=== PATIENT | female | born 1955 | race Caucasian/White ===

== ENCOUNTER 2020-10-23 09:28 | Emergency (ER) | payer MEDICARE, SELFPAY ==
[2020-10-23 09:40] VITALS: BP 130/58; PULSE 73; RESP 14; TEMP 37.1; O2SAT 93; BMI 46.3
--- NOTE | 2020-10-23 09:45 | ED_ITS ---
HPI - SOB/Dyspnea General Chief Complaint: Dyspnea Stated Complaint: FEVER,VOMITING 'S 2 DAYS, ? COVID Time Seen by Provider: 10/23/20 09:35 Source: patient Limitations: no limitations History of Present Illness HPI Narrative: 3 days of fever, cough, SOB, and chest pain going to left arm. Patient denies exposure to COVID MD elicited complaint: shortness of breath, pain with inspiration and chest pain Pertinent past history: COPD and asthma Onset (ago): day(s) Context: recent illness Timing: intermittent Severity: moderate Exacerbating factors: movement Known history of: COPD and asthma Associated symptoms: fever and cough Related Data Allergies Allergy/AdvReac Type Severity Reaction Status Date / Time No Known Allergies Allergy Unknown UNKNOWN Verified 10/23/20 09:45 [NO KNOWN ALLERGIES] Review of Systems Constitutional: Constitutional: Reports no additional constitutional complaints Eyes: Eyes: Reports no additional eye complaints ENT: Denies dizziness Cardiovascular: Cardiovascular: Reports no additional cardiovascular complaints Respiratory: Respiratory: Reports as per HPI Gastrointestinal: Gastrointestinal: Reports no additional gastrointestinal complaints Genitourinary: Genitourinary: Reports no additional female genitourinary complaints Musculoskeletal: Musculoskeletal: Reports no additional musculoskeletal complaints Integumentary/Breasts: Skin/Breast: Denies rash Neurologic: Reports system reviewed and no additional complaints, except as documented, Denies dizziness and Denies Sensory deficit (Neuro) Psychiatric: Psychiatric: Denies anxiety [facility] Past Medical History Medical History (Updated 10/23/20 @ 12:22 by Nilton Lui MD) Asthma Diabetes type 2, controlled Hypertension Sleep apnea Social History Social History Advance Directives: No Advance Directives Information Provided: No Physical Exam Vital Signs: Vital Signs: Last Vital Signs Temp 98.8 F 10/23/20 09:40 Pulse 73 10/23/20 09:40 Resp 14 10/23/20 09:40 BP 130/58 L 10/23/20 09:40 Pulse Ox 93 10/23/20 09:40 Body Mass Index 46.3 Const: Other: female looking older than stated age slightly short of breath Nutritional Appearance: obese Orientation/consciousness: oriented to person and patient oriented x3 Limitations: no limitations HENMT: Head: Yes normal to inspection Ears: external ears normal General nose exam: Normal external nose present Mouth: Normal oral and palatal mucosa present and oropharynx normal Throat: Yes posterior oropharynx normal Eyes: General: appearance normal, both eyes and all related structures Neck: Other: supple Neck: Yes normal visual inspection Chest: Chest palpation & inspection: normal inspection of the chest Resp: Auscultation: clear to auscultation bilaterally Cardio: Jugular venous distension: no JVD Rate: regular rate Rhythm: regular rhythm Heart sounds: S1 normal heart sound present and S2 normal heart sound present GI: Inspection: Yes normal to inspection Palpation (GI): Soft to palpation, nontender and No hepatosplenomegaly present Auscultation: normal bowel sounds : General: Yes no CVA tenderness Back/Spine/Pelvis: Back: no CVA tenderness Skin: General skin exam: no rashes or lesions noted Neuro: General: oriented to person and patient oriented x3 Cranial nerves: Yes CN's II-XII intact bilaterally Motor exam (neuro): 5/5 motor strength present throughout Sensory Exam: No Sensory deficit (Neuro) Extrem: General: Yes normal to inspection Psych: Appearance: grossly normal Course Course Course Narrative: patient resting comfortably, room air O2 has been hovering around 92-93% MDM - SOB/Dyspnea MDM Narrative Medical decision making narrative: Patient with viral/COVID type symptoms. Initial xray negative and negative for flu, SARS etc. Will dc home but patient will remain on quarantine Differential Diagnosis Differential diagnosis: Likely acute exacerbation of chronic obstructive airways disease Lab Data Result diagrams: 10/23/20 10:45 10/23/20 10:45 Labs: Lab Results 10/23/20 10/23/20 10/23/20 Range/Units 10:45 10:45 10:45 WBC 6.7 (4.8-10.8) X10*3/uL RBC 4.76 (4.20-5.50) X10*6/uL Hgb 12.2 (12.0-16.0) g/dl Hct 39.3 (37-47) % MCV 82.6 (80-98) fL MCH 25.6 L (27.0-33.0) pg MCHC 31.0 (31.0-35.0) g/dl RDW 15.8 (11.0-16.0) % Plt Count 277 (160-400) X10*3/uL MPV 10.3 (9.4-12.3) fL Immature Gran % (Auto) 0.3 (0.0-0.4) % Neut % (Auto) 53.9 (45-73) % Lymph % (Auto) 37.0 (20-40) % Garfield % (Auto) 6.0 (2-11) % Eos % (Auto) 2.2 (0-4) % Baso % (Auto) 0.6 (0-2) % Lymph # (Auto) 2.5 (1.2-4.9) X10*3/uL Garfield # (Auto) 0.4 (0.1-1.2) X10*3/uL Eos # (Auto) 0.2 (0.0-0.4) X10*3/uL Baso # (Auto) 0.0 (0.0-0.2) X10*3/uL Abs Immat Gran (auto) 0.02 (0.00-0.03) X10*3/uL Absolute Neuts (auto) 3.6 (2.0-8.3) X10*3/uL Absolute Nucleated RBC 0.000 (0.0-0.012) X10*3/uL Nucleated RBC % (auto) 0.0 (0.0-0.2) /100WBC Sodium 140 (135-145) mmol/L Potassium 4.9 (3.3-5.1) mmol/l Chloride 105 (96-108) mmol/L Carbon Dioxide 28 (22-29) mmol/L Anion Gap 12 (12-20) BUN 11 (9-16) mg/dL Creatinine 0.73 (0.5-1.4) mg/dL Estim Creat Clear Calc 97.8 Estimated GFR > 60 Random Glucose 134 H (60-115) mg/dL Calcium 9.0 (8.4-10.2) mg/dL Troponin I High Sens (<3.5-17.0) ng/L Coronavirus (PCR) NEGATIVE (Negative) Influenza Type A (PCR) NEGATIVE (Negative) Influenza Type B (PCR) NEGATIVE (Negative) RSV RNA Qual (PCR) NEGATIVE (Negative) 10/23/20 Range/Units 10:45 WBC (4.8-10.8) X10*3/uL RBC (4.20-5.50) X10*6/uL Hgb (12.0-16.0) g/dl Hct (37-47) % MCV (80-98) fL MCH (27.0-33.0) pg MCHC (31.0-35.0) g/dl RDW (11.0-16.0) % Plt Count (160-400) X10*3/uL MPV (9.4-12.3) fL Immature Gran % (Auto) (0.0-0.4) % Neut % (Auto) (45-73) % Lymph % (Auto) (20-40) % Garfield % (Auto) (2-11) % Eos % (Auto) (0-4) % Baso % (Auto) (0-2) % Lymph # (Auto) (1.2-4.9) X10*3/uL Garfield # (Auto) (0.1-1.2) X10*3/uL Eos # (Auto) (0.0-0.4) X10*3/uL Baso # (Auto) (0.0-0.2) X10*3/uL Abs Immat Gran (auto) (0.00-0.03) X10*3/uL Absolute Neuts (auto) (2.0-8.3) X10*3/uL Absolute Nucleated RBC (0.0-0.012) X10*3/uL Nucleated RBC % (auto) (0.0-0.2) /100WBC Sodium (135-145) mmol/L Potassium (3.3-5.1) mmol/l Chloride (96-108) mmol/L Carbon Dioxide (22-29) mmol/L Anion Gap (12-20) BUN (9-16) mg/dL Creatinine (0.5-1.4) mg/dL Estim Creat Clear Calc Estimated GFR Random Glucose (60-115) mg/dL Calcium (8.4-10.2) mg/dL Troponin I High Sens 6.5 (<3.5-17.0) ng/L Coronavirus (PCR) (Negative) Influenza Type A (PCR) (Negative) Influenza Type B (PCR) (Negative) RSV RNA Qual (PCR) (Negative) ECG Data Attestation: I personally reviewed and interpreted this ECG as follows: Interpretation: sinus rate of 60, no st or twave changes Discharge Plan Discharge Clinical Impression: Acute exacerbation of chronic obstructive airways disease, Upper respiratory infection, viral, COVID-19 Patient Disposition: Home, Self-Care Instructions: COVID-19 (Coronavirus Disease 2019) (ED), Upper Respiratory Infection (ED), Viral Syndrome (ED) Additional Instructions: Please stay in quarantine for the next 10 days Referrals: Physician,Unknown [Primary Care Provider] - 2 days
--- NOTE | 2020-10-23 09:48 | ECG_ITS ---
Test Reason : CHEST TIGHT Blood Pressure : / mmHG Vent. Rate : 061 BPM Atrial Rate : 061 BPM P-R Int : 140 ms QRS Dur : 086 ms QT Int : 396 ms P-R-T Axes : 048 -25 030 degrees QTc Int : 398 ms Normal sinus rhythm Moderate voltage criteria for LVH, may be normal variant Borderline ECG When compared with ECG of 22-AUG-2020 16:02, No significant change was found Referred By: Nilton Lui Electronically Signed By:MAYDA GIFFORD MD
--- NOTE | 2020-10-23 09:49 | XR_ITS ---
EXAMINATION: XR CHEST CLINICAL INFORMATION: Shortness of breath. COMPARISON: Chest 08/22/2020 TECHNIQUE: Frontal view of the chest was obtained. FINDINGS: The lungs are well-expanded and clear acute process. The heart size and pulmonary vascularity is normal. There is mild dextroscoliosis with spondylosis dorsal spine. No lytic process seen. XR/XR chest 1V IMPRESSION: Unremarkable chest exam. Mild dextroscoliosis and mild spondylosis dorsal spine.
--- NOTE | 2020-10-23 10:51 | PC.NURSE ---
ARRIVES FROM HOME, C/O SOB AND CHEST TIGHTNESS, INTERMITTENT L ARM PAIN. HX ASTHMA, SLEEP APNEA. NO KNOWN COVID EXPOSURE. NSR ON MONITOR, 89-93% ON RA. PLACED ON 1L O2.. LS CLEAR THROUGHOUT, RESP EVEN, SLIGHTLY LABOURED. NO LE SWELLING. LABS DRAWN, 20G IN L FOREARM.
[2020-10-23 10:54] LABS: MANUAL DIFF FLAG NO
[2020-10-23 11:01] LABS: Basophils Percent Auto 0.6 % (0-2); Eosinophils Absolute Auto 0.2 X10*3/uL (0.0-0.4); Eosinophils Percent Auto 2.2 % (0-4); Hematocrit 39.3 % (37-47); Hemoglobin 12.2 g/dl (12.0-16.0); Imm Gran Abs Auto 0.02 X10*3/uL (0.00-0.03); Imm Gran Pct Auto 0.3 % (0.0-0.4); Lymphocytes Absolute Auto 2.5 X10*3/uL (1.2-4.9); Mean Corpuscular Hemoglobin 25.6 pg (27.0-33.0); Mean Corpuscular Volume 82.6 fL (80-98); Mean Platelet Volume 10.3 fL (9.4-12.3); Monocytes Absolute Auto 0.4 X10*3/uL (0.1-1.2); Neutrophils Absolute Auto 3.6 X10*3/uL (2.0-8.3); Neutrophils Percent Auto 53.9 % (45-73); Platelet Count 277 X10*3/uL (160-400); Red Blood Count 4.76 X10*6/uL (4.20-5.50); Red Cell Distribution Width 15.8 % (11.0-16.0); White Blood Count 6.7 X10*3/uL (4.8-10.8)
[2020-10-23 11:22] LABS: Anion Gap 12 (12-20); Blood Urea Nitrogen 11 mg/dL (9-16); Carbon Dioxide 28 mmol/L (22-29); Chloride 105 mmol/L (96-108); Creatinine Clr Calc Pharmacy 97.8; Estimated Glomerular Filt Rate > 60; Glucose Random 134 mg/dL (60-115); Potassium 4.9 mmol/l (3.3-5.1); Sodium 140 mmol/L (135-145)
[2020-10-23 11:26] LABS: Troponin-I High Sensitivity 6.5 ng/L (<3.5-17.0)
[2020-10-23 11:48] LABS: Influenza A PCR NEGATIVE (Negative); Influenza B PCR NEGATIVE (Negative); Resp Syncy Virus RNA Qual PCR NEGATIVE (Negative); SARS COV2 PCR INHOUSE NEGATIVE (Negative)
--- NOTE | 2020-10-23 12:30 | PC.NURSE ---
trialed spo2 while ambulating with pt, spo2 on RA reached up to 95%. Pt reported feeling better, pains resolved. Reassured of her bloodwork and tests.
== END 2020-10-23 13:00 | disposition home or self-care (01) ==
PROVIDERS: Emergency Provider Emergency Medicine
DX: J44.1 Chronic obstructive pulmonary disease with (acute) exacerbation (principal); J06.9 Acute upper respiratory infection, unspecified; R50.9 Fever, unspecified; R07.9 Chest pain, unspecified; M79.602 Pain in left arm; I10 Essential (primary) hypertension; E11.9 Type 2 diabetes mellitus without complications; Z20.828 Contact with and (suspected) exposure to other viral communicable diseases; Z79.899 Other long term (current) drug therapy
CPT/HCPCS: 0241U; 36415; 71045; 80048; 84484; 85025; 93005; 99283

== ENCOUNTER 2021-03-22 11:25 | Emergency (ER) | payer MEDICARE, SELFPAY ==
--- NOTE | ~2021-03-22 | XR_ITS ---
EXAMINATION: XR CHEST CLINICAL INFORMATION: Cough COMPARISON: Chest radiographs 10/23/2020, 08/22/2020; CT abdomen and pelvis 08/22/2020 TECHNIQUE: Portable upright AP view of the chest was obtained. FINDINGS: There is subtle opacity at left medial base likely related to the hiatal hernia noted on CT. Some horizontal density left infrahilar region corresponds to calcified costal cartilage on CT. The lungs are otherwise grossly clear and there is no lobar or segmental airspace consolidation or definite groundglass opacity. No air bronchograms. The costophrenic sulci are well-defined. The cardiac and hilar and mediastinal contours and bony structures are unremarkable. XR/XR chest 1V IMPRESSION: 1. Lungs grossly clear. 2. Density overlying heart related to costal cartilage calcification and hiatal hernia.
--- NOTE | 2021-03-22 11:40 | ED.URI ---
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 Mode of arrival: EMS Limitations: no limitations History of Present Illness HPI Narrative: 65 yo female with DM, asthma has inhaler at home last night noted increased wheezing, chills, cough with sputum production had her 2 COVID vaccines reports this feels like her prior bronchitis MD elicited complaint: cough Pertinent past history: asthma Onset (ago): day(s) (last night) Consistency: constant Severity: mild Able to tolerate fluids by mouth: Yes Exacerbating factors: other (coughing) Context: other(s) with similar symptoms Associated symptoms: chills, myalgias, cough and chest pain (only when she coughs) Treatments prior to arrival: other (used her inhaler with good relief) Related Data Previous Rx's Medication Instructions Recorded benzonatate [Tessalon Perles] 100 mg PO TID PRN #20 cap 03/22/21 doxycycline hyclate 100 mg PO BID 7 Days #14 cap 03/22/21 prednisone 40 mg PO DAILY 5 Days #10 tab 03/22/21 Allergies Allergy/AdvReac Type Severity Reaction Status Date / Time No Known Allergies Allergy Unknown UNKNOWN Verified 10/23/20 09:45 [NO KNOWN ALLERGIES] Review of Systems Review of Systems: Constitutional : No Fever, pos Chills ENT/Mouth : No Hoarseness, No sore throat, No Rhinorrhea Eyes: No Redness, No Discharge, No Vision Changes Cardiovascular : pos Chest Pain, positive SOB, positive Dyspnea on Exertion, No Edema Respiratory : positive Cough, pos Sputum, positive Wheezing, Gastrointestinal : No Nausea, No Vomiting, No Diarrhea, No abdominal Pain Genitourinary : No Dysuria, No Hematuria Musculoskeletal : No joint pain, No Myalgias Skin : No rash Neuro : No Weakness, No Numbness, No Headache Psych : No anxiety, depression Heme/Lymph: No Bruising, No Bleeding Endocrine : No Polyuria, No Polydipsia All other systems reviewed and are negative [facility] Past Medical History Attestation statement: The following information was validated with the patient. Medical History Asthma Diabetes type 2, controlled Hypertension Sleep apnea Social History Social History (Updated 03/22/21 @ 12:15 by Jada Palumbo DO) Smoking Status: Never smoker Use of substances other than those prescribed or required for medical reasons: No Advance Directives: Yes Advance Directives Information Provided: Yes Advance Directives on File: No Physical Exam Vital Signs: Vital Signs: Last Vital Signs Temp 96.8 F 03/22/21 12:37 Pulse 66 03/22/21 12:37 Resp 18 03/22/21 12:37 BP 127/51 L 03/22/21 12:37 Pulse Ox 94 03/22/21 12:37 Body Mass Index 34.3 Appearance: Alert. Oriented X3. No acute distress. Eyes: Pupils equal, round and reactive to light. ENT: Pharynx normal. Neck: Normal inspection. Neck supple. CVS: Normal heart rate and rhythm. Pulses normal. Respiratory: No respiratory distress. Breath sounds normal. Abdomen: Soft and nontender. Skin: Skin warm and dry. Normal skin color. Normal skin turgor. Extremities: No lower extremity edema. No calf ttp Neuro: Oriented X 3. No motor deficit. No sensory deficit. Course Course Course Narrative: no acute findings on CXR and negative COVID MDM - URI/Sore Throat MDM Narrative Medical decision making narrative: 65 yo female with hx of asthma and DM here with productive cough, body aches, chills feels like when she has bronchitis - at this time faint rhonchi no wheezing, no resp distress, chest pain is only present with cough doubt PE or ACS, start on anti tussive and prednisone - CXR and COVID swab ordered Lab Data Labs: Lab Results 03/22/21 Range/Units 12:03 Coronavirus (PCR) NEGATIVE (Negative) Influenza Type A (PCR) NEGATIVE (Negative) Influenza Type B (PCR) NEGATIVE (Negative) RSV RNA Qual (PCR) NEGATIVE (Negative) Discharge Plan Discharge Clinical Impression: Bronchitis Patient Disposition: Home, Self-Care Instructions: Acute Bronchitis (ED) Additional Instructions: REPEAT CHEST XRAY IN ONE WEEK Prescriptions: New doxycycline hyclate 100 mg capsule 100 mg PO BID 7 Days Qty: 14 RF: 0 prednisone 20 mg tablet 40 mg PO DAILY 5 Days Qty: 10 RF: 0 benzonatate [Tessalon Perles] 100 mg capsule 100 mg PO TID PRN (Reason: cough) Qty: 20 RF: 0 Print Language: Turkish
[2021-03-22 11:44] VITALS: BP 122/59; BP 135/60; PULSE 67; PULSE 71; RESP 17; TEMP 36.2; O2SAT 96; O2SAT 97; BMI 34.3
[2021-03-22 11:59] VITALS: O2SAT 96
[2021-03-22] MEDS: predniSONE 20 MG TABLET 40 MG PO (12:00)
[2021-03-22] MEDS: HYDROcodone/Homat 5/1.5/5 ML 5 ML SYRUP PO (12:01)
[2021-03-22 12:37] VITALS: BP 127/51; PULSE 66; RESP 18; TEMP 36; O2SAT 94
[2021-03-22 12:50] LABS: Influenza A PCR NEGATIVE (Negative); Influenza B PCR NEGATIVE (Negative); Resp Syncy Virus RNA Qual PCR NEGATIVE (Negative); SARS COV2 PCR INHOUSE NEGATIVE (Negative)
[2021-03-22 13:48] VITALS: BP 101/45; PULSE 61; RESP 18; TEMP 34.6; O2SAT 93
== END 2021-03-22 14:01 | disposition home or self-care (01) ==
PROVIDERS: Emergency Provider Emergency Medicine; PCP Internal Medicine
DX: J20.8 Acute bronchitis due to other specified organisms (principal); M79.10 Myalgia, unspecified site; R05 Cough; Z20.822 Contact with and (suspected) exposure to COVID-19; Z79.899 Other long term (current) drug therapy
CPT/HCPCS: 0241U; 36415; 71045; 99284

== ENCOUNTER → 2021-04-23 11:18 | Outpatient (BNVA) | payer OTHER, SELFPAY | PROVIDERS: PCP Internal Medicine; Visit Provider Internal Medicine Pulmonary Disease | DX: R06.00 Dyspnea, unspecified (principal); G47.30 Sleep apnea, unspecified | CPT/HCPCS: 99202 ==

== ENCOUNTER 2021-05-18 10:41 | Outpatient (REF) | payer OTHER, MEDICAID, SELFPAY ==
--- NOTE | 2021-05-18 16:37 | PFT_ITS ---
INDICATION: Dyspnea. COMMENTS: The patient was unable to perform multiple parts of the study despite multiple attempts and redirection. The patient did feel some chest discomfort during the maneuvers and did not want to continue the test. SPIROMETRY: No data collected. LUNG VOLUMES: FVC of 2.28 L, which is 78% predicted, an ERV of 14% predicted likely from an elevated BMI. Diffusion capacity could not be achieved. COMPARISONS: None. INTERPRETATION: Unable to interpret data due to the limited data available, although the patient appears to have a significantly decreased expiratory reserve volume secondary to an elevated BMI. Clinical correlation warranted. Angel Montague MD MR/MODL / [id number]
== END 2021-05-18 10:42 | disposition home or self-care (01) ==
LOC: HO.RESP 10:41
PROVIDERS: PCP Internal Medicine; Visit Provider Internal Medicine Pulmonary Disease
DX: Z13.89 Encounter for screening for other disorder (principal)

== ENCOUNTER → 2021-05-28 09:48 | Outpatient (REF) | payer OTHER, MEDICAID, SELFPAY | LOC: HO.SL 09:48 | PROVIDERS: PCP Internal Medicine; Visit Provider Internal Medicine Pulmonary Disease | DX: G47.30 Sleep apnea, unspecified (principal) | CPT/HCPCS: 95806 ==

== ENCOUNTER → 2021-06-18 13:11 | Outpatient (REF) | payer OTHER, MEDICAID, SELFPAY ==
--- NOTE | 2021-06-18 13:15 | CA_ITS ---
Transthoracic Echocardiogram Patient (Last, First, Middle): Treva Abbott M Gender: Female Date of : 1955 Age: 65 Procedure Date: 06/18/2021 Procedure Type: Transthoracic Echocardiogram Location: OP Height: 167.64 cm Weight: 99.79 kg BSA: 2.08 m2 Heart Rate: bpm BP: 160 / 56 mmHg Database Coordinator: [facility] MD: Nathanael Shields MD [employer] Portal Developer: Wilber Ladd MD Symptoms: R06.00 - Dyspnea, unspecified Study Quality: Fair ECG Rhythm: Sinus Conclusions: - 1. Hyperdynamic LV systolic function with impaired relaxation filling pattern 2. Normal cardiac valvular Doppler with mild mitral and calcification 3. Normal RV systolic pressure 4. No pericardial effusion Findings Left Ventricle Normal left ventricular cavity size. There is normal left ventricular wall thickness. The left ventricular systolic function is hyperdynamic. The visually estimated ejection fraction is >70%. Spectral Doppler is indicative of an impaired relaxation filling pattern. E/E prime ratio is between 8 and 15 consistent with indeterminate filling pressures. Right Ventricle Normal right ventricular cavity size and systolic function. Atria The left atrium is likely dilated. There is no evidence of interatrial shunt. The right atrium is normal in size. Aortic Valve The aortic valve structure and function is likely normal. There is no aortic valve stenosis. There is no aortic valve regurgitation. Mitral Valve There is mild anterior and moderate posterior mitral leaflet thickening. There is mild mitral annular calcification. There is trace mitral valve regurgitation. There is no mitral valve stenosis. Pulmonic Valve The pulmonic valve was not well visualized. Tricuspid Valve Likely normal tricuspid valve structure and function. There is trace tricuspid valve regurgitation. The right ventricular systolic pressure is normal. The right ventricular systolic pressure is 29 mmHg. Normal right atrial pressure. There is no evidence of pulmonary hypertension. Great Vessels All visible segments of the aorta are normal in size. The pulmonary artery was not well visualized. Venous The inferior vena cava is normal in size and collapses greater than 50% with inspiration. Pericardium/Pleural There is no evidence of pericardial effusion. Prior Study Comparison No previous study in the last 5 years for comparison Measurements 2D Linear Measurements RVIDd: 2.80 RVIDd Index: 1.35 IVSd: 1.19 0.6-0.9/0.6-1.0 cm LVIDd: 4.68 3.9-5.3/4.2-5.9 cm LVIDd Index: 2.25 2.4-3.2/2.2-3.1 cm/m2 LVIDs: 3.42 2.0-3.6 cm LVPWd: 1.01 0.7-1.1 cm Ao Root: 2.90 2.1-3.5 cm LA Diam: 3.90 2.7-3.8/3.0-4.0 cm LAIDs Index: 1.88 1.5-2.3 cm/m2 LV Mass: 232.08 67-162/88-224 g LV Mass Index: 111.58 43-95/49-115 g/m2 LVOT Diam: 2.00 3.0+(-)1.3 cm 2D Systolic Function EF 4C: 81.60 >55% EF 2C: 78.50 >55% EF BiP: 79.10 >55% Mitral Valve MV Pk E: 0.73 MV PK A: 0.97 MV Decel Time: 295.00 E/A: 0.80 E'Lateral: 8.27 E'Medial: 5.66 E/E' Med: 13.00 E/E' Lat: 8.90 Aortic Valve AoV Pk Trino: 2.11 AoV Mn Trino: 1.32 AoV VTI: 0.37 AoV Pk Grad: 18.00 Aov Mn Grad: 8.00 EDY Cont.VTI: 2.84 LVOT LVOT Pk Trino: 1.61 LVOT Mn Trino: 1.02 LVOT VTI: 0.34 LVOT Pk Grad: 10.00 LVOT Mn Grad: 5.00 LVOT Diam: 2.00 LVOT Area: 3.14 Diastolic Function MV Pk E: 0.73 MV Pk A: 0.97 E/A: 0.80 E'Medial: 5.66 E/E' Med: 13.00 E' Laterial: 8.27 E/E' Lat: 8.90 Tricuspid Valve TR Pk Trino: 2.55 TR Pk Grad: 26.00 RA Press: 3.00 RVSP: 29.00 Great Vessels Aorta Ao Root-2D: 2.90 2.0-3.7 cm Ao Asc: 3.00 2.1-3.4 cm Ao Arch: 3.20 Updated in Other Vendor System with Status of Final Wilber Ladd MD electronically signed on 06/20/2021 11:13:17 AM with status of Final
== END ==
LOC: HO.CARD 13:11
PROVIDERS: PCP Internal Medicine; Visit Provider Internal Medicine Pulmonary Disease
DX: R06.00 Dyspnea, unspecified (principal)
CPT/HCPCS: 93306

== ENCOUNTER → 2021-06-21 11:07 | Outpatient (BNVA) | payer OTHER, MEDICAID, SELFPAY | PROVIDERS: PCP Internal Medicine; Visit Provider Internal Medicine Pulmonary Disease | DX: R06.00 Dyspnea, unspecified (principal); G47.30 Sleep apnea, unspecified | CPT/HCPCS: 99212 ==

== ENCOUNTER 2021-07-02 16:26 | Outpatient (REF) | payer MEDICARE, SELFPAY ==
--- NOTE | ~2021-07-02 | XR_ITS ---
EXAMINATION: XR CHEST CLINICAL INFORMATION: Bronchitis. COMPARISON: None TECHNIQUE: 2 views of the chest were obtained. FINDINGS: The lungs are well-expanded and clear. The heart size and pulmonary vascularity is normal. There is mild spondylosis dorsal spine. No lytic process. XR/XR chest 2V IMPRESSION: Unremarkable chest exam.
== END 2021-07-02 16:27 | disposition home or self-care (01) ==
LOC: HO.XRAY 16:26
PROVIDERS: PCP Internal Medicine; Visit Provider Internal Medicine
DX: J40 Bronchitis, not specified as acute or chronic (principal)
CPT/HCPCS: 71046

== ENCOUNTER 2021-07-20 08:10 | Outpatient (REF) | payer MEDICARE, SELFPAY ==
--- NOTE | ~2021-07-20 | XR_ITS ---
EXAMINATION: AP WEIGHTBEARING BOTH KNEES AND LATERAL AND SUNRISE VIEWS OF BOTH KNEES CLINICAL INFORMATION: Pain greater on the left COMPARISON: None TECHNIQUE: As above FINDINGS: Right greater than left medial tibial femoral joint compartment narrowing. Generalized bulky marginal osteophytes. No effusion on either side but there is relatively symmetrical patellofemoral joint degeneration greater on the left than right. Bulky spurring noted. 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 Overall very advanced disease noted.
--- NOTE | ~2021-07-20 | XR_ITS ---
EXAMINATION: AP WEIGHTBEARING BOTH KNEES AND LATERAL AND SUNRISE VIEWS OF BOTH KNEES CLINICAL INFORMATION: Pain greater on the left COMPARISON: None TECHNIQUE: As above FINDINGS: Right greater than left medial tibial femoral joint compartment narrowing. Generalized bulky marginal osteophytes. No effusion on either side but there is relatively symmetrical patellofemoral joint degeneration greater on the left than right. Bulky spurring noted. 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 Overall very advanced disease noted.
--- NOTE | ~2021-07-20 | XR_ITS ---
EXAMINATION: AP WEIGHTBEARING BOTH KNEES AND LATERAL AND SUNRISE VIEWS OF BOTH KNEES CLINICAL INFORMATION: Pain greater on the left COMPARISON: None TECHNIQUE: As above FINDINGS: Right greater than left medial tibial femoral joint compartment narrowing. Generalized bulky marginal osteophytes. No effusion on either side but there is relatively symmetrical patellofemoral joint degeneration greater on the left than right. Bulky spurring noted. 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 Overall very advanced disease noted.
== END 2021-07-20 08:11 | disposition home or self-care (01) ==
LOC: HO.HOSX 08:10
PROVIDERS: Visit Provider Physician Assistant
DX: M17.0 Bilateral primary osteoarthritis of knee (principal)
CPT/HCPCS: 20610; 73560; 73565; 99202; J1020

== ENCOUNTER 2021-08-04 19:21 | Emergency (ER) | payer MEDICARE, SELFPAY ==
--- NOTE | ~2021-08-04 | XR_ITS ---
EXAMINATION: PORTABLE CHEST 1 VIEW CLINICAL INFORMATION: chest pain . COMPARISON: 07/02/2021. TECHNIQUE: Portable frontal view of the chest was obtained. FINDINGS: Lungs well-expanded with chronic appearing reticular markings again seen similar to the prior study. There is however some subtle increased markings at the left base partially obscuring the left hemidiaphragm more likely due to atelectasis. Early retrocardiac left lower lobe infiltrate cannot be excluded. No significant effusion or pneumothorax. Cardiac silhouette within normal limits for size. Vascular calcification in aorta. No acute bony abnormality seen. XR/XR chest 1V IMPRESSION: Although there are chronic appearing changes present, there are slightly increased markings more so at the retrocardiac left lower lobe partially obscuring the medial aspect of the left hemidiaphragm. This could represent a component of atelectasis although early infiltrate cannot be excluded. Clinical correlation and follow-up may be helpful.
--- NOTE | 2021-08-04 19:30 | ECG_ITS ---
Test Reason : DYSPNEA Blood Pressure : / mmHG Vent. Rate : 060 BPM Atrial Rate : 060 BPM P-R Int : 138 ms QRS Dur : 084 ms QT Int : 404 ms P-R-T Axes : 038 -24 020 degrees QTc Int : 404 ms Normal sinus rhythm Voltage criteria for left ventricular hypertrophy Abnormal ECG When compared with ECG of 23-OCT-2020 10:59, No significant change was found Referred By: Merly Hernandez Electronically Signed By:ARTURO SALINAS
--- NOTE | 2021-08-04 19:38 | ED_ITS ---
HPI - SOB/Dyspnea General Chief Complaint: Upper Respiratory Symptoms Stated Complaint: chest pain Time Seen by Provider: 08/04/21 19:30 Source: patient, EMS, RN notes reviewed and old records reviewed Mode of arrival: EMS Limitations: language barrier History of Present Illness HPI Narrative: 65 y/o female with history of O2 dependent COPD (2L), LACY, osteoarthritis, DM who presents to the ER with entire body aches and pains as well as SOB that started this morning. She lives home alone. She states she is more short of breath than usual, especially with exertion and when laying flat. She is coughing more than usual but not bringing up any phlegm. She denies fevers but has been having chills all day. She is fully vaccinated against COVID-19 and had the disease last year. She has no known sick contact. MD elicited complaint: shortness of breath and cough Pertinent past history: COPD and diabetes Onset (ago): day(s) Timing: constant Severity: moderate Exacerbating factors: lying flat and exertion Relieving factors: oxygen and rest Known history of: COPD Associated symptoms: chest pain, fever, cough, sputum production and chest congestion Treatment prior to arrival: oxygen Related Data Home oxygen amount: 2 liters Previous Rx's Medication Instructions Recorded benzonatate 100 mg capsule 100 mg PO TID PRN #20 cap 03/22/21 (Teselvira Elizondo) doxycycline hyclate 100 mg capsule 100 mg PO BID 7 Days #14 cap 03/22/21 prednisone 20 mg tablet 40 mg PO DAILY 5 Days #10 tab 03/22/21 furosemide 40 mg tablet (Lasix) 40 mg PO QAM 30 Days #30 tab 04/23/21 umeclidinium 62.5 mcg-vilanterol 1 inh INHALATION DAILY 30 Days #1 04/23/21 25 mcg/actuation powdr for ea inhalation (Anoro Ellipta) amoxicillin 875 mg-potassium 1 tab PO BID #14 tab 08/04/21 clavulanate 125 mg tablet (Augmentin) azithromycin 250 mg tablet See Rx Instructions .ROUTE 08/04/21 (Zithromax Z-Benjy) .COMPLEX #6 tab prednisone 20 mg tablet 40 mg PO DAILY #10 tab 08/04/21 Allergies Allergy/AdvReac Type Severity Reaction Status Date / Time No Known Allergies Allergy Unknown UNKNOWN Verified 07/20/21 10:35 [NO KNOWN ALLERGIES] Review of Systems Constitutional: Constitutional: Reports chills, Denies fever(s), Denies frequent falls and Denies headache(s) ENT: Denies headache(s), Denies neck pain and Denies sore throat Cardiovascular: Cardiovascular: Reports chest pain, Reports chest pain at rest, Reports chest pain with activity, Denies edema, Reports lightheadedness, Denies palpitations, Reports dyspnea, Reports dyspnea on exertion, Reports orthopnea and Denies paroxysmal nocturnal dyspnea Respiratory: Respiratory: Reports chest congestion, Reports cough, Denies hemoptysis, Reports pain with cough, Reports dyspnea, Reports dyspnea on exertion and Denies wheezing Gastrointestinal: Gastrointestinal: Denies abdominal pain, Denies diarrhea, Denies nausea and Denies vomiting Genitourinary: Genitourinary: Denies dysuria Musculoskeletal: Musculoskeletal: Reports back pain, Reports myalgias and Denies neck pain Integumentary/Breasts: Skin/Breast: Denies rash Neurologic: Denies frequent falls and Denies headache(s) Psychiatric: Psychiatric: Reports anxiety Endocrine: Endocrine: Denies palpitations Hematologic/Lymphatic: Hematologic/Lymphatic: Denies easy bleeding and Denies easy bruising Allergic/Immunologic: Allergic/Immunologic: Denies wheezing PMFSH Past Medical History Medical History Asthma Diabetes type 2, controlled Hypertension Sleep apnea Social History Social History (Updated 07/20/21 @ 10:36 by Shanel Huddleston) Advance Directives: Yes Advance Directives on File: Yes Advance Directives Date on File: 03/22/21 Current occupational status: disabled 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 Oriented X3. No acute distress. Eyes: Pupils equal, round and reactive to light. ENT: Pharynx normal. Neck: Normal inspection. Neck supple. CVS: Normal heart rate and rhythm. Pulses normal. Respiratory: No respiratory distress. Breath sounds with bibasilar coarseness. No wheezing. Abdomen: Obese, Soft and nontender. +BS x4 Skin: Skin warm and dry. Normal skin color. Normal skin turgor. No rashes. Extremities: No lower extremity edema. Soft tissue tenderness to all 4 extremities without skin changes or swelling. Neuro: Oriented X 3. No motor deficit. No sensory deficit. Course Course Course Narrative: 65 y/o female with history of COPD on 2L NC presents to the ER with body aches, cough and SOB that started today. She is non-toxic appearing, breathing comfortably. She is saturating well on her baseline 2L. She is tender everywhere, no signs of trauma. Reports diffuse muscle aches. Will check EKG, basic labs, CXR and COVID swab. Reevaluation(s) Reevaluation #1: Labs are unremarkable. EKG unchanged and troponin negative. CXR shows a possible LLL early infiltrate. No wheezing or rhonchi on exam. No resp distress. Given her symptoms will start treatment for CAP. Will have her f/u with PCP early next week. Stable for discharge home with PO abx and prednisone. MDM - SOB/Dyspnea Lab Data Attestation: I reviewed the patient's lab results. Result diagrams: 08/04/21 20:26 08/04/21 20:26 Labs: Lab Results 08/04/21 08/04/21 08/04/21 Range/Units 20:26 20:26 20:26 WBC 7.8 (4.8-10.8) X10*3/uL RBC 4.50 (4.20-5.50) X10*6/uL Hgb 12.2 (12.0-16.0) g/dl Hct 37.8 (37-47) % MCV 84.0 (80-98) fL MCH 27.1 (27.0-33.0) pg MCHC 32.3 (31.0-35.0) g/dl RDW 14.2 (11.0-16.0) % Plt Count 227 (160-400) X10*3/uL MPV 10.5 (9.4-12.3) fL Immature Gran % (Auto) 0.1 (0.0-0.4) % Neut % (Auto) 48.6 (45-73) % Lymph % (Auto) 41.8 H (20-40) % Bethel % (Auto) 5.9 (2-11) % Eos % (Auto) 3.2 (0-4) % Baso % (Auto) 0.4 (0-2) % Lymph # (Auto) 3.3 (1.2-4.9) X10*3/uL Bethel # (Auto) 0.5 (0.1-1.2) X10*3/uL Eos # (Auto) 0.3 (0.0-0.4) X10*3/uL Baso # (Auto) 0.0 (0.0-0.2) X10*3/uL Abs Immat Gran (auto) 0.01 (0.00-0.03) X10*3/uL Absolute Neuts (auto) 3.8 (2.0-8.3) X10*3/uL Absolute Nucleated RBC 0.000 (0.0-0.012) X10*3/uL Nucleated RBC % (auto) 0.0 (0.0-0.2) /100WBC PT (9.9-13.0) SEC INR (0.9-1.1) APTT (24.1-38.0) SEC Sodium 142 (135-145) mmol/L Potassium 4.1 (3.3-5.1) mmol/L Chloride 104 (96-108) mmol/L Carbon Dioxide 30 H (22-29) mmol/L Anion Gap 12 (12-20) BUN 16 (9-16) mg/dL Creatinine 0.83 (0.5-1.4) mg/dL Estim Creat Clear Calc 81.2 Estimated GFR > 60 Random Glucose 106 (60-115) mg/dL Calcium 9.6 D (8.4-10.2) mg/dL Magnesium 1.9 (1.6-2.6) mg/dL Total Bilirubin 0.4 (0.0-1.0) mg/dL Direct Bilirubin 0.2 (0.0-0.5) mg/dL AST 17 (5-31) U/L ALT 21 (0-31) U/L Alkaline Phosphatase 70 (39-117) U/L Troponin I High Sens 5.2 (<3.5-17.0) ng/L B-Natriuretic Peptide 90 (<100) pg/mL Total Protein 6.7 (6.5-8.0) g/dL Albumin 4.1 (3.5-5.0) g/dL Lipase 23 (8-78) U/L Coronavirus (PCR) (Negative) Influenza Type A (PCR) (Negative) Influenza Type B (PCR) (Negative) RSV RNA Qual (PCR) (Negative) 08/04/21 08/04/21 Range/Units 20:26 21:27 WBC (4.8-10.8) X10*3/uL RBC (4.20-5.50) X10*6/uL Hgb (12.0-16.0) g/dl Hct (37-47) % MCV (80-98) fL MCH (27.0-33.0) pg MCHC (31.0-35.0) g/dl RDW (11.0-16.0) % Plt Count (160-400) X10*3/uL MPV (9.4-12.3) fL Immature Gran % (Auto) (0.0-0.4) % Neut % (Auto) (45-73) % Lymph % (Auto) (20-40) % Bethel % (Auto) (2-11) % Eos % (Auto) (0-4) % Baso % (Auto) (0-2) % Lymph # (Auto) (1.2-4.9) X10*3/uL Bethel # (Auto) (0.1-1.2) X10*3/uL Eos # (Auto) (0.0-0.4) X10*3/uL Baso # (Auto) (0.0-0.2) X10*3/uL Abs Immat Gran (auto) (0.00-0.03) X10*3/uL Absolute Neuts (auto) (2.0-8.3) X10*3/uL Absolute Nucleated RBC (0.0-0.012) X10*3/uL Nucleated RBC % (auto) (0.0-0.2) /100WBC PT 11.8 (9.9-13.0) SEC INR 1.0 (0.9-1.1) APTT 30.5 (24.1-38.0) SEC Sodium (135-145) mmol/L Potassium (3.3-5.1) mmol/L Chloride (96-108) mmol/L Carbon Dioxide (22-29) mmol/L Anion Gap (12-20) BUN (9-16) mg/dL Creatinine (0.5-1.4) mg/dL Estim Creat Clear Calc Estimated GFR Random Glucose (60-115) mg/dL Calcium (8.4-10.2) mg/dL Magnesium (1.6-2.6) mg/dL Total Bilirubin (0.0-1.0) mg/dL Direct Bilirubin (0.0-0.5) mg/dL AST (5-31) U/L ALT (0-31) U/L Alkaline Phosphatase (39-117) U/L Troponin I High Sens (<3.5-17.0) ng/L B-Natriuretic Peptide (<100) pg/mL Total Protein (6.5-8.0) g/dL Albumin (3.5-5.0) g/dL Lipase (8-78) U/L Coronavirus (PCR) NEGATIVE (Negative) Influenza Type A (PCR) NEGATIVE (Negative) Influenza Type B (PCR) NEGATIVE (Negative) RSV RNA Qual (PCR) NEGATIVE (Negative) ECG Data Attestation: I personally reviewed and interpreted this ECG as follows: ECG interpretation date: 08/04/21 Prior ECG tracings: available for review Interpretation: normal sinus rhythm, HR 60 bpm, normal AK interval, normal QTC, no ST segment elevations or depressions, no change from prior ECG Critical Care Time Critical Care Time Critical Care Time: No Discharge Plan Discharge Clinical Impression: Pneumonia Qualifiers: Pneumonia type: due to unspecified organism Laterality: left Lung location: lower lobe of lung Qualified Code(s): J18.9 - Pneumonia, unspecified organism Patient Disposition: Home, Self-Care Instructions: Community Acquired Pneumonia (ED) Additional Instructions: Your lab workup today was normal. You were negative for COVID, Flu and RSV. Your chest x-ray showed possible early pneumonia. Take the prescribed antibiotics and steroids as directed for this. Follow up with your doctor next week. Stay hydrated and drink plenty of fluids. Take Motrin and/or Tylenol as needed for body aches. Tu examen de laboratorio de hoy fue normal. Result? negativo para COVID, gripe y RSV. Allen radiograf?a de t?rax mostr? denise posible neumon?a temprana. Freedom los antibi?ticos y esteroides recetados seg?n las indicaciones para esto. Lynn un seguimiento con allen m?dico la pr?xima semana. Mant?ngase hidratado y charanjit muchos l?quidos. Freedom Motrin y / o Tylenol seg?n sea necesario para los gely corporales. Prescriptions: New prednisone 20 mg tablet 40 mg PO DAILY Qty: 10 RF: 0 azithromycin [Zithromax Z-Benjy] 250 mg tablet See Rx Instructions .ROUTE .COMPLEX Qty: 6 RF: 0 amoxicillin-pot clavulanate [Augmentin] 875-125 mg tablet 1 tab PO BID Qty: 14 RF: 0 No Action doxycycline hyclate 100 mg capsule 100 mg PO BID 7 Days Qty: 14 RF: 0 prednisone 20 mg tablet 40 mg PO DAILY 5 Days Qty: 10 RF: 0 benzonatate [Tessalon Perles] 100 mg capsule 100 mg PO TID PRN (Reason: cough) Qty: 20 RF: 0 Anoro Ellipta 62.5-25 mcg/actuation blister with device 1 inh inhalation DAILY 30 Days Qty: 1 RF: 6 furosemide [Lasix] 40 mg tablet 40 mg PO QAM 30 Days Qty: 30 RF: 6
[2021-08-04 19:41] VITALS: BP 125/41; PULSE 64; RESP 20; TEMP 36.7; O2SAT 95; BMI 42.9
[2021-08-04 20:02] VITALS: BP 98/44; PULSE 59; RESP 12; TEMP 36.6; O2SAT 94
[2021-08-04] MEDS: Acetaminophen 325 MG TABLET 975 MG PO (20:16)
[2021-08-04 20:30] LABS: MANUAL DIFF FLAG NO
[2021-08-04 20:32] LABS: Basophils Percent Auto 0.4 % (0-2); Eosinophils Absolute Auto 0.3 X10*3/uL (0.0-0.4); Eosinophils Percent Auto 3.2 % (0-4); Hematocrit 37.8 % (37-47); Hemoglobin 12.2 g/dl (12.0-16.0); Imm Gran Abs Auto 0.01 X10*3/uL (0.00-0.03); Imm Gran Pct Auto 0.1 % (0.0-0.4); Lymphocytes Absolute Auto 3.3 X10*3/uL (1.2-4.9); Lymphocytes Percent Auto 41.8 % (20-40); Mean Corpuscular HGB Conc 32.3 g/dl (31.0-35.0); Mean Corpuscular Hemoglobin 27.1 pg (27.0-33.0); Mean Platelet Volume 10.5 fL (9.4-12.3); Monocytes Absolute Auto 0.5 X10*3/uL (0.1-1.2); Monocytes Percent Auto 5.9 % (2-11); Neutrophils Absolute Auto 3.8 X10*3/uL (2.0-8.3); Neutrophils Percent Auto 48.6 % (45-73); Platelet Count 227 X10*3/uL (160-400); Red Cell Distribution Width 14.2 % (11.0-16.0); White Blood Count 7.8 X10*3/uL (4.8-10.8)
[2021-08-04 21:01] LABS: Alanine Aminotransferase 21 U/L (0-31); Albumin Level 4.1 g/dL (3.5-5.0); Alkaline Phosphatase 70 U/L (39-117); Anion Gap 12 (12-20); Aspartate Amino Transferase 17 U/L (5-31); B Type Natriuretic Peptide 90 pg/mL (<100); Bilirubin Direct 0.2 mg/dL (0.0-0.5); Bilirubin Total 0.4 mg/dL (0.0-1.0); Blood Urea Nitrogen 16 mg/dL (9-16); Calcium 9.6 mg/dL (8.4-10.2); Carbon Dioxide 30 mmol/L (22-29); Chloride 104 mmol/L (96-108); Creatinine Clr Calc Pharmacy 81.2; Estimated Glomerular Filt Rate > 60; Glucose Random 106 mg/dL (60-115); Lipase 23 U/L (8-78); Magnesium 1.9 mg/dL (1.6-2.6); Potassium 4.1 mmol/L (3.3-5.1); Sodium 142 mmol/L (135-145); Total Protein 6.7 g/dL (6.5-8.0); Troponin-I High Sensitivity 5.2 ng/L (<3.5-17.0)
[2021-08-04 21:18] LABS: Influenza A PCR NEGATIVE (Negative); Influenza B PCR NEGATIVE (Negative); Resp Syncy Virus RNA Qual PCR NEGATIVE (Negative); SARS COV2 PCR INHOUSE NEGATIVE (Negative)
[2021-08-04 21:41] LABS: Prothrombin Time 11.8 SEC (9.9-13.0)
[2021-08-04 21:44] LABS: Partial Thromboplastin Time 30.5 SEC (24.1-38.0)
[2021-08-04 22:00] VITALS: BP 110/55; PULSE 66; RESP 16; TEMP 36.8; O2SAT 94
[2021-08-04 23:53] VITALS: O2SAT 94
[2021-08-05] MEDS: predniSONE 20 MG TABLET 40 MG PO (00:46)
[2021-08-05] MEDS: Amoxicillin/Potassium Clav 875 MG TABLET PO (00:46)
== END 2021-08-05 00:47 | disposition home or self-care (01) ==
PROVIDERS: Physician Assistant; Emergency Provider Internal Medicine; PCP Internal Medicine
DX: J18.9 Pneumonia, unspecified organism (principal); Z20.822 Contact with and (suspected) exposure to COVID-19; R06.02 Shortness of breath; E11.9 Type 2 diabetes mellitus without complications; I10 Essential (primary) hypertension; J44.9 Chronic obstructive pulmonary disease, unspecified; Z99.81 Dependence on supplemental oxygen; Z79.899 Other long term (current) drug therapy
CPT/HCPCS: 0241U; 36415; 71045; 80048; 80076; 83690; 83735; 83880; 84484; 85025; 85610; 85730; 93005; 99283; 99284

== ENCOUNTER → 2021-08-17 12:57 | Outpatient (BNVA) | payer MEDICARE, SELFPAY | PROVIDERS: PCP Internal Medicine; Visit Provider Physician Assistant | DX: M17.11 Unilateral primary osteoarthritis, right knee (principal) | CPT/HCPCS: 20610; 99212; J1020 ==

== ENCOUNTER 2021-09-07 12:15 | Outpatient (REF) | payer MEDICARE, SELFPAY ==
--- NOTE | ~2021-09-07 | XR_ITS ---
EXAMINATION: XR SHOULDER, RIGHT CLINICAL INFORMATION: Pain COMPARISON: None TECHNIQUE: Three views of the right shoulder. FINDINGS: Bone alignment is normal. No fracture or dislocation is seen. The glenohumeral joint is normal. There is mild arthritis at the acromioclavicular joint. Soft tissues are normal. XR/XR shoulder RT min 2V IMPRESSION: Mild arthritis at the acromioclavicular joint.
== END 2021-09-07 12:16 | disposition home or self-care (01) ==
LOC: HO.HOSX 12:15
PROVIDERS: PCP Internal Medicine; Visit Provider Physician Assistant
DX: M25.511 Pain in right shoulder (principal); M75.80 Other shoulder lesions, unspecified shoulder
CPT/HCPCS: 20610; 73030; 99212; J1020

== ENCOUNTER → 2021-09-12 10:04 | Outpatient (BNVA) | payer MEDICARE, SELFPAY | PROVIDERS: PCP Internal Medicine; Visit Provider Internal Medicine Pulmonary Disease | DX: G47.30 Sleep apnea, unspecified (principal); R06.00 Dyspnea, unspecified | CPT/HCPCS: 99212 ==

== ENCOUNTER 2021-09-30 08:20 | Emergency (ER) | payer MEDICARE, SELFPAY ==
--- NOTE | ~2021-09-30 | XR_ITS ---
EXAMINATION: XR CHEST CLINICAL INFORMATION: Cough COMPARISON: Previous chest x-rays most recent August [address] of the abdomen and pelvis August 2020 TECHNIQUE: 2 views of the chest were obtained. FINDINGS: The cardiac silhouette does not appear enlarged. There are increased central bronchovascular markings similar to previous exams. The lungs are otherwise clear. There is increased density overlying the left medial diaphragm. Compared with previous abdominal and pelvic CT scan this corresponds to a small diaphragmatic hernia containing fat. There is a small diaphragmatic hernia containing fat on the right as well. There is no pleural effusion or pneumothorax. There are degenerative changes of the spine. XR/XR chest 2V IMPRESSION: No evidence for acute disease in the chest.
--- NOTE | 2021-09-30 08:25 | ED_ITS ---
HPI - SOB/Dyspnea General Chief Complaint: Upper Respiratory Symptoms Stated Complaint: diff breathing Time Seen by Provider: 09/30/21 08:25 Source: patient Mode of arrival: EMS Limitations: no limitations History of Present Illness HPI Narrative: Patient with cough and shortness of breath on home O2. Patient is fully vaccinated MD elicited complaint: shortness of breath and cough Pertinent past history: COPD Onset (ago): week(s) Context: recent illness Timing: constant Severity: mild Known history of: COPD Associated symptoms: cough Related Data Previous Rx's Medication Instructions Recorded benzonatate 100 mg capsule 100 mg PO TID PRN #20 cap 03/22/21 (Tessalon Perles) doxycycline hyclate 100 mg capsule 100 mg PO BID 7 Days #14 cap 03/22/21 prednisone 20 mg tablet 40 mg PO DAILY 5 Days #10 tab 03/22/21 furosemide 40 mg tablet (Lasix) 40 mg PO QAM 30 Days #30 tab 04/23/21 umeclidinium 62.5 mcg-vilanterol 1 inh INHALATION DAILY 30 Days #1 04/23/21 25 mcg/actuation powdr for ea inhalation (Anoro Ellipta) amoxicillin 875 mg-potassium 1 tab PO BID #14 tab 08/04/21 clavulanate 125 mg tablet (Augmentin) azithromycin 250 mg tablet See Rx Instructions .ROUTE 08/04/21 (Zithromax Z-Benjy) .COMPLEX #6 tab prednisone 20 mg tablet 40 mg PO DAILY #10 tab 08/04/21 [id number] 2.5 15 ml PO Q4H PRN #118 ml 09/30/21 mg-5 mg-50 mg/5 mL oral liquid (Robitussin Cough and Cold CF) Allergies Allergy/AdvReac Type Severity Reaction Status Date / Time No Known Allergies Allergy Unknown UNKNOWN Verified 09/12/21 10:12 [NO KNOWN ALLERGIES] Review of Systems Constitutional: Constitutional: Reports no additional constitutional complaints Eyes: Eyes: Reports no additional eye complaints ENT: Denies dizziness Cardiovascular: Cardiovascular: Reports no additional cardiovascular complaints Respiratory: Respiratory: Reports as per HPI Gastrointestinal: Gastrointestinal: Reports no additional gastrointestinal complaints Genitourinary: Genitourinary: Reports no additional female genitourinary complaints Musculoskeletal: Musculoskeletal: Reports no additional musculoskeletal complaints Integumentary/Breasts: Skin/Breast: Denies rash Neurologic: Reports system reviewed and no additional complaints, except as documented, Denies dizziness and Denies Sensory deficit (Neuro) Psychiatric: Psychiatric: Denies anxiety [facility] [place] Past Medical History Medical History Asthma Diabetes type 2, controlled Hypertension Sleep apnea Social History Social History Advance Directives: Yes Advance Directives on File: Yes Advance Directives Date on File: 03/22/21 Current occupational status: disabled 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 Physical Exam Vital Signs: Vital Signs: Last Vital Signs Temp 97.6 F 09/30/21 08:57 Pulse 67 09/30/21 08:57 Resp 16 09/30/21 08:57 BP 117/48 L 09/30/21 08:57 Pulse Ox 95 09/30/21 08:57 Oxygen Flow Rate 2 09/30/21 08:28 Body Mass Index 44.6 Const: Other: obese female resting comfortably Nutritional Appearance: obese Orientation/consciousness: oriented to person and patient oriented x3 Limitations: no limitations HENMT: Head: Yes normal to inspection Ears: external ears normal General nose exam: Normal external nose present Mouth: Normal oral and palatal mucosa present and oropharynx normal Throat: Yes posterior oropharynx normal Eyes: Other: right eye with injection and drainage Neck: Other: supple Neck: Yes normal visual inspection Chest: Chest palpation & inspection: normal inspection of the chest Resp: Auscultation: clear to auscultation bilaterally Cardio: Jugular venous distension: no JVD Rate: regular rate Rhythm: regular rhythm Heart sounds: S1 normal heart sound present and S2 normal heart sound present GI: Inspection: Yes normal to inspection Palpation (GI): Soft to palpation, nontender and No hepatosplenomegaly present Auscultation: normal bowel sounds : General: Yes no CVA tenderness Back/Spine/Pelvis: Back: no CVA tenderness Skin: General skin exam: no rashes or lesions noted Neuro: General: oriented to person and patient oriented x3 Cranial nerves: Yes CN's II-XII intact bilaterally Motor exam (neuro): 5/5 motor strength present throughout Sensory Exam: No Sensory deficit (Neuro) Extrem: General: Yes normal to inspection Psych: Appearance: grossly normal Course Reevaluation(s) Reevaluation #1: patient looks well, CXR normal, COVID negative, will dc home Time: 10:23 MDM - SOB/Dyspnea Lab Data Labs: Lab Results 09/30/21 Range/Units 08:55 Influenza Type A (PCR) NEGATIVE (Negative) Influenza Type B (PCR) NEGATIVE (Negative) RSV RNA Qual (PCR) NEGATIVE (Negative) SARS-CoV-2 RNA (RT-PCR) NEGATIVE (Negative) Imaging Data Chest x-ray: Radiologist's impression: FINDINGS: The cardiac silhouette does not appear enlarged. There are increased central bronchovascular markings similar to previous exams. The lungs are otherwise clear. There is increased density overlying the left medial diaphragm. Compared with previous abdominal and pelvic CT scan this corresponds to a small diaphragmatic hernia containing fat. There is a small diaphragmatic hernia containing fat on the right as well. There is no pleural effusion or pneumothorax. There are degenerative changes of the spine. XR/XR chest 2V IMPRESSION: No evidence for acute disease in the chest. Discharge Plan Discharge Clinical Impression: Upper respiratory infection Patient Disposition: Home, Self-Care Instructions: Upper Respiratory Infection (ED) Prescriptions: New Robitussin Cough and Cold CF 2.5-5-50 mg/5 mL liquid 15 ml PO Q4H PRN (Reason: cough) Qty: 118 RF: 0 No Action doxycycline hyclate 100 mg capsule 100 mg PO BID 7 Days Qty: 14 RF: 0 prednisone 20 mg tablet 40 mg PO DAILY 5 Days Qty: 10 RF: 0 benzonatate [Tessalon Perles] 100 mg capsule 100 mg PO TID PRN (Reason: cough) Qty: 20 RF: 0 prednisone 20 mg tablet 40 mg PO DAILY Qty: 10 RF: 0 azithromycin [Zithromax Z-Benjy] 250 mg tablet See Rx Instructions .ROUTE .COMPLEX Qty: 6 RF: 0 amoxicillin-pot clavulanate [Augmentin] 875-125 mg tablet 1 tab PO BID Qty: 14 RF: 0 Anoro Ellipta 62.5-25 mcg/actuation blister with device 1 inh inhalation DAILY 30 Days Qty: 1 RF: 6 furosemide [Lasix] 40 mg tablet 40 mg PO QAM 30 Days Qty: 30 RF: 6 Referrals: Cristo Martino MD [Primary Care Provider] - 1 week Interventions: ED Discharge Assessment Last Done: 09/30/21 11:04 Discharge Date/Time: 09/30/21 11:05
[2021-09-30 08:28] VITALS: BP 121/57; BP 125/78; PULSE 124; PULSE 72; RESP 20; TEMP 36.8; O2SAT 91; O2SAT 95; BMI 44.6
[2021-09-30 08:57] VITALS: BP 117/48; PULSE 67; RESP 16; TEMP 36.4; O2SAT 95
[2021-09-30] MEDS: Erythromycin Base 0.5% Oph Oin 1 GM TUBE 1 CM EYE-RIGHT (09:50)
[2021-09-30 10:11] LABS: Influenza A PCR NEGATIVE (Negative); Influenza B PCR NEGATIVE (Negative); Resp Syncy Virus RNA Qual PCR NEGATIVE (Negative); SARS COV2 PCR INHOUSE NEGATIVE (Negative)
== END 2021-09-30 11:05 | disposition home or self-care (01) ==
PROVIDERS: Emergency Provider Emergency Medicine; PCP Internal Medicine
DX: J06.9 Acute upper respiratory infection, unspecified (principal); R06.02 Shortness of breath; J44.9 Chronic obstructive pulmonary disease, unspecified; E11.9 Type 2 diabetes mellitus without complications; I10 Essential (primary) hypertension; Z20.822 Contact with and (suspected) exposure to COVID-19; Z79.899 Other long term (current) drug therapy
CPT/HCPCS: 0241U; 36415; 71046; 99283

== ENCOUNTER → 2021-10-22 12:01 | Outpatient (BNVA) | payer MEDICARE, SELFPAY | PROVIDERS: PCP Internal Medicine; Referring Provider Internal Medicine; Visit Provider Nurse Practitioner Family | DX: Z01.810 Encounter for preprocedural cardiovascular examination (principal); K58.2 Mixed irritable bowel syndrome; K21.9 Gastro-esophageal reflux disease without esophagitis; K59.01 Slow transit constipation; E11.9 Type 2 diabetes mellitus without complications; I10 Essential (primary) hypertension; M19.90 Unspecified osteoarthritis, unspecified site; G47.30 Sleep apnea, unspecified | CPT/HCPCS: 99202 ==

== ENCOUNTER → 2021-11-14 07:37 | Outpatient (REF) | payer MEDICARE, SELFPAY ==
--- NOTE | 2021-11-14 | CA_ITS ---
Acquisition Time: 2021-11-14 07:58:28 Total Exercise Time: 00:02:00 Test Indications: CP Medications: SEE CHART Protocol: LEXISCAN Max HR: 077 BPM 50% of Pred: 152 BPM Max BP: 122/068 mmHG Max Work Load: 1.0 METS Pharmacological stress test with Lexiscan injection, while sitting and kicking her legs, without anginal symptoms, without arrythmia, with normotensive response to injection, with nondiagnostic EKG for ischemia. Nuclear images pending. Test reviewed with Dr Ladd. Referred By: Heron Hickey Overread By: TARIQ MARTIN
--- NOTE | ~2021-11-14 | NM_ITS ---
Myocardial perfusion study Indication: Chest pain to evaluate for myocardial ischemia Technique: The patient was brought in for a Lexiscan perfusion study on 11/14/2021. Patient performed low-level exercise and was injected 0.4 mg of Lexiscan intravenously. Within a minute of injection, 45 mCi of sestamibi was given intravenously. Images were obtained using the SPECT gamma camera interlaced with the gating device. Images were obtained in supine position. Resting perfusion study was performed on 11/16/2021. Patient was administered 45 mCi of sestamibi intravenously at rest. Images were then obtained in supine position. Images obtained with and without CT attenuation. Total DLP 143 mGy-cm. Images were processed with the software and compared side to side in short axis, horizontal long axis and vertical long axis views. Findings: The stress perfusion study showed non attenuated images show normal uptake of radiotracer in all segments of LV myocardium. Impression corrected images show moderately reduced uptake in the apex of the LV myocardium.. The gated study shows normal LV systolic function with calculated LVEF of 67%. LV cavity is normal in size. The gated study shows normal systolic wall thickening and contraction of segments. Resting study shows no significant change in perfusion pattern compared to stress perfusion study. Gating at rest reveals normal systolic wall motion with ejection fraction at 69%. The findings are consistent with normal myocardial perfusion. NM/NM eleuterio perf SPECT rest & str Impression: 1. Myocardial perfusion imaging study shows normal myocardial perfusion 2. Gated LVEF is 67% 3. Transient ischemic dilatation not present EKG is nondiagnostic for ischemia
== END ==
LOC: HO.CARD 07:37
PROVIDERS: PCP Internal Medicine; Visit Provider Internal Medicine Cardiovascular Disease
DX: R07.9 Chest pain, unspecified (principal)
CPT/HCPCS: 78452; 93017; A9500; J0280; J2785

== ENCOUNTER → 2021-12-10 09:31 | Outpatient (BNVA) | payer MEDICARE, SELFPAY | PROVIDERS: PCP Internal Medicine; Visit Provider Internal Medicine Pulmonary Disease | DX: G47.30 Sleep apnea, unspecified (principal); R06.00 Dyspnea, unspecified | CPT/HCPCS: 99212 ==

== ENCOUNTER 2021-12-24 15:48 | Outpatient (REF) | payer MEDICARE, SELFPAY ==
[2021-12-24 18:28] LABS: Folate 17.6 ng/mL (> or = 4.0); Vitamin B12 325 pg/mL (200-900)
[2021-12-26 07:51] LABS: Transglutaminase Ab IgG <1.0 U/mL; Transglutaminase IgA <1.0 U/mL
[2021-12-28 15:20] LABS: Vitamin D 25-OH, D2 <4 ng/mL; Vitamin D 25-OH, D3 21 ng/mL; Vitamin D 25-OH, Total 21 ng/mL (30-100)
== END 2021-12-24 15:49 | disposition home or self-care (01) ==
LOC: HO.LAB 15:48
PROVIDERS: PCP Internal Medicine; Referring Provider Internal Medicine; Visit Provider Nurse Practitioner Family
DX: R10.11 Right upper quadrant pain (principal); R19.7 Diarrhea, unspecified; R14.0 Abdominal distension (gaseous); E55.9 Vitamin D deficiency, unspecified; K21.9 Gastro-esophageal reflux disease without esophagitis; K58.2 Mixed irritable bowel syndrome
CPT/HCPCS: 36415; 82306; 82607; 82746; 84443; 86364; 99212

== ENCOUNTER 2022-01-29 12:00 | Outpatient (REF) | payer MEDICARE, SELFPAY ==
--- NOTE | ~2022-01-29 | MM_ITS ---
EXAMINATION: MM SCREENING DIGITAL BREAST TOMOSYNTHESIS, BILATERAL CLINICAL INFORMATION: Screening. Asymptomatic. Family history breast cancer, mother. The lifetime risk of breast cancer based on the Tyrer-Cuzick Model is 10%. COMPARISON: Mammography: 01/19/2019, 03/26/2017, 03/25/2016 TECHNIQUE: Digital breast tomosynthesis is performed in both the craniocaudal and mediolateral oblique views along with computer-aided detection (CAD). Synthesized 2D images are generated from the tomosynthesis. Additional right cleavage view is provided. FINDINGS: There are scattered areas of fibroglandular density (ACR BI-RADS breast composition Category b). There is fine fibronodular parenchymal pattern similar to prior studies. The left breast show no significant change. There is no left developing density or architectural abnormality or abnormal calcifications. Again, there are stable intramammary nodes posterior upper outer quadrant left breast. Right breast has several new findings from prior study 2019. There is smooth skin thickening anterior breast with coarsening of the stromal markings. Two new nodules periareolar right breast, the larger 0.8 cm and the smaller 0.6 cm. There is new right axillary adenopathy with a 2.6 cm node, 19 cm from the nipple on the MLO view. Patient will be recalled for additional imaging. There is an old biopsy clip marker posterior 9:00 position right breast. MM/MM tomosynthesis screening BI IMPRESSION: Right: Several new findings including 2 nodules under 1 cm anterior breast, smooth skin thickening, coarsening of the stromal markings, and right axillary adenopathy. Left: There are no significant changes from prior study. ASSESSMENT: BI-RADS 0: Incomplete - Need Additional Imaging Evaluation RECOMMENDATION: 1. Additional views of the right breast (spot CC and spot ML view of the nodularity). 2. Targeted ultrasound right breast and right axilla. 3. Radiology department staff will contact the patient for additional imaging. This patient's information was entered into a reminder system with a target due date for their next mammogram.
== END 2022-01-29 12:01 | disposition home or self-care (01) ==
LOC: HO.MAMMO 12:00
PROVIDERS: Nurse Practitioner Family; Visit Provider Internal Medicine
DX: Z12.31 Encounter for screening mammogram for malignant neoplasm of breast (principal); K21.9 Gastro-esophageal reflux disease without esophagitis
CPT/HCPCS: 77063; 77067; 87338

== ENCOUNTER 2022-02-08 10:02 | Outpatient (REF) | payer MEDICARE, SELFPAY ==
--- NOTE | ~2022-02-08 | MM_ITS ---
EXAMINATION: MM DIAGNOSTIC DIGITAL BREAST TOMOSYNTHESIS, RIGHT US DIAGNOSTIC ULTRASOUND BREAST, RIGHT CLINICAL INFORMATION: Recall from screening for several new findings right breast including 2 nodules anterior breast and axillary adenopathy. COMPARISON: Mammography: 01/29/2022 (BI-RADS 0), 01/19/2019 TECHNIQUE: Digital breast tomosynthesis is performed. 2D images are generated from the tomosynthesis. The following views of the right breast are obtained: Spot CC x2, spot MLO, spot ML. Ultrasound right breast is targeted to the anterior breasts and the right axilla. Grayscale imaging and color Doppler are performed without and with harmonics. FINDINGS: There are scattered areas of fibroglandular density (ACR BI-RADS breast composition Category b). The additional views confirm 2 small nodules anterior lateral periareolar right breast, the larger is 8 x 10 mm with smooth margins and the smaller is approximately 0.6 cm with microlobulated margins. The nodules are 1.3 cm apart. There is no skin retraction or obvious skin thickening. Ultrasound right breast demonstrates 2 nodules retroareolar right breast, the larger is heterogeneous mildly hypoechoic measuring 0.8 cm with macrolobulated margins and increased through-transmission of sound. There is scattered peripheral and internal color flow consistent with a solid lesion. The smaller nodule resides within 1.3 cm apart with similar ultrasound characteristics measuring 0.5 cm. Additional ultrasound right axilla demonstrates abnormal axillary node measuring 2.1 cm x 1.2 cm without a typical central echogenic hilus. There is some scattered color-flow in the parenchyma. Other nodes visualized are small in size and show typical normal lynne architecture. Results are discussed with the patient at time of visit, using an official court interpreter. Biopsy of the right anterior breast nodule and right axilla are recommended. Results and recommendation also called to senior medical director (Tanya) for Dr. Martino on 02/08/2022. MM/MM tomosynthesis added views R IMPRESSION: 1. Two new small adjacent solid nodules with internal color flow anterior right breast. 2. New right axillary adenopathy. ASSESSMENT: BI-RADS 4: Suspicious RECOMMENDATION: Ultrasound-guided biopsy right breast nodule(s) and right axilla. This patient's information was entered into a reminder system with a target due date for their next mammogram.
== END 2022-02-08 10:03 | disposition home or self-care (01) ==
LOC: HO.MAMMO 10:02
PROVIDERS: PCP Internal Medicine; Visit Provider Internal Medicine
DX: N63.31 Unspecified lump in axillary tail of the right breast (principal)
CPT/HCPCS: 76642; 77061; 77065

== ENCOUNTER 2022-02-14 09:09 | Outpatient (REF) | payer MEDICARE, SELFPAY ==
--- NOTE | ~2022-02-14 | MM_ITS ---
EXAMINATION: ULTRASOUND GUIDED CORE BIOPSY BREAST (THREE SITES, RIGHT POST PROCEDURE DIGITAL MAMMOGRAM, RIGHT CLINICAL INFORMATION: 2 new small adjacent solid nodules with internal color flow anterior right breast with new right axillary adenopathy. COMPARISON: Mammography 01/29/2022, 02/08/2022, ultrasound right breast 02/08/2022. FINDINGS: Proper informed consent is obtained from the patient after discussion of the procedure, potential risks and complications, and alternatives. Patient was given an opportunity for questions. The patient appeared to understand. The patient consented to the procedure and signed the consent form. SPECIMEN A: LOCATION: Right retroareolar central 9:00. GUIDANCE: Ultrasound-guided; aseptic technique. LESION: Solid nodule with color-flow 1.0 x 0.8 cm. APPROACH: Lateral medial. ANESTHESIA: 15 mL carbonated 1% lidocaine. DERMATOTOMY: Single skin randy dermatotomy performed. NEEDLE: 14-gauge Achieve core biopsy device with 13.5-gauge co-axial guide needle. CORES: 5. CLIP: HydroMARK; shape: butterfly. SPECIMEN B: New anesthesia and biopsy supplies are used. LOCATION: Anterior central 8:00. GUIDANCE: Ultrasound-guided; aseptic technique. LESION: Satellite nodule with color-flow 0.6 cm. APPROACH: Lateral medial. ANESTHESIA: 9 mL carbonated 1% lidocaine. DERMATOTOMY: The same skin randy dermatotomy site from the first lesion is used to access the lesion for the second biopsy. NEEDLE: 14-gauge Achieve core biopsy device with 13.5-gauge co-axial guide needle. CORES: 4. CLIP: HydroMARK; shape: barrel. SPECIMEN C: New anesthesia and biopsy supplies are used. LOCATION: Right axilla. GUIDANCE: Ultrasound-guided; aseptic technique. LESION: Right axillary adenopathy. APPROACH: Lateral medial. ANESTHESIA: 10 mL carbonated 1% lidocaine. DERMATOTOMY: A new skin randy dermatotomy is performed to allow for the second site of biopsy. . NEEDLE: 16-gauge Bard Marquee biopsy device with co-axial introducer. CORES: 4. CLIP: HydroMARK; shape: open coil. POST PROCEDURE DIGITAL MAMMOGRAM: The post biopsy mammogram is performed in separate room using separate digital mammography equipment from the biopsy procedure. CC, ML x2 views followed by a 29 minute delayed ML view are obtained. There are scattered areas of fibroglandular density (breast composition category: b). The clip markers are in position. No gross three-dimensional hematoma. There is some stranding around the axillary node biopsy but no increase in stranding or interval hematoma on the delayed view. The patient tolerated the procedure well. No immediate complications. Home instructions reviewed with the patient. Final pathology results are pending. MM/MM diagnostic mammo unilat RT IMPRESSION: 1. Status post ultrasound-guided core biopsy right breast (two lesions anterior breast). 2. Status post ultrasound-guided core biopsy right axillary node. 3. Pathology pending. An addendum report will be issued.
[2022-02-14] MEDS: Lidocaine HCl 1 % 20 ML VIAL 15 ML SUBCUT (11:24)
[2022-02-14] MEDS: Sodium Bicarbonate 8.4% 50 MEQ/50 ML VIAL SUBCUT ×2 (11:25→11:36)
[2022-02-14] MEDS: Lidocaine HCl 1 % 20 ML VIAL 10 ML SUBCUT (11:34)
== END 2022-02-14 09:10 | disposition home or self-care (01) ==
LOC: HO.MAMMO 09:09
PROVIDERS: PCP Internal Medicine; Visit Provider Surgery
DX: R92.8 Other abnormal and inconclusive findings on diagnostic imaging of breast (principal); R59.9 Enlarged lymph nodes, unspecified
CPT/HCPCS: 19083; 19084; 38505; 76942; 77065; 88305; 88360; 99202; A4648

== ENCOUNTER 2022-02-15 12:24 | Outpatient (REF) | payer MEDICARE, SELFPAY ==
[2022-02-15 13:54] LABS: Anion Gap 12 (12-20); Blood Urea Nitrogen 9 mg/dL (9-16); Calcium 9.3 mg/dL (8.4-10.2); Carbon Dioxide 27 mmol/L (22-29); Chloride 104 mmol/L (96-108); Estimated Glomerular Filt Rate > 60; Glucose Random 151 mg/dL (60-115); Potassium 4.3 mmol/L (3.3-5.1); Sodium 139 mmol/L (135-145)
[2022-02-15 14:08] LABS: Thyroid Stimulating Hormone 1.35 uIU/mL (0.32-4.0)
[2022-02-15 14:19] LABS: Folate 12.9 ng/mL (> or = 4.0); Vitamin B12 240 pg/mL (200-900)
== END 2022-02-15 12:25 | disposition home or self-care (01) ==
LOC: HO.LAB 12:24
PROVIDERS: Absent Provider Internal Medicine; PCP Internal Medicine; Visit Provider Psychiatry & Neurology Neurology
DX: G31.84 Mild cognitive impairment of uncertain or unknown etiology (principal)
CPT/HCPCS: 36415; 80048; 82607; 82746; 84436; 84443

== ENCOUNTER → 2022-02-19 10:00 | Outpatient (BNVA) | payer MEDICARE, SELFPAY | PROVIDERS: PCP Internal Medicine; Referring Provider Internal Medicine; Visit Provider Surgery | DX: C50.911 Malignant neoplasm of unspecified site of right female breast (principal) | CPT/HCPCS: 99212 ==

== ENCOUNTER 2022-02-25 06:38 | Day surgery (SDC) | payer OTHER, SELFPAY ==
--- NOTE | 2022-02-22 10:45 | P.CONAN_ITS ---
Documented by User: Destiny Jarvis NP 02/22/22 10:47 HPI - Anesthesia Eval Consult details Narrative: 66yo F for Right Breast Lumpectomy/Needle Loc X 3, Lyman Node Biopsy PMFSH Active Problems Active Problems: All Active Problems (Updated 02/20/22 @ 12:16 by Kesha Katz MD) COVID-19 (Acute) Dyspnea on exertion (Acute) Osteoarthritis of knees, bilateral (Acute) Diabetes (Acute) Osteoarthritis of right knee (Acute) Rotator cuff tendonitis (Acute) Abnormal ultrasound of breast (Acute) Lymph node enlargement (Acute) Fungal skin infection (Acute) Invasive ductal carcinoma of right breast (Acute) Sleep apnea (Acute) Past Medical History Medical History Asthma Diabetes type 2, controlled Hypertension Invasive ductal carcinoma of right breast Sleep apnea Family History Family History Brother Diabetes Sister Diabetes Breast cancer, Onset Age: 67 Mother Breast cancer, Onset Age: 59 Maternal Aunt Breast cancer Surgical History Surgical History Hx of colonoscopy Hx of right breast biopsy Social History Social History (Updated 02/20/22 @ 11:44 by Brunilda López CMA) Household Members: None Housing: Apartment Are you a primary sub acute care nurse to a significant other at home: No Do you presently have visiting nurse or other home services: Yes Patient Tobacco Use Status: Never used Tobacco Use of substances other than those prescribed or required for medical reasons: No Are you DNR?: No Advance Directives: No Advance Directives Information Provided: Yes Advance Directives Date on File: 03/22/21 Patient : No service: No Current occupational status: disabled 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 Meds Allergies Allergy/AdvReac Type Severity Reaction Status Date / Time No Known Allergies Allergy Unknown UNKNOWN Verified 02/20/22 11:44 [NO KNOWN ALLERGIES] Home Medications Medication Instructions Recorded Confirmed Last Taken Type aripiprazole 20 mg tablet (Abilify) 20 mg PO BEDTIME 02/14/22 02/20/22 Unknown History blood sugar diagnostic (FreeStyle #10 ea 02/14/22 02/20/22 Unknown History Lite Strips) citalopram 40 mg tablet 40 mg PO DAILY 02/14/22 02/20/22 Unknown History gabapentin 300 mg capsule 300 mg PO TID 02/14/22 02/20/22 Unknown History insulin glargine 100 unit/mL 100 unit SUBCUT DAILY 02/14/22 02/20/22 Unknown History subcutaneous solution (Lantus U-100 Insulin) lisinopril 2.5 mg tablet 2.5 mg PO DAILY 02/14/22 02/20/22 Unknown History trazodone 50 mg tablet 50 mg PO BEDTIME 02/14/22 02/20/22 Unknown History Exam Exam Date and Time: February 22, 2022 1045 Pertinent Lab Results Pertinent Lab Results: Laboratory Tests 02/15/22 02/20/22 12:38 12:47 WBC 6.4 Hgb 12.5 Hct 38.9 Plt Count 253 Sodium 139 Potassium 4.3 Chloride 104 Carbon Dioxide 27 BUN 9 Creatinine 0.81 Narrative Narrative: EKG 08/2021 Vent. Rate : 060 BPM ? ? Atrial Rate : 060 BPM ?? P-R Int : 138 ms? QRS Dur : 084 ms ? ? QT Int : 404 ms ? ? ? P-R-T Axes : 038 -24 020 degrees ?? QTc Int : 404 ms ? Normal sinus rhythm Voltage criteria for left ventricular hypertrophy Abnormal ECG When compared with ECG of 23-OCT-2020 10:59, No significant change was found NM eleuterio perf SPECT rest & str 10/2021 Impression: ? 1.? Myocardial perfusion imaging study shows normal myocardial perfusion 2.? Gated LVEF is 67% 3. Transient ischemic dilatation not present ? EKG is nondiagnostic for ischemia Assessment and Plan Assessment Anesthesia Assessment: Chart Reviewed Documented by User: Kalyn Nugent MD 02/25/22 15:05 PMFSH Past Medical History Medical History Asthma Diabetes type 2, controlled Hypertension Invasive ductal carcinoma of right breast Sleep apnea Functional capacity: independent ambulation Patient : No Family History Family History Brother Diabetes Sister Diabetes Breast cancer, Onset Age: 67 Mother Breast cancer, Onset Age: 59 Maternal Aunt Breast cancer Family history of problems with anesthesia: No Surgical History Surgical History Hx of colonoscopy Hx of right breast biopsy History of Problems with Anesthesia: No Social History Social History (Updated 02/20/22 @ 11:44 by Brunilda López CMA) Household Members: None Housing: Apartment Are you a primary sub acute care nurse to a significant other at home: No Do you presently have visiting nurse or other home services: Yes Patient Tobacco Use Status: Never used Tobacco Use of substances other than those prescribed or required for medical reasons: No Are you DNR?: No Advance Directives: No Advance Directives Information Provided: Yes Advance Directives Date on File: 03/22/21 Patient : No service: No Current occupational status: disabled 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 Meds Allergies Allergy/AdvReac Type Severity Reaction Status Date / Time No Known Allergies Allergy Unknown UNKNOWN Verified 02/20/22 11:44 [NO KNOWN ALLERGIES] Home Medications Medication Instructions Recorded Confirmed Last Taken Type aripiprazole 20 mg tablet (Abilify) 20 mg PO BEDTIME 02/14/22 02/20/22 Unknown History blood sugar diagnostic (FreeStyle #10 ea 02/14/22 02/20/22 Unknown History Lite Strips) citalopram 40 mg tablet 40 mg PO DAILY 02/14/22 02/20/22 Unknown History gabapentin 300 mg capsule 300 mg PO TID 02/14/22 02/20/22 Unknown History insulin glargine 100 unit/mL 100 unit SUBCUT DAILY 02/14/22 02/20/22 Unknown History subcutaneous solution (Lantus U-100 Insulin) lisinopril 2.5 mg tablet 2.5 mg PO DAILY 02/14/22 02/20/22 Unknown History trazodone 50 mg tablet 50 mg PO BEDTIME 02/14/22 02/20/22 Unknown History Exam Airway Mallampati Class: III TM Dist: >3cm Neck ROM: Full Denture: Upper and Lower Heart: RRR Lungs: CTA Assessment and Plan Final Anesthetic Review Family History of Problems with Anesthesia: No History of Problems with Anesthesia: No NPO: Yes ASA Class: III Final Preanesthetic Review: No Changes in Pt Med Stat, Meds/Allgs Chart Reviewed, Consent Obtained/Reviewed and Anes Risks/Benef Reviewed Patient Risk: Intermediate Procedure Risk: Low Anesthetic Plan Anesthetic Plan: GA Disposition: Standard PACU
[2022-02-25] VITALS (14 sets, daily range): BP systolic 107–139; BP diastolic 40–118; PULSE 60–124; RESP 13–20; TEMP 36.4–36.5; O2SAT 90–98; BMI 44.9
--- NOTE | ~2022-02-25 | MM_ITS ---
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 COMPARISON: Mammography 01/29/2022, 02/08/2022, 02/14/2022, ultrasound right breast 02/08/2022, ultrasound-guided biopsies x3 right breast 02/14/2022. TECHNIQUE NEEDLE LOC: Hospital provided barley steeper assisted for both the consent and throughout the procedures. Consent obtained for the 3 localization procedures as well as the subsequent right breast sentinel lymph node mapping, to be described in a separate report. Proper informed consent is obtained from the patient after discussion of the procedure, potential risks and complications, and alternatives including declining the procedure today. Patient was given an opportunity for questions. The patient appeared to understand. The patient consented to the procedure and signed the consent form. MM MAMMOGRAM GUIDED NEEDLE LOCALIZATION BREAST (TWO SITES), RIGHT GUIDANCE: Digital mammography. APPROACH: Lateral Medial. TARGET: HydroMARK biopsy clip markers anterolateral right breast, butterfly shape and barrel shape, respectively. ANESTHESIA: Carbonated lidocaine 1%: 8 mL, divided between the 2 sites. LOCALIZATION MARKERS: [place] Mamma[employer]; 5 cm length for the more anterior target, and 7.5 cm length for the more posterior target. The skin is prepped and local anesthesia administered. The needles are positioned and position assessed with mammography. The wires are hooked into position. Wheeler needle protector placed. The patient tolerated the procedure well and had no immediate complication. Following the procedure, 4% lidocaine ointment was administered to the right areola and covered with Tegaderm in anticipation of nuclear lymphoscintigraphy injection for sentinel lymph node mapping to be described in separate report. US ULTRASOUND-GUIDED NEEDLE LOCALIZATION BREAST/AXILLA, RIGHT Real time ultrasound guidance APPROACH: Lateral Medial TARGET: Enlarged solid right axillary node with internal HydroMARK biopsy clip marker (open coil). ANESTHESIA: 5 cc carbonated lidocaine 1%. LOCALIZATION MARKER: [place] Mamma[employer], 7.5 cm length. The skin is prepped and local anesthesia administered. The needle is passed through the node during real-time ultrasound and a wire is hooked into position. Wheeler needle protector placed. The patient tolerated the procedure well and had no immediate complication. Procedure results called to medical office clerk (Mere) for Dr. Thakur prior to surgery. TECHNIQUE SPECIMEN RADIOGRAPH (BREAST): Single radiograph of the excised right breast tissue is performed. FINDINGS SPECIMEN RADIOGRAPH: The specimen shows the 2 distal needles and 2 distal hook wires are delivered intact. One of the needles sectioned in OR prior to delivery in radiology. The two biopsy clip markers are identified in the specimen. Results were called to Dr. Juliano Thakur in the operating room at the time of imaging. TECHNIQUE SPECIMEN RADIOGRAPH (AXILLA): Single radiograph of the excised right breast/axillary tissue is performed. FINDINGS SPECIMEN RADIOGRAPH: The specimen shows the distal needle and distal hookwire delivered intact. The proximal needle is beyond the field of view. The biopsy clip marker is identified in the specimen. Results were called to Dr. Juliano Thakur in the operating room at the time of imaging. MM/MM needle loc ea add IMPRESSION: 1. Status post needle localization 2 masses anterior right breast using mammogram guidance. 2. Status post ultrasound-guided needle localization right axillary adenopathy. 3. Postoperative specimen radiograph obtained.
--- NOTE | ~2022-02-25 | MM_ITS ---
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 COMPARISON: Mammography 01/29/2022, 02/08/2022, 02/14/2022, ultrasound right breast 02/08/2022, ultrasound-guided biopsies x3 right breast 02/14/2022. TECHNIQUE NEEDLE LOC: Hospital provided historic interpreter assisted for both the consent and throughout the procedures. Consent obtained for the 3 localization procedures as well as the subsequent right breast sentinel lymph node mapping, to be described in a separate report. Proper informed consent is obtained from the patient after discussion of the procedure, potential risks and complications, and alternatives including declining the procedure today. Patient was given an opportunity for questions. The patient appeared to understand. The patient consented to the procedure and signed the consent form. MM MAMMOGRAM GUIDED NEEDLE LOCALIZATION BREAST (TWO SITES), RIGHT GUIDANCE: Digital mammography. APPROACH: Lateral Medial. TARGET: HydroMARK biopsy clip markers anterolateral right breast, butterfly shape and barrel shape, respectively. ANESTHESIA: Carbonated lidocaine 1%: 8 mL, divided between the 2 sites. LOCALIZATION MARKERS: [place] MammaLok; 5 cm length for the more anterior target, and 7.5 cm length for the more posterior target. The skin is prepped and local anesthesia administered. The needles are positioned and position assessed with mammography. The wires are hooked into position. Worth needle protector placed. The patient tolerated the procedure well and had no immediate complication. Following the procedure, 4% lidocaine ointment was administered to the right areola and covered with Tegaderm in anticipation of nuclear lymphoscintigraphy injection for sentinel lymph node mapping to be described in separate report. US ULTRASOUND-GUIDED NEEDLE LOCALIZATION BREAST/AXILLA, RIGHT Real time ultrasound guidance APPROACH: Lateral Medial TARGET: Enlarged solid right axillary node with internal HydroMARK biopsy clip marker (open coil). ANESTHESIA: 5 cc carbonated lidocaine 1%. LOCALIZATION MARKER: [place] MammaLok, 7.5 cm length. The skin is prepped and local anesthesia administered. The needle is passed through the node during real-time ultrasound and a wire is hooked into position. Worth needle protector placed. The patient tolerated the procedure well and had no immediate complication. Procedure results called to medical science liaison (Mere) for Dr. Thakur prior to surgery. TECHNIQUE SPECIMEN RADIOGRAPH (BREAST): Single radiograph of the excised right breast tissue is performed. FINDINGS SPECIMEN RADIOGRAPH: The specimen shows the 2 distal needles and 2 distal hook wires are delivered intact. One of the needles sectioned in OR prior to delivery in radiology. The two biopsy clip markers are identified in the specimen. Results were called to Dr. Juliano Thakur in the operating room at the time of imaging. TECHNIQUE SPECIMEN RADIOGRAPH (AXILLA): Single radiograph of the excised right breast/axillary tissue is performed. FINDINGS SPECIMEN RADIOGRAPH: The specimen shows the distal needle and distal hookwire delivered intact. The proximal needle is beyond the field of view. The biopsy clip marker is identified in the specimen. Results were called to Dr. Juliano Thakur in the operating room at the time of imaging. MM/MM needle loc RT IMPRESSION: 1. Status post needle localization 2 masses anterior right breast using mammogram guidance. 2. Status post ultrasound-guided needle localization right axillary adenopathy. 3. Postoperative specimen radiograph obtained.
--- NOTE | ~2022-02-25 | NM_ITS ---
EXAMINATION: LYMPHOSCINTIGRAPHY CLINICAL INFORMATION: Reason for Exam INVASIVE DUCTAL CARCINOMA OF RIGHT BREAST COMPARISON: None. TECHNIQUE: A total of 0.5 mCi technetium 99m Lymphoseek was injected in divided doses around the right areola by Dr. Tawana Jacobs. . Images of the right breast and axilla in the anterior, right anterior oblique, and right lateral projections were obtained with simultaneous visualization of the body silhouette using a cobalt flood source, with the patient positioned between the flood source and the gamma camera. FINDINGS: A faint sentinal node is visualized in the right axilla. This is well visualized only in the right lateral view. No second echelon node is visualized in the right axilla. NM/NM sentinel node w imaging IMPRESSION: A sentinal node in the right axilla is faintly visualized. Following this procedure, the patient was transported to the operating room for a probe guided lymph node resection.
[2022-02-25 09:20] LABS: Glucose, Whole Blood 108 mg/dL (60-115)
[2022-02-25] MEDS: Lactated Ringers 1,000 ML 100 ML IVCONT (09:39)
--- NOTE | 2022-02-25 11:12 | PC.NURSE ---
pt off unit for needle loc with women [facility] personnel
--- NOTE | 2022-02-25 14:27 | MHC.SHP ---
Pre-Procedural Eval Section A Date of Service: 02/25/22 The patient is an INPATIENT: No Changes since office visit: Yes Patient answered all questions; No Cold of Flu in the past 2 weeks, No New Medical Problems and No Changes in Medication The History & Physical has been completed within 30 days and I have reviewed it.: Yes Section B Chief Complaint: Malignant neoplasm of site of right breast Allergies: Allergies Allergy/AdvReac Type Severity Reaction Status Date / Time No Known Allergies Allergy Unknown UNKNOWN Verified 02/20/22 11:44 [NO KNOWN ALLERGIES] Plan Diagnosis/Plan: Unchanged I have reviewed the history and physical and performed a pertinent physical examination on my patient. No changes have occurred unless specified.
[2022-02-25] MEDS: Sodium Bicarbonate 8.4% 50 MEQ/50 ML VIAL SUBCUT (14:52)
--- NOTE | 2022-02-25 16:02 | W.PM.OPN ---
Operative Note Operative Note Date of Service: 02/25/22 Narrative: Preoperative diagnosis:Invasive ductal carcinoma right breast Postoperative diagnosis: same Procedure: right breast lumpectomy x3 with needle localization, right sentinel node biopsy Surgeon: Juliano Thakur MD Scientific Manager: Sienna Martinez PA-C Anesthesia: general LMA Indications for procedure: 66-year-old female patient presenting with 2 areas in the right breast noted to be densities on mammogram, status post needle core biopsy found to be invasive ductal carcinoma. An enlarged lymph node was also identified in the right axilla which was biopsied and found to be invasive ductal carcinoma as well. Operative findings: Marking clips found in specimen x-rays. Margins found to be At least 0.5 cm. Specimen: right breast lumpectomy x3, sentinel node and additional axillary nodes Estimated blood loss: 10 mL Complications: none Procedure details: the patient was brought to the OR placed in a supine position. After administering general anesthesia the patient's right breast was prepped with ChloraPrep and draped in a sterile fashion. A surgical time-out was called and the consent confirmed. Patient received preoperative antibiotics and Venodyne boots were in place. Local anesthesia consisting of 0.5% Sensorcaine was infiltrated around the localizing needles near the lower outer quadrant of the nipple. A curvilinear incision was then made around the nipple including the needles. Superior to inferior skin flaps were then created with electrocautery. A core of tissue around the localizing needle was then obtained beginning at the medial margin continue to the superior and inferior margins followed by lateral margin and posterior margin. Specimen was sent to x-ray for specimen x-ray. Was then sent to pathology for gross pathology. Attention was then directed to the axilla. Again the localizing needle was used as a guide to create an incision in the lower axilla. Curvilinear incision was then made with a scalpel carried out through subcutaneous tissue. Core of tissue around the localizing needle was then taken to fluid the enlarged lymph node. Examination with the gamma probe revealed radio activity within the node. This was therefore consider the sentinel Node. Several other enlarge lymph nodes were noted within the axilla and excised as well. Wounds were irrigated with saline solution. The deep axillary tissue was reapproximated using interrupted 3-0 Polysorb sutures. Dermis was reapproximated using interrupted 3-0 Polysorb sutures. Skin was closed using a running subcuticular 4-0 Polysorb suture. The breast was also irrigated with saline solution. Deep breast tissue was reapproximated using interrupted 3-0 Polysorb sutures. Dermis was reapproximated using interrupted 3-0 Polysorb sutures. Skin was then closed using a running subcuticular 4-0 Polysorb suture. Steri-Strips 2 x 2 gauze and Tegaderm were then applied. The patient tolerated the procedure well. Sponge, instrument, and needle counts reported as correct. Patient was transferred to PACU in stable condition. The Breast Argyle Node Biopsy Substrate(s) used for sentinel node biopsy in the non-neoadjuvant setting: Radiotracer Substrate(s) used for sentinel node biopsy in the neoadjuvant setting: N/A All colored nodes or non-colored nodes present at the end of a dye filled lymphatic channel were removed, if dye was used as the substrate for localization: N/A All significantly radioactive nodes were removed, if radionuclide was used as the substrate for localization: Yes All palpably suspicious nodes were removed, if present: Yes If clips were placed in pathology-involved nodes, those nodes were identified and removed: Yes General Surg. - Synoptic Notes Breast Argyle Node Biopsy Substrate(s) used for sentinel node biopsy in the non-neoadjuvant setting: Radiotracer Substrate(s) used for sentinel node biopsy in the neoadjuvant setting: N/A All colored nodes or non-colored nodes present at the end of a dye filled lymphatic channel were removed, if dye was used as the substrate for localization: N/A All significantly radioactive nodes were removed, if radionuclide was used as the substrate for localization: Yes All palpably suspicious nodes were removed, if present: Yes If clips were placed in pathology-involved nodes, those nodes were identified and removed: Yes
[2022-02-25] MEDS: Furosemide 20 MG/2 ML VIAL 10 MG IVPUSH (17:05)
[2022-02-25 20:40] LABS: Glucose, Whole Blood 179 mg/dL (60-115)
== END 2022-02-25 19:40 | disposition home or self-care (01) ==
PROVIDERS: PCP Internal Medicine; Visit Provider Surgery
PROC: (CPT 19301; principal; 2022-02-25 13:30)
PROC: (CPT 19301; 2022-02-25 13:30)
DX: C50.911 Malignant neoplasm of unspecified site of right female breast (principal); C77.3 Secondary and unspecified malignant neoplasm of axilla and upper limb lymph nodes; Z80.3 Family history of malignant neoplasm of breast; I10 Essential (primary) hypertension; G47.30 Sleep apnea, unspecified; E78.00 Pure hypercholesterolemia, unspecified; J45.909 Unspecified asthma, uncomplicated; E11.9 Type 2 diabetes mellitus without complications; Z79.4 Long term (current) use of insulin; Z79.899 Other long term (current) drug therapy
CPT/HCPCS: 19301; 38525; 19281; 19282; 19285; 78195; 82947; 88305; 88307; 88329; 88341; 88342; A4648; A9520; J0330; J0690; J1100; J1940; J2250; J2405; J3010

== ENCOUNTER → 2022-03-12 11:53 | Outpatient (BNVA) | payer OTHER, SELFPAY | PROVIDERS: PCP Internal Medicine; Referring Provider Internal Medicine; Visit Provider Surgery | DX: Z48.3 Aftercare following surgery for neoplasm (principal); C50.911 Malignant neoplasm of unspecified site of right female breast | CPT/HCPCS: 99212 ==

== ENCOUNTER 2022-03-22 10:05 | Emergency (ER) | payer OTHER, SELFPAY ==
--- NOTE | ~2022-03-22 | CT_ITS ---
EXAMINATION: CT ABDOMEN AND PELVIS WITH CONTRAST CLINICAL INFORMATION: Left lower quadrant pain. COMPARISON: CT scan of the abdomen and pelvis dated 08/22/2020. TECHNIQUE: Multidetector volumetric images were obtained from the superior aspect of the liver through the pubic symphysis following administration 85 mL of Omnipaque 350 intravenous contrast. Sagittal and coronal reformatted images were obtained on the technologist's workstation. There is some limitation secondary to motion artifact. Oral contrast: No This CT examination was performed using dose optimization techniques as appropriate, variously including the following: *Automated exposure control *Adjustment of mA and/or kV according to patient size (this includes techniques or standardized protocols for targeted exams where dose is matched to indication/reason for exam; i.e. extremities or head) *Use of iterative reconstruction technique DLP: 12/11/2014 mGy-cm FINDINGS: LUNG BASES: Partial visualization of right breast prosthesis. LIVER, GALLBLADDER, AND BILIARY TREE: Unremarkable. PANCREAS: Unremarkable. SPLEEN: Unremarkable. ADRENAL GLANDS: Unremarkable. KIDNEYS AND URETERS: The kidneys are normal in size, shape, and attenuation. No hydronephrosis, hydroureter, or calculi seen. No perinephric stranding. BLADDER: Unremarkable. GASTROINTESTINAL TRACT: Small hiatal hernia. No other gastric abnormality. The small bowel and appendix are unremarkable. The colon and rectum are unremarkable. ABDOMINAL WALL: Post surgical changes in the anterior abdominal wall in the infraumbilical region without abnormality. LYMPH NODES: No lymphadenopathy. VASCULAR: Unremarkable. PELVIC VISCERA: Status post hysterectomy. No adnexal abnormality. OSSEOUS STRUCTURES: Unremarkable. CT/CT abdomen pelvis w con IMPRESSION: 1. No acute intra-abdominal/pelvic abnormality. No hydronephrosis or nephrolithiasis. No significant colonic diverticulosis and no evidence for acute diverticulitis. 2. Partial visualization of right breast prosthesis. Correlate with patient history and previous breast imaging. 3. Small hiatal hernia without associated abnormality.
--- NOTE | ~2022-03-22 | XR_ITS ---
EXAMINATION: XR CHEST CLINICAL INFORMATION: Shortness of breath, rule out pneumonia. COMPARISON: 09/30/2021 chest radiographs. TECHNIQUE: 2 views of the chest were obtained. FINDINGS: Low lung volumes limit evaluation. There is mild prominence of the pulmonary vasculature and cardiac silhouette. No focal infiltrate or pleural effusions. The mediastinal structures are unremarkable. XR/XR chest 2V IMPRESSION: Mild prominence of pulmonary vasculature and cardiac silhouette may be projectional secondary to low lung volumes, but mild congestion cannot be excluded. No focal infiltrate.
[2022-03-22 10:13] VITALS: BP 103/38; BP 122/72; PULSE 68; PULSE 78; RESP 16; TEMP 36.7; O2SAT 94; BMI 36.8
--- NOTE | 2022-03-22 10:28 | PC.NURSE ---
Pt comes in from home via EMS with complaints of body aches, fever and bilateral flank pain with increased urination x 3 days. Pt denies any painful urination. Pt is A&Ox4, LCA, Abd soft, non tender, BS X4, Pt states she recently had R breast surgery for cancer, scare noted to R breast as well as axillary region with some mild redness and tenderness to breast. Pt provided urine sample at this time. Awaiting MD for eval at this time, call smith within reach. Will continue to monitor.
[2022-03-22 10:30] VITALS: BP 124/55; PULSE 66; RESP 16; TEMP 36.8; O2SAT 94
[2022-03-22 10:52] LABS: Appearance Urine HAZY; Color Urine YELLOW; Glucose Urine UA NEG (NEG); Leukocyte Esterase Urine NEG (NEG); Nitrite Urine NEG (NEG); Specific Gravity - Urine 1.015 (1.005-1.025); Urine Blood NEG (NEG); Urine Ketones NEG (NEG); Urine Protein NEG (NEG-TRACE)
--- NOTE | 2022-03-22 11:43 | ED_ITS ---
HPI - General Adult General Chief complaint: General Medical Stated complaint: body aches Time Seen by Provider: 03/22/22 11:08 Source: patient Mode of arrival: EMS Limitations: language barrier (Hebrew speaking only, pattern wheel maker used) History of Present Illness HPI narrative: 66-year-old female who presents emergency department for evaluation of left flank and left lower quadrant pain x2 days. The patient states that the pain came on gradually but got progressively worse. She states that initially the pain was intermittent and squeezing sensation, the pain is now constant. She states the pain is 10/10. She points to her left flank and left lower abdomen when asked to localize the pain. This is her 1st episode of this type of pain. She took some Tylenol at home with only minimal relief. She states that she has had subjective fever at home as felt hot and cold. She has had chills. She s tates that she has had occasional cough which is productive of white sputum. She complains of chest pain with coughing. She feels short of breath. She denied nausea or vomiting. She has had 5 episodes of diarrhea per day for the past 2 days, there was no blood in the diarrhea. She has noted urinary frequency and dysuria. She denied any dark black or bloody stools. The patient states she has received 2 COVID vaccinations but does not know the brand. Related Data Home Medications Medication Instructions Recorded Confirmed aripiprazole 20 mg tablet (Abilify) 20 mg PO BEDTIME 02/14/22 02/20/22 blood sugar diagnostic (FreeStyle #10 ea 02/14/22 02/20/22 Lite Strips) citalopram 40 mg tablet 40 mg PO DAILY 02/14/22 02/20/22 gabapentin 300 mg capsule 300 mg PO TID 02/14/22 02/20/22 insulin glargine 100 unit/mL 100 unit SUBCUT DAILY 02/14/22 02/20/22 subcutaneous solution (Lantus U-100 Insulin) lisinopril 2.5 mg tablet 2.5 mg PO DAILY 02/14/22 02/20/22 trazodone 50 mg tablet 50 mg PO BEDTIME 02/14/22 02/20/22 Previous Rx's Medication Instructions Recorded benzonatate 100 mg capsule 100 mg PO TID PRN #20 cap 03/22/21 (Lili Elizondo) lxmqetorpjdny-AW-ciqiardnibl 2.5 15 ml PO Q4H PRN #118 ml 09/30/21 mg-5 mg-50 mg/5 mL oral liquid (Robitussin Cough and Cold CF) umeclidinium 62.5 mcg-vilanterol 1 inh INHALATION DAILY 30 Days #1 11/28/21 25 mcg/actuation powdr for ea inhalation (Anoro Ellipta) methylcellulose (laxative) 500 mg 500 mg PO DAILY #30 tab 12/24/21 tablet (Citrucel) pantoprazole 40 mg tablet,delayed 40 mg PO DAILY #30 tab 12/24/21 release sennosides 8.6 mg tablet (Natural 17.2 mg PO BEDTIME #60 tab 12/24/21 Senna Laxative) furosemide 40 mg tablet (Lasix) 40 mg PO QAM 30 Days #30 tab 12/26/21 cholecalciferol (vitamin D3) 50 50 mcg PO DAILY #30 cap 01/08/22 mcg (2,000 unit) capsule nystatin 100,000 unit/gram topical 1 appl TOPICAL BID #15 g 02/14/22 cream oxycodone-acetaminophen 5 mg-325 1 tab PO Q6H PRN #14 tab 02/25/22 mg tablet (Endocet) Allergies Allergy/AdvReac Type Severity Reaction Status Date / Time No Known Allergies Allergy Unknown UNKNOWN Verified 03/12/22 13:19 [NO KNOWN ALLERGIES] Review of Systems Review of Systems: Yes all other systems are reviewed and are negative [facility] Past Medical History [facility] Narrative: Social history: She denies tobacco use. She denies alcohol use. She denies drug use. She states she lives alone. Medical History Asthma Diabetes type 2, controlled Hypertension Invasive ductal carcinoma of right breast Sleep apnea Surgical History History of lumpectomy of right breast Hx of colonoscopy Hx of right breast biopsy Family History Family History Brother Diabetes Sister Diabetes Breast cancer, Onset Age: 67 Mother Breast cancer, Onset Age: 59 Maternal Aunt Breast cancer Social History Social History Household Members: None Housing: Apartment Are you a primary dog daycare provider to a significant other at home: No Do you presently have visiting nurse or other home services: Yes Patient Tobacco Use Status: Never used Tobacco Advance Directives: No Advance Directives Information Provided: Yes Advance Directives Date on File: 03/22/21 service: No Current occupational status: disabled 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 Physical Exam ED Vital Signs: Vital Signs - 24 hr 03/22/22 10:13 03/22/22 10:30 03/22/22 13:33 Temperature 98.0 F 98.2 F 97.8 F Pulse Rate 68 66 59 Respiratory Rate 16 16 16 Blood Pressure 103/38 L 124/55 L 119/52 L Pulse Oximetry 94 94 95 03/22/22 14:56 Temperature 97.8 F Pulse Rate 63 Respiratory Rate 15 Blood Pressure 107/50 L Pulse Oximetry 92 BMI result Body Mass Index 36.8 Const General: cooperative and no acute distress Orientation/consciousness: oriented to person and oriented to place Limitations: no limitations HENMT Head: Yes normal to inspection, Yes normocephalic and Yes atraumatic Ears: external ears normal General nose exam: Normal external nose present Face and sinus: Yes normal facial exam Mouth: Normal oral and palatal mucosa present Throat: Yes posterior oropharynx normal Eyes General: appearance normal, both eyes and all related structures Pupils: Equal, round and reactive pupils present Neck Neck: Yes normal visual inspection, Yes no lymphadenopathy, Yes trachea midline and Yes supple Chest Chest palpation & inspection: normal inspection of the chest and normal palpation of entire chest wall Resp Effort & Inspection: normal respiratory effort and able to speak in complete sentences Auscultation: clear to auscultation bilaterally Cardio Rate: regular rate Rhythm: regular rhythm Heart sounds: S1 normal heart sound present, S2 normal heart sound present and no murmurs GI Inspection: Yes normal to inspection and Yes obesity Palpation (GI): Soft to palpation, Tenderness to palpation present (GI) in the LLQ (Moderate) and no guarding Auscultation: normal bowel sounds Other: Moderate left CVA tenderness Skin General skin exam: no rashes or lesions noted Neuro General: oriented to person and oriented to place Cranial nerves: Yes CN's II-XII intact bilaterally and Yes Equal, round and reactive pupils present Cognition (Neuro): normal cognition Motor exam (neuro): 5/5 motor strength present throughout Extrem General: Yes normal to inspection Psych Appearance: grossly normal Speech and movement: Normal speech and movement present Affect: normal affect Attitude: cooperative Thought process: Normal thought process present Thought content: Normal thought content present Course Course Course Narrative: 66-year-old female who presents emergency department for evaluation of 2 days of left flank and left lower quadrant pain with associated fever, chills, cough, chest pain, shortness of breath diarrhea. Vital signs were unremarkable. Exam did reveal left lower quadrant and left flank tenderness. I did order laboratory evaluation. CT scan of the abdomen pelvis with IV contrast, chest x- ray and EKG will also be obtained. Patient was treated with normal saline IV x1 L, Toradol 15 mg IV and Zofran 4 mg IV. 1554: Laboratory evaluation: CBC, CMP and lipase were unremarkable. COVID-19 and influenza were negative. Radiology evaluation: Chest x-ray revealed mild congestion otherwise was unremarkable. CT scan of the abdomen pelvis did not reveal clear cause for the patient's pain. The patient is feeling better after the above treatment. At this time I do not have a clear cause for pain, it is possible this could be musculoskeletal pain or she may have shingles I did discuss this with her. Patient will be started on ibuprofen and Tylenol. She was given printed and verbal instructions and discharged home. Medical Decision Making Lab Data Result diagrams: 03/22/22 12:19 03/22/22 12:19 Labs: Lab Results 03/22/22 03/22/22 03/22/22 Range/Units 10:44 12:18 12:19 WBC 7.6 (4.8-10.8) X10*3/uL RBC 4.55 (4.20-5.50) X10*6/uL Hgb 12.1 (12.0-16.0) g/dl Hct 38.2 (37.0-47.0) % MCV 84.0 (80.0-98.0) fL MCH 26.6 L (27.0-33.0) pg MCHC 31.7 (31.0-35.0) g/dl RDW 13.9 (11.0-16.0) % Plt Count 262 (160-400) X10*3/uL MPV 10.1 (9.4-12.3) fL Immature Gran % (Auto) 0.3 (0.0-0.4) % Neut % (Auto) 55.6 (45-73) % Lymph % (Auto) 35.4 (20-40) % [place] % (Auto) 6.1 (2-11) % Eos % (Auto) 2.2 (0-4) % Baso % (Auto) 0.4 (0-2) % Lymph # (Auto) 2.7 (1.2-4.9) X10*3/uL [place] # (Auto) 0.5 (0.1-1.2) X10*3/uL Eos # (Auto) 0.2 (0.0-0.4) X10*3/uL Baso # (Auto) 0.0 (0.0-0.2) X10*3/uL Abs Immat Gran (auto) 0.02 (0.00-0.03) X10*3/uL Absolute Neuts (auto) 4.2 (2.0-8.3) x10*3/uL Absolute Nucleated RBC 0.000 (0.0-0.012) X10*3/uL Nucleated RBC % (auto) 0.0 (0.0-0.2) /100WBC PT (9.9-13.0) SEC INR (0.9-1.1) APTT (24.1-38.0) SEC Sodium (135-145) mmol/L Potassium (3.3-5.1) mmol/L Chloride (96-108) mmol/L Carbon Dioxide (22-29) mmol/L Anion Gap (12-20) BUN (9-16) mg/dL Creatinine (0.5-1.4) mg/dL Estim Creat Clear Calc Estimated GFR POC Glucose (60-115) mg/dL Random Glucose (60-115) mg/dL Lactic Acid 0.8 (0.5-2.0) mmol/L Calcium (8.4-10.2) mg/dL Total Bilirubin (0.0-1.0) mg/dL AST (5-31) U/L ALT (0-31) U/L Alkaline Phosphatase (39-117) U/L Troponin I High Sens (<3.5-17.0) ng/L Total Protein (6.5-8.0) g/dL Albumin (3.5-5.0) g/dL Lipase (8-78) U/L Urine Color YELLOW Urine Appearance HAZY Urine pH 6.0 (5.0-8.0) Ur Specific [place] 1.015 (1.005-1.025) Urine Protein NEG (NEG-TRACE) MG/DL Urine Glucose (UA) NEG (NEG) MG/DL Urine Ketones NEG (NEG) MG/DL Urine Blood NEG (NEG) Urine Nitrite NEG (NEG) Ur Leukocyte Esterase NEG (NEG) COVID-19 (ELIZABETH) (Negative) COVID-19 Clin Com Influenza Type A (SRUTHI) (Negative) Influenza Type B (SRUTHI) (Negative) Influenza A & B Note 03/22/22 03/22/22 03/22/22 Range/Units 12:19 12:19 12:19 WBC (4.8-10.8) X10*3/uL RBC (4.20-5.50) X10*6/uL Hgb (12.0-16.0) g/dl Hct (37.0-47.0) % MCV (80.0-98.0) fL MCH (27.0-33.0) pg MCHC (31.0-35.0) g/dl RDW (11.0-16.0) % Plt Count (160-400) X10*3/uL MPV (9.4-12.3) fL Immature Gran % (Auto) (0.0-0.4) % Neut % (Auto) (45-73) % Lymph % (Auto) (20-40) % [place] % (Auto) (2-11) % Eos % (Auto) (0-4) % Baso % (Auto) (0-2) % Lymph # (Auto) (1.2-4.9) X10*3/uL [place] # (Auto) (0.1-1.2) X10*3/uL Eos # (Auto) (0.0-0.4) X10*3/uL Baso # (Auto) (0.0-0.2) X10*3/uL Abs Immat Gran (auto) (0.00-0.03) X10*3/uL Absolute Neuts (auto) (2.0-8.3) x10*3/uL Absolute Nucleated RBC (0.0-0.012) X10*3/uL Nucleated RBC % (auto) (0.0-0.2) /100WBC PT (9.9-13.0) SEC INR (0.9-1.1) APTT (24.1-38.0) SEC Sodium 139 (135-145) mmol/L Potassium 4.3 (3.3-5.1) mmol/L Chloride 104 (96-108) mmol/L Carbon Dioxide 29 (22-29) mmol/L Anion Gap 10 L (12-20) BUN 12 (9-16) mg/dL Creatinine 0.76 (0.5-1.4) mg/dL Estim Creat Clear Calc 80.3 Estimated GFR > 60 POC Glucose (60-115) mg/dL Random Glucose 116 H (60-115) mg/dL Lactic Acid (0.5-2.0) mmol/L Calcium 9.5 (8.4-10.2) mg/dL Total Bilirubin 0.8 (0.0-1.0) mg/dL AST 19 (5-31) U/L ALT 19 (0-31) U/L Alkaline Phosphatase 79 (39-117) U/L Troponin I High Sens (<3.5-17.0) ng/L Total Protein 6.3 L (6.5-8.0) g/dL Albumin 3.8 (3.5-5.0) g/dL Lipase 13 (8-78) U/L Urine Color Urine Appearance Urine pH (5.0-8.0) Ur Specific [place] (1.005-1.025) Urine Protein (NEG-TRACE) MG/DL Urine Glucose (UA) (NEG) MG/DL Urine Ketones (NEG) MG/DL Urine Blood (NEG) Urine Nitrite (NEG) Ur Leukocyte Esterase (NEG) COVID-19 (ELIZABETH) Negative (Negative) COVID-19 Clin Com See Note Influenza Type A (SRUTHI) Negative (Negative) Influenza Type B (SRUTHI) Negative (Negative) Influenza A & B Note See Note 03/22/22 03/22/22 03/22/22 Range/Units 12:19 12:19 14:21 WBC (4.8-10.8) X10*3/uL RBC (4.20-5.50) X10*6/uL Hgb (12.0-16.0) g/dl Hct (37.0-47.0) % MCV (80.0-98.0) fL MCH (27.0-33.0) pg MCHC (31.0-35.0) g/dl RDW (11.0-16.0) % Plt Count (160-400) X10*3/uL MPV (9.4-12.3) fL Immature Gran % (Auto) (0.0-0.4) % Neut % (Auto) (45-73) % Lymph % (Auto) (20-40) % [place] % (Auto) (2-11) % Eos % (Auto) (0-4) % Baso % (Auto) (0-2) % Lymph # (Auto) (1.2-4.9) X10*3/uL [place] # (Auto) (0.1-1.2) X10*3/uL Eos # (Auto) (0.0-0.4) X10*3/uL Baso # (Auto) (0.0-0.2) X10*3/uL Abs Immat Gran (auto) (0.00-0.03) X10*3/uL Absolute Neuts (auto) (2.0-8.3) x10*3/uL Absolute Nucleated RBC (0.0-0.012) X10*3/uL Nucleated RBC % (auto) (0.0-0.2) /100WBC PT 12.0 (9.9-13.0) SEC INR 1.1 (0.9-1.1) APTT 26.1 (24.1-38.0) SEC Sodium (135-145) mmol/L Potassium (3.3-5.1) mmol/L Chloride (96-108) mmol/L Carbon Dioxide (22-29) mmol/L Anion Gap (12-20) BUN (9-16) mg/dL Creatinine (0.5-1.4) mg/dL Estim Creat Clear Calc Estimated GFR POC Glucose 75 (60-115) mg/dL Random Glucose (60-115) mg/dL Lactic Acid (0.5-2.0) mmol/L Calcium (8.4-10.2) mg/dL Total Bilirubin (0.0-1.0) mg/dL AST (5-31) U/L ALT (0-31) U/L Alkaline Phosphatase (39-117) U/L Troponin I High Sens 5.5 (<3.5-17.0) ng/L Total Protein (6.5-8.0) g/dL Albumin (3.5-5.0) g/dL Lipase (8-78) U/L Urine Color Urine Appearance Urine pH (5.0-8.0) Ur Specific [place] (1.005-1.025) Urine Protein (NEG-TRACE) MG/DL Urine Glucose (UA) (NEG) MG/DL Urine Ketones (NEG) MG/DL Urine Blood (NEG) Urine Nitrite (NEG) Ur Leukocyte Esterase (NEG) COVID-19 (ELIZABETH) (Negative) COVID-19 Clin Com Influenza Type A (SRUTHI) (Negative) Influenza Type B (SRUTHI) (Negative) Influenza A & B Note Discharge Plan Discharge Clinical Impression: Abdominal pain Patient Disposition: Home, Self-Care Instructions: Abdominal Pain (ED) Additional Instructions: Your laboratory evaluation was normal Your influenza test was negative Your COVID-19 test was negative. Your chest x-ray was negative. Your CT scan of the abdomen pelvis did not reveal a clear cause for your pain. Take ibuprofen 200 mg pills, 3 pills every 6 hours as needed for pain. Take Tylenol (acetaminophen) 500 mg pills, 2 pills every 4 to 6 hours as needed for pain. At this time, I do not see a rash on the left side of your abdomen. If you developed a rash then your pain could be caused by shingles. If you developed a rash you should see your doctor to get treated for shingles otherwise take medications as discussed above Follow-up with your doctor in 2 days. Please return to the emergency department if your symptoms get worse or if you develop any symptoms that are concerning to you. Prescriptions: No Action Anoro Ellipta 62.5-25 mcg/actuation blister with device 1 inh inhalation DAILY 30 Days Qty: 1 6RF furosemide [Lasix] 40 mg tablet 40 mg PO QAM 30 Days Qty: 30 6RF cholecalciferol (vitamin D3) 50 mcg (2,000 unit) capsule 50 mcg PO DAILY Qty: 30 3RF benzonatate [Tessalon Perles] 100 mg capsule 100 mg PO TID PRN (Reason: cough) Qty: 20 0RF Robitussin Cough and Cold CF 2.5-5-50 mg/5 mL liquid 15 ml PO Q4H PRN (Reason: cough) Qty: 118 0RF oxycodone-acetaminophen [Endocet] 5-325 mg tablet 1 tab PO Q6H PRN (Reason: pain (scale score 7-10)) Qty: 14 0RF pantoprazole 40 mg tablet,delayed release (DR/EC) 40 mg PO DAILY Qty: 30 2RF Rx Instructions: take one tablet half an hour before breakfast sennosides [Natural Senna Laxative] 8.6 mg tablet 17.2 mg PO BEDTIME Qty: 60 3RF Citrucel 500 mg tablet 500 mg PO DAILY Qty: 30 2RF Rx Instructions: take it with full glass of water (DME) FreeStyle Lite Strips Strip See Rx Instructions strip Not Applicable BID Qty: 10 0RF Rx Instructions: As directed Lantus U-100 Insulin 100 unit/mL solution 100 unit subcut DAILY 0RF aripiprazole [Abilify] 20 mg tablet 20 mg PO BEDTIME 0RF lisinopril 2.5 mg tablet 2.5 mg PO DAILY 0RF gabapentin 300 mg capsule 300 mg PO TID 0RF citalopram 40 mg tablet 40 mg PO DAILY 0RF trazodone 50 mg tablet 50 mg PO BEDTIME 0RF nystatin 100,000 unit/gram cream 1 appl topical BID Qty: 15 0RF
--- NOTE | 2022-03-22 11:43 | ECG_ITS ---
Test Reason : abdominal pain Blood Pressure : / mmHG Vent. Rate : 056 BPM Atrial Rate : 056 BPM P-R Int : 138 ms QRS Dur : 100 ms QT Int : 414 ms P-R-T Axes : 051 -22 030 degrees QTc Int : 399 ms Sinus bradycardia Minimal voltage criteria for LVH, may be normal variant ( R in aVL ) Borderline ECG When compared with ECG of 04-AUG-2021 19:55, No significant change was found Referred By: Barrera Sigala Electronically Signed By:IMELDA HOLLEY MD
[2022-03-22] MEDS: 0.9 % Sodium Chloride 1,000 ML 999 ML IV (12:04)
[2022-03-22] MEDS: ondansetron HCL 4 MG/2 ML VIAL IVPUSH (12:04)
[2022-03-22] MEDS: Ketorolac Tromethamine 15 MG/ML VIAL IVPUSH (12:04)
[2022-03-22 12:34] LABS: Basophils Percent Auto 0.4 % (0-2); Eosinophils Absolute Auto 0.2 X10*3/uL (0.0-0.4); Eosinophils Percent Auto 2.2 % (0-4); Hematocrit 38.2 % (37.0-47.0); Hemoglobin 12.1 g/dl (12.0-16.0); Imm Gran Abs Auto 0.02 X10*3/uL (0.00-0.03); Imm Gran Pct Auto 0.3 % (0.0-0.4); Lymphocytes Absolute Auto 2.7 X10*3/uL (1.2-4.9); Lymphocytes Percent Auto 35.4 % (20-40); MANUAL DIFF FLAG NO; Mean Corpuscular HGB Conc 31.7 g/dl (31.0-35.0); Mean Corpuscular Hemoglobin 26.6 pg (27.0-33.0); Mean Platelet Volume 10.1 fL (9.4-12.3); Monocytes Absolute Auto 0.5 X10*3/uL (0.1-1.2); Monocytes Percent Auto 6.1 % (2-11); Neutrophils Absolute Auto 4.2 x10*3/uL (2.0-8.3); Neutrophils Percent Auto 55.6 % (45-73); Platelet Count 262 X10*3/uL (160-400); Red Blood Count 4.55 X10*6/uL (4.20-5.50); Red Cell Distribution Width 13.9 % (11.0-16.0); White Blood Count 7.6 X10*3/uL (4.8-10.8)
[2022-03-22 12:35] LABS: INTERNATIONAL NORM RATIO 1.1 (0.9-1.1)
[2022-03-22 12:37] LABS: Partial Thromboplastin Time 26.1 SEC (24.1-38.0)
[2022-03-22 12:43] LABS: Lactic Acid 0.8 mmol/L (0.5-2.0)
[2022-03-22 12:47] LABS: COVID-19 Test Negative (Negative); IDNOW Serial# 55D5AD1C; Influenza A Negative (Negative); Influenza B2 Negative (Negative)
[2022-03-22 12:49] LABS: Alanine Aminotransferase 19 U/L (0-31); Albumin Level 3.8 g/dL (3.5-5.0); Alkaline Phosphatase 79 U/L (39-117); Anion Gap 10 (12-20); Aspartate Amino Transferase 19 U/L (5-31); Bilirubin Total 0.8 mg/dL (0.0-1.0); Blood Urea Nitrogen 12 mg/dL (9-16); Calcium 9.5 mg/dL (8.4-10.2); Carbon Dioxide 29 mmol/L (22-29); Chloride 104 mmol/L (96-108); Creatinine Clr Calc Pharmacy 80.3; Estimated Glomerular Filt Rate > 60; Glucose Random 116 mg/dL (60-115); Lipase 13 U/L (8-78); Potassium 4.3 mmol/L (3.3-5.1); Sodium 139 mmol/L (135-145); Total Protein 6.3 g/dL (6.5-8.0)
[2022-03-22 12:50] LABS: Troponin-I High Sensitivity 5.5 ng/L (<3.5-17.0)
[2022-03-22 13:33] VITALS: BP 119/52; PULSE 59; RESP 16; TEMP 36.6; O2SAT 95
--- NOTE | 2022-03-22 14:24 | PC.NURSE ---
RN aware POC 75
[2022-03-22 14:26] LABS: Glucose, Whole Blood 75 mg/dL (60-115)
[2022-03-22] MEDS: iohexoL 350 MG/ML 100 ML INFUS..BTL IV (14:27)
[2022-03-22 14:56] VITALS: BP 107/50; PULSE 63; RESP 15; TEMP 36.6; O2SAT 92
[2022-03-22 16:24] VITALS: BP 115/39; PULSE 64; RESP 6; O2SAT 92
== END 2022-03-22 16:51 | disposition home or self-care (01) ==
PROVIDERS: Emergency Provider Emergency Medicine Emergency Medical Services; PCP Internal Medicine
DX: M79.10 Myalgia, unspecified site (principal); R10.32 Left lower quadrant pain; R30.0 Dysuria; R35.0 Frequency of micturition; Z20.822 Contact with and (suspected) exposure to COVID-19; Z79.899 Other long term (current) drug therapy
CPT/HCPCS: 36415; 71046; 74177; 80053; 81003; 82947; 83605; 83690; 84484; 85025; 85610; 85730; 87040; 87502; 87635; 93005; 96361; 96374; 96375; 99284; 99285; J1885; J2405; Q9967

== ENCOUNTER → 2022-03-27 09:41 | Outpatient (BNVA) | payer OTHER, SELFPAY | PROVIDERS: PCP Internal Medicine; Visit Provider Internal Medicine Pulmonary Disease | DX: G47.33 Obstructive sleep apnea (adult) (pediatric) (principal); J44.9 Chronic obstructive pulmonary disease, unspecified; Z79.899 Other long term (current) drug therapy; Z99.89 Dependence on other enabling machines and devices; Z87.891 Personal history of nicotine dependence | CPT/HCPCS: 99212 ==

== ENCOUNTER 2022-04-11 08:56 | Outpatient (REF) | payer OTHER, SELFPAY ==
--- NOTE | ~2022-04-11 | CT_ITS ---
EXAMINATION: CT HEAD WITHOUT CONTRAST CLINICAL INFORMATION: Mild cognitive impairment COMPARISON: August 23, 2018 TECHNIQUE: Contiguous axial imaging was performed from the skull base to vertex without intravenous administration of contrast. This CT examination was performed using dose optimization techniques as appropriate, variously including the following: *Automated exposure control *Adjustment of mA and/or kV according to patient size (this includes techniques or standardized protocols for targeted exams where dose is matched to indication/reason for exam; i.e. extremities or head) *Use of iterative reconstruction technique DLP: 758 mGy-cm FINDINGS: There is no evidence of acute intracranial hemorrhage or territorial infarction. No abnormal mass effect or midline shift is seen. Sarmiento to white matter differentiation is well preserved. No extra-axial fluid collections are identified. The ventricles are normal in size. There is no abnormal attenuation within the brain parenchyma. The osseous structures and soft tissues are normal. The mastoid air cells are hypoplastic with opacification of left mastoid air cells. There is mild mucosal thickening seen within the right maxillary sinus with the remainder of sinuses being clear and no evidence of acute sinusitis. CT/CT head/brain wo con IMPRESSION: No acute intracranial pathology.
== END 2022-04-11 08:57 | disposition home or self-care (01) ==
LOC: HO.CT 08:56
PROVIDERS: Visit Provider Psychiatry & Neurology Neurology
DX: G31.84 Mild cognitive impairment of uncertain or unknown etiology (principal)
CPT/HCPCS: 70450

== ENCOUNTER 2022-04-15 06:57 | Day surgery (SDC) | payer OTHER, SELFPAY ==
--- NOTE | 2022-04-12 12:18 | HO.ANESPROP2 ---
Documented by User: Destiny Jarvis NP 04/12/22 13:19 HPI - Anesthesia Eval Consult details Narrative: 66yo F for Colonoscopy s/p breast lumpectomy 01/2022 with GA-LMA 4. Per anesthesia record: 1532: HR up to 110 abruptly, Afib. Then after a while down to 58. Other latisha HR up to 112 then few minutes later HR down to 54 1542: Pt given sux for ? of laryngospasm. Post dose able to ventilate. Surgeon closing. Consider intubating in future d/t pt size and seat of LMA Optimized per pulmo PMFSH Active Problems Active Problems: All Active Problems (Updated 04/09/22 @ 16:00 by Carina Rodriguez, JULIO C) COVID-19 (Acute) Dyspnea on exertion (Acute) Osteoarthritis of knees, bilateral (Acute) Diabetes (Acute) Osteoarthritis of right knee (Acute) Rotator cuff tendonitis (Acute) Abnormal ultrasound of breast (Acute) Lymph node enlargement (Acute) Fungal skin infection (Acute) COPD (chronic obstructive pulmonary disease) (Acute) Invasive ductal carcinoma of right breast (Acute) Sleep apnea (Acute) Past Medical History Medical History (Updated 04/09/22 @ 16:00 by Carina Rodriguez RN) Asthma COPD (chronic obstructive pulmonary disease) Diabetes type 2, controlled Hypertension Invasive ductal carcinoma of right breast Sleep apnea Family History Family History Brother Diabetes Sister Diabetes Breast cancer, Onset Age: 67 Mother Breast cancer, Onset Age: 59 Maternal Aunt Breast cancer Family history of problems with anesthesia: No Surgical History Surgical History History of lumpectomy of right breast Hx of colonoscopy Hx of right breast biopsy History of Problems with Anesthesia: No Social History Social History (Updated 04/03/22 @ 09:30 by Brunilda López CMA) Household Members: None Housing: Apartment Are you a primary early breastfeeding care specialist to a significant other at home: No Do you presently have visiting nurse or other home services: Yes Patient Tobacco Use Status: Former Tobacco user Use of substances other than those prescribed or required for medical reasons: No Are you DNR?: No Advance Directives: No Advance Directives Information Provided: Yes Advance Directives Date on File: 03/22/21 service: No Current occupational status: disabled 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 Meds Allergies Allergy/AdvReac Type Severity Reaction Status Date / Time No Known Allergies Allergy Unknown UNKNOWN Verified 04/09/22 15:51 [NO KNOWN ALLERGIES] Home Medications Medication Instructions Recorded Confirmed Last Taken Type aripiprazole 20 mg tablet (Abilify) 20 mg PO BEDTIME 02/14/22 04/09/22 Unknown History blood sugar diagnostic (FreeStyle #10 ea 02/14/22 04/03/22 Unknown History Lite Strips) citalopram 40 mg tablet 40 mg PO DAILY 02/14/22 04/09/22 Unknown History gabapentin 300 mg capsule 300 mg PO TID 02/14/22 04/09/22 Unknown History insulin glargine 100 unit/mL 55 unit SUBCUT DAILY 02/14/22 04/09/22 Unknown History subcutaneous solution (Lantus U-100 Insulin) lisinopril 2.5 mg tablet 2.5 mg PO DAILY 02/14/22 04/09/22 Unknown History trazodone 50 mg tablet 50 mg PO BEDTIME 02/14/22 04/09/22 Unknown History albuterol sulfate 90 mcg/actuation INHALATION 04/09/22 Unknown History aerosol inhaler isosorbide mononitrate 30 mg 1 tab PO DAILY 04/09/22 04/09/22 Unknown History tablet,extended release 24 hr pravastatin 20 mg tablet 1 tab PO DAILY 04/09/22 04/09/22 Unknown History umeclidinium 62.5 mcg-vilanterol 1 puff INHALATION DAILY 04/09/22 04/09/22 Unknown History 25 mcg/actuation powdr for inhalation (Anoro Ellipta) Exam Exam Date and Time: April 12, 2022 1218 Pertinent Lab Results Pertinent Lab Results: Laboratory Tests 03/22/22 03/22/22 12:19 12:19 WBC 7.6 Hgb 12.1 Hct 38.2 Plt Count 262 Sodium 139 Potassium 4.3 Chloride 104 Carbon Dioxide 29 BUN 12 Creatinine 0.76 Narrative Narrative: EKG 08/2021 Vent. Rate : 060 BPM ? ? Atrial Rate : 060 BPM ?? P-R Int : 138 ms? QRS Dur : 084 ms ? ? QT Int : 404 ms ? ? ? P-R-T Axes : 038 -24 020 degrees ?? QTc Int : 404 ms ? Normal sinus rhythm Voltage criteria for left ventricular hypertrophy Abnormal ECG When compared with ECG of 23-OCT-2020 10:59, No significant change was found NM eleuterio perf SPECT rest & str 10/2021 Impression: ? 1.? Myocardial perfusion imaging study shows normal myocardial perfusion 2.? Gated LVEF is 67% 3. Transient ischemic dilatation not present ? EKG is nondiagnostic for ischemia ECHO 05/2021 Conclusions: -? 1. Hyperdynamic LV systolic function with impaired relaxation filling pattern? 2. Normal cardiac valvular Doppler with mild mitral and? calcification? 3. Normal RV systolic pressure ? 4. No pericardial effusion ?? Assessment and Plan Assessment Anesthesia Assessment: Chart Reviewed Final Anesthetic Review Family History of Problems with Anesthesia: No History of Problems with Anesthesia: No Documented by User: Liat Gonzalez MD 04/15/22 08:18 [facility] Past Medical History Medical History (Updated 04/09/22 @ 16:00 by Carina Rodriguez RN) Asthma COPD (chronic obstructive pulmonary disease) Diabetes type 2, controlled Hypertension Invasive ductal carcinoma of right breast Sleep apnea Family History Family History Brother Diabetes Sister Diabetes Breast cancer, Onset Age: 67 Mother Breast cancer, Onset Age: 59 Maternal Aunt Breast cancer Surgical History Surgical History History of lumpectomy of right breast Hx of colonoscopy Hx of right breast biopsy Social History Social History (Updated 04/03/22 @ 09:30 by Brunilda López CMA) Household Members: None Housing: Apartment Are you a primary early breastfeeding care specialist to a significant other at home: No Do you presently have visiting nurse or other home services: Yes Patient Tobacco Use Status: Former Tobacco user Use of substances other than those prescribed or required for medical reasons: No Are you DNR?: No Advance Directives: No Advance Directives Information Provided: Yes Advance Directives Date on File: 03/22/21 service: No Current occupational status: disabled 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 Meds Allergies Allergy/AdvReac Type Severity Reaction Status Date / Time No Known Allergies Allergy Unknown UNKNOWN Verified 04/09/22 15:51 [NO KNOWN ALLERGIES] Home Medications Medication Instructions Recorded Confirmed Last Taken Type aripiprazole 20 mg tablet (Abilify) 20 mg PO BEDTIME 02/14/22 04/09/22 Unknown History blood sugar diagnostic (FreeStyle #10 ea 02/14/22 04/03/22 Unknown History Lite Strips) citalopram 40 mg tablet 40 mg PO DAILY 02/14/22 04/09/22 Unknown History gabapentin 300 mg capsule 300 mg PO TID 02/14/22 04/09/22 Unknown History insulin glargine 100 unit/mL 55 unit SUBCUT DAILY 02/14/22 04/09/22 Unknown History subcutaneous solution (Lantus U-100 Insulin) lisinopril 2.5 mg tablet 2.5 mg PO DAILY 02/14/22 04/09/22 Unknown History trazodone 50 mg tablet 50 mg PO BEDTIME 02/14/22 04/09/22 Unknown History albuterol sulfate 90 mcg/actuation INHALATION 04/09/22 Unknown History aerosol inhaler isosorbide mononitrate 30 mg 1 tab PO DAILY 04/09/22 04/09/22 Unknown History tablet,extended release 24 hr pravastatin 20 mg tablet 1 tab PO DAILY 04/09/22 04/09/22 Unknown History umeclidinium 62.5 mcg-vilanterol 1 puff INHALATION DAILY 04/09/22 04/09/22 Unknown History 25 mcg/actuation powdr for inhalation (Anoro Ellipta) Exam Airway Mallampati Class: III TM Dist: >3cm Neck ROM: Full Denture: Upper Partial: Lower Heart: rrr Lungs: cta Assessment and Plan Assessment Anesthesia Assessment: Anesthesia Plan Discussed Final Anesthetic Review NPO: Yes ASA Class: III Final Preanesthetic Review: No Changes in Pt Med Stat, Meds/Allgs Chart Reviewed and Consent Obtained/Reviewed Patient Risk: Intermediate Procedure Risk: Intermediate Anesthetic Plan Anesthetic Plan: MAC: Disposition: Standard PACU
[2022-04-15] VITALS (7 sets, daily range): BP systolic 114–133; BP diastolic 68–72; PULSE 59–67; RESP 16–20; TEMP 36.1; O2SAT 89–98; BMI 42.9
--- NOTE | 2022-04-15 08:05 | MHC.SHP ---
Pre-Procedural Eval Section A Date of Service: 04/15/22 Section B Chief Complaint: screening Details of Present Illness: Colon cancer screening, IBS with diarrhea and constipation Relevant Family History (Specify if Yes): No Relevant Social History: None Present Medications: see Short Stay Collaborative assessment Medical History: Significant History (Asthma Diabetes type 2, controlled Hypertension Sleep apnea) History of Previous Operations: Relevant previous surgery/procedure and date(s) (History of colonoscopy) Allergies: Allergies Allergy/AdvReac Type Severity Reaction Status Date / Time No Known Allergies Allergy Unknown UNKNOWN Verified 04/09/22 15:51 [NO KNOWN ALLERGIES] Review of Systems Sugical H&P ROS: Negative: Constitution, Cardiovascular, Respiratory and Gastrointestinal Exam Surgical H&P Exam: Normal: Heart, Normal: Lungs, Normal: Extremities and Normal: Abdomen Plan Diagnosis/Plan: Unchanged I have reviewed the history and physical and performed a pertinent physical examination on my patient. No changes have occurred unless specified.
[2022-04-15 08:25] LABS: Glucose, Whole Blood 118 mg/dL (60-115)
--- NOTE | 2022-04-15 08:27 | W.PM.OPN ---
Operative Note Operative Note Date of Service: 04/15/22 Narrative: Pre-op diagnosis: Colon cancer screen, IBS with diarrhea and constipation Post-op diagnosis:?other (Colon polyps, hemorrhoids, ascending colon AVM) Procedure: COLONOSCOPY TILL CECUM WITH BIOPSIES, SNARE POLYPECTOMY, SUBMUCOSAL INJECTION AND HEMOCLIP PLACEMENT Consent: Indications for the procedure and potential complications of bleeding, perforation, reaction to medications and missed diagnosis were discussed with the patient and informed consent was obtained. Instrument: Olympus PCF H 190 L variable stiffness pediatric colonoscope Monitoring: Vital signs and clinical assessment, intermittent blood pressure monitoring, continuous EKG monitoring, Pulse oximetry and Carbon Dioxide monitoring were done throughout the procedure. Colon withdrawl time was 24 minutes. Procedure: The patient was placed in the left lateral decubitis position and pre-procedure medications were administered. After a digital rectal examination of the ano-rectum, the video colonoscope was inserted into the rectum and advanced through the colon to the cecum. The colonoscope was slowly withdrawn in a retrograde panoramic fashion and the colon mucosa was carefully examined including a retroflexed view of the rectum. Findings and interventions are described below. Procedure Difficulty:? Colon was long and tortuous and there was some loop formation - no maneuvers were required Findings: Terminal Ileum: Not evaluated Cecum:? Partially evaluated due to suboptimal prep Ascending Colon:? A 1 cms non-bleeding AVM in the proximal AC. Transverse Colon:? A 3 x 3 cms H shaped polyp at 90 cms - polyp was raised with 10 cc of Orise solution and removed with a hot snare.? Some bleeding noted at the polypectomy site which was closed with 2 resolution clips with control of bleeding.? Polypectomy site was marked by Maria R ink. Descending Colon:? Normal Sigmoid Colon:? A 12-15 mm sessile polyp removed with a hot snare Rectum:? Normal Ano-rectum:? Moderate internal hemorrhoids Colon preparation: ? Fair despite copious irrigation and poor in the cecum and left colon Impression and Post Procedure Diagnosis: Colonoscopy Findings: Two medium to large sized polyps removed Random biopsies obtained from the right colon. A 1 cms non-bleeding AVM in the AC. Moderate hemorrhoids on retroflexed exam. Plan: Await pathology results Patient has an appointment on 04/30/22 in the GI Clinic with Zainab Berman FNP-BC. Repeat Colonoscopy interval based on path results - in 6 months if polyps are adenomatous to check polypectomy site and due to sub-optimal prep. Adult colonoscopy for future colonoscopies. Above findings were reviewed with the patient and colon polyps handout was given in the discharge area Surgeon: Rylie Castro MD Anesthesia:?MAC (DR Carlisle) Was an Railroad Dining Car Stewardess used for this Procedure?:?Yes Railroad Dining Car Stewardess:?Isiah Israel Estimated blood loss (mL):?1 Pathology:?other (A- RIGHT COLON BXS? R/O MICROSCOPIC COLITIS? B- TRANSVERSE COLON POLYP AT 90CM? 0- RISE USED.? C- SIGMOID COLON POLYP) Condition:?stable Disposition:?PACU
[2022-04-15] MEDS: Lactated Ringers 1,000 ML 100 ML IVCONT (09:31)
--- NOTE | 2022-04-15 09:41 | PC.NURSE ---
Patient arrived to [facility] with no O2, accompanied by CONTRACT DRIVER. Patient SOB on arrival, vitals taken, 88 % on RA. Patient stated she uses 2 L O2 at home but did not bring it. Placed on 2 L NC O2 to 93-97%. PAYROLL AND BENEFITS SPECIALIST aware. CONTRACT DRIVER stated shes stubborn and didnt want to bring it
--- NOTE | 2022-04-15 11:17 | PC.NURSE ---
pt reports she does not have O2 with her, WIRE TESTER in waiting room also reports that she did not bring the patient's O2 because 'the patient is stubborn and didn't want it , I asked why she as the WIRE TESTER didn't bring it anyways if the patient needed it. She did not have an answer. I asked her if she could go get the O2 and bring it back to the hospital. The WIRE TESTER responded that she could not because they take public transportation. manager portable aware. Primary Care physician, Dr. Kaufman notified and order obtained to allow patient to be discharged home without O2. Patient and WIRE TESTER aware.
== END 2022-04-15 11:00 | disposition home or self-care (01) ==
PROVIDERS: PCP Internal Medicine; Visit Provider Internal Medicine Gastroenterology
PROC: 0DJD8ZZ Inspection of Lower Intestinal Tract, Via Natural or Artificial Opening Endoscopic (ICD-10-PCS; CPT 45378; principal; 2022-04-15 08:30)
DX: Z12.11 Encounter for screening for malignant neoplasm of colon (principal); D12.3 Benign neoplasm of transverse colon; D12.5 Benign neoplasm of sigmoid colon; K64.8 Other hemorrhoids; K58.2 Mixed irritable bowel syndrome; K55.20 Angiodysplasia of colon without hemorrhage; K21.9 Gastro-esophageal reflux disease without esophagitis; J45.909 Unspecified asthma, uncomplicated; I10 Essential (primary) hypertension; G47.30 Sleep apnea, unspecified; E11.9 Type 2 diabetes mellitus without complications; Z79.899 Other long term (current) drug therapy
CPT/HCPCS: 45385; 45380; 45381; 82947; 88305

== ENCOUNTER → 2022-04-30 09:57 | Outpatient (BNVA) | payer OTHER, SELFPAY | PROVIDERS: PCP Internal Medicine; Referring Provider Internal Medicine; Visit Provider Nurse Practitioner Family | DX: K59.04 Chronic idiopathic constipation (principal); N39.498 Other specified urinary incontinence; D36.9 Benign neoplasm, unspecified site; Z98.890 Other specified postprocedural states | CPT/HCPCS: 99212 ==

== ENCOUNTER 2022-05-07 08:28 | Emergency (ER) | payer OTHER, SELFPAY ==
--- NOTE | ~2022-05-07 | XR_ITS ---
EXAMINATION: XR CHEST CLINICAL INFORMATION: Shortness of breath. COMPARISON: 03/22/2022 chest radiographs. TECHNIQUE: Frontal view of the chest was obtained. FINDINGS: There is mild prominence of the pulmonary vasculature and cardiac silhouette. The mediastinal structures are unremarkable. XR/XR chest 1V IMPRESSION: Mild prominence of the pulmonary vasculature appears similar to the previous study and could be baseline for the patient however, mild congestion cannot be excluded.
[2022-05-07 08:53] VITALS: BP 125/53; PULSE 66; RESP 18; TEMP 36.6; O2SAT 94
--- NOTE | 2022-05-07 08:54 | ECG_ITS ---
Test Reason : chest pain Blood Pressure : / mmHG Vent. Rate : 058 BPM Atrial Rate : 058 BPM P-R Int : 154 ms QRS Dur : 082 ms QT Int : 420 ms P-R-T Axes : 043 -25 003 degrees QTc Int : 412 ms Sinus bradycardia Minimal voltage criteria for LVH, may be normal variant ( R in aVL ) Borderline ECG When compared with ECG of 22-MAR-2022 11:49, No significant change was found Referred By: Keri Burleson Electronically Signed By:MAURICE BENAVIDEZ
--- NOTE | 2022-05-07 08:55 | ED_ITS ---
HPI - SOB/Dyspnea General Chief Complaint: General Medical Stated Complaint: FLU LIKE SYMPTOMS,? 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 Patient has been coughing for the last 2 days, feels generalized body aches, and chills with no fever. No sick contacts, no recent travel, chest pain is only with coughing, patient feels chest tightness and shortness of breath. Cough is dry. Related Data Home Medications Medication Instructions Recorded Confirmed aripiprazole 20 mg tablet (Abilify) 20 mg PO BEDTIME 02/14/22 04/09/22 blood sugar diagnostic (FreeStyle #10 ea 02/14/22 04/03/22 Lite Strips) citalopram 40 mg tablet 40 mg PO DAILY 02/14/22 04/09/22 gabapentin 300 mg capsule 300 mg PO TID 02/14/22 04/09/22 insulin glargine 100 unit/mL 55 unit SUBCUT DAILY 02/14/22 04/09/22 subcutaneous solution (Lantus U-100 Insulin) lisinopril 2.5 mg tablet 2.5 mg PO DAILY 02/14/22 04/09/22 trazodone 50 mg tablet 50 mg PO BEDTIME 02/14/22 04/09/22 albuterol sulfate 90 mcg/actuation INHALATION 04/09/22 aerosol inhaler isosorbide mononitrate 30 mg 1 tab PO DAILY 04/09/22 04/09/22 tablet,extended release 24 hr pravastatin 20 mg tablet 1 tab PO DAILY 04/09/22 04/09/22 umeclidinium 62.5 mcg-vilanterol 1 puff INHALATION DAILY 04/09/22 04/09/22 25 mcg/actuation powdr for inhalation (Anoro Ellipta) Previous Rx's Medication Instructions Recorded benzonatate 100 mg capsule 100 mg PO TID PRN #20 cap 03/22/21 (Lili Elizondo) etahsjchckizj-[id number] 2.5 15 ml PO Q4H PRN #118 ml 09/30/21 mg-5 mg-50 mg/5 mL oral liquid (Robitussin Cough and Cold CF) furosemide 40 mg tablet (Lasix) 40 mg PO QAM 30 Days #30 tab 12/26/21 cholecalciferol (vitamin D3) 50 50 mcg PO DAILY #30 cap 01/08/22 mcg (2,000 unit) capsule nystatin 100,000 unit/gram topical 1 appl TOPICAL BID #15 g 02/14/22 cream pantoprazole 40 mg tablet,delayed 40 mg PO DAILY #30 tab 04/18/22 release sennosides 8.6 mg tablet (Natural 17.2 mg PO BEDTIME #60 tab 04/30/22 Senna Laxative) methylcellulose (laxative) 500 mg 500 mg PO DAILY #30 tab 05/01/22 tablet (Fiber Laxative (methylcellulose)) albuterol sulfate 90 mcg/actuation 1 inh INHALATION QID PRN #8.5 g 05/07/22 aerosol inhaler prednisone 20 mg tablet 20 mg PO BID #10 tab 05/07/22 Allergies Allergy/AdvReac Type Severity Reaction Status Date / Time No Known Allergies Allergy Unknown UNKNOWN Verified 04/30/22 10:16 [NO KNOWN ALLERGIES] Review of Systems Review of Systems: All other systems are reviewed and are negative Constitutional: Reports as per HPI and Reports no additional constitutional complaints Eyes: Reports as per HPI and Reports no additional eye complaints Reports system reviewed and no additional complaints, except as documented Cardiovascular: Reports as per HPI and Reports no additional cardiovascular complaints Respiratory: Reports as per HPI and Reports no additional respiratory complaints Gastrointestinal: Reports as per HPI and Reports no additional gastrointestinal complaints Genitourinary: Reports no additional female genitourinary complaints Musculoskeletal: Reports no additional musculoskeletal complaints Skin/Breast: Reports system reviewed and no additional complaints, except as docu Psychiatric: Reports no additional psychiatric complaints Endocrine: Reports no additional endocrine complaints Hematologic/Lymphatic: Reports no additional hematologic/lymphatic complaints Allergic/Immunologic: Reports no additional allergic/immunologic complaints Reports system reviewed and no additional complaints, except as documented and Reports Abnormal speech present [facility] Past Medical History Medical History Asthma COPD (chronic obstructive pulmonary disease) Diabetes type 2, controlled Hypertension Invasive ductal carcinoma of right breast Sleep apnea Tubular adenoma Surgical History History of lumpectomy of right breast Hx of colonoscopy Hx of right breast biopsy Family History Family History Brother Diabetes Sister Diabetes Breast cancer, Onset Age: 67 Mother Breast cancer, Onset Age: 59 Maternal Aunt Breast cancer Social History Social History Household Members: None Housing: Apartment Are you a primary career and transition teacher to a significant other at home: No Do you presently have visiting nurse or other home services: Yes Alcohol intake: never Patient Tobacco Use Status: Former Tobacco user Use of substances other than those prescribed or required for medical reasons: No Advance Directives: No Advance Directives Information Provided: No Advance Directives Date on File: 03/22/21 service: No Current occupational status: disabled 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 Blood pressure normal. Heart rate normal. Respiration rate normal. Temperature normal. Oxygen saturation normal. Appearance: Alert. Oriented X3. No acute distress. Head: Normal external exam. Normocephalic. Atraumatic. No Garcia signs noted. No raccoon eyes noted Eyes: PERRLA. EOMI. Conjunctiva and sclera normal. Eyelids normal. ENT: TM's Normal. Pharynx normal. Uvula midline. Moist mucous membranes. No trismus noted. No drooling noted. No muffled voice noted. Neck: Normal inspection. Neck supple. FROM. No adenopathy. Thyroid Normal. No meningeal signs. No neck mass noted. CVS: Normal heart rate and rhythm. Heart sound normal. No murmurs noted. Pulses normal throughout. Respiratory: No respiratory distress. Painless inspiration. Breath sounds normal. Diffuse mild expiratory wheezing with mild prolonged expiration. Chest nontender. No accessory muscle usage noted or decreased air movement noted. Abdomen: Soft and nontender. Bowel sounds normal in all 4 quadrants. No distention noted. No organomegaly noted. No visible injury noted. Back: No CVA tenderness. Full range of motion noted. Skin: Skin warm and dry. Normal skin color. Normal skin turgor. No rashes/lesions/lacerations noted. Extremities: No lower extremity edema. Extremities exhibit normal range of motion. Extremities nontender. Neuro: Oriented X 3. Cranial nerve exam: II-XII are grossly intact No motor deficit. No sensory deficit. Reflexes normal. Course Course Course Narrative: Assessment and plan. 66-year-old female history of asthma and breast cancer, patient came in with difficulty breathing and coughing, exam is consistent with wheezing and asthma exacerbation, patient felt better with bronchodilator and prednisone. Also, I discussed with her oncologist that the patient need to be started on radiation therapy [facility]. Patient was instructed to call her office and make an appointment. MDM - SOB/Dyspnea Medical Records Attestation: I reviewed the patient's medical records. Lab Data Attestation: I reviewed the patient's lab results. Result diagrams: 05/07/22 09:26 05/07/22 09:26 Labs: Lab Results 05/07/22 05/07/22 05/07/22 Range/Units 09:26 09:26 09:26 WBC 6.9 (4.8-10.8) X10*3/uL RBC 4.48 (4.20-5.50) X10*6/uL Hgb 12.0 (12.0-16.0) g/dl Hct 37.8 (37.0-47.0) % MCV 84.4 (80.0-98.0) fL MCH 26.8 L (27.0-33.0) pg MCHC 31.7 (31.0-35.0) g/dl RDW 13.5 (11.0-16.0) % Plt Count 206 (160-400) X10*3/uL MPV Not Reportable Immature Gran % (Auto) 0.3 (0.0-0.4) % Neut % (Auto) 58.6 (45-73) % Lymph % (Auto) 32.8 (20-40) % [place] % (Auto) 5.1 (2-11) % Eos % (Auto) 2.8 (0-4) % Baso % (Auto) 0.4 (0-2) % Lymph # (Auto) 2.3 (1.2-4.9) X10*3/uL [place] # (Auto) 0.4 (0.1-1.2) X10*3/uL Eos # (Auto) 0.2 (0.0-0.4) X10*3/uL Baso # (Auto) 0.0 (0.0-0.2) X10*3/uL Abs Immat Gran (auto) 0.02 (0.00-0.03) X10*3/uL Absolute Neuts (auto) 4.0 (2.0-8.3) x10*3/uL Absolute Nucleated RBC 0.000 (0.0-0.012) X10*3/uL Nucleated RBC % (auto) 0.0 (0.0-0.2) /100WBC Smear Tech's Comments VERIFIED Sodium 140 (135-145) mmol/L Potassium 4.4 (3.3-5.1) mmol/L Chloride 104 (96-108) mmol/L Carbon Dioxide 27 (22-29) mmol/L Anion Gap 13 (12-20) BUN 12 (9-16) mg/dL Creatinine 0.80 (0.5-1.4) mg/dL Estim Creat Clear Calc 84.9 Estimated GFR > 60 Random Glucose 182 H (60-115) mg/dL Calcium 8.9 D (8.4-10.2) mg/dL Total Bilirubin 0.5 (0.0-1.0) mg/dL Direct Bilirubin 0.2 (0.0-0.5) mg/dL AST 20 (5-31) U/L ALT 22 (0-31) U/L Alkaline Phosphatase 90 (39-117) U/L Troponin I High Sens (<3.5-17.0) ng/L B-Natriuretic Peptide (<100) pg/mL Total Protein 6.3 L (6.5-8.0) g/dL Albumin 3.7 (3.5-5.0) g/dL Lipase 15 (8-78) U/L Influenza Type A (PCR) NEGATIVE (Negative) Influenza Type B (PCR) NEGATIVE (Negative) RSV RNA Qual (PCR) NEGATIVE (Negative) SARS-CoV-2 RNA (RT-PCR) NEGATIVE (Negative) 05/07/22 Range/Units 09:26 WBC (4.8-10.8) X10*3/uL RBC (4.20-5.50) X10*6/uL Hgb (12.0-16.0) g/dl Hct (37.0-47.0) % MCV (80.0-98.0) fL MCH (27.0-33.0) pg MCHC (31.0-35.0) g/dl RDW (11.0-16.0) % Plt Count (160-400) X10*3/uL MPV Immature Gran % (Auto) (0.0-0.4) % Neut % (Auto) (45-73) % Lymph % (Auto) (20-40) % [place] % (Auto) (2-11) % Eos % (Auto) (0-4) % Baso % (Auto) (0-2) % Lymph # (Auto) (1.2-4.9) X10*3/uL [place] # (Auto) (0.1-1.2) X10*3/uL Eos # (Auto) (0.0-0.4) X10*3/uL Baso # (Auto) (0.0-0.2) X10*3/uL Abs Immat Gran (auto) (0.00-0.03) X10*3/uL Absolute Neuts (auto) (2.0-8.3) x10*3/uL Absolute Nucleated RBC (0.0-0.012) X10*3/uL Nucleated RBC % (auto) (0.0-0.2) /100WBC Smear Tech's Comments Sodium (135-145) mmol/L Potassium (3.3-5.1) mmol/L Chloride (96-108) mmol/L Carbon Dioxide (22-29) mmol/L Anion Gap (12-20) BUN (9-16) mg/dL Creatinine (0.5-1.4) mg/dL Estim Creat Clear Calc Estimated GFR Random Glucose (60-115) mg/dL Calcium (8.4-10.2) mg/dL Total Bilirubin (0.0-1.0) mg/dL Direct Bilirubin (0.0-0.5) mg/dL AST (5-31) U/L ALT (0-31) U/L Alkaline Phosphatase (39-117) U/L Troponin I High Sens 4.6 (<3.5-17.0) ng/L B-Natriuretic Peptide 96 (<100) pg/mL Total Protein (6.5-8.0) g/dL Albumin (3.5-5.0) g/dL Lipase (8-78) U/L Influenza Type A (PCR) (Negative) Influenza Type B (PCR) (Negative) RSV RNA Qual (PCR) (Negative) SARS-CoV-2 RNA (RT-PCR) (Negative) Imaging Data Chest x-ray: Attestation: I personally reviewed and interpreted this imaging study as follows: Radiologist's impression: Mild prominence of the pulmonary vasculature appears similar to the previous study and could be baseline for the patient however, mild congestion cannot be excluded. Discharge Plan Discharge Clinical Impression: COPD exacerbation Patient Disposition: Home, Self-Care Instructions: COPD (Chronic Obstructive Pulmonary Disease) (ED) Additional Instructions: Follow-up with your doctor to arrange for radiation therapy. Prescriptions: New prednisone 20 mg tablet 20 mg PO BID Qty: 10 0RF albuterol sulfate 90 mcg/actuation HFA aerosol inhaler 1 inh inhalation QID PRN (Reason: shortness of breath or wheezing) Qty: 8.5 0RF No Action furosemide [Lasix] 40 mg tablet 40 mg PO QAM 30 Days Qty: 30 6RF cholecalciferol (vitamin D3) 50 mcg (2,000 unit) capsule 50 mcg PO DAILY Qty: 30 3RF pantoprazole 40 mg tablet,delayed release (DR/EC) 40 mg PO DAILY Qty: 30 2RF Rx Instructions: take one tablet half an hour before breakfast Fiber Laxative (methylcellulo) 500 mg tablet 500 mg PO DAILY Qty: 30 1RF benzonatate [Tessalon Perles] 100 mg capsule 100 mg PO TID PRN (Reason: cough) Qty: 20 0RF Robitussin Cough and Cold CF 2.5-5-50 mg/5 mL liquid 15 ml PO Q4H PRN (Reason: cough) Qty: 118 0RF isosorbide mononitrate 30 mg tablet extended release 24 hr 1 tab PO DAILY 0RF pravastatin 20 mg tablet 1 tab PO DAILY 0RF albuterol sulfate 90 mcg/actuation HFA aerosol inhaler inhalation 0RF Anoro Ellipta 62.5-25 mcg/actuation blister with device 1 puff inhalation DAILY 0RF sennosides [Natural Senna Laxative] 8.6 mg tablet 17.2 mg PO BEDTIME Qty: 60 3RF (DME) FreeStyle Lite Strips Strip See Rx Instructions strip Not Applicable BID Qty: 10 0RF Rx Instructions: As directed Lantus U-100 Insulin 100 unit/mL solution 55 unit subcut DAILY 0RF aripiprazole [Abilify] 20 mg tablet 20 mg PO BEDTIME 0RF lisinopril 2.5 mg tablet 2.5 mg PO DAILY 0RF gabapentin 300 mg capsule 300 mg PO TID 0RF citalopram 40 mg tablet 40 mg PO DAILY 0RF trazodone 50 mg tablet 50 mg PO BEDTIME 0RF nystatin 100,000 unit/gram cream 1 appl topical BID Qty: 15 0RF Referrals: Cristo Martino MD [Primary Care Provider] -
[2022-05-07 09:00] VITALS: BP 102/54; BP 125/53; PULSE 66; PULSE 68; RESP 18; TEMP 36.6; O2SAT 94; O2SAT 98; BMI 44.6
--- NOTE | 2022-05-07 09:15 | PC.NURSE ---
pt's vna rn laura from [facility] ([phone]) called [facility] and state that pt was recently dx with r breast can and had a lumpectomy a couple months ago and today she was suppose to have started radiation tx but was afraid/anxious of the possible side effects. pt has a nx of schizoaffective d/o, [place], iddm and is illiterate. pt is able to sign name.
[2022-05-07] MEDS: predniSONE 20 MG TABLET 40 MG PO (09:19)
[2022-05-07 09:37] LABS: Eosinophils Absolute Auto 0.2 X10*3/uL (0.0-0.4); Hematocrit 37.8 % (37.0-47.0); Mean Corpuscular HGB Conc 31.7 g/dl (31.0-35.0); Mean Corpuscular Hemoglobin 26.8 pg (27.0-33.0); PLT CLUMP 1; SCAN SMEAR FLAG 1
[2022-05-07 09:38] LABS: Basophils Percent Auto 0.4 % (0-2); Eosinophils Percent Auto 2.8 % (0-4); Imm Gran Abs Auto 0.02 X10*3/uL (0.00-0.03); Imm Gran Pct Auto 0.3 % (0.0-0.4); Lymphocytes Absolute Auto 2.3 X10*3/uL (1.2-4.9); Lymphocytes Percent Auto 32.8 % (20-40); MANUAL DIFF FLAG SCAN; Mean Corpuscular Volume 84.4 fL (80.0-98.0); Monocytes Absolute Auto 0.4 X10*3/uL (0.1-1.2); Monocytes Percent Auto 5.1 % (2-11); Neutrophils Percent Auto 58.6 % (45-73); Red Blood Count 4.48 X10*6/uL (4.20-5.50); Red Cell Distribution Width 13.5 % (11.0-16.0)
[2022-05-07] MEDS: Albuterol Sulfate (0.083%) 2.5 MG/3 ML VIAL.NEB 5 MG INHALE (09:38)
[2022-05-07] MEDS: Albuterol/Iprat 2.5/0.5MG 3 ML AMPUL.NEB INHALE (09:38)
[2022-05-07 09:40] VITALS: PULSE 62; RESP 15; O2SAT 96
[2022-05-07 09:53] LABS: B Type Natriuretic Peptide 96 pg/mL (<100); Troponin-I High Sensitivity 4.6 ng/L (<3.5-17.0)
[2022-05-07 09:54] LABS: Alanine Aminotransferase 22 U/L (0-31); Albumin Level 3.7 g/dL (3.5-5.0); Alkaline Phosphatase 90 U/L (39-117); Anion Gap 13 (12-20); Aspartate Amino Transferase 20 U/L (5-31); Bilirubin Direct 0.2 mg/dL (0.0-0.5); Bilirubin Total 0.5 mg/dL (0.0-1.0); Blood Urea Nitrogen 12 mg/dL (9-16); Calcium 8.9 mg/dL (8.4-10.2); Carbon Dioxide 27 mmol/L (22-29); Chloride 104 mmol/L (96-108); Creatinine Clr Calc Pharmacy 84.9; Estimated Glomerular Filt Rate > 60; Glucose Random 182 mg/dL (60-115); Lipase 15 U/L (8-78); Potassium 4.4 mmol/L (3.3-5.1); Sodium 140 mmol/L (135-145); Total Protein 6.3 g/dL (6.5-8.0)
[2022-05-07 09:59] LABS: Platelet Count 206 X10*3/uL (160-400); White Blood Count 6.9 X10*3/uL (4.8-10.8)
[2022-05-07 10:00] LABS: SLIDE REVIEW VERIFIED
[2022-05-07 10:18] LABS: Influenza A PCR NEGATIVE (Negative); Influenza B PCR NEGATIVE (Negative); Resp Syncy Virus RNA Qual PCR NEGATIVE (Negative); SARS COV2 PCR INHOUSE NEGATIVE (Negative)
--- NOTE | 2022-05-07 10:18 | PC.NURSE ---
lungs - cta, pt is having a breathing tx at this time.
--- NOTE | 2022-05-07 10:22 | PC.NURSE ---
PT STATES DIFF SPEAKING AND TINGLING IN L ARM YESTERDAY AT APPROX 1700. N/V X 1 YESTERDAY AM AFTER DRINKING COFFEE. C/O ESTELA EYE BLURRINESS.
[2022-05-07 11:46] VITALS: BP 135/69; PULSE 66; RESP 16; TEMP 36.7; O2SAT 96
[2022-05-07 12:44] VITALS: BP 128/58; PULSE 67; RESP 17; O2SAT 97
== END 2022-05-07 13:05 | disposition home or self-care (01) ==
PROVIDERS: Emergency Provider Emergency Medicine; PCP Internal Medicine
DX: J44.1 Chronic obstructive pulmonary disease with (acute) exacerbation (principal); I10 Essential (primary) hypertension; Z20.822 Contact with and (suspected) exposure to COVID-19
CPT/HCPCS: 0241U; 36415; 71045; 80048; 80076; 83690; 83880; 84484; 85025; 93005; 94640; 94644; 99284

== ENCOUNTER 2022-05-28 11:29 | Emergency (ER) | payer OTHER, SELFPAY ==
--- NOTE | ~2022-05-28 | XR_ITS ---
EXAMINATION: XR KNEE, LEFT CLINICAL INFORMATION: Left knee pain COMPARISON: None TECHNIQUE: 5 views of the left knee. FINDINGS: Tricompartmental degenerative changes are present with the worst changes in the lateral and patellofemoral compartments. There is lateral joint space narrowing as well as marked patellofemoral narrowing. Sclerosis and osteophytes are present. XR/XR knee LT 4V IMPRESSION: Tricompartmental degenerative changes, most severe medially and in the patellofemoral compartment, not significantly changed when compared to prior study.
--- NOTE | ~2022-05-28 | XR_ITS ---
EXAMINATION: XR CHEST CLINICAL INFORMATION: Shortness of breath. Chest pain. History of breast cancer. COMPARISON: Chest x-ray 05/07/2022. CT chest 05/28/2022 TECHNIQUE: Frontal portable view of the chest was obtained. 5:37 PM FINDINGS: Lung volume is low. This accentuates the bronchovascular markings. No dense consolidation. No large pleural effusion. No pneumothorax. Cardiac and mediastinal contours are normal. XR/XR chest 1V IMPRESSION: Low lung volume. Prominent bronchovascular markings accentuated by the low inspiratory effort. No acute airspace disease.
--- NOTE | ~2022-05-28 | US_ITS ---
EXAMINATION: US VENOUS ULTRASOUND WITH DOPPLER LOWER EXTREMITY, BILATERAL CLINICAL INFORMATION: Edema. Pain. History of cancer. COMPARISON: None TECHNIQUE: Ultrasound of the deep veins is performed from the hip to the calf with compression sonography and color and pulse Doppler assessment. Spectral analysis with color-flow imaging is performed. FINDINGS: Limited exam due to body habitus. Difficult to visualize calf veins. RIGHT: There is normal venous compression and respiratory variation and augmented flow. The visualized common femoral vein, superficial femoral vein, profunda femoral vein, popliteal vein, and the trifurcation region shows no evidence of deep venous thrombosis. There is no significant popliteal fossa cyst. LEFT: There is normal venous compression and respiratory variation and augmented flow. The visualized common femoral vein, superficial femoral vein, profunda femoral vein, popliteal vein, and the trifurcation region shows no evidence of deep venous thrombosis. There is no significant popliteal fossa cyst. If the patient's symptoms persist, followup ultrasound in 5 days 7 days might be of value to exclude proximal propagation from a non-visualized calf vein. US/US venous duplex LE BI IMPRESSION: No DVT demonstrated in the bilateral lower extremity.
--- NOTE | ~2022-05-28 | CT_ITS ---
EXAMINATION: CT ANGIOGRAM OF THE CHEST WITH AND WITHOUT CONTRAST (CT PULMONARY ANGIOGRAM FOR PE) CLINICAL INFORMATION: Reason for Exam sob/chest pains/LLE pain hx of right breast cancer COMPARISON: 09/01/2018 TECHNIQUE: Prior to contrast administration, noncontrast localization images were obtained. Subsequently, multidetector volumetric imaging was performed from the thoracic inlet to below the diaphragms following the administration of 100 mL Omnipaque 350 intravenous contrast. No contrast reaction reported Sagittal, coronal, and MIP oblique sagittal reformatted images were obtained on the CT workstation, uploaded to PACS, and reviewed. This CT examination was performed using dose optimization techniques as appropriate, variously including the following: *Automated exposure control *Adjustment of mA and/or kV according to patient size (this includes techniques or standardized protocols for targeted exams where dose is matched to indication/reason for exam; i.e. extremities or head) *Use of iterative reconstruction technique Total exam dose-length product 494 mGy-cm FINDINGS: QUALITY OF STUDY/CONTRAST BOLUS: Satisfactory. PULMONARY ARTERIES: No central or segmental pulmonary emboli. THORACIC AORTA: No aneurysm or dissection. LUNG: Unchanged pattern of mosaic attenuation throughout both lungs. In fact, the lucent regions and groundglass regions are identical in distribution compared to the prior exam. Expiratory phase image acquisition. PLEURA: No pleural effusion or pneumothorax. Small bilateral Bochdalek hernias. MEDIASTINUM: Mild cardiomegaly. No pericardial effusion. No evidence of septal bowing or right heart strain. Stable shotty mediastinal lymph nodes measuring up to 0.8 cm short axis. CHEST WALL/AXILLA: No axillary or internal mammary lymphadenopathy. OSSEOUS STRUCTURES: No acute or suspicious osseous abnormality. UPPER ABDOMEN: Small sliding-type hiatal hernia. No reflux of contrast into the hepatic veins to suggest elevated right heart pressures. CT/CT angio chest PE protocol IMPRESSION: * No pulmonary embolism. * No aortic aneurysm or dissection. * Identically appearing pattern of mosaic attenuation throughout both lungs evident on this expiratory phase image acquisition. Statistically, this relates to air trapping, as air-space filling processes would be expected to change in appearance / distribution over the years. Chronic thromboembolic disease is also considered unlikely given the stability, although a single isolated remote event (or series of the remote events) could also lead to this appearance. In the case of air trapping, that the lucent areas are in the same locations as on the prior examination may reflect the distribution of diseased airways. If clnically indicated, a high-resolution CT imaging of the chest with inspiratory and expiratory views could lend further specificity, on a nonemergent basis * Cardiomegaly without evidence of decompensated heart failure. VTE: negative
[2022-05-28 11:43] VITALS: BP 130/88; PULSE 89; O2SAT 99
[2022-05-28 13:59] VITALS: BP 119/49; PULSE 68; RESP 16; TEMP 36.6; O2SAT 93; BMI 42.2
--- NOTE | 2022-05-28 14:48 | ECG_ITS ---
Test Reason : CP Blood Pressure : / mmHG Vent. Rate : 066 BPM Atrial Rate : 066 BPM P-R Int : 138 ms QRS Dur : 090 ms QT Int : 396 ms P-R-T Axes : 022 -26 012 degrees QTc Int : 415 ms Normal sinus rhythm Moderate voltage criteria for LVH, may be normal variant ( R in aVL , [place] product ) Borderline ECG When compared with ECG of 07-MAY-2022 08:52, No significant change was found Referred By: Fany Burciaga Electronically Signed By:MAURICE BENAVIDEZ
--- NOTE | 2022-05-28 15:02 | ED.GENADULT ---
HPI - General Adult General Chief complaint: Extremity Problem Stated complaint: L KNEE PAIN NO INJURY Time Seen by Provider: 05/28/22 14:40 Source: patient and EMS Mode of arrival: EMS Limitations: language barrier (Uzbek speaking ) History of Present Illness HPI narrative: 66-year-old female who is recently diagnosed with right-sided invasive ductal carcinoma of right breast on 02/25/22 after a mammogram/biopsy with METs to right axillary lymph nodes with mucinous features currently on radiation therapy at [facility] being followed by Dr. Katz who last received Radiation therapy on 05/17/22, lymphedema of right breast, diabetes type 2, HTN, asthma, and sleep apnea presenting to the ED with complaints of atraumatic left lower leg pain/swelling for the past few days after she received her radiation therapy. She reports that she also has had a dry cough and some shortness of breath and intermittent chest pain and is not sure if this is related to her asthma. She denies any dizziness, headaches, neck pain/stiffness, trouble swallowing or breathing, dyspnea on exertion, orthopnea, palpitations, paresthesias, nausea/vomiting/diarrhea constipation, black or bloody stools, abdominal pain, flank pain, recent travel or sick contacts or any other symptoms complaints concerns at this time. MD complaint: Atraumatic left leg pain, cough, shortness of breath and intermittent chest Onset (ago): day(s) () Related Data Home Medications Medication Instructions Recorded Confirmed aripiprazole 20 mg tablet (Abilify) 20 mg PO BEDTIME 02/14/22 05/17/22 blood sugar diagnostic (FreeStyle #10 ea 02/14/22 05/17/22 Lite Strips) citalopram 40 mg tablet 40 mg PO DAILY 02/14/22 05/17/22 gabapentin 300 mg capsule 300 mg PO TID 02/14/22 05/17/22 insulin glargine 100 unit/mL 55 unit subcut DAILY 02/14/22 05/17/22 subcutaneous solution (Lantus U-100 Insulin) lisinopril 2.5 mg tablet 2.5 mg PO DAILY 02/14/22 05/17/22 trazodone 50 mg tablet 50 mg PO BEDTIME 02/14/22 05/17/22 albuterol sulfate 90 mcg/actuation 90 mcg inhalation DAILY 04/09/22 05/17/22 aerosol inhaler isosorbide mononitrate 30 mg 1 tab PO DAILY 04/09/22 05/17/22 tablet,extended release 24 hr pravastatin 20 mg tablet 1 tab PO DAILY 04/09/22 05/17/22 umeclidinium 62.5 mcg-vilanterol 1 puff inhalation DAILY 04/09/22 05/17/22 25 mcg/actuation powdr for inhalation (Anoro Ellipta) Previous Rx's Medication Instructions Recorded benzonatate 100 mg capsule 100 mg PO TID PRN cough #20 caps 03/22/21 (Tessalon Perlfelipe) furosemide 40 mg tablet (Lasix) 40 mg PO QAM 30 days #30 tabs 12/26/21 cholecalciferol (vitamin D3) 50 50 mcg PO DAILY #30 caps 01/08/22 mcg (2,000 unit) capsule nystatin 100,000 unit/gram topical 1 appl topical BID #15 grams 02/14/22 cream pantoprazole 40 mg tablet,delayed 40 mg PO DAILY #30 tabs 04/18/22 release sennosides 8.6 mg tablet (Natural 17.2 mg PO BEDTIME constipation 04/30/22 Senna Laxative) #60 tabs methylcellulose (laxative) 500 mg 500 mg PO DAILY #30 tabs 05/01/22 tablet (Fiber Laxative (methylcellulose)) albuterol sulfate 90 mcg/actuation 1 inh inhalation QID PRN shortness 05/07/22 aerosol inhaler of breath or wheezing #8.5 grams prednisone 20 mg tablet 20 mg PO BID #10 tabs 05/07/22 oxycodone 5 mg tablet 5 mg PO Q6H PRN pain #14 tabs 05/28/22 prednisone 20 mg tablet 20 mg PO DAILY 5 days #5 tabs 05/28/22 Allergies Allergy/AdvReac Type Severity Reaction Status Date / Time No Known Allergies Allergy Unknown UNKNOWN Verified 04/30/22 10:16 [NO KNOWN ALLERGIES] Review of Systems Review of Systems: Constitutional : No Weight loss, No Fever, No Chills, No Night Sweats, No Fatigue, No Malaise ENT/Mouth : No Hearing loss, No Ear Pain, No Nasal Congestion, No Sinus Pain, No Hoarseness, No sore throat, No Rhinorrhea, No Swallowing Difficulty Eyes: No Eye Pain, No Swelling, No Redness, No Foreign Body, No Discharge, No Vision Changes Cardiovascular : + Chest Pain, + SOB, No Dyspnea on Exertion, No Orthopnea, No Edema, No Palpitations Respiratory : + Cough, No Sputum, No Wheezing, No Smoke Exposure, No Dyspnea Gastrointestinal : No Nausea, No Vomiting, No Diarrhea, No Constipation, No abdominal Pain, No Hematochezia, No Melena Genitourinary : no irregular bleeding, No Dysuria, No Urinary Frequency, No Hematuria, No Urinary Incontinence, No Urgency, No Flank Pain, No Urinary Flow Changes, No Hesitancy Musculoskeletal : + LLE pain/swelling, No Myalgias Skin : No Skin Lesions, No rash Neuro : No Weakness, No Numbness, No Paresthesias, No Loss of Consciousness, No Dizziness, No Headache Psych : No Anxiety/Panic, No Depression, No SI/HI/AH/VH, No Social Issues, Heme/Lymph: No Bruising, No Bleeding,No Lymphadenopathy Endocrine : No Polyuria, No Polydipsia, No Temperature Intolerance Yes all other systems are reviewed and are negative [facility] Past Medical History Attestation statement: The following information was validated with the patient. Source: old records reviewed, obtained from family and nursing notes reviewed Medical History Asthma COPD (chronic obstructive pulmonary disease) Diabetes type 2, controlled Hypertension Surgical History History of lumpectomy of right breast Hx of colonoscopy Hx of right breast biopsy Family History Family History Brother Diabetes Sister Diabetes Breast cancer, Onset Age: 67 Mother Breast cancer, Onset Age: 59 Maternal Aunt Breast cancer Social History Social History Household Members: None Housing: Apartment Are you a primary career agent to a significant other at home: No Do you presently have visiting nurse or other home services: Yes Alcohol intake: never Patient Tobacco Use Status: Former Tobacco user Advance Directives: No Advance Directives Information Provided: Yes Advance Directives Date on File: 03/22/21 service: No Current occupational status: disabled 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 Blood pressure 119/49. Heart rate normal. Respiration rate normal. Temperature normal. Oxygen saturation normal. Appearance: Alert. Oriented X3. No acute distress. Head: Normal external exam. Normocephalic. Atraumatic. Eyes: PERRLA. EOMI. Conjunctiva and sclera normal. Eyelids normal. ENT: Pharynx normal. Uvula midline. Moist mucous membranes. Normal voice. No trismus noted. No drooling noted. No muffled voice noted. Neck: Normal inspection. Neck supple. FROM. No adenopathy. Thyroid Normal. No tracheal deviation noted. No crepitus is noted. No meningeal signs. No neck mass noted. No signs of trauma noted. CVS: Normal heart rate and rhythm. Heart sound normal. Pulses normal throughout. No murmurs/rales/gallops. To the right breast patient has induration and erythema and tenderness palpation consistent with breast cancer/recent radiation. Respiratory: No respiratory distress. Painless inspiration. Breath sounds normal. No wheezes/rales/rhonchi noted. No crepitus is noted. No accessory muscle usage noted or decreased air movement noted. No signs of trauma. Abdomen: Soft and nontender. Bowel sounds normal in all 4 quadrants. No distention noted. No organomegaly noted. No visible injury noted. Back: Full range of motion noted. Nontender. No signs of trauma. Patient neuro intact bilaterally and distally on all 4 extremities. Patient's reflexes intact bilaterally and distally on all 4 extremities. No rashes/lesion/induration/fluctuance or signs of infection noted. Skin: Skin warm and dry. Normal skin color. Normal skin turgor. No rashes/lesions/lacerations noted. Extremities: +2 pitting edema to b/l lower extremities noted. + left calf and anterior Tib/fibular tenderness. No knee pain noted. No ankle pain noted. She has full range of motion of the left hip/knee/ankle joint no obvious deformities or signs of infection noted. No rashes are noted. Otherwise all other extremities exhibit normal range of motion nontender. Neuro: Oriented X 3. No motor deficit. No sensory deficit. Reflexes normal. Normal steady gait. No focal neuro deficits noted. CN's II-XII intact bilaterally? Vascular: + radial pulses/+ 2 distal pedal pulses/+2 dorsalis pedis b/l. Normal cap refill. No cyanosis noted to upper extremity nails and lower extremity toes nails. Course Course Course Narrative: 14:45pm - 66-year-old female c PMHx of right-sided invasive ductal carcinoma of right breast on 02/25/22 after a mammogram/biopsy with METs to right axillary lymph nodes with mucinous features currently on radiation therapy at [facility] being followed by Dr. Katz who last received Radiation therapy on 05/17/22, lymphedema of right breast, diabetes type 2, HTN, asthma, and sleep apnea presenting to the ED with complaints of atraumatic left lower leg pain/swelling for the past few days after she received her radiation therapy. She reports that she also has had a dry cough and some shortness of breath and intermittent chest pain and is not sure if this is related to her asthma. Plan: Labs, EKG, CTA of chest for PE, chest x-ray, left knee x-ray, venous duplex ultrasound of bilateral lower extremity and re-evaluate. Reevaluation(s) Reevaluation #1: - labs reviewed and D-dimer 424. Carbon dioxide 34. Anion gap 10. Troponin 5.6. Otherwise all other labs are within normal limits. - venous duplex ultrasound of bilateral lower extremity negative for any DVT or any other acute processes. - left knee x-ray revealed Tricompartmental degenerative changes, most severely medial and in the patellofemoral compartment not significantly changed when compared to prior study otherwise no other acute processes noted. - chest x-ray revealed mild prominence of pulmonary vasculature appear similar to the previous studies and could be the patient's baseline however mild congestion cannot be excluded. - awaiting CTA of chest for PE Time: 17:12 Reevaluation #2: - CTA of chest for PE negative for PE although revealed some chronic changes no acute processes noted. Patient most likely asthma exacerbation/bronchospasm although no wheezing on my exam. She is reporting that she would like some steroids for her asthma although explained her that this could lower her immune system and that she should talk to her oncologist/structural designer and she understands this. Will also DC home with symptomatic treatment some oxycodone for the patient's arthritis knee pain although I did offer the patient short-term rehab/physical therapy and she refused she would rather go home she reports that she has an aide at home that helps her and I instructed to follow-up with her PCP/oncologist/structural designer. Patient understands agrees with this plan. Time: 18:15 Medical Decision Making Lab Data Lab results reviewed: Yes I reviewed the patient's lab results. Result diagrams: 05/28/22 15:58 05/28/22 15:58 Labs: Lab Results 05/28/22 05/28/22 05/28/22 Range/Units 15:58 15:58 15:58 WBC 5.7 (4.8-10.8) X10*3/uL RBC 4.54 (4.20-5.50) X10*6/uL Hgb 12.1 (12.0-16.0) g/dl Hct 37.9 (37.0-47.0) % MCV 83.5 (80.0-98.0) fL MCH 26.7 L (27.0-33.0) pg MCHC 31.9 (31.0-35.0) g/dl RDW 14.0 (11.0-16.0) % Plt Count 245 (160-400) X10*3/uL MPV 9.8 (9.4-12.3) fL Immature Gran % (Auto) 0.4 (0.0-0.4) % Neut % (Auto) 55.1 (45-73) % Lymph % (Auto) 35.4 (20-40) % Beadle % (Auto) 6.2 (2-11) % Eos % (Auto) 2.5 (0-4) % Baso % (Auto) 0.4 (0-2) % Lymph # (Auto) 2.0 (1.2-4.9) X10*3/uL Beadle # (Auto) 0.4 (0.1-1.2) X10*3/uL Eos # (Auto) 0.1 (0.0-0.4) X10*3/uL Baso # (Auto) 0.0 (0.0-0.2) X10*3/uL Abs Immat Gran (auto) 0.02 (0.00-0.03) X10*3/uL Absolute Neuts (auto) 3.1 (2.0-8.3) x10*3/uL Absolute Nucleated RBC 0.000 (0.0-0.012) X10*3/uL Nucleated RBC % (auto) 0.0 (0.0-0.2) /100WBC PT (10.0-13.1) SEC INR (0.9-1.1) D-Dimer High Sensitivty 424 NG/ML Sodium 141 (135-145) mmol/L Potassium 3.7 (3.3-5.1) mmol/L Chloride 101 (96-108) mmol/L Carbon Dioxide 34 H (22-29) mmol/L Anion Gap 10 L (12-20) BUN 9 (9-16) mg/dL Creatinine 0.82 (0.5-1.4) mg/dL Estim Creat Clear Calc 80.2 Estimated GFR > 60 Random Glucose 104 (60-115) mg/dL Calcium 9.2 (8.4-10.2) mg/dL Magnesium 1.6 (1.6-2.6) mg/dL Total Bilirubin 0.6 (0.0-1.0) mg/dL AST 17 (5-31) U/L ALT 20 (0-31) U/L Alkaline Phosphatase 83 (39-117) U/L Troponin I High Sens (<3.5-17.0) ng/L B-Natriuretic Peptide (<100) pg/mL Total Protein 6.7 (6.5-8.0) g/dL Albumin 4.1 (3.5-5.0) g/dL 05/28/22 05/28/22 Range/Units 15:58 15:59 WBC (4.8-10.8) X10*3/uL RBC (4.20-5.50) X10*6/uL Hgb (12.0-16.0) g/dl Hct (37.0-47.0) % MCV (80.0-98.0) fL MCH (27.0-33.0) pg MCHC (31.0-35.0) g/dl RDW (11.0-16.0) % Plt Count (160-400) X10*3/uL MPV (9.4-12.3) fL Immature Gran % (Auto) (0.0-0.4) % Neut % (Auto) (45-73) % Lymph % (Auto) (20-40) % Beadle % (Auto) (2-11) % Eos % (Auto) (0-4) % Baso % (Auto) (0-2) % Lymph # (Auto) (1.2-4.9) X10*3/uL Beadle # (Auto) (0.1-1.2) X10*3/uL Eos # (Auto) (0.0-0.4) X10*3/uL Baso # (Auto) (0.0-0.2) X10*3/uL Abs Immat Gran (auto) (0.00-0.03) X10*3/uL Absolute Neuts (auto) (2.0-8.3) x10*3/uL Absolute Nucleated RBC (0.0-0.012) X10*3/uL Nucleated RBC % (auto) (0.0-0.2) /100WBC PT 12.4 (10.0-13.1) SEC INR 1.1 (0.9-1.1) D-Dimer High Sensitivty NG/ML Sodium (135-145) mmol/L Potassium (3.3-5.1) mmol/L Chloride (96-108) mmol/L Carbon Dioxide (22-29) mmol/L Anion Gap (12-20) BUN (9-16) mg/dL Creatinine (0.5-1.4) mg/dL Estim Creat Clear Calc Estimated GFR Random Glucose (60-115) mg/dL Calcium (8.4-10.2) mg/dL Magnesium (1.6-2.6) mg/dL Total Bilirubin (0.0-1.0) mg/dL AST (5-31) U/L ALT (0-31) U/L Alkaline Phosphatase (39-117) U/L Troponin I High Sens 5.6 (<3.5-17.0) ng/L B-Natriuretic Peptide 83 (<100) pg/mL Total Protein (6.5-8.0) g/dL Albumin (3.5-5.0) g/dL Imaging Data Venous duplex ultrasound of bilateral lower extremities: Attestation: I personally reviewed and interpreted this imaging study as follows: Radiologist's impression: RIGHT: There is normal venous compression and respiratory variation and augmented flow. The visualized common femoral vein, superficial femoral vein, profunda femoral vein, popliteal vein, and the trifurcation region shows no evidence of deep venous thrombosis. ? There is no significant popliteal fossa cyst. LEFT: There is normal venous compression and respiratory variation and augmented flow. The visualized common femoral vein, superficial femoral vein, profunda femoral vein, popliteal vein, and the trifurcation region shows no evidence of deep venous thrombosis. ? There is no significant popliteal fossa cyst. If the patient's symptoms persist, followup ultrasound in 5 days 7 days might be of value to exclude proximal propagation from a non-visualized calf vein. US/US venous duplex LE BI IMPRESSION: No DVT demonstrated in the bilateral lower extremity. Left knee x-ray: Attestation: I personally reviewed and interpreted this imaging study as follows: Radiologist's impression: FINDINGS: Tricompartmental degenerative changes are present with the worst changes in the lateral and patellofemoral compartments. There is lateral joint space narrowing as well as marked patellofemoral narrowing. Sclerosis and osteophytes are present.? XR/XR knee LT 4V IMPRESSION: Tricompartmental degenerative changes, most severe medially and in the patellofemoral compartment, not significantly changed when compared to prior study. Chest x-ray: Attestation: I personally reviewed and interpreted this imaging study as follows: Radiologist's impression: FINDINGS: There is mild prominence of the pulmonary vasculature and cardiac silhouette. The mediastinal structures are unremarkable. XR/XR chest 1V IMPRESSION: Mild prominence of the pulmonary vasculature appears similar to the previous study and could be baseline for the patient however, mild congestion cannot be excluded. CT of chest for PE: Attestation: I personally reviewed and interpreted this imaging study as follows: Radiologist's impression: FINDINGS: QUALITY OF STUDY/CONTRAST BOLUS: Satisfactory. PULMONARY ARTERIES: No central or segmental pulmonary emboli.? THORACIC AORTA: No aneurysm or dissection. LUNG: Unchanged pattern of mosaic attenuation throughout both lungs. In fact, the lucent regions and groundglass regions are identical in distribution compared to the prior exam. Expiratory phase image acquisition. PLEURA: No pleural effusion or pneumothorax. Small bilateral Bochdalek hernias. MEDIASTINUM: Mild cardiomegaly. No pericardial effusion.? No evidence of septal bowing or right heart strain. Stable shotty mediastinal lymph nodes measuring up to 0.8 cm short axis. CHEST WALL/AXILLA: No axillary or internal mammary lymphadenopathy. OSSEOUS STRUCTURES: No acute or suspicious osseous abnormality.? UPPER ABDOMEN: Small sliding-type hiatal hernia.? No reflux of contrast into the hepatic veins to suggest elevated right heart pressures. CT/CT angio chest PE protocol IMPRESSION: *? No pulmonary embolism. *? No aortic aneurysm or dissection. *? Identically appearing pattern of mosaic attenuation throughout both lungs evident on this expiratory phase image acquisition. Statistically, this relates to air trapping, as air-space filling processes would be expected to change in appearance / distribution over the years. Chronic thromboembolic disease is also considered unlikely given the stability, although a single isolated remote event (or series of the remote events) could also lead to this appearance. In the case of air trapping, that the lucent areas are in the same locations as on the prior examination may reflect the distribution of diseased airways. If clnically indicated, a high-resolution CT imaging of the chest with inspiratory and expiratory views could lend further specificity, on a nonemergent basis *? Cardiomegaly without evidence of decompensated heart failure. ? VTE: negative ECG Data Attestation: I personally reviewed and interpreted this ECG as follows: Interpretation: Normal sinus rhythm with a ventricular rate of 66 with LVH no acute ischemic change are noted. Similar when compared to prior EKG 05/07/2022 Critical Care Time Critical Care Time Critical Care Time: Yes Total Critical Care Time: 60 Attestation: I personally attest to this time spent taking care of the patient Discharge Plan Discharge Clinical Impression: Osteoarthritis of left knee Patient Disposition: Home, Self-Care Additional Instructions: Los esteroides pueden disminuir underwood sistema inmunol?gico, aseg?rese de que underwood hemat?logo / onc?logo sepa que est? tomando esteroides para underwood asma Prescriptions: New oxycodone 5 mg tablet 5 mg PO Q6H PRN (Reason: pain) Qty: 14 0RF Rx Instructions: Partial Fill upon patient request. prednisone 20 mg tablet 20 mg PO DAILY 5 Days Qty: 5 0RF No Action furosemide [Lasix] 40 mg tablet 40 mg PO QAM 30 Days Qty: 30 6RF cholecalciferol (vitamin D3) 50 mcg (2,000 unit) capsule 50 mcg PO DAILY Qty: 30 3RF pantoprazole 40 mg tablet,delayed release (DR/EC) 40 mg PO DAILY Qty: 30 2RF Rx Instructions: take one tablet half an hour before breakfast Fiber Laxative (methylcellulo) 500 mg tablet 500 mg PO DAILY Qty: 30 1RF benzonatate [Tessalon Perles] 100 mg capsule 100 mg PO TID PRN (Reason: cough) Qty: 20 0RF prednisone 20 mg tablet 20 mg PO BID Qty: 10 0RF albuterol sulfate 90 mcg/actuation HFA aerosol inhaler 1 inh inhalation QID PRN (Reason: shortness of breath or wheezing) Qty: 8.5 0RF isosorbide mononitrate 30 mg tablet extended release 24 hr 1 tab PO DAILY pravastatin 20 mg tablet 1 tab PO DAILY albuterol sulfate 90 mcg/actuation HFA aerosol inhaler 90 mcg inhalation DAILY Anoro Ellipta 62.5-25 mcg/actuation blister with device 1 puff inhalation DAILY sennosides [Natural Senna Laxative] 8.6 mg tablet 17.2 mg PO BEDTIME Qty: 60 3RF (DME) FreeStyle Lite Strips Strip See Rx Instructions Not Applicable BID Qty: 10 Rx Instructions: As directed Lantus U-100 Insulin 100 unit/mL solution 55 unit subcut DAILY aripiprazole [Abilify] 20 mg tablet 20 mg PO BEDTIME lisinopril 2.5 mg tablet 2.5 mg PO DAILY gabapentin 300 mg capsule 300 mg PO TID citalopram 40 mg tablet 40 mg PO DAILY trazodone 50 mg tablet 50 mg PO BEDTIME nystatin 100,000 unit/gram cream 1 appl topical BID Qty: 15 0RF Referrals: Cristo Martino MD [Primary Care Provider] - 2 days Print Language: Uzbek
[2022-05-28 16:10] LABS: MANUAL DIFF FLAG NO
[2022-05-28 16:19] LABS: INTERNATIONAL NORM RATIO 1.1 (0.9-1.1); Prothrombin Time 12.4 SEC (10.0-13.1)
[2022-05-28 16:22] LABS: D Dimer High Sensitivity 424 NG/ML
[2022-05-28 16:24] LABS: Basophils Percent Auto 0.4 % (0-2); Eosinophils Absolute Auto 0.1 X10*3/uL (0.0-0.4); Eosinophils Percent Auto 2.5 % (0-4); Hematocrit 37.9 % (37.0-47.0); Hemoglobin 12.1 g/dl (12.0-16.0); Imm Gran Abs Auto 0.02 X10*3/uL (0.00-0.03); Imm Gran Pct Auto 0.4 % (0.0-0.4); Lymphocytes Percent Auto 35.4 % (20-40); Mean Corpuscular HGB Conc 31.9 g/dl (31.0-35.0); Mean Corpuscular Hemoglobin 26.7 pg (27.0-33.0); Mean Corpuscular Volume 83.5 fL (80.0-98.0); Mean Platelet Volume 9.8 fL (9.4-12.3); Monocytes Absolute Auto 0.4 X10*3/uL (0.1-1.2); Monocytes Percent Auto 6.2 % (2-11); Neutrophils Absolute Auto 3.1 x10*3/uL (2.0-8.3); Neutrophils Percent Auto 55.1 % (45-73); Platelet Count 245 X10*3/uL (160-400); Red Blood Count 4.54 X10*6/uL (4.20-5.50); White Blood Count 5.7 X10*3/uL (4.8-10.8)
[2022-05-28 16:29] LABS: Alanine Aminotransferase 20 U/L (0-31); Albumin Level 4.1 g/dL (3.5-5.0); Alkaline Phosphatase 83 U/L (39-117); Anion Gap 10 (12-20); Aspartate Amino Transferase 17 U/L (5-31); Bilirubin Total 0.6 mg/dL (0.0-1.0); Blood Urea Nitrogen 9 mg/dL (9-16); Calcium 9.2 mg/dL (8.4-10.2); Carbon Dioxide 34 mmol/L (22-29); Chloride 101 mmol/L (96-108); Creatinine Clr Calc Pharmacy 80.2; Estimated Glomerular Filt Rate > 60; Glucose Random 104 mg/dL (60-115); Magnesium 1.6 mg/dL (1.6-2.6); Potassium 3.7 mmol/L (3.3-5.1); Sodium 141 mmol/L (135-145); Total Protein 6.7 g/dL (6.5-8.0)
[2022-05-28 16:35] LABS: B Type Natriuretic Peptide 83 pg/mL (<100); Troponin-I High Sensitivity 5.6 ng/L (<3.5-17.0)
[2022-05-28] MEDS: iohexoL 350 MG/ML 100 ML INFUS..BTL IV (17:27)
[2022-05-28] MEDS: predniSONE 20 MG TABLET 60 MG PO (18:46)
[2022-05-28] MEDS: oxyCODONE HCl Immed Release 5 MG TABLET PO (18:46)
== END 2022-05-28 19:38 | disposition home or self-care (01) ==
PROVIDERS: Physician Assistant Medical; Emergency Provider Emergency Medicine; PCP Internal Medicine
DX: M17.12 Unilateral primary osteoarthritis, left knee (principal); M79.604 Pain in right leg; M79.605 Pain in left leg; R07.9 Chest pain, unspecified; R06.02 Shortness of breath; J45.909 Unspecified asthma, uncomplicated; C50.911 Malignant neoplasm of unspecified site of right female breast; C77.3 Secondary and unspecified malignant neoplasm of axilla and upper limb lymph nodes; I10 Essential (primary) hypertension; E11.9 Type 2 diabetes mellitus without complications
CPT/HCPCS: 36415; 71045; 71275; 73564; 80053; 83735; 83880; 84484; 85025; 85379; 85610; 93005; 93970; 99284; Q9967

== ENCOUNTER 2022-06-21 13:24 | Outpatient (REF) | payer OTHER, SELFPAY ==
--- NOTE | ~2022-06-21 | MM_ITS ---
EXAMINATION: BONE DENSITOMETRY CLINICAL INDICATION: Pretreatment evaluation. COMPARISON: This is the patient's baseline examination. TECHNIQUE: Using a [employer] DXA System (software version: 13.1) manufactured by [employer], dual-energy x-ray absorptiometry was performed of the lumbar spine and left hip. The images are of good technical quality. Summary results are attached. FINDINGS: AP SPINE L1-L4: BMD 1.122 g/cm2, Z-score 0.0, T-score -0.5, normal. LEFT FEMUR, NECK: BMD 1.009 g/cm2, Z-score 0.7, T-score -0.2, normal. LEFT FEMUR, TOTAL: BMD 1.135 g/cm2, Z-score 1.6, T-score 1.0, normal. IDENTIFIED RISK FACTORS: Menopause, hysterectomy, glucocorticoids (chronic) . HISTORY OF FRACTURE: None listed. MEDICATIONS: ERT/SERMS. MM/XR DEXA axial skeleton IMPRESSION: 1. DIAGNOSIS: Normal bone density based on the lowest T-score value of -0.5 in the lumbar spine applying World Health Organization criteria. 2. 10-YEAR FRACTURE RISK PREDICTION, FRAX: Major osteoporotic fracture (clinical spine, forearm, hip or shoulder) 5.7%. Hip fracture 0.3%. 3. Treatment Recommendations: NOF guidelines recommend consideration for treatment in postmenopausal women and men age 50 and older presenting with the following: -A hip or vertebral (clinical or morphometric) fracture. -T-score less than or equal to -2.5 at the femoral neck or spine after appropriate evaluation to exclude secondary causes. -Low bone mass at the hip or spine and a 10-year fracture probability by FRAX of greater than or equal to 3% for hip fracture or greater than or equal to 20% for major osteoporotic fracture based on the [place] adapted WHO algorithm. 4. Other Recommendations: All treatment decisions require clinical judgment and consideration of individual patient factors, including patient preferences, comorbidities, previous drug use, risk factors not captured in the FRAX model (e.g. frailty, falls, vitamin D deficiency, increased bone turnover, interval significant decline in bone density) and possible under or overestimation of fracture risk by FRAX. FUTURE SCAN RECOMMENDATION: People with diagnosed cases of osteoporosis or at high risk for fracture should have regular bone mineral density tests. For patients eligible for Medicare, routine testing is allowed once every 2 years. The testing frequency can be increased to one year for patients who have rapidly progressing disease, those who are receiving or discontinuing medical therapy to restore bone mass, or have additional risk factors.
== END 2022-06-21 13:25 | disposition home or self-care (01) ==
LOC: HO.MAMMO 13:24
PROVIDERS: Visit Provider Internal Medicine
DX: Z13.820 Encounter for screening for osteoporosis (principal); Z91.89 Other specified personal risk factors, not elsewhere classified; Z78.0 Asymptomatic menopausal state; Z79.52 Long term (current) use of systemic steroids
CPT/HCPCS: 77080

== ENCOUNTER 2022-07-02 09:59 | Emergency (ER) | payer OTHER, SELFPAY ==
[2022-07-02] VITALS (8 sets, daily range): BP systolic 112–156; BP diastolic 42–78; PULSE 63–77; RESP 12–18; TEMP 36.2–36.9; O2SAT 1–97
--- NOTE | ~2022-07-02 | CT_ITS ---
EXAMINATION: CT ABDOMEN AND PELVIS WITHOUT CONTRAST CLINICAL INFORMATION: Diffuse abdominal pain, history of breast cancer. COMPARISON: CT scan of the abdomen and pelvis dated 03/22/2022. Chest CTA dated 05/20/2022. TECHNIQUE: Multidetector volumetric imaging was performed from the superior aspect of the liver through the pubic symphysis. Sagittal and coronal reformatted images were obtained on the technologist's workstation. Lack of intravenous and oral contrast limits visceral evaluation. Mild respiratory motion artifact limits evaluation as well. This CT examination was performed using dose optimization techniques as appropriate, variously including the following: *Automated exposure control *Adjustment of mA and/or kV according to patient size (this includes techniques or standardized protocols for targeted exams where dose is matched to indication/reason for exam; i.e. extremities or head) *Use of iterative reconstruction technique DLP: 1001 mGy-cm FINDINGS: LUNG BASES: Some limitation secondary to respiratory motion artifact. Mild bibasilar atelectasis. Small bilateral Bochdalek hernias, left greater than right. No pleural or pericardial effusions. LIVER, GALLBLADDER, AND BILIARY TREE: Visualized portions unremarkable. PANCREAS: Unremarkable. SPLEEN: Unremarkable. ADRENAL GLANDS: Unremarkable. KIDNEYS AND URETERS: Unremarkable. BLADDER: Unremarkable. GASTROINTESTINAL TRACT: Small to moderate hiatal hernia. The remainder the stomach is unremarkable. The small bowel and appendix are unremarkable. The colon and rectum are unremarkable. ABDOMINAL WALL: No significant hernia is appreciated. LYMPH NODES: No lymphadenopathy. VASCULAR: Unremarkable. PELVIC VISCERA: Unremarkable. OSSEOUS STRUCTURES: There has been interval development of new lytic lesions in the visualized osseous structures. A loan servicing representative lesion seen in the left posterior superior aspect of L1 is seen measuring 1.3 cm with adjacent compression deformities. Similar findings are seen at L2. Small pathologic fractures extending posteriorly towards the spinal canal are seen along the left inferior margin of L4. Lytic lesions are also seen in the pelvis and hips, right greater than left. A lesion is also seen posteriorly in the left 11th rib. CT/CT abdomen pelvis wo con IMPRESSION: 1. No significant acute intra-abdominal/pelvic abnormality. No evidence for metastatic disease within the abdomen and pelvis. Several incidental findings detailed above without significant change. 2. Interval development of multiple lytic osseous lesions with associated vertebral body pathologic fractures involving L1, L2 and L4. Considerations for imaging follow-up include MRI of the lumbar spine to better assess the spinal canal as well as a nuclear medicine bone scan. This critical result was discussed with Fany RODRIGUEZ at 2:10 PM on 07/02/2022 and it was ascertained that the content and urgency of the report was understood at the time of direct communication.
--- NOTE | ~2022-07-02 | MR_ITS ---
EXAMINATION: MR LUMBAR SPINE WITHOUT CONTRAST CLINICAL INFORMATION: Multiple lumbar fractures. Cauda equina syndrome. COMPARISON: CT abdomen and pelvis from 07/02/2022. TECHNIQUE: MRI of the lumbar spine was obtained using routine sequences without and following the administration of 10 mL of Gadavist intravenous contrast. FINDINGS: Normal anatomic alignment. Heterogeneous marrow signal throughout the visualized osseous structures. There are heterogeneous marrow replacing lesions with edema and enhancement scattered throughout lumbar spine and visualized sacrum/pelvis. Minimal central depressions of the superior endplates of L1 and L2 with 15% loss of body heights minimal associated marrow edema beneath the superior endplates. There is also a fracture of the posterior-inferior endplate of L4. The posterior-inferior corner of the L4 vertebral body is retropulsed 0.3 cm. Otherwise, the vertebral body heights are maintained. No additional retropulsion of the posterior body jarvis. No epidural collection. The conus medullaris terminates at the level of T12. The distal spinal cord is normal in appearance. No demonstrated prevertebral/paravertebral extension of disease. Moderate subcutaneous edema within the soft tissues of the back from T12-L4. No additional significant abnormalities of the paraspinal musculature. Limited evaluation of the intra-abdominal structures without significant abnormalities. The abdominal aorta is of normal contour and caliber. AXIAL SPINAL LEVELS: L1-L2: Shallow diffuse disc bulge. There is mild bilateral facet joint arthropathy. There is no neural foraminal stenosis. There is no spinal canal stenosis. L2-L3: Mild diffuse disc bulge. There is mild bilateral facet joint arthropathy. There is no neural foraminal stenosis. There is no spinal canal stenosis. L3-L4: Mild diffuse disc bulge. There is mild bilateral facet joint arthropathy. There is no neural foraminal stenosis. There is no spinal canal stenosis. L4-L5: Retropulsion of the posterior inferior corner of L4. Moderate diffuse disc bulge with posterior osseous ridging. There is moderate bilateral facet joint arthropathy. There is moderate left worse than right neural foraminal stenosis. There is stenosis of the left worse than right subarticular zones with mild to moderate spinal canal stenosis centrally. L5-S1: Mild diffuse disc bulge. There is moderate bilateral facet joint arthropathy. There is mild right and no left neural foraminal stenosis. There is narrowing of the subarticular zones with no overt spinal canal stenosis centrally. MR/MR lumbar spine wo/w con IMPRESSION: Extensive heterogeneous metastatic disease scattered throughout the lumbar spine and visualized aspects of the pelvis. Mild compression deformities of the superior endplate of L1 and L2 with 15% loss of body heights and residual marrow edema. There is also a fracture of the posterior-inferior corner of L4 with 0.3 cm retropulsion. Otherwise, moderate multilevel degenerative spondyloarthropathy of the lumbar spine as described in detail above. Most notably, there is mild to moderate spinal canal stenosis at L4-L5. Stenoses of the left greater than right subarticular zones and neural foramina at L4-L5. Narrowing of the subarticular zones at L5-S1.
--- NOTE | 2022-07-02 11:49 | ED_ITS ---
HPI - Abdominal Pain General Chief Complaint: General Medical <JENNIFER Stafford Last Filed: 07/02/22 17:45> Stated Complaint: LOWER ABD PAIN <JENNIFER Stafford Last Filed: 07/02/22 17:45> Time Seen by Provider: 07/02/22 11:17 <JENNIFER Stafford Last Filed: 07/02/22 17:45> Source: patient <JENNIFER Stafford Last Filed: 07/02/22 17:45> Mode of arrival: ambulatory <JENNIFER Stafford Last Filed: 07/02/22 17:45> Limitations: language barrier (Kyrgyz-speaking) <JENNIFER Stafford Last Filed: 07/02/22 17:45> History of Present Illness HPI narrative: 66-year-old female who is recently diagnosed with right-sided invasive ductal carcinoma of right breast on 02/25/22 after a mammogram/biopsy with METs to right axillary lymph nodes with mucinous features currently on radiation therapy at [facility] being followed by Dr. Katz who last received Radiation therapy on 05/17/22, lymphedema of right breast, diabetes type 2, HTN, asthma, and sleep apnea presenting to the ED with complaints of chills, nausea and lower abdominal pain with associated dysuria and yellow colored stools that started today. Per EMS patient did receive radiation to her right breast today she reports that she is sore to the bright breast area although this is common for her and does not feel worse than her normal. She denies any measured fevers, dizziness, headaches, neck pain/stiffness, trouble swallowing or breathing, chest pain or shortness of breath, dyspnea on exertion, orthopnea, palpitations, paresthesias, back pain, flank pain, abnormal vaginal discharge, hematuria, back pain, urine or bowel incontinence, recent antibiotic usage, rashes, possible bad food exposure, weight loss, recent travel or others with similar symptoms or any other symptoms complaints or concerns at this time. 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) <JENNIFER Stafford - Last Filed: 07/02/22 17:45> Pain Consistency: constant <JENNIFER Stafford - Last Filed: 07/02/22 17:45> Location: suprapubic <JENNIFER Stafford - Last Filed: 07/02/22 17:45> Severity: moderate <JENNIFER Stafford - Last Filed: 07/02/22 17:45> Quality: aching <JENNIFER Stafford - Last Filed: 07/02/22 17:45> Radiation: none <JENNIFER Stafford - Last Filed: 07/02/22 17:45> Migration to: no migration <JENNIFER Stafford - Last Filed: 07/02/22 17:45> Exacerbating factors: nothing <JENNIFER Stafford Last Filed: 07/02/22 17:45> Relieving factors: other (Palpation) <JENNIFER Stafford - Last Filed: 07/02/22 17:45> Associated symptoms: nausea and other (Dysuria and yellow colored stools) <JENNIFER Stafford Last Filed: 07/02/22 17:45> Related Data Home Medications: Home Medications Medication Instructions Recorded Confirmed aripiprazole 20 mg tablet (Abilify) 20 mg PO BEDTIME 02/14/22 05/17/22 blood sugar diagnostic (FreeStyle #10 ea 02/14/22 05/17/22 Lite Strips) citalopram 40 mg tablet 40 mg PO DAILY 02/14/22 05/17/22 gabapentin 300 mg capsule 300 mg PO TID 02/14/22 05/17/22 insulin glargine 100 unit/mL 55 unit subcut DAILY 02/14/22 05/17/22 subcutaneous solution (Lantus U-100 Insulin) lisinopril 2.5 mg tablet 2.5 mg PO DAILY 02/14/22 05/17/22 trazodone 50 mg tablet 50 mg PO BEDTIME 02/14/22 05/17/22 albuterol sulfate 90 mcg/actuation 90 mcg inhalation DAILY 04/09/22 05/17/22 aerosol inhaler isosorbide mononitrate 30 mg 1 tab PO DAILY 04/09/22 05/17/22 tablet,extended release 24 hr pravastatin 20 mg tablet 1 tab PO DAILY 04/09/22 05/17/22 Previous Rx's Medication Instructions Recorded benzonatate 100 mg capsule 100 mg PO TID PRN cough #20 caps 03/22/21 (Teselvira Elizondo) furosemide 40 mg tablet (Lasix) 40 mg PO QAM 30 days #30 tabs 12/26/21 nystatin 100,000 unit/gram topical 1 appl topical BID #15 grams 02/14/22 cream pantoprazole 40 mg tablet,delayed 40 mg PO DAILY #30 tabs 04/18/22 release methylcellulose (laxative) 500 mg 500 mg PO DAILY #30 tabs 05/01/22 tablet (Fiber Laxative (methylcellulose)) albuterol sulfate 90 mcg/actuation 1 inh inhalation QID PRN shortness 05/07/22 aerosol inhaler of breath or wheezing #8.5 grams prednisone 20 mg tablet 20 mg PO BID #10 tabs 05/07/22 oxycodone 5 mg tablet 5 mg PO Q6H PRN pain #14 tabs 05/28/22 prednisone 20 mg tablet 20 mg PO DAILY 5 days #5 tabs 05/28/22 cholecalciferol (vitamin D3) 50 50 mcg PO DAILY #30 caps 06/04/22 mcg (2,000 unit) capsule (Vitamin D3) umeclidinium 62.5 mcg-vilanterol 1 ea inhalation DAILY #60 ea 06/19/22 25 mcg/actuation powdr for inhalation (Anoro Ellipta) sennosides 8.6 mg tablet (senna) 17.2 mg PO BEDTIME for 06/25/22 constipation #60 tabs oxycodone 5 mg tablet 5 mg PO Q6H PRN Pain, Moderate #30 07/02/22 tabs <JENNIFER Stafford - Last Filed: 07/02/22 17:45> Allergies/Adverse Reactions: Allergies Allergy/AdvReac Type Severity Reaction Status Date / Time No Known Allergies Allergy Unknown UNKNOWN Verified 04/30/22 10:16 [NO KNOWN ALLERGIES] <JENNIFRE Stafford - Last Filed: 07/02/22 17:45> Review of Systems Review of Systems Constitutional : No Fever, + Chills, No Night Sweats, No Fatigue, No Malaise Cardiovascular : No Chest Pain, No SOB Respiratory : No Cough, No Sputum, No Wheezing, No Dyspnea Gastrointestinal : + Nausea, No Vomiting, No Diarrhea, + abdominal Pain, No Hematochezia, No Melena Genitourinary : + urinary and bowel incontinence, No irregular bleeding, No Dysuria, No Urinary Frequency, No Hematuria, No Urgency, No Flank Pain Musculoskeletal : + back pain, No joint pain, No Myalgias, No Joint Swelling Skin : No Skin Lesions, No rash Neuro : No Weakness, No Numbness, No Paresthesias, No Loss of Consciousness, No Dizziness, No Headache Heme/Lymph: No Lymphadenopathy Endocrine : No Temperature Intolerance <JENNIFER Stafford - Last Filed: 07/02/22 17:45> Yes all other systems are reviewed and are negative <JENNIFER Stafford - Last Filed: 07/02/22 17:45> PMF Past Medical History Attestation statement: The following information was validated with the patient. <JENNIFER Stafford - Last Filed: 07/02/22 17:45> Source: old records reviewed and nursing notes reviewed <JENNIFER Stafford - Last Filed: 07/02/22 17:45> Medical History: Medical History Asthma COPD (chronic obstructive pulmonary disease) Diabetes type 2, controlled Hypertension Invasive ductal carcinoma of right breast Sleep apnea Tubular adenoma <JENNIFER Stafford - Last Filed: 07/02/22 17:45> Surgical History: Surgical History History of lumpectomy of right breast Hx of colonoscopy Hx of right breast biopsy <JENNIFER Stafford - Last Filed: 07/02/22 17:45> Family History Family History: Family History Brother Diabetes Sister Diabetes Breast cancer, Onset Age: 67 Mother Breast cancer, Onset Age: 59 Maternal Aunt Breast cancer <JENNIFER Stafford - Last Filed: 07/02/22 17:45> Social History Social History: Social History Household Members: None Housing: Apartment Are you a primary medicare biller to a significant other at home: No Do you presently have visiting nurse or other home services: Yes Alcohol intake: never Patient Tobacco Use Status: Former Tobacco user Use of substances other than those prescribed or required for medical reasons: No Advance Directives: No Advance Directives Information Provided: Yes Advance Directives Date on File: 03/22/21 service: No Current occupational status: disabled 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 <JENNIFER Stafford - Last Filed: 07/02/22 17:45> Physical Exam ED Vital Signs: Vital Signs - 24 hr 07/02/22 10:12 07/02/22 10:27 07/02/22 11:14 Temperature 97.9 F 97.9 F 97.6 F Pulse Rate 63 64 66 Respiratory Rate 18 18 18 Blood Pressure 156/78 H 124/52 L 127/65 Pulse Oximetry 95 94 96 Oxygen Delivery Method Nasal Cannula Room Air Nasal Cannula Oxygen Flow Rate 2 1 07/02/22 13:21 07/02/22 14:28 07/02/22 15:23 Temperature 98.4 F 97.2 F Pulse Rate 65 76 76 Respiratory Rate 18 16 12 Blood Pressure 121/64 141/70 H 125/66 Pulse Oximetry 93 95 1 L Oxygen Delivery Method Nasal Cannula Nasal Cannula Room Air Oxygen Flow Rate 1 1 07/02/22 18:37 Temperature Pulse Rate 77 Respiratory Rate 16 Blood Pressure 112/56 L Pulse Oximetry 93 Oxygen Delivery Method Nasal Cannula Oxygen Flow Rate 2 BMI result Body Mass Index 0.0 vital signs have been reviewed as normal and appeared to be correct. Blood pressure 156/78. Heart rate normal. Respiration rate normal. Temperature normal. Oxygen saturation normal. <JENNIFER Stafford - Last Filed: 07/02/22 17:45> Vital Signs - 24 hr 07/02/22 10:12 07/02/22 10:27 07/02/22 11:14 Temperature 97.9 F 97.9 F 97.6 F Pulse Rate 63 64 66 Respiratory Rate 18 18 18 Blood Pressure 156/78 H 124/52 L 127/65 Pulse Oximetry 95 94 96 Oxygen Delivery Method Nasal Cannula Room Air Nasal Cannula Oxygen Flow Rate 2 1 07/02/22 13:21 07/02/22 14:28 07/02/22 15:23 Temperature 98.4 F 97.2 F Pulse Rate 65 76 76 Respiratory Rate 18 16 12 Blood Pressure 121/64 141/70 H 125/66 Pulse Oximetry 93 95 1 L Oxygen Delivery Method Nasal Cannula Nasal Cannula Room Air Oxygen Flow Rate 1 1 07/02/22 18:37 Temperature Pulse Rate 77 Respiratory Rate 16 Blood Pressure 112/56 L Pulse Oximetry 93 Oxygen Delivery Method Nasal Cannula Oxygen Flow Rate 2 BMI result Body Mass Index 0.0 <Gregory Garrido MD - Last Filed: 07/02/22 21:00> Appearance: Alert. Oriented X3. No acute distress. Head: Normal external exam. Normocephalic. Atraumatic. Eyes: PERRLA. EOMI. Conjunctiva and sclera normal. Eyelids normal. ENT: Pharynx normal. Uvula midline. Moist mucous membranes. No lesions/ulcerations or masses noted on the tongue. Normal voice. No trismus noted. No drooling noted. No muffled voice noted. Neck: Normal inspection. Neck supple. FROM. No adenopathy. Thyroid Normal. No tracheal deviation noted. No crepitus is noted. No meningeal signs. No neck mass noted. No signs of trauma noted. CVS: Normal heart rate and rhythm. Heart sound normal. Pulses normal throughout. No murmurs/rales/gallops. Respiratory: No respiratory distress. Painless inspiration. Breath sounds normal. No wheezes/rales/rhonchi noted. Chest nontender. No crepitus is noted. No signs of trauma noted. No accessory muscle usage noted or decreased air movement noted. No signs of trauma. Abdomen: Soft and moderate tenderness diffusely with guarding. Bowel sounds normal in all 4 quadrants. No distention noted. No organomegaly noted. No visible injury noted. Negative Perez sign. Negative psoas sign. Negative obturator's sign. Negative Rovsing sign. Back: No CVA tenderness. Full range of motion noted. Nontender. No signs of trauma. Patient neuro intact bilaterally and distally on all 4 extremities. Patient's reflexes intact bilaterally and distally on all 4 extremities. No rashes/lesion/induration/fluctuance or signs of infection noted. Skin: Skin warm and dry. Normal skin color. Normal skin turgor. No rashes/lesions/lacerations noted. Extremities: +1 lower extremity edema. No calf tenderness is noted. Extremities exhibit normal range of motion and nontender. Neuro: Oriented X 3. No motor deficit. No sensory deficit. Reflexes normal. Normal steady gait. No focal neuro deficits noted. CN's II-XII intact bilaterally? Vascular: + radial pulses/+ 2 distal pedal pulses/+2 dorsalis pedis b/l. Normal cap refill. No cyanosis noted to upper extremity nails and lower extremity toes nails. <JENNIFER Stafford - Last Filed: 07/02/22 17:45> Course Course Course Narrative: 11:30am - 66-year-old female who is recently diagnosed with right-sided invasive ductal carcinoma of right breast on 02/25/22 after a mammogram/biopsy with METs to right axillary lymph nodes with mucinous features currently on radiation therapy at [facility] being followed by Dr. Katz who last received Radiation therapy on 05/17/22, lymphedema of right breast, diabetes type 2, HTN, asthma, and sleep apnea presenting to the ED with complaints of chills, nausea and lower abdominal pain with associated dysuria and yellow colored stools that started today. Per EMS patient did receive radiation to her right breast today she reports that she is sore to the bright breast area although this is common for her and does not feel worse than her normal. Plan: Will obtain labs, blood cultures, lactic acid, CT scan abdomen pelvis with IV contrast, C diff culture, UA, check for COVID. Provide a L of IV fluids, 4 mg of Zofran and 4 mg of IV morphine and re-evaluate. <JENNIFER Stafford - Last Filed: 07/02/22 17:45> Reevaluation(s) Reevaluation #1: - labs reviewed random glucose 151. BNP 112. Lipase 5. Otherwise all other labs are within normal limits. Patient negative for COVID. - CT scan abdomen pelvis with without IV contrast revealed pathologic vertebrae body fractures and L4 appears to be intruding the spinal canal therefore they are recommending MRI and bone scan to rule out cauda equina syndrome [facility] called me at this time - therefore went back in to evaluate the patient she reports that for the past 1-2 months she has been having urinary and bowel incontinence and severe back pain although she has not mentioned this to anyone she reports. - therefore I performed a rectal exam and patient does not have rectal tone /sphincter tone or sensation to the rectal area <JENNIFER Stafford - Last Filed: 07/02/22 17:45> Time: 14:20 <JENNIFER Stafford - Last Filed: 07/02/22 17:45> Reevaluation #2: - Sign out to MD Bang pending MRI of lumbar spine <JENNIFER Stafford - Last Filed: 07/02/22 17:45> Time: 17:44 <JENNIFER Stafford - Last Filed: 07/02/22 17:45> MDM - Abdominal Pain MDM Narrative Medical decision making narrative: 2100 Patient metastatic breast cancer to spine followed by oncologist MRI showed multiple lytic lesions in the lumbar spine no cortical in a patient had a control on bladder and bowel but the sometime she has urinary incontinence but does have the feeling when she urinates. Will discharge patient home on oxycodone advised to follow with oncologist patient is wheelchair-bound <Gregory Garrido MD - Last Filed: 07/02/22 21:00> Medical Records Attestation: I reviewed the patient's medical records. <JENNIFER Stafford - Last Filed: 07/02/22 17:45> Lab Data Attestation: I reviewed the patient's lab results. <JENNIFER Stafford - Last Filed: 07/02/22 17:45> Result diagrams: : 07/02/22 11:42 07/02/22 11:42 <JENNIFER Stafford - Last Filed: 07/02/22 17:45> Labs: Lab Results 07/02/22 07/02/22 07/02/22 Range/Units 11:42 11:42 11:42 WBC 5.9 (4.8-10.8) X10*3/uL RBC 4.54 (4.20-5.50) X10*6/uL Hgb 12.4 (12.0-16.0) g/dl Hct 38.1 (37.0-47.0) % MCV 83.9 (80.0-98.0) fL MCH 27.3 (27.0-33.0) pg MCHC 32.5 (31.0-35.0) g/dl RDW 14.4 (11.0-16.0) % Plt Count 222 (160-400) X10*3/uL MPV 9.6 (9.4-12.3) fL Immature Gran % (Auto) 0.5 H (0.0-0.4) % Neut % (Auto) 78.8 H (45-73) % Lymph % (Auto) 12.4 L (20-40) % [place] % (Auto) 6.6 (2-11) % Eos % (Auto) 1.2 (0-4) % Baso % (Auto) 0.5 (0-2) % Lymph # (Auto) 0.7 L (1.2-4.9) X10*3/uL [place] # (Auto) 0.4 (0.1-1.2) X10*3/uL Eos # (Auto) 0.1 (0.0-0.4) X10*3/uL Baso # (Auto) 0.0 (0.0-0.2) X10*3/uL Abs Immat Gran (auto) 0.03 (0.00-0.03) X10*3/uL Absolute Neuts (auto) 4.6 (2.0-8.3) x10*3/uL Absolute Nucleated RBC 0.000 (0.0-0.012) X10*3/uL Nucleated RBC % (auto) 0.0 (0.0-0.2) /100WBC PT 12.4 (10.0-13.1) SEC INR 1.1 (0.9-1.1) Sodium 139 (135-145) mmol/L Potassium 4.5 D (3.3-5.1) mmol/L Chloride 100 (96-108) mmol/L Carbon Dioxide 28 (22-29) mmol/L Anion Gap 16 (12-20) BUN 10 (9-16) mg/dL Creatinine 0.81 (0.5-1.4) mg/dL Estim Creat Clear Calc 115.2 Estimated GFR > 60 Random Glucose 151 H (60-115) mg/dL Lactic Acid (0.5-2.0) mmol/L Calcium 9.5 (8.4-10.2) mg/dL Magnesium 1.6 (1.6-2.6) mg/dL Total Bilirubin 0.8 (0.0-1.0) mg/dL AST 21 (5-31) U/L ALT 17 (0-31) U/L Alkaline Phosphatase 106 D (39-117) U/L B-Natriuretic Peptide (<100) pg/mL Total Protein 6.5 (6.5-8.0) g/dL Albumin 4.0 (3.5-5.0) g/dL Lipase 5 L (8-78) U/L COVID-19 (EL[facility]ABETH) (Negative) COVID-19 Clin Com 07/02/22 07/02/22 07/02/22 Range/Units 11:42 11:42 13:34 WBC (4.8-10.8) X10*3/uL RBC (4.20-5.50) X10*6/uL Hgb (12.0-16.0) g/dl Hct (37.0-47.0) % MCV (80.0-98.0) fL MCH (27.0-33.0) pg MCHC (31.0-35.0) g/dl RDW (11.0-16.0) % Plt Count (160-400) X10*3/uL MPV (9.4-12.3) fL Immature Gran % (Auto) (0.0-0.4) % Neut % (Auto) (45-73) % Lymph % (Auto) (20-40) % [place] % (Auto) (2-11) % Eos % (Auto) (0-4) % Baso % (Auto) (0-2) % Lymph # (Auto) (1.2-4.9) X10*3/uL [place] # (Auto) (0.1-1.2) X10*3/uL Eos # (Auto) (0.0-0.4) X10*3/uL Baso # (Auto) (0.0-0.2) X10*3/uL Abs Immat Gran (auto) (0.00-0.03) X10*3/uL Absolute Neuts (auto) (2.0-8.3) x10*3/uL Absolute Nucleated RBC (0.0-0.012) X10*3/uL Nucleated RBC % (auto) (0.0-0.2) /100WBC PT (10.0-13.1) SEC INR (0.9-1.1) Sodium (135-145) mmol/L Potassium (3.3-5.1) mmol/L Chloride (96-108) mmol/L Carbon Dioxide (22-29) mmol/L Anion Gap (12-20) BUN (9-16) mg/dL Creatinine (0.5-1.4) mg/dL Estim Creat Clear Calc Estimated GFR Random Glucose (60-115) mg/dL Lactic Acid 0.8 (0.5-2.0) mmol/L Calcium (8.4-10.2) mg/dL Magnesium (1.6-2.6) mg/dL Total Bilirubin (0.0-1.0) mg/dL AST (5-31) U/L ALT (0-31) U/L Alkaline Phosphatase (39-117) U/L B-Natriuretic Peptide 112 H (<100) pg/mL Total Protein (6.5-8.0) g/dL Albumin (3.5-5.0) g/dL Lipase (8-78) U/L COVID-19 (EL[facility]BAETH) Negative (Negative) COVID-19 Clin Com See Note <JENNIFER Stafford - Last Filed: 07/02/22 17:45> Lab Results 07/02/22 07/02/22 07/02/22 Range/Units 11:42 11:42 11:42 WBC 5.9 (4.8-10.8) X10*3/uL RBC 4.54 (4.20-5.50) X10*6/uL Hgb 12.4 (12.0-16.0) g/dl Hct 38.1 (37.0-47.0) % MCV 83.9 (80.0-98.0) fL MCH 27.3 (27.0-33.0) pg MCHC 32.5 (31.0-35.0) g/dl RDW 14.4 (11.0-16.0) % Plt Count 222 (160-400) X10*3/uL MPV 9.6 (9.4-12.3) fL Immature Gran % (Auto) 0.5 H (0.0-0.4) % Neut % (Auto) 78.8 H (45-73) % Lymph % (Auto) 12.4 L (20-40) % [place] % (Auto) 6.6 (2-11) % Eos % (Auto) 1.2 (0-4) % Baso % (Auto) 0.5 (0-2) % Lymph # (Auto) 0.7 L (1.2-4.9) X10*3/uL [place] # (Auto) 0.4 (0.1-1.2) X10*3/uL Eos # (Auto) 0.1 (0.0-0.4) X10*3/uL Baso # (Auto) 0.0 (0.0-0.2) X10*3/uL Abs Immat Gran (auto) 0.03 (0.00-0.03) X10*3/uL Absolute Neuts (auto) 4.6 (2.0-8.3) x10*3/uL Absolute Nucleated RBC 0.000 (0.0-0.012) X10*3/uL Nucleated RBC % (auto) 0.0 (0.0-0.2) /100WBC PT 12.4 (10.0-13.1) SEC INR 1.1 (0.9-1.1) Sodium 139 (135-145) mmol/L Potassium 4.5 D (3.3-5.1) mmol/L Chloride 100 (96-108) mmol/L Carbon Dioxide 28 (22-29) mmol/L Anion Gap 16 (12-20) BUN 10 (9-16) mg/dL Creatinine 0.81 (0.5-1.4) mg/dL Estim Creat Clear Calc 115.2 Estimated GFR > 60 Random Glucose 151 H (60-115) mg/dL Lactic Acid (0.5-2.0) mmol/L Calcium 9.5 (8.4-10.2) mg/dL Magnesium 1.6 (1.6-2.6) mg/dL Total Bilirubin 0.8 (0.0-1.0) mg/dL AST 21 (5-31) U/L ALT 17 (0-31) U/L Alkaline Phosphatase 106 D (39-117) U/L B-Natriuretic Peptide (<100) pg/mL Total Protein 6.5 (6.5-8.0) g/dL Albumin 4.0 (3.5-5.0) g/dL Lipase 5 L (8-78) U/L COVID-19 ([facility]) (Negative) COVID-19 Clin Com 07/02/22 07/02/22 07/02/22 Range/Units 11:42 11:42 13:34 WBC (4.8-10.8) X10*3/uL RBC (4.20-5.50) X10*6/uL Hgb (12.0-16.0) g/dl Hct (37.0-47.0) % MCV (80.0-98.0) fL MCH (27.0-33.0) pg MCHC (31.0-35.0) g/dl RDW (11.0-16.0) % Plt Count (160-400) X10*3/uL MPV (9.4-12.3) fL Immature Gran % (Auto) (0.0-0.4) % Neut % (Auto) (45-73) % Lymph % (Auto) (20-40) % [place] % (Auto) (2-11) % Eos % (Auto) (0-4) % Baso % (Auto) (0-2) % Lymph # (Auto) (1.2-4.9) X10*3/uL [place] # (Auto) (0.1-1.2) X10*3/uL Eos # (Auto) (0.0-0.4) X10*3/uL Baso # (Auto) (0.0-0.2) X10*3/uL Abs Immat Gran (auto) (0.00-0.03) X10*3/uL Absolute Neuts (auto) (2.0-8.3) x10*3/uL Absolute Nucleated RBC (0.0-0.012) X10*3/uL Nucleated RBC % (auto) (0.0-0.2) /100WBC PT (10.0-13.1) SEC INR (0.9-1.1) Sodium (135-145) mmol/L Potassium (3.3-5.1) mmol/L Chloride (96-108) mmol/L Carbon Dioxide (22-29) mmol/L Anion Gap (12-20) BUN (9-16) mg/dL Creatinine (0.5-1.4) mg/dL Estim Creat Clear Calc Estimated GFR Random Glucose (60-115) mg/dL Lactic Acid 0.8 (0.5-2.0) mmol/L Calcium (8.4-10.2) mg/dL Magnesium (1.6-2.6) mg/dL Total Bilirubin (0.0-1.0) mg/dL AST (5-31) U/L ALT (0-31) U/L Alkaline Phosphatase (39-117) U/L B-Natriuretic Peptide 112 H (<100) pg/mL Total Protein (6.5-8.0) g/dL Albumin (3.5-5.0) g/dL Lipase (8-78) U/L COVID-19 ([facility]) Negative (Negative) COVID-19 Clin Com See Note <Gregory Garrido MD - Last Filed: 07/02/22 21:00> Imaging Data CT scan abdomen pelvis without IV contrast: Attestation: I personally reviewed and interpreted this imaging study as follows: <JENNIFER Stafford - Last Filed: 07/02/22 17:45> Radiologist's impression: FINDINGS: LUNG BASES: Some limitation secondary to respiratory motion artifact. Mild bibasilar atelectasis. Small bilateral Bochdalek hernias, left greater than right. No pleural or pericardial effusions. LIVER, GALLBLADDER, AND BILIARY TREE: Visualized portions unremarkable. PANCREAS: Unremarkable.? SPLEEN: Unremarkable.? ADRENAL GLANDS: Unremarkable.? KIDNEYS AND URETERS: Unremarkable. BLADDER: Unremarkable.? GASTROINTESTINAL TRACT: Small to moderate hiatal hernia. The remainder the stomach is unremarkable. The small bowel and appendix are unremarkable. The colon and rectum are unremarkable. ABDOMINAL WALL: No significant hernia is appreciated.? LYMPH NODES: No lymphadenopathy. VASCULAR: Unremarkable. PELVIC VISCERA: Unremarkable.? OSSEOUS STRUCTURES: There has been interval development of new lytic lesions in the visualized osseous structures. A operations representative lesion seen in the left posterior superior aspect of L1 is seen measuring 1.3 cm with adjacent compression deformities. Similar findings are seen at L2. Small pathologic fractures extending posteriorly towards the spinal canal are seen along the left inferior margin of L4. Lytic lesions are also seen in the pelvis and hips, right greater than left. A lesion is also seen posteriorly in the left 11th rib. CT/CT abdomen pelvis wo con IMPRESSION: 1. No significant acute intra-abdominal/pelvic abnormality. No evidence for metastatic disease within the abdomen and pelvis. Several incidental findings detailed above without significant change. 2. Interval development of multiple lytic osseous lesions with associated vertebral body pathologic fractures involving L1, L2 and L4. Considerations for imaging follow-up include MRI of the lumbar spine to better assess the spinal canal as well as a nuclear medicine bone scan. ? This critical result was discussed with Fany RODRIGUEZ at 2:10 PM on 07/02/2022 and it was ascertained that the content and urgency of the report was understood at the time of direct communication. <JENNIFER Stafford - Last Filed: 07/02/22 17:45> Critical Care Time Critical Care Time Critical Care Time: Yes <JENNIFER Stafford - Last Filed: 07/02/22 17:45> Total Critical Care Time: 60 <JENNIFER Stafford - Last Filed: 07/02/22 17:45> Attestation: I personally attest to this time spent taking care of the patient <JENNIFER Stafford - Last Filed: 07/02/22 17:45> Discharge Plan Discharge Clinical Impression: Metastatic breast cancer, Malignant neoplasm metastatic to lumbar spine with unknown primary site, Closed lumbar vertebral fracture, Abdominal pain <JENNIFER Stafford - Last Filed: 07/02/22 17:45> Patient Disposition: Home, Self-Care <JENNIFER Stafford - Last Filed: 07/02/22 17:45> Instructions: Breast Cancer in Women (DC), Bone Metastasis (ED) <JENNIFER Stafford - Last Filed: 07/02/22 17:45> Additional Instructions: Continue your pain medications and follow-up with your oncologist <JENNIFER Stafford - Last Filed: 07/02/22 17:45> Prescriptions: New oxycodone 5 mg tablet 5 mg PO Q6H PRN (Reason: Pain, Moderate) Qty: 30 0RF Rx Instructions: Partial Fill upon patient request. No Action furosemide [Lasix] 40 mg tablet 40 mg PO QAM 30 Days Qty: 30 6RF pantoprazole 40 mg tablet,delayed release (DR/EC) 40 mg PO DAILY Qty: 30 2RF Rx Instructions: take one tablet half an hour before breakfast Fiber Laxative (methylcellulo) 500 mg tablet 500 mg PO DAILY Qty: 30 1RF cholecalciferol (vitamin D3) [Vitamin D3] 50 mcg (2,000 unit) capsule 50 mcg PO DAILY Qty: 30 2RF Anoro Ellipta 62.5-25 mcg/actuation blister with device 1 ea inhalation DAILY Qty: 60 3RF sennosides [senna] 8.6 mg tablet 17.2 mg PO BEDTIME Qty: 60 2RF benzonatate [Tessalon Perles] 100 mg capsule 100 mg PO TID PRN (Reason: cough) Qty: 20 0RF prednisone 20 mg tablet 20 mg PO BID Qty: 10 0RF albuterol sulfate 90 mcg/actuation HFA aerosol inhaler 1 inh inhalation QID PRN (Reason: shortness of breath or wheezing) Qty: 8.5 0RF oxycodone 5 mg tablet 5 mg PO Q6H PRN (Reason: pain) Qty: 14 0RF Rx Instructions: Partial Fill upon patient request. prednisone 20 mg tablet 20 mg PO DAILY 5 Days Qty: 5 0RF isosorbide mononitrate 30 mg tablet extended release 24 hr 1 tab PO DAILY pravastatin 20 mg tablet 1 tab PO DAILY albuterol sulfate 90 mcg/actuation HFA aerosol inhaler 90 mcg inhalation DAILY (DME) FreeStyle Lite Strips Strip See Rx Instructions Not Applicable BID Qty: 10 Rx Instructions: As directed Lantus U-100 Insulin 100 unit/mL solution 55 unit subcut DAILY aripiprazole [Abilify] 20 mg tablet 20 mg PO BEDTIME lisinopril 2.5 mg tablet 2.5 mg PO DAILY gabapentin 300 mg capsule 300 mg PO TID citalopram 40 mg tablet 40 mg PO DAILY trazodone 50 mg tablet 50 mg PO BEDTIME nystatin 100,000 unit/gram cream 1 appl topical BID Qty: 15 0RF <JENNIFER Stafford - Last Filed: 07/02/22 17:45>
[2022-07-02 11:54] LABS: MANUAL DIFF FLAG NO
[2022-07-02 11:55] LABS: Basophils Percent Auto 0.5 % (0-2); Eosinophils Absolute Auto 0.1 X10*3/uL (0.0-0.4); Eosinophils Percent Auto 1.2 % (0-4); Hematocrit 38.1 % (37.0-47.0); Hemoglobin 12.4 g/dl (12.0-16.0); Imm Gran Abs Auto 0.03 X10*3/uL (0.00-0.03); Imm Gran Pct Auto 0.5 % (0.0-0.4); Lymphocytes Absolute Auto 0.7 X10*3/uL (1.2-4.9); Lymphocytes Percent Auto 12.4 % (20-40); Mean Corpuscular HGB Conc 32.5 g/dl (31.0-35.0); Mean Corpuscular Hemoglobin 27.3 pg (27.0-33.0); Mean Corpuscular Volume 83.9 fL (80.0-98.0); Mean Platelet Volume 9.6 fL (9.4-12.3); Monocytes Absolute Auto 0.4 X10*3/uL (0.1-1.2); Monocytes Percent Auto 6.6 % (2-11); Neutrophils Absolute Auto 4.6 x10*3/uL (2.0-8.3); Neutrophils Percent Auto 78.8 % (45-73); Platelet Count 222 X10*3/uL (160-400); Red Blood Count 4.54 X10*6/uL (4.20-5.50); Red Cell Distribution Width 14.4 % (11.0-16.0); White Blood Count 5.9 X10*3/uL (4.8-10.8)
[2022-07-02 12:02] LABS: INTERNATIONAL NORM RATIO 1.1 (0.9-1.1); Prothrombin Time 12.4 SEC (10.0-13.1)
[2022-07-02 12:06] LABS: Lactic Acid 0.8 mmol/L (0.5-2.0)
[2022-07-02 12:12] LABS: Alanine Aminotransferase 17 U/L (0-31); Alkaline Phosphatase 106 U/L (39-117); Anion Gap 16 (12-20); Aspartate Amino Transferase 21 U/L (5-31); Bilirubin Total 0.8 mg/dL (0.0-1.0); Blood Urea Nitrogen 10 mg/dL (9-16); Calcium 9.5 mg/dL (8.4-10.2); Carbon Dioxide 28 mmol/L (22-29); Chloride 100 mmol/L (96-108); Creatinine Clr Calc Pharmacy 115.2; Estimated Glomerular Filt Rate > 60; Glucose Random 151 mg/dL (60-115); Lipase 5 U/L (8-78); Magnesium 1.6 mg/dL (1.6-2.6); Potassium 4.5 mmol/L (3.3-5.1); Sodium 139 mmol/L (135-145); Total Protein 6.5 g/dL (6.5-8.0)
[2022-07-02 12:34] LABS: B Type Natriuretic Peptide 112 pg/mL (<100)
[2022-07-02 14:16] LABS: COVID-19 Test Negative (Negative)
[2022-07-02] MEDS: ondansetron HCL 4 MG/2 ML VIAL IVPUSH (14:22)
[2022-07-02] MEDS: 0.9 % Sodium Chloride 1,000 ML 999 ML IVCONT (14:22)
[2022-07-02] MEDS: Morphine Sulfate 4 MG/ML CARTRIDGE IVPUSH (14:22)
--- NOTE | 2022-07-02 21:10 | PC.NURSE ---
waiting mechanical intern and family member to arrive to talk with dr villalba per dr request.
== END 2022-07-02 21:53 | disposition home or self-care (01) ==
PROVIDERS: Physician Assistant Medical; Emergency Provider Emergency Medicine Emergency Medical Services; PCP Internal Medicine
DX: C50.911 Malignant neoplasm of unspecified site of right female breast (principal); C77.3 Secondary and unspecified malignant neoplasm of axilla and upper limb lymph nodes; C79.51 Secondary malignant neoplasm of bone; S32.018A Other fracture of first lumbar vertebra, initial encounter for closed fracture; S32.028A Other fracture of second lumbar vertebra, initial encounter for closed fracture; S32.048A Other fracture of fourth lumbar vertebra, initial encounter for closed fracture; X58.XXXA Exposure to other specified factors, initial encounter; Y93.9 Activity, unspecified; R60.0 Localized edema; R10.9 Unspecified abdominal pain; Z20.822 Contact with and (suspected) exposure to COVID-19; E11.9 Type 2 diabetes mellitus without complications; I10 Essential (primary) hypertension; Y92.9 Unspecified place or not applicable; Y99.9 Unspecified external cause status; Z79.4 Long term (current) use of insulin
CPT/HCPCS: 36415; 72158; 74176; 80053; 83605; 83690; 83735; 83880; 85025; 85610; 87040; 87635; 96361; 96374; 96375; 99284; 99285; A9585; J2270; J2405

== ENCOUNTER 2022-07-03 13:05 | Emergency (ER) | payer MEDICARE, SELFPAY ==
[2022-07-03 13:15] VITALS: BP 138/90; PULSE 126; O2SAT 93
[2022-07-03 13:44] VITALS: BP 123/39; PULSE 75; RESP 97; TEMP 36.8; O2SAT 97; BMI 41.5
[2022-07-03 14:14] LABS: MANUAL DIFF FLAG NO
[2022-07-03 14:21] LABS: Basophils Percent Auto 0.2 % (0-2); Eosinophils Percent Auto 0.2 % (0-4); Hematocrit 35.1 % (37.0-47.0); Hemoglobin 11.7 g/dl (12.0-16.0); Imm Gran Abs Auto 0.06 X10*3/uL (0.00-0.03); Lymphocytes Absolute Auto 0.5 X10*3/uL (1.2-4.9); Lymphocytes Percent Auto 8.7 % (20-40); Mean Corpuscular HGB Conc 33.3 g/dl (31.0-35.0); Mean Corpuscular Hemoglobin 27.8 pg (27.0-33.0); Mean Corpuscular Volume 83.4 fL (80.0-98.0); Mean Platelet Volume 9.7 fL (9.4-12.3); Monocytes Absolute Auto 0.5 X10*3/uL (0.1-1.2); Monocytes Percent Auto 8.5 % (2-11); Neutrophils Absolute Auto 4.8 x10*3/uL (2.0-8.3); Neutrophils Percent Auto 81.4 % (45-73); Platelet Count 206 X10*3/uL (160-400); Red Blood Count 4.21 X10*6/uL (4.20-5.50); Red Cell Distribution Width 14.4 % (11.0-16.0); White Blood Count 5.9 X10*3/uL (4.8-10.8)
[2022-07-03 14:39] LABS: Alanine Aminotransferase 16 U/L (0-31); Albumin Level 3.8 g/dL (3.5-5.0); Alkaline Phosphatase 97 U/L (39-117); Anion Gap 13 (12-20); Aspartate Amino Transferase 19 U/L (5-31); Bilirubin Total 0.7 mg/dL (0.0-1.0); Blood Urea Nitrogen 9 mg/dL (9-16); Calcium 9.1 mg/dL (8.4-10.2); Carbon Dioxide 31 mmol/L (22-29); Chloride 99 mmol/L (96-108); Creatinine Clr Calc Pharmacy 82.5; Estimated Glomerular Filt Rate > 60; Glucose Random 183 mg/dL (60-115); Potassium 4.1 mmol/L (3.3-5.1); Sodium 139 mmol/L (135-145); Total Protein 6.3 g/dL (6.5-8.0)
[2022-07-03 15:27] LABS: Appearance Urine CLEAR; Color Urine YELLOW; Glucose Urine UA NEG (NEG); Leukocyte Esterase Urine NEG (NEG); Nitrite Urine NEG (NEG); PH 5.5 (5.0-8.0); Urine Blood NEG (NEG); Urine Ketones NEG (NEG); Urine Protein NEG (NEG-TRACE)
--- NOTE | 2022-07-03 16:51 | PM.EVENT ---
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 She has been receiving adjuvant radiation therapy at [facility]. Unfortunately she has developed metastasis. She is being referred to neurosurgeon (Dr. Crouch) to see if she needs any neurosurgical intervention. Biopsy will also have to be performed to confirm metastatic cancer.
== END 2022-07-03 18:29 | disposition left against medical advice (07) ==
PROVIDERS: Emergency Provider Emergency Medicine
DX: N64.4 Mastodynia (principal); Z79.899 Other long term (current) drug therapy
CPT/HCPCS: 36415; 80053; 81003; 85025; 99282; 99283

== ENCOUNTER → 2022-07-31 09:38 | Outpatient (BNVA) | payer OTHER, SELFPAY | PROVIDERS: PCP Internal Medicine; Visit Provider Internal Medicine Pulmonary Disease | DX: J44.9 Chronic obstructive pulmonary disease, unspecified (principal); R06.00 Dyspnea, unspecified; G47.30 Sleep apnea, unspecified | CPT/HCPCS: 99212 ==

== ENCOUNTER 2022-08-08 11:49 | Day surgery (SDC) | payer OTHER, SELFPAY ==
--- NOTE | 2022-07-15 11:18 | P.CONAN_ITS ---
[facility] Active Problems Active Problems: All Active Problems (Updated 07/08/22 @ 13:28 by Kesha Katz MD) Tubular adenoma (Acute) COVID-19 (Acute) Dyspnea on exertion (Acute) Osteoarthritis of knees, bilateral (Acute) Diabetes (Acute) Osteoarthritis of right knee (Acute) Rotator cuff tendonitis (Acute) Abnormal ultrasound of breast (Acute) Lymph node enlargement (Acute) Fungal skin infection (Acute) COPD (chronic obstructive pulmonary disease) (Acute) Invasive ductal carcinoma of right breast (Chronic) Sleep apnea (Acute) Past Medical History Medical History Asthma COPD (chronic obstructive pulmonary disease) Diabetes type 2, controlled Hypertension Invasive ductal carcinoma of right breast Sleep apnea Tubular adenoma Cognitive capacity: Preop. in Holding area HR 66 ,abruptly up to 133. No CP, SOB or BP changes. 12 lead ECG shows sinus tachycardia, no AF. after 30 min HR abruptly normalised at 70. Family History Family History Brother Diabetes Sister Diabetes Breast cancer, Onset Age: 67 Mother Breast cancer, Onset Age: 59 Maternal Aunt Breast cancer Family history of problems with anesthesia: No Surgical History Surgical History History of lumpectomy of right breast Hx of colonoscopy Hx of right breast biopsy History of Problems with Anesthesia: No Social History Social History Household Members: None Housing: Apartment Are you a primary memory care program resident to a significant other at home: No Do you presently have visiting nurse or other home services: Yes Alcohol intake: never Patient Tobacco Use Status: Former Tobacco user Tobacco use type: Cigarette Advance Directives: No Advance Directives Information Provided: Yes Advance Directives Date on File: 03/22/21 Patient : No service: No Current occupational status: disabled 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 Meds Allergies Allergy/AdvReac Type Severity Reaction Status Date / Time No Known Allergies Allergy Unknown UNKNOWN Verified 08/08/22 12:16 [NO KNOWN ALLERGIES] Home Medications Medication Instructions Recorded Confirmed Last Taken Type aripiprazole 20 mg tablet (Abilify) 20 mg PO BEDTIME 02/14/22 07/19/22 Unknown History blood sugar diagnostic (FreeStyle #10 ea 02/14/22 07/19/22 Unknown History Lite Strips) citalopram 40 mg tablet 40 mg PO DAILY 02/14/22 07/19/22 Unknown History gabapentin 300 mg capsule 300 mg PO TID 02/14/22 07/19/22 Unknown History insulin glargine 100 unit/mL 55 unit subcut DAILY 02/14/22 07/19/22 Unknown History subcutaneous solution (Lantus U-100 Insulin) lisinopril 2.5 mg tablet 2.5 mg PO DAILY 02/14/22 07/19/22 Unknown History trazodone 50 mg tablet 50 mg PO BEDTIME 02/14/22 07/19/22 Unknown History isosorbide mononitrate 30 mg 1 tab PO DAILY 04/09/22 07/19/22 Unknown History tablet,extended release 24 hr pravastatin 20 mg tablet 1 tab PO DAILY 04/09/22 07/19/22 Unknown History Exam Exam Date and Time: July 15, 2022 1118 Assessment and Plan Final Anesthetic Review Family History of Problems with Anesthesia: No History of Problems with Anesthesia: No
--- NOTE | 2022-08-07 12:40 | P.CONAN_ITS ---
Documented by User: Dsetiny Jarvis NP 08/07/22 12:42 HPI - Anesthesia Eval Consult details Narrative: 66yo F for Deep Bone Biopsy CT Guided s/p colo 03/2022 with MAC PMFSH Active Problems Active Problems: All Active Problems (Updated 07/08/22 @ 13:28 by Kesha Katz MD) Tubular adenoma (Acute) COVID-19 (Acute) Dyspnea on exertion (Acute) Osteoarthritis of knees, bilateral (Acute) Diabetes (Acute) Osteoarthritis of right knee (Acute) Rotator cuff tendonitis (Acute) Abnormal ultrasound of breast (Acute) Lymph node enlargement (Acute) Fungal skin infection (Acute) COPD (chronic obstructive pulmonary disease) (Acute) Invasive ductal carcinoma of right breast (Chronic) Sleep apnea (Acute) Past Medical History Medical History Asthma COPD (chronic obstructive pulmonary disease) Diabetes type 2, controlled Hypertension Invasive ductal carcinoma of right breast Sleep apnea Tubular adenoma Family History Family History Brother Diabetes Sister Diabetes Breast cancer, Onset Age: 67 Mother Breast cancer, Onset Age: 59 Maternal Aunt Breast cancer Family history of problems with anesthesia: No Surgical History Surgical History History of lumpectomy of right breast Hx of colonoscopy Hx of right breast biopsy History of Problems with Anesthesia: No Social History Social History Household Members: None Housing: Apartment Are you a primary healthcare project manager to a significant other at home: No Do you presently have visiting nurse or other home services: Yes Alcohol intake: never Patient Tobacco Use Status: Former Tobacco user Tobacco use type: Cigarette Advance Directives: No Advance Directives Information Provided: Yes Advance Directives Date on File: 03/22/21 Patient : No service: No Current occupational status: disabled 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 Meds Allergies Allergy/AdvReac Type Severity Reaction Status Date / Time No Known Allergies Allergy Unknown UNKNOWN Verified 08/08/22 12:16 [NO KNOWN ALLERGIES] Home Medications Medication Instructions Recorded Confirmed Last Taken Type aripiprazole 20 mg tablet (Abilify) 20 mg PO BEDTIME 02/14/22 07/19/22 Unknown History blood sugar diagnostic (FreeStyle #10 ea 02/14/22 07/19/22 Unknown History Lite Strips) citalopram 40 mg tablet 40 mg PO DAILY 02/14/22 07/19/22 Unknown History gabapentin 300 mg capsule 300 mg PO TID 02/14/22 07/19/22 Unknown History insulin glargine 100 unit/mL 55 unit subcut DAILY 02/14/22 07/19/22 Unknown History subcutaneous solution (Lantus U-100 Insulin) lisinopril 2.5 mg tablet 2.5 mg PO DAILY 02/14/22 07/19/22 Unknown History trazodone 50 mg tablet 50 mg PO BEDTIME 02/14/22 07/19/22 Unknown History isosorbide mononitrate 30 mg 1 tab PO DAILY 04/09/22 07/19/22 Unknown History tablet,extended release 24 hr pravastatin 20 mg tablet 1 tab PO DAILY 04/09/22 07/19/22 Unknown History Exam Exam Date and Time: August 07, 2022 1240 Pertinent Lab Results Pertinent Lab Results: Laboratory Tests 07/03/22 07/03/22 14:09 14:09 WBC 5.9 Hgb 11.7 L Hct 35.1 L Plt Count 206 Sodium 139 Potassium 4.1 Chloride 99 Carbon Dioxide 31 H BUN 9 Creatinine 0.79 Narrative Narrative: EKG 05/2022 Vent. Rate : 066 BPM ? ? Atrial Rate : 066 BPM ?? P-R Int : 138 ms? QRS Dur : 090 ms ? ? QT Int : 396 ms ? ? ? P-R-T Axes : 022 -26 012 degrees ?? QTc Int : 415 ms ? Normal sinus rhythm Moderate voltage criteria for LVH, may be normal variant ( R in aVL , [place] product ) Borderline ECG When compared with ECG of 07-MAY-2022 08:52, No significant change was found Assessment and Plan Assessment Anesthesia Assessment: Chart Reviewed Final Anesthetic Review Family History of Problems with Anesthesia: No History of Problems with Anesthesia: No Documented by User: Kalyn Nugent MD 08/08/22 12:44 PMFSH Past Medical History Medical History Asthma COPD (chronic obstructive pulmonary disease) Diabetes type 2, controlled Hypertension Invasive ductal carcinoma of right breast Sleep apnea Tubular adenoma Family History Family History Brother Diabetes Sister Diabetes Breast cancer, Onset Age: 67 Mother Breast cancer, Onset Age: 59 Maternal Aunt Breast cancer Surgical History Surgical History History of lumpectomy of right breast Hx of colonoscopy Hx of right breast biopsy Social History Social History Household Members: None Housing: Apartment Are you a primary healthcare project manager to a significant other at home: No Do you presently have visiting nurse or other home services: Yes Alcohol intake: never Patient Tobacco Use Status: Former Tobacco user Tobacco use type: Cigarette Advance Directives: No Advance Directives Information Provided: Yes Advance Directives Date on File: 03/22/21 Patient : No service: No Current occupational status: disabled 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 Meds Allergies Allergy/AdvReac Type Severity Reaction Status Date / Time No Known Allergies Allergy Unknown UNKNOWN Verified 08/08/22 12:16 [NO KNOWN ALLERGIES] Home Medications Medication Instructions Recorded Confirmed Last Taken Type aripiprazole 20 mg tablet (Abilify) 20 mg PO BEDTIME 02/14/22 07/19/22 Unknown History blood sugar diagnostic (FreeStyle #10 ea 02/14/22 07/19/22 Unknown History Lite Strips) citalopram 40 mg tablet 40 mg PO DAILY 02/14/22 07/19/22 Unknown History gabapentin 300 mg capsule 300 mg PO TID 02/14/22 07/19/22 Unknown History insulin glargine 100 unit/mL 55 unit subcut DAILY 02/14/22 07/19/22 Unknown History subcutaneous solution (Lantus U-100 Insulin) lisinopril 2.5 mg tablet 2.5 mg PO DAILY 02/14/22 07/19/22 Unknown History trazodone 50 mg tablet 50 mg PO BEDTIME 02/14/22 07/19/22 Unknown History isosorbide mononitrate 30 mg 1 tab PO DAILY 04/09/22 07/19/22 Unknown History tablet,extended release 24 hr pravastatin 20 mg tablet 1 tab PO DAILY 04/09/22 07/19/22 Unknown History Exam Airway Heart: fast,regular Lungs: CTA Assessment and Plan Final Anesthetic Review ASA Class: III Final Preanesthetic Review: Meds/Allgs Chart Reviewed, Consent Obtained/Reviewed and Anes Risks/Benef Reviewed Patient Risk: Intermediate Procedure Risk: Low Anesthetic Plan Anesthetic Plan: MAC: Disposition: Standard PACU
[2022-08-08] VITALS (7 sets, daily range): BP systolic 108–123; BP diastolic 44–60; PULSE 64–76; RESP 16–20; TEMP 36.4–36.6; O2SAT 91–96; BMI 39.8
--- NOTE | 2022-08-08 | ECG_ITS ---
Test Reason : afib Blood Pressure : / mmHG Vent. Rate : 125 BPM Atrial Rate : 125 BPM P-R Int : 124 ms QRS Dur : 094 ms QT Int : 330 ms P-R-T Axes : 000 -32 047 degrees QTc Int : 476 ms Sinus tachycardia Left axis deviation Moderate voltage criteria for LVH, may be normal variant ( R in aVL , [place] product ) Nonspecific ST abnormality Abnormal ECG When compared with ECG of 28-MAY-2022 16:04, Vent. rate has increased BY 59 BPM Referred By: Kalyn Nugent Electronically Signed By:ARTURO SALINAS
--- NOTE | ~2022-08-08 | CT_ITS ---
PROCEDURE: CT GUIDED BIOPSY, BONE CLINICAL INFORMATION: Breast cancer. Sternal bone lesion. Rule out metastatic disease. COMPARISON: CT abdomen 07/02/[address] chest 05/28/2022. TECHNIQUE: Following explaining CT fluoroscopy-guided sterile lesion biopsy procedure, benefits and risks, a written consent was obtained for the procedure as well as for conscious sedation. Patient was placed supine and preliminary CT imaging was obtained through the sternum. An optimal site was selected and areas marked on the skin. The marked site was cleaned and draped with 2% chlorhexidine solution. 1% lidocaine was administered at the puncture site. Through a small skin incision an 18-gauge guide needle was advanced to the outer cortex of the sternal lesion from left to right side approach. A mechanical drill attached to a cutting needle was coaxially advanced to the guide needle and a 4 pass biopsy was performed. Sample collected was sent in formalin, flow cytometry and for cytogenetics evaluation. Postprocedure the guide needle was withdrawn and complete hemostasis achieved. Repeat CT imaging reveal no hematoma in the retrosternal or the presternal soft tissues. Conscious sedation was provided by IR nurse and patient was monitored by the IR nurse and the radiologist during the exam for [address] examination was performed using dose optimization techniques as appropriate, variously including the following: *Automated exposure control *Adjustment of mA and/or kV according to patient size (this includes techniques or standardized protocols for targeted exams where dose is matched to indication/reason for exam; i.e. extremities or head) *Use of iterative reconstruction technique DLP: 262 mGy-cm FINDINGS: There is a well-defined right sternal lesion with irregular and likely lysed anterior cortex of the lesion. There is moderate sclerosis seen along the left aspect of the lesion. No soft tissue component seen at this time. CT fluoroscopy-guided 18-gauge core biopsy of right sternal bone marrow lesion without immediate complications. CT/CT biopsy bone deep IMPRESSION: Successful CT fluoroscopy-guided right sternal lesion biopsy performed without immediate complications.
--- NOTE | 2022-08-08 10:56 | HO.ANESPROP2 ---
[facility] Active Problems Active Problems: All Active Problems (Updated 07/08/22 @ 13:28 by Kesha Katz MD) Tubular adenoma (Acute) COVID-19 (Acute) Dyspnea on exertion (Acute) Osteoarthritis of knees, bilateral (Acute) Diabetes (Acute) Osteoarthritis of right knee (Acute) Rotator cuff tendonitis (Acute) Abnormal ultrasound of breast (Acute) Lymph node enlargement (Acute) Fungal skin infection (Acute) COPD (chronic obstructive pulmonary disease) (Acute) Invasive ductal carcinoma of right breast (Chronic) Sleep apnea (Acute) Past Medical History Medical History Asthma COPD (chronic obstructive pulmonary disease) Diabetes type 2, controlled Hypertension Invasive ductal carcinoma of right breast Sleep apnea Tubular adenoma Functional capacity: independent ambulation Patient : No Family History Family History Brother Diabetes Sister Diabetes Breast cancer, Onset Age: 67 Mother Breast cancer, Onset Age: 59 Maternal Aunt Breast cancer Family history of problems with anesthesia: No Surgical History Surgical History History of lumpectomy of right breast Hx of colonoscopy Hx of right breast biopsy History of Problems with Anesthesia: No Social History Social History Household Members: None Housing: Apartment Are you a primary childcare center administrator to a significant other at home: No Do you presently have visiting nurse or other home services: Yes Alcohol intake: never Patient Tobacco Use Status: Former Tobacco user Tobacco use type: Cigarette Advance Directives: No Advance Directives Information Provided: Yes Advance Directives Date on File: 03/22/21 Patient : No service: No Current occupational status: disabled 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 Meds Allergies Allergy/AdvReac Type Severity Reaction Status Date / Time No Known Allergies Allergy Unknown UNKNOWN Verified 08/08/22 12:16 [NO KNOWN ALLERGIES] Home Medications Medication Instructions Recorded Confirmed Last Taken Type aripiprazole 20 mg tablet (Abilify) 20 mg PO BEDTIME 02/14/22 07/19/22 Unknown History blood sugar diagnostic (FreeStyle #10 ea 02/14/22 07/19/22 Unknown History Lite Strips) citalopram 40 mg tablet 40 mg PO DAILY 02/14/22 07/19/22 Unknown History gabapentin 300 mg capsule 300 mg PO TID 02/14/22 07/19/22 Unknown History insulin glargine 100 unit/mL 55 unit subcut DAILY 02/14/22 07/19/22 Unknown History subcutaneous solution (Lantus U-100 Insulin) lisinopril 2.5 mg tablet 2.5 mg PO DAILY 02/14/22 07/19/22 Unknown History trazodone 50 mg tablet 50 mg PO BEDTIME 02/14/22 07/19/22 Unknown History isosorbide mononitrate 30 mg 1 tab PO DAILY 04/09/22 07/19/22 Unknown History tablet,extended release 24 hr pravastatin 20 mg tablet 1 tab PO DAILY 04/09/22 07/19/22 Unknown History Exam Exam Date and Time: August 08, 2022 1056 Airway Mallampati Class: III TM Dist: >3cm Neck ROM: Full Heart: fast regular Lungs: CTA Assessment and Plan Final Anesthetic Review Family History of Problems with Anesthesia: No History of Problems with Anesthesia: No Final Preanesthetic Review: Meds/Allgs Chart Reviewed, Consent Obtained/Reviewed and Anes Risks/Benef Reviewed Patient Risk: Intermediate Procedure Risk: Low Anesthetic Plan Anesthetic Plan: MAC: Disposition: Standard PACU
[2022-08-08 12:22] LABS: MANUAL DIFF FLAG NO
[2022-08-08 12:24] LABS: Basophils Percent Auto 0.4 % (0-2); Eosinophils Absolute Auto 0.1 X10*3/uL (0.0-0.4); Eosinophils Percent Auto 1.4 % (0-4); Hemoglobin 12.2 g/dl (12.0-16.0); Imm Gran Abs Auto 0.02 X10*3/uL (0.00-0.03); Imm Gran Pct Auto 0.4 % (0.0-0.4); Lymphocytes Absolute Auto 0.6 X10*3/uL (1.2-4.9); Lymphocytes Percent Auto 12.2 % (20-40); Mean Corpuscular Hemoglobin 27.6 pg (27.0-33.0); Mean Corpuscular Volume 83.7 fL (80.0-98.0); Mean Platelet Volume 9.7 fL (9.4-12.3); Monocytes Absolute Auto 0.3 X10*3/uL (0.1-1.2); Monocytes Percent Auto 6.7 % (2-11); Neutrophils Percent Auto 78.9 % (45-73); Platelet Count 218 X10*3/uL (160-400); Red Blood Count 4.42 X10*6/uL (4.20-5.50); Red Cell Distribution Width 13.9 % (11.0-16.0); White Blood Count 5.1 X10*3/uL (4.8-10.8)
[2022-08-08 12:32] LABS: INTERNATIONAL NORM RATIO 1.1 (0.9-1.1); Prothrombin Time 12.5 SEC (10.0-13.1)
[2022-08-08 12:35] LABS: Partial Thromboplastin Time 26.8 SEC (26.0-36.4)
--- NOTE | 2022-08-08 12:49 | PC.NURSE ---
Dr. Rucker present when patient pulse elevated to 134 and was consistent. EKG ordered at this time.
[2022-08-08 12:55] LABS: Glucose, Whole Blood 96 mg/dL (60-115)
[2022-08-08] MEDS: Lactated Ringers 1,000 ML 100 ML IVCONT (13:13)
--- NOTE | 2022-08-08 13:24 | PC.NURSE ---
See notation on patient with EKG strips. EKG examined by Dr. Rucker. Dr. Rucker at bedside after thirty minutes of sinus tack patient resumed to baseline of pulse at 71-74. pt remained asymptomatic througout. this report also given to Henny CORTEZ RN.
== END 2022-08-08 17:05 | disposition home or self-care (01) ==
PROVIDERS: Radiology Diagnostic Radiology; Visit Provider Radiology Diagnostic Radiology
DX: C50.911 Malignant neoplasm of unspecified site of right female breast (principal); C79.51 Secondary malignant neoplasm of bone; C77.9 Secondary and unspecified malignant neoplasm of lymph node, unspecified; Z17.0 Estrogen receptor positive status [ER+]; M89.9 Disorder of bone, unspecified; Z80.3 Family history of malignant neoplasm of breast; M84.48XA Pathological fracture, other site, initial encounter for fracture; J44.9 Chronic obstructive pulmonary disease, unspecified; G47.30 Sleep apnea, unspecified; I10 Essential (primary) hypertension; E11.9 Type 2 diabetes mellitus without complications; Z79.4 Long term (current) use of insulin; Z79.52 Long term (current) use of systemic steroids; Z79.811 Long term (current) use of aromatase inhibitors; Z79.899 Other long term (current) drug therapy; Z87.891 Personal history of nicotine dependence
CPT/HCPCS: 20225; 36415; 77012; 82947; 85025; 85610; 85730; 88184; 88185; 88237; 88264; 88307; 88311; 93005; J2250; J3010

== ENCOUNTER → 2022-08-13 09:01 | Outpatient (BNVA) | payer OTHER, SELFPAY | PROVIDERS: PCP Internal Medicine; Visit Provider Internal Medicine Pulmonary Disease | DX: J44.9 Chronic obstructive pulmonary disease, unspecified (principal); G47.30 Sleep apnea, unspecified; Z99.81 Dependence on supplemental oxygen | CPT/HCPCS: 94618; 99212 ==

== ENCOUNTER → 2022-08-20 09:19 | Outpatient (BNVA) | payer OTHER, SELFPAY | PROVIDERS: PCP Internal Medicine; Referring Provider Internal Medicine; Visit Provider Nurse Practitioner Family | DX: K59.01 Slow transit constipation (principal) | CPT/HCPCS: 99212 ==

== ENCOUNTER 2022-08-27 12:20 | Emergency (ER) | payer OTHER, SELFPAY ==
[2022-08-27] VITALS (7 sets, daily range): BP systolic 116–135; BP diastolic 54–72; PULSE 69–87; RESP 15–18; TEMP 36.1–36.9; O2SAT 93–95; BMI 16.9
--- NOTE | ~2022-08-27 | CT_ITS ---
EXAMINATION: CT CHEST WITHOUT CONTRAST CLINICAL INFORMATION: Breast cancer. Chest pain. Rule out pneumonia or metastatic disease. COMPARISON: Previous chest CT and chest x-ray May 2022 TECHNIQUE: Multidetector volumetric CT imaging of the chest was done. Axial MIP volume rendering provided. Sagittal and coronal reformatted images were obtained. This CT examination was performed using dose optimization techniques as appropriate, variously including the following: *Automated exposure control *Adjustment of mA and/or kV according to patient size (this includes techniques or standardized protocols for targeted exams where dose is matched to indication/reason for exam; i.e. extremities or head) *Use of iterative reconstruction technique DLP: 419 mGy-cm FINDINGS: LUNGS: There is patchy heterogeneous increased groundglass attenuation in the lungs. This appearance is similar to previous exams. Interstitial lung, pneumonitis and changes from air trapping should be considered. There is a 1 x 2 cm nodule at the right lung apex axial image 8 series 5. This is new from May 2022 exam. There are new clustered nodular opacities in the right middle lobe. Clustered appearance favors an infectious or inflammatory process. MEDIASTINUM: There is shotty mediastinal lymphadenopathy. Largest lymph node is an AP window lymph node upper normal in size measuring 1 cm in short axis. This appears similar to previous exams. The heart is upper normal in size. Mild coronary artery calcification. No pericardial effusion. CORONARY ARTERY CALCIFICATION: Mild PLEURA: There is no pleural effusion. No pleural mass or thickening. AXILLA: There is skin thickening and increased attenuation of the right breast. No enlarged axillary lymph nodes. UPPER ABDOMEN: Unremarkable. OSSEOUS STRUCTURES: There is evidence of bony metastatic disease. There is a pathologic nondisplaced fracture of the sternum. This is new in the interval from May 2022. There is a right lateral likely pathologic and seventh rib fracture. There is a new likely pathologic left anterior fifth rib fracture. CT/CT chest wo IV con IMPRESSION: Heterogeneous groundglass attenuation in the lungs. Interstitial lung disease, pneumonitis and mosaic attenuation from air-trapping should be considered. This is similar to previous exams. New 1 x 2 cm nodule at the right lung apex. New clustered nodular opacities in the right middle lobe. Clustered appearance favors an infectious or inflammatory process. Evidence of metastatic disease to the bones. New probable pathologic sternal and bilateral rib fractures. Fleischner guidelines were followed.
--- NOTE | ~2022-08-27 | XR_ITS ---
EXAMINATION: XR CHEST CLINICAL INFORMATION: Shortness of breath. Back pain. COMPARISON: Chest x-ray 05/28/2022. CT of chest 08/27/2022 TECHNIQUE: Frontal portable view of the chest was obtained. 6:27 PM FINDINGS: Low lung volume with mild prominence of the pulmonary vessels. No overt pulmonary edema. No dense consolidation. Hazy airspace opacities seen on CT chest not well appreciated on this plain film chest x-ray. No pleural effusion or pneumothorax. XR/XR chest 1V IMPRESSION: Mild prominence of the pulmonary vessels accentuated by low inspiratory effort. No overt pulmonary edema. No pleural effusion.
--- NOTE | ~2022-08-27 | NM_ITS ---
EXAMINATION: NM LUNG IMAGE PERFUSION CLINICAL INFORMATION: Elevated d-dimer. COMPARISON: CT chest 08/27/2022. Chest x-ray 08/27/2022 TECHNIQUE: 3.7 mCi technetium 99m MAA was injected intravenously. Images obtained in multiple projections of the chest. FINDINGS: Homogeneous perfusion of the left and right lung. No perfusion defect. No evidence of pulmonary embolism. NM/NM pul perfusion IMPRESSION: Normal perfusion lung scan. No evidence of pulmonary embolism.
--- NOTE | ~2022-08-27 | CT_ITS ---
EXAMINATION: CT ABDOMEN AND PELVIS WITHOUT CONTRAST CLINICAL INFORMATION: Abdominal pain COMPARISON: Previous CT of the abdomen and pelvis most recent July 2022 TECHNIQUE: Multidetector volumetric imaging was performed from the superior aspect of the liver through the pubic symphysis. Sagittal and coronal reformatted images were obtained on the technologist's workstation. This CT examination was performed using dose optimization techniques as appropriate, variously including the following: *Automated exposure control *Adjustment of mA and/or kV according to patient size (this includes techniques or standardized protocols for targeted exams where dose is matched to indication/reason for exam; i.e. extremities or head) *Use of iterative reconstruction technique DLP: 1022 mGy-cm FINDINGS: LUNG BASES: See chest CT report from the same day LIVER, GALLBLADDER, AND BILIARY TREE: The liver is normal in size, shape, and attenuation. No focal hepatic lesion or biliary ductal dilatation is present. The gallbladder is unremarkable with no evidence of radiopaque gallstones, gallbladder wall thickening, or obvious pericholecystic inflammatory changes. PANCREAS: Unremarkable. SPLEEN: Unremarkable. ADRENAL GLANDS: Unremarkable. KIDNEYS AND URETERS: The kidneys are normal in size, shape, and attenuation. No hydronephrosis, hydroureter, or calculi seen. No perinephric stranding. BLADDER: Unremarkable. GASTROINTESTINAL TRACT: The small and large bowel are unremarkable. The appendix is unremarkable. There is a small esophageal hernia. The stomach is otherwise normal. ABDOMINAL WALL: No significant hernia is appreciated. LYMPH NODES: Normal. VASCULAR: Unremarkable. PELVIC VISCERA: Unremarkable. OSSEOUS STRUCTURES: There is evidence of metastatic disease to the bones with multiple lytic and sclerotic lesions. This appears increased from July 2022 exam. There is a new pathologic fracture of the left 11th rib. There are large lytic lesions in the pelvis. There are mixed lytic and sclerotic lesions in the spine. There is a new moderate L1 pathologic compression fracture. There is some retropulsion of the superior L1 vertebral body posteriorly into the spinal canal measuring 6 mm. There is a likely pathologic fracture of the posterior inferior endplate of the L4 vertebral body with retropulsion into the spinal canal measuring 4 mm that appear similar to July 2022. CT/CT abdomen pelvis wo IV con IMPRESSION: Extensive metastatic disease to the bones with new pathologic L1 and stable L4 vertebral body compression fractures and new left 11th rib pathologic fractures. Follow-up lumbar spine MRI to evaluate for cord compression should be considered if clinically indicated. Fleischner guidelines were followed.
[2022-08-27 13:34] LABS: MANUAL DIFF FLAG NO
[2022-08-27 13:36] LABS: Basophils Percent Auto 0.3 % (0-2); Eosinophils Absolute Auto 0.1 X10*3/uL (0.0-0.4); Eosinophils Percent Auto 2.3 % (0-4); Hematocrit 37.5 % (37.0-47.0); Hemoglobin 12.5 g/dl (12.0-16.0); Imm Gran Abs Auto 0.01 X10*3/uL (0.00-0.03); Imm Gran Pct Auto 0.3 % (0.0-0.4); Lymphocytes Absolute Auto 0.4 X10*3/uL (1.2-4.9); Lymphocytes Percent Auto 11.5 % (20-40); Mean Corpuscular HGB Conc 33.3 g/dl (31.0-35.0); Mean Corpuscular Hemoglobin 27.8 pg (27.0-33.0); Mean Corpuscular Volume 83.5 fL (80.0-98.0); Mean Platelet Volume 9.7 fL (9.4-12.3); Monocytes Absolute Auto 0.3 X10*3/uL (0.1-1.2); Monocytes Percent Auto 9.8 % (2-11); Neutrophils Absolute Auto 2.6 x10*3/uL (2.0-8.3); Neutrophils Percent Auto 75.8 % (45-73); Platelet Count 151 X10*3/uL (160-400); Red Blood Count 4.49 X10*6/uL (4.20-5.50); White Blood Count 3.5 X10*3/uL (4.8-10.8)
[2022-08-27 13:41] LABS: INTERNATIONAL NORM RATIO 1.1 (0.9-1.1); Prothrombin Time 12.6 SEC (10.0-13.1)
--- NOTE | 2022-08-27 13:41 | PC.NURSE ---
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 patient alert and orientated x4 .kirstiela . heart rate 74 regular . lungs clear . skin pink warm and dry . abdomen soft . not tender . patient c/o of 10/10 back pain Iv placed in left hand . medicated with 0.5 mg of hydromorphone as ordered by Akanksha Rivero . labs sent . patient aware of plan of care .
[2022-08-27 13:52] LABS: Alanine Aminotransferase 15 U/L (0-31); Albumin Level 3.9 g/dL (3.5-5.0); Alkaline Phosphatase 76 U/L (39-117); Anion Gap 14 (12-20); Aspartate Amino Transferase 17 U/L (5-31); Bilirubin Total 0.4 mg/dL (0.0-1.0); Blood Urea Nitrogen 7 mg/dL (9-16); Calcium 9.3 mg/dL (8.4-10.2); Carbon Dioxide 28 mmol/L (22-29); Chloride 102 mmol/L (96-108); Creatinine Clr Calc Pharmacy 57.5; Estimated Glomerular Filt Rate > 60; Glucose Random 119 mg/dL (60-115); Potassium 3.5 mmol/L (3.3-5.1); Sodium 140 mmol/L (135-145); Total Protein 6.1 g/dL (6.5-8.0)
[2022-08-27] MEDS: HYDROmorphone HCl 0.5 MG/0.5 ML SYRINGE IVPUSH ×2 (13:53→17:02)
[2022-08-27] MEDS: 0.9 % Sodium Chloride 1,000 ML 999 ML IV ×2 (13:55→16:57)
[2022-08-27 13:59] LABS: Troponin-I High Sensitivity 5.1 ng/L (<3.5-17.0)
--- NOTE | 2022-08-27 14:24 | ED_ITS ---
HPI - General Adult General Chief complaint: General Medical Stated complaint: ABDOMINAL PAIN Time Seen by Provider: 08/27/22 13:08 Source: patient Mode of arrival: ambulatory Limitations: no limitations History of Present Illness HPI narrative: CCU female history of breast cancer just started chemotherapy without surgery, DM, COPD presents to the ED for Abdominal pain, lower back pain radiating down legs, and also chest pain. 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 Patient states chest pain started yesterday. Patient states abdominal pain and back pain radiating down legs has been present also couple weeks. Patient denies any pleurisy, Leg swelling, calf pain, coughing up blood, fever, or chills. Patient's main complaint is lower back pain radiating down legs and abdominal pain. Patient states chest pain only a 1 And has improved since yesterday Related Data Home Medications Medication Instructions Recorded Confirmed aripiprazole 20 mg tablet (Abilify) 20 mg PO BEDTIME 02/14/22 08/20/22 blood sugar diagnostic (FreeStyle #10 ea 02/14/22 08/20/22 Lite Strips) citalopram 40 mg tablet 40 mg PO DAILY 02/14/22 08/20/22 gabapentin 300 mg capsule 300 mg PO TID 02/14/22 08/20/22 insulin glargine 100 unit/mL 55 unit subcut DAILY 02/14/22 08/20/22 subcutaneous solution (Lantus U-100 Insulin) lisinopril 2.5 mg tablet 2.5 mg PO DAILY 02/14/22 08/20/22 trazodone 50 mg tablet 50 mg PO BEDTIME 02/14/22 08/20/22 isosorbide mononitrate 30 mg 1 tab PO DAILY 04/09/22 08/20/22 tablet,extended release 24 hr pravastatin 20 mg tablet 1 tab PO DAILY 04/09/22 08/20/22 Previous Rx's Medication Instructions Recorded benzonatate 100 mg capsule 100 mg PO TID PRN cough #20 caps 03/22/21 (Lili Elizondo) nystatin 100,000 unit/gram topical 1 appl topical BID #15 grams 02/14/22 cream albuterol sulfate 90 mcg/actuation 1 inh inhalation QID PRN shortness 05/07/22 aerosol inhaler of breath or wheezing #8.5 grams cholecalciferol (vitamin D3) 50 50 mcg PO DAILY #30 caps 06/04/22 mcg (2,000 unit) capsule (Vitamin D3) umeclidinium 62.5 mcg-vilanterol 1 ea inhalation DAILY #60 ea 06/19/22 25 mcg/actuation powdr for inhalation (Anoro Ellipta) oxycodone 5 mg tablet 5 mg PO Q6H PRN Pain, Moderate #30 07/02/22 tabs letrozole 2.5 mg tablet 2.5 mg PO Q24H #90 tabs 07/09/22 ondansetron 8 mg disintegrating 8 mg PO Q8H PRN Nausea #30 tabs 07/19/22 tablet furosemide 40 mg tablet 40 mg PO QAM #30 tabs 07/23/22 pantoprazole 40 mg tablet,delayed 40 mg PO QAM #30 tabs 08/06/22 release methylcellulose (laxative) 500 mg 500 mg PO DAILY #90 tabs 08/20/22 tablet (Fiber Laxative (methylcellulose)) sennosides 8.6 mg tablet (senna) 8.6 mg PO BEDTIME for constipation 08/20/22 #90 tabs palbociclib 125 mg capsule 125 mg PO DAILY #21 caps 08/23/22 Allergies Allergy/AdvReac Type Severity Reaction Status Date / Time No Known Allergies Allergy Unknown UNKNOWN Verified 08/20/22 10:01 [NO KNOWN ALLERGIES] Review of Systems Review of Systems: Improving chest pain. Low back pain radiating down legs. Yes all other systems are reviewed and are negative PMFSH Past Medical History Medical History Asthma COPD (chronic obstructive pulmonary disease) Diabetes type 2, controlled Hypertension Invasive ductal carcinoma of right breast Sleep apnea Tubular adenoma Surgical History History of lumpectomy of right breast Hx of colonoscopy Hx of right breast biopsy Family History Family History Brother Diabetes Sister Diabetes Breast cancer, Onset Age: 67 Mother Breast cancer, Onset Age: 59 Maternal Aunt Breast cancer Social History Social History Household Members: None Housing: Apartment Are you a primary healthcare recruiter to a significant other at home: No Do you presently have visiting nurse or other home services: Yes Alcohol intake: former Patient Tobacco Use Status: Former Tobacco user Tobacco use type: Cigarette Advance Directives: Yes Advance Directives Information Provided: Yes Advance Directives on File: No Advance Directives Date on File: 03/22/21 service: No Current occupational status: disabled 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 Physical Exam ED Vital Signs: Vital Signs - 24 hr 08/27/22 12:35 08/27/22 14:15 08/27/22 17:04 Temperature 98.0 F 97.7 F 98.4 F Pulse Rate 69 70 71 Respiratory Rate 18 15 16 Blood Pressure 116/55 L 122/69 129/62 Pulse Oximetry 94 95 94 Oxygen Delivery Method Room Air Room Air Room Air 08/27/22 18:00 Temperature 98.2 F Pulse Rate 69 Respiratory Rate 16 Blood Pressure 126/54 L Pulse Oximetry 93 Oxygen Delivery Method Room Air BMI result Body Mass Index 16.9 Const General: cooperative, healthy appearing, comfortable, no acute distress, well developed, alert, awake and Physically active Orientation/consciousness: patient oriented x3 HENMT Head: Yes normal to inspection, Yes No palpable skull fracture present, Yes normocephalic, Yes atraumatic and No abrasion Eyes General: appearance normal, both eyes and all related structures Neck Neck: Yes normal visual inspection, Yes full ROM, Yes no lymphadenopathy, Yes no meningeal signs, Yes trachea midline, Yes supple, No anterior neck swelling and No tender Chest Chest palpation & inspection: normal inspection of the chest and normal palpation of entire chest wall Resp Effort & Inspection: normal respiratory effort and able to speak in complete sentences Auscultation: clear to auscultation bilaterally Cardio Jugular venous distension: no JVD Heart sounds: S1 normal heart sound present and S2 normal heart sound present GI Inspection: Yes normal to inspection and No abdominal wall ecchymosis Palpation (GI): Soft to palpation, not firm, Tenderness to palpation present (GI) (mild), no guarding and not rigid Back/Spine/Pelvis Back: back tenderness (lumbar spine) Skin General skin exam: no rashes or lesions noted and elasticity normal Neuro General: patient oriented x3, gait normal, no meningeal signs and CN's II-XI intact bilaterally Cranial nerves: Yes CN's II-XII intact bilaterally Extrem Other: Lower extremities negative for swelling, pitting edema, calf tenderness General: Yes normal to inspection and Yes full ROM Psych Appearance: grossly normal, well kempt and not disheveled Course Course Course Narrative: Will do EKG, labs, and pain medication. Back and abdominal pain to neck is chronic due to cancer and metastatic disease of the spine and hip. Patient States chest pain only a 2 without any pleurisy or shortness of breath but due to patient's history of cancer will add a D-dimer. Reevaluation(s) Reevaluation #1: D-dimer came back elevated. Patient has IV in the hand. Multiple attempts were taking to place IV in both arms antecubital area with ultrasound guidance Which was not successful. Patient refused attempt at External jugular vein or internal jugular vein access For CTA. Patient was informed CTA is preferred standard for testing for PE but patient refused other IV access. Patient agreeable for V/Q scan to rule out PE. Also had Abdominal CT to check for any bowel obstruction. Signed out to JB Macias. Patient presently denies any chest pain Time: 16:45 Medical Decision Making [facility] Narrative Medical decision making narrative: Chest/Abdominal pain/back pain Lab Data Result diagrams: 08/27/22 13:30 08/27/22 13:30 Labs: Lab Results 08/27/22 08/27/22 08/27/22 Range/Units 13:30 13:30 13:30 WBC 3.5 L (4.8-10.8) X10*3/uL RBC 4.49 (4.20-5.50) X10*6/uL Hgb 12.5 (12.0-16.0) g/dl Hct 37.5 (37.0-47.0) % MCV 83.5 (80.0-98.0) fL MCH 27.8 (27.0-33.0) pg MCHC 33.3 (31.0-35.0) g/dl RDW 14.0 (11.0-16.0) % Plt Count 151 L D (160-400) X10*3/uL MPV 9.7 (9.4-12.3) fL Immature Gran % (Auto) 0.3 (0.0-0.4) % Neut % (Auto) 75.8 H (45-73) % Lymph % (Auto) 11.5 L (20-40) % [place] % (Auto) 9.8 (2-11) % Eos % (Auto) 2.3 (0-4) % Baso % (Auto) 0.3 (0-2) % Lymph # (Auto) 0.4 L (1.2-4.9) X10*3/uL [place] # (Auto) 0.3 (0.1-1.2) X10*3/uL Eos # (Auto) 0.1 (0.0-0.4) X10*3/uL Baso # (Auto) 0.0 (0.0-0.2) X10*3/uL Abs Immat Gran (auto) 0.01 (0.00-0.03) X10*3/uL Absolute Neuts (auto) 2.6 (2.0-8.3) x10*3/uL Absolute Nucleated RBC 0.000 (0.0-0.012) X10*3/uL Nucleated RBC % (auto) 0.0 (0.0-0.2) /100WBC PT 12.6 (10.0-13.1) SEC INR 1.1 (0.9-1.1) APTT 26.0 (26.0-36.4) SEC D-Dimer High Sensitivty 830 NG/ML Sodium 140 (135-145) mmol/L Potassium 3.5 (3.3-5.1) mmol/L Chloride 102 (96-108) mmol/L Carbon Dioxide 28 (22-29) mmol/L Anion Gap 14 (12-20) BUN 7 L (9-16) mg/dL Creatinine 0.66 (0.5-1.4) mg/dL Estim Creat Clear Calc 57.5 Estimated GFR > 60 POC Glucose (60-115) mg/dL Random Glucose 119 H (60-115) mg/dL Calcium 9.3 (8.4-10.2) mg/dL Total Bilirubin 0.4 (0.0-1.0) mg/dL AST 17 (5-31) U/L ALT 15 (0-31) U/L Alkaline Phosphatase 76 (39-117) U/L Troponin I High Sens (<3.5-17.0) ng/L Total Protein 6.1 L (6.5-8.0) g/dL Albumin 3.9 (3.5-5.0) g/dL Lipase 5 L (8-78) U/L Urine Color Urine Appearance Urine pH (5.0-9.0) Ur Specific [place] (1.005-1.025) Urine Protein (Neg-Trace) mg/dL Urine Glucose (UA) (Negative) mg/dL Urine Ketones (Negative) mg/dL Urine Blood (Negative) Urine Nitrite (Negative) Ur Leukocyte Esterase (Negative) Urine RBC (0-2) /HPF Urine WBC (0-5) /HPF Ur Squamous Epith Cells (0-2) /HPF Urine Bacteria (None Seen) Hyaline Casts (0-2) /LPF 08/27/22 08/27/22 08/27/22 Range/Units 13:30 14:12 16:59 WBC (4.8-10.8) X10*3/uL RBC (4.20-5.50) X10*6/uL Hgb (12.0-16.0) g/dl Hct (37.0-47.0) % MCV (80.0-98.0) fL MCH (27.0-33.0) pg MCHC (31.0-35.0) g/dl RDW (11.0-16.0) % Plt Count (160-400) X10*3/uL MPV (9.4-12.3) fL Immature Gran % (Auto) (0.0-0.4) % Neut % (Auto) (45-73) % Lymph % (Auto) (20-40) % [place] % (Auto) (2-11) % Eos % (Auto) (0-4) % Baso % (Auto) (0-2) % Lymph # (Auto) (1.2-4.9) X10*3/uL [place] # (Auto) (0.1-1.2) X10*3/uL Eos # (Auto) (0.0-0.4) X10*3/uL Baso # (Auto) (0.0-0.2) X10*3/uL Abs Immat Gran (auto) (0.00-0.03) X10*3/uL Absolute Neuts (auto) (2.0-8.3) x10*3/uL Absolute Nucleated RBC (0.0-0.012) X10*3/uL Nucleated RBC % (auto) (0.0-0.2) /100WBC PT (10.0-13.1) SEC INR (0.9-1.1) APTT (26.0-36.4) SEC D-Dimer High Sensitivty NG/ML Sodium (135-145) mmol/L Potassium (3.3-5.1) mmol/L Chloride (96-108) mmol/L Carbon Dioxide (22-29) mmol/L Anion Gap (12-20) BUN (9-16) mg/dL Creatinine (0.5-1.4) mg/dL Estim Creat Clear Calc Estimated GFR POC Glucose 99 (60-115) mg/dL Random Glucose (60-115) mg/dL Calcium (8.4-10.2) mg/dL Total Bilirubin (0.0-1.0) mg/dL AST (5-31) U/L ALT (0-31) U/L Alkaline Phosphatase (39-117) U/L Troponin I High Sens 5.1 (<3.5-17.0) ng/L Total Protein (6.5-8.0) g/dL Albumin (3.5-5.0) g/dL Lipase (8-78) U/L Urine Color Yellow Urine Appearance Clear Urine pH 7.0 (5.0-9.0) Ur Specific [place] <= 1.005 (1.005-1.025) Urine Protein Negative (Neg-Trace) mg/dL Urine Glucose (UA) Negative (Negative) mg/dL Urine Ketones Negative (Negative) mg/dL Urine Blood Negative (Negative) Urine Nitrite Negative (Negative) Ur Leukocyte Esterase Negative (Negative) Urine RBC 0-2 (0-2) /HPF Urine WBC 0-5 (0-5) /HPF Ur Squamous Epith Cells 0-2 (0-2) /HPF Urine Bacteria None Seen (None Seen) Hyaline Casts 0-2 (0-2) /LPF Discharge Plan Discharge Clinical Impression: Chest pain Patient Disposition: Still a Patient Prescriptions: No Action cholecalciferol (vitamin D3) [Vitamin D3] 50 mcg (2,000 unit) capsule 50 mcg PO DAILY Qty: 30 2RF Anoro Ellipta 62.5-25 mcg/actuation blister with device 1 ea inhalation DAILY Qty: 60 3RF furosemide 40 mg tablet 40 mg PO QAM Qty: 30 5RF pantoprazole 40 mg tablet,delayed release (DR/EC) 40 mg PO QAM Qty: 30 1RF benzonatate [Tessalon Perles] 100 mg capsule 100 mg PO TID PRN (Reason: cough) Qty: 20 0RF letrozole 2.5 mg Tablet 2.5 mg PO Q24H Qty: 90 3RF ondansetron 8 mg Tablet,Disintegrating 8 mg PO Q8H PRN (Reason: Nausea) Qty: 30 3RF palbociclib 125 mg Capsule 125 mg PO DAILY Qty: 21 6RF Rx Instructions: administer on days 1 through 21 of a 28-day treatment cycle albuterol sulfate 90 mcg/actuation HFA aerosol inhaler 1 inh inhalation QID PRN (Reason: shortness of breath or wheezing) Qty: 8.5 0RF isosorbide mononitrate 30 mg tablet extended release 24 hr 1 tab PO DAILY pravastatin 20 mg tablet 1 tab PO DAILY oxycodone 5 mg tablet 5 mg PO Q6H PRN (Reason: Pain, Moderate) Qty: 30 0RF Rx Instructions: Partial Fill upon patient request. (DME) FreeStyle Lite Strips Strip See Rx Instructions Not Applicable BID Qty: 10 Rx Instructions: As directed Lantus U-100 Insulin 100 unit/mL solution 55 unit subcut DAILY aripiprazole [Abilify] 20 mg tablet 20 mg PO BEDTIME lisinopril 2.5 mg tablet 2.5 mg PO DAILY gabapentin 300 mg capsule 300 mg PO TID citalopram 40 mg tablet 40 mg PO DAILY trazodone 50 mg tablet 50 mg PO BEDTIME nystatin 100,000 unit/gram cream 1 appl topical BID Qty: 15 0RF Fiber Laxative (methylcellulo) 500 mg tablet 500 mg PO DAILY Qty: 90 3RF sennosides [senna] 8.6 mg tablet 8.6 mg PO BEDTIME Qty: 90 2RF
[2022-08-27 14:41] LABS: Appearance Urine Clear; Color Urine Yellow; Glucose Urine UA Negative (Negative); Leukocyte Esterase Urine Negative (Negative); Nitrite Urine Negative (Negative); Specific Gravity - Urine <= 1.005 (1.005-1.025); Urine Blood Negative (Negative); Urine Ketones Negative (Negative); Urine Protein Negative (Neg-Trace)
[2022-08-27 14:44] LABS: Bacteria Urine None Seen (None Seen); Hyaline Casts Urine 0-2 /LPF (0-2); RBC Urine 0-2 /HPF (0-2); Squamous Epithelial Cell Urine 0-2 /HPF (0-2); WBC Urine 0-5 /HPF (0-5)
[2022-08-27 14:54] LABS: Lipase 5 U/L (8-78)
[2022-08-27 15:09] LABS: D Dimer High Sensitivity 830 NG/ML
--- NOTE | 2022-08-27 17:03 | PC.NURSE ---
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 for 8/10 back pain . patient aware of plan of care .
[2022-08-27 17:05] LABS: Glucose, Whole Blood 99 mg/dL (60-115)
--- NOTE | 2022-08-27 18:00 | PC.NURSE ---
patient transported to nuclear med for pulmonary scan . patient aware of plan of care .
[2022-08-27 19:19] LABS: Troponin-I High Sensitivity 5.6 ng/L (<3.5-17.0)
[2022-08-27] MEDS: HYDROmorphone HCl 2 MG TABLET PO (20:53)
== END 2022-08-27 21:51 | disposition home or self-care (01) ==
PROVIDERS: Physician Assistant; Emergency Provider Emergency Medicine; PCP Internal Medicine
DX: R07.89 Other chest pain (principal); R10.30 Lower abdominal pain, unspecified; M54.50 Low back pain, unspecified; R51.9 Headache, unspecified; M54.2 Cervicalgia; J44.9 Chronic obstructive pulmonary disease, unspecified; R10.9 Unspecified abdominal pain; Z79.899 Other long term (current) drug therapy
CPT/HCPCS: 36415; 71045; 71250; 74176; 78580; 80053; 81001; 82947; 83690; 84484; 85025; 85379; 85610; 85730; 96361; 96374; 96376; 99284; 99285; A9540; J1170

== ENCOUNTER → 2022-10-01 09:15 | Outpatient (BNVA) | payer OTHER, SELFPAY | PROVIDERS: PCP Internal Medicine; Visit Provider Internal Medicine Pulmonary Disease | DX: J44.9 Chronic obstructive pulmonary disease, unspecified (principal); G47.30 Sleep apnea, unspecified; Z99.81 Dependence on supplemental oxygen | CPT/HCPCS: 94618; 99212 ==

== ENCOUNTER 2022-11-01 09:51 | Outpatient (REF) | payer OTHER, SELFPAY ==
--- NOTE | ~2022-11-01 | MR_ITS ---
EXAMINATION: MR BRAIN WITHOUT AND WITH CONTRAST CLINICAL INFORMATION: New dizziness. History of breast cancer. COMPARISON: Head CT dated 04/11/2022. TECHNIQUE: Multiplanar, multisequence imaging of the brain was performed before and after the intravenous administration of 10 mL of Gadavist. FINDINGS: No diffusion abnormalities are identified to suggest an acute infarct. The ventricles are normal in size. No mass effect or midline shift is seen. Minimal bifrontal white matter signal changes are nonspecific and may be due to chronic microangiopathy. No extra-axial fluid collections are seen. The brainstem and cerebellum are normal. There is no abnormal parenchymal enhancement. 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 The cystic lesion is hypointense on T1-weighted imaging and hyperintense on the T2-weighted acquisition. The gradient refocused acquisition is normal. The craniovertebral junction and remaining midline structures are normal. Incidental bilateral petrous apex cephaloceles are visible. The major intracranial flow voids at the level of the [place] are preserved. The orbits are normal. The dural venous sinus flow voids are maintained. There is mild mucosal thickening in the right maxillary antrum. There is a T1 hypointense and T2 hyperintense focus of signal abnormality in the left frontal calvarium at the upper convexity with corresponding enhancement, measuring approximately 1 cm in size. There is questionable mild adjacent underlying focal dural enhancement at the site as well. No additional enhancing osseous lesions are seen. There is no pathologic enhancement within the inner ear structures or internal auditory canals. There is a mild amount of fluid in the dependent right mastoid air cells. There is a moderate left mastoid effusion with fluid in the left mastoid air cells. A small proteinaceous submucosal retention cyst is visible along the roof of the nasopharynx to the left of midline measuring 9 mm in size. There are severe degenerative changes of the left temporomandibular joint. MR/MR head/brain wo/w con IMPRESSION: 1. No acute intracranial process. Minimal bifrontal white matter signal changes which may be due to chronic microangiopathy. No evidence of intracranial brain parenchymal metastatic disease. 2. Indeterminate 1 cm enhancing lesion in the left frontal calvarium at the upper convexity with questionable mild underlying dural enhancement. Although indeterminate, an osseous metastatic lesion cannot be ruled out given the patient's medical history. A follow-up nuclear bone scan could be considered for further evaluation as clinically warranted. 3. Moderate left mastoid effusion. Mild amount of fluid in the dependent right mastoid air cells. Aside from a small submucosal retention cyst along the nasopharyngeal roof to the left of midline, no suspicious enhancing soft tissue lesion at this site. 4. 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 5. Severe degenerative changes of the left temporomandibular joint.
== END 2022-11-01 09:52 | disposition home or self-care (01) ==
LOC: HO.MRI 09:51
PROVIDERS: Visit Provider Internal Medicine
DX: R42 Dizziness and giddiness (principal); C50.919 Malignant neoplasm of unspecified site of unspecified female breast
CPT/HCPCS: 70553; A9585

== ENCOUNTER 2022-11-27 07:47 | Inpatient (IN) | payer OTHER, SELFPAY ==
[2022-11-27] VITALS (11 sets, daily range): BP systolic 106–134; BP diastolic 45–72; PULSE 78–119; RESP 18–20; TEMP 36.6–37.7; O2SAT 93–99; BMI 39.7
--- NOTE | ~2022-11-27 | XR_ITS ---
EXAMINATION: XR CHEST CLINICAL INFORMATION: Cough COMPARISON: Previous chest x-ray and chest CT August 2022 TECHNIQUE: Frontal view of the chest was obtained. FINDINGS: The lung volumes are low. There are increased markings in the lungs are questionable for bilateral infiltrates versus changes related to low lung volumes. Cardiac silhouette is slightly enlarged but stable. Hilar and mediastinal contours are otherwise unremarkable. No pleural effusion or pneumothorax. Degenerative changes of the spine. XR/XR chest 1V IMPRESSION: Low lung volumes. Question bilateral pulmonary infiltrates.
--- NOTE | ~2022-11-27 | CT_ITS ---
EXAMINATION: CT CHEST WITHOUT CONTRAST CLINICAL INFORMATION: Rule out pneumonia. Productive cough. History of cancer. COMPARISON: Previous chest x-ray from earlier the same day and chest CT August 2022 TECHNIQUE: Multidetector volumetric CT imaging of the chest was done. Axial MIP volume rendering provided. Sagittal and coronal reformatted images were obtained. This CT examination was performed using dose optimization techniques as appropriate, variously including the following: *Automated exposure control *Adjustment of mA and/or kV according to patient size (this includes techniques or standardized protocols for targeted exams where dose is matched to indication/reason for exam; i.e. extremities or head) *Use of iterative reconstruction technique DLP: 362 mGy-cm FINDINGS: LUNGS: There are scattered areas of increased groundglass attenuation probably representing pneumonitis. There is denser consolidation with air bronchograms in the right upper lobe probably representing a pneumonia that is new. There are several new peripheral nodular opacities in the more superior right upper lobe probably representing infection as well. MEDIASTINUM: Small esophageal hernia. Slightly enlarged heart. Mild coronary artery calcification. No pericardial effusion. No enlarged hilar or mediastinal lymph nodes. CORONARY ARTERY CALCIFICATION: None visualized on this study. PLEURA: There is no pleural effusion. No pleural mass or thickening. AXILLA: A skin thickening of the right breast and diffuse fat stranding. This is similar to August 2022 exam. No discrete mass or enlarged axillary lymph nodes appreciated. UPPER ABDOMEN: Unremarkable. OSSEOUS STRUCTURES: Probable pathologic bilateral rib fractures. Pathologic sternomanubrial fracture. Lytic lesion with sclerotic margin in the T3 vertebral body. Bone findings are stable. CT/CT chest wo IV con IMPRESSION: New or increasing pneumonitis and probable right upper lobe pneumonia. Stable bone findings. Fleischner guidelines were followed.
--- NOTE | 2022-11-27 08:26 | ED_ITS ---
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 Reports exertional SOB, and chronic abdominal discomfort, denies any changes at present. Denies CP/SOB, fever, chills, nausea/vomiting, dysuria/hematuria, pedal edema, syncope, [place] Onset (ago): hour(s) Related Data Home Medications Medication Instructions Recorded Confirmed aripiprazole 20 mg tablet (Abilify) 20 mg PO BEDTIME 02/14/22 11/20/22 blood sugar diagnostic (FreeStyle #10 ea 02/14/22 11/20/22 Lite Strips) citalopram 40 mg tablet 40 mg PO DAILY 02/14/22 11/20/22 gabapentin 300 mg capsule 300 mg PO TID 02/14/22 11/20/22 insulin glargine 100 unit/mL 55 unit subcut DAILY 02/14/22 11/20/22 subcutaneous solution (Lantus U-100 Insulin) lisinopril 2.5 mg tablet 2.5 mg PO DAILY 02/14/22 11/20/22 trazodone 50 mg tablet 50 mg PO BEDTIME 02/14/22 11/20/22 isosorbide mononitrate 30 mg 1 tab PO DAILY 04/09/22 11/20/22 tablet,extended release 24 hr pravastatin 20 mg tablet 1 tab PO DAILY 04/09/22 11/20/22 Previous Rx's Medication Instructions Recorded benzonatate 100 mg capsule 100 mg PO TID PRN cough #20 caps 03/22/21 (Lili Elizondo) nystatin 100,000 unit/gram topical 1 appl topical BID #15 grams 02/14/22 cream albuterol sulfate 90 mcg/actuation 1 inh inhalation QID PRN shortness 05/07/22 aerosol inhaler of breath or wheezing #8.5 grams cholecalciferol (vitamin D3) 50 50 mcg PO DAILY #30 caps 06/04/22 mcg (2,000 unit) capsule (Vitamin D3) letrozole 2.5 mg tablet 2.5 mg PO Q24H #90 tabs 07/09/22 ondansetron 8 mg disintegrating 8 mg PO Q8H PRN Nausea #30 tabs 07/19/22 tablet furosemide 40 mg tablet 40 mg PO QAM #30 tabs 07/23/22 pantoprazole 40 mg tablet,delayed 40 mg PO QAM #30 tabs 08/06/22 release methylcellulose (laxative) 500 mg 500 mg PO DAILY #90 tabs 08/20/22 tablet (Fiber Laxative (methylcellulose)) sennosides 8.6 mg tablet (senna) 8.6 mg PO BEDTIME for constipation 08/20/22 #90 tabs palbociclib 125 mg capsule 125 mg PO DAILY #21 caps 09/02/22 (Ibrance) Anoro Ellipta 62.5 mcg-25 1 inh inhalation DAILY #60 ea 11/06/22 mcg/actuation powder for inhalation (umeclidinium-vilanterol) nystatin 100,000 unit/mL oral 5 ml PO TID #300 mL 11/20/22 suspension morphine 30 mg tablet,extended 30 mg PO Q12H #60 tabs 11/26/22 release Allergies Allergy/AdvReac Type Severity Reaction Status Date / Time No Known Allergies Allergy Unknown UNKNOWN Verified 10/01/22 09:25 [NO KNOWN ALLERGIES] Review of Systems Review of Systems: Constitutional: No Fever, No Chills, + Fatigue, + Malaise ENT/Mouth:No Ear Pain, No Nasal Congestion, No Sinus Pain, No sore throat, No Rhinorrhea, No Swallowing Difficulty Eyes: No Eye Pain, No Swelling, No Redness, No Vision Changes Cardiovascular: No Chest Pain, No SOB, + Dyspnea on Exertion, No Orthopnea, No Edema, No Palpitations Respiratory: + Cough, + Sputum, No Wheezing, No Dyspnea Gastrointestinal: No Nausea, No Vomiting, + Diarrhea, No Constipation, No Abdominal pain Genitourinary: No Dysuria, No Urinary Frequency, No Hematuria, No Flank Pain, No Urinary Flow Changes, No Hesitancy Musculoskeletal: No joint pain, No Myalgias, No Joint Swelling Skin: No Skin Lesions, No rash Neuro: + Weakness, No Numbness, No Paresthesias, No Loss of Consciousness, + lightheaded, No Headache Psych: No Anxiety/Panic, No Depression, No SI/HI/AH/VH, No Social Issues Yes all other systems are reviewed and are negative Constitutional: Constitutional: Reports as per HPI Neurologic: Denies Abnormal speech present [facility] Past Medical History Attestation statement: The following information was validated with the patient. Medical History Asthma COPD (chronic obstructive pulmonary disease) Diabetes type 2, controlled Hypertension Invasive ductal carcinoma of right breast Sleep apnea Tubular adenoma Surgical History History of lumpectomy of right breast Hx of colonoscopy Hx of right breast biopsy Family History Family History Brother Diabetes Sister Diabetes Breast cancer, Onset Age: 67 Mother Breast cancer, Onset Age: 59 Maternal Aunt Breast cancer Social History Social History Household Members: None Housing: Apartment Are you a primary critical care nurse specialist to a significant other at home: No Do you presently have visiting nurse or other home services: Yes Alcohol intake: former Patient Tobacco Use Status: Former Tobacco user Tobacco use type: Cigarette Advance Directives: No Advance Directives Information Provided: Yes Advance Directives Date on File: 03/22/21 service: No Current occupational status: disabled 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 Physical Exam ED Vital Signs: Vital Signs - 24 hr 11/27/22 07:54 11/27/22 12:02 Temperature 98.4 F 98.4 F Pulse Rate 100 108 H Respiratory Rate 20 18 Blood Pressure 118/45 L 129/51 L Pulse Oximetry 96 94 Oxygen Delivery Method Room Air Nasal Cannula Oxygen Flow Rate 2 BMI result Body Mass Index 39.7 Const General: cooperative, healthy appearing, no acute distress, alert and awake Orientation/consciousness: patient oriented x3 Limitations: no limitations HENMT Head: Yes normal to inspection and Yes atraumatic Ears: hearing grossly normal bilaterally General nose exam: Normal external nose present Face and sinus: Yes normal facial exam Throat: Yes posterior oropharynx normal Eyes General: appearance normal, both eyes and all related structures EOM: EOMs intact bilaterally Neck Neck: Yes normal visual inspection and Yes no meningeal signs Resp Effort & Inspection: normal respiratory effort and no respiratory distress Auscultation: clear to auscultation bilaterally, no crackles, no rales, no rhonchi and no wheezes Cardio Rate: regular rate Heart sounds: S1 normal heart sound present and S2 normal heart sound present GI Inspection: Yes normal to inspection Palpation (GI): Soft to palpation, nontender, no guarding and not rigid General: Yes no CVA tenderness Back/Spine/Pelvis Back: no CVA tenderness Skin Rashes: no rashes Wounds: no wounds Neuro General: patient oriented x3, tone normal, moves all extremities, no meningeal signs, no focal motor deficits and CN's II-XI intact bilaterally Cranial nerves: Yes CN's II-XII intact bilaterally Cognition (Neuro): normal cognition Speech: No Abnormal speech present Motor exam (neuro): 5/5 motor strength present throughout Extrem General: Yes normal to inspection, Yes no pedal edema and Yes no calf tenderness Course Course Course Narrative: -1033--chronic leukopenia. H&H around patient's baseline. BNP acute on chronically elevated. Troponin 6.8 > will obtain 3 hour repeat XR chest 1V IMPRESSION: Low lung volumes. Question bilateral pulmonary infiltrates. >> Chest CT, lactic/blood cultures and empiric IV cefepime ordered. Low suspicion for severe sepsis -1133--lactic acid negative. UA not infected. COVID-19/influenza/RSV negative CT chest wo IV con IMPRESSION: New or increasing pneumonitis and probable right upper lobe pneumonia. Stable bone findings. ? Fleischner guidelines were followed. >> will consult patient's oncologist Dr. Katz. Plan to admit for further management, Dr. Katz aware and recommended stopping Palbociclib/ibrance until she is evaluated Medications Administered Discontinued Medications Generic Name Dose Route Start Last Admin Trade Name Freq PRN Reason Stop Dose Admin Sodium Chloride 500 mls @ 999 mls/hr 11/27/22 08:45 11/27/22 10:18 Ns IV 11/27/22 09:15 Infused .Q31M GRIFFIN Infusion Cefepime HCl 2 gm/ Sodium 50 mls @ 100 mls/hr 11/27/22 10:35 11/27/22 11:50 Chloride IV 11/27/22 11:04 Infused ONCE ONE Infusion Medical Decision Making Medical Decision Making MDM Narrative: 67-year-old female with a past medical history of asthma, COPD on 2 L NC baseline, diabetes, HTN, sleep apnea, right breast invasive ductal carcinoma/metastatic breast CA w/bone mets currently on chemotherapy and radiation, presenting to the ED complaining of generalized fatigue/weakness, lightheadedness, productive cough, and diarrhea since this morning. Reports exertional SOB, and chronic abdominal discomfort. On exam vital signs stable, NAD, nontoxic appearing, lungs CTA, abdomen soft/nontender, no pedal edema. Concern for viral illness vs metabolic/infectious etiologies. Rule out pneumonia/UTI. Low suspicion for ACS/PE Plan: EKG, labs, UA, CXR, IVF, orthostatics, re-evaluate Differential Diagnosis Differential Diagnoses: The differential diagnosis associated with the presentation includes As above Admission/Observation Consideration of admission/observation: Escalation of care including admission/observation considered Consult Healthcare Provider Management of the patient was discussed with: Hospitalist and Paper Handler Lab Data [facility] Lab Attestation statement: I reviewed the patient's lab results. Result Diagrams: 11/27/22 09:44 11/27/22 10:27 Labs: Lab Results 11/27/22 11/27/22 11/27/22 Range/Units 09:16 09:44 09:44 WBC 1.6 L (4.8-10.8) X10*3/uL RBC 2.91 L (4.20-5.50) X10*6/uL Hgb 9.9 L (12.0-16.0) g/dl Hct 27.8 L (37.0-47.0) % MCV 95.5 (80.0-98.0) fL MCH 34.0 H (27.0-33.0) pg MCHC 35.6 H (31.0-35.0) g/dl RDW 18.8 H (11.0-16.0) % Plt Count 135 L (160-400) X10*3/uL MPV 10.1 (9.4-12.3) fL Immature Gran % (Auto) 0.6 H (0.0-0.4) % Neut % (Auto) 59.1 (45-73) % Lymph % (Auto) 26.1 (20-40) % Crowley % (Auto) 12.4 H (2-11) % Eos % (Auto) 0.6 (0-4) % Baso % (Auto) 1.2 (0-2) % Lymph # (Auto) 0.4 L (1.2-4.9) X10*3/uL Crowley # (Auto) 0.2 (0.1-1.2) X10*3/uL Eos # (Auto) 0.0 (0.0-0.4) X10*3/uL Baso # (Auto) 0.0 (0.0-0.2) X10*3/uL Abs Immat Gran (auto) 0.01 (0.00-0.03) X10*3/uL Absolute Neuts (auto) 1.0 L (2.0-8.3) x10*3/uL Absolute Nucleated RBC 0.000 (0.0-0.012) X10*3/uL Nucleated RBC % (auto) 0.0 (0.0-0.2) /100WBC Smear Tech's Comments VERIFIED PT 13.6 H (10.0-13.1) SEC INR 1.2 H (0.9-1.1) Sodium (135-145) mmol/L Potassium (3.3-5.1) mmol/L Chloride (96-108) mmol/L Carbon Dioxide (22-29) mmol/L Anion Gap (12-20) BUN (9-16) mg/dL Creatinine (0.5-1.4) mg/dL Estim Creat Clear Calc Estimated GFR Random Glucose (60-115) mg/dL Lactic Acid (0.5-2.0) mmol/L Calcium (8.4-10.2) mg/dL Magnesium (1.6-2.6) mg/dL Total Bilirubin (0.0-1.0) mg/dL Direct Bilirubin (0.0-0.5) mg/dL AST (5-31) U/L ALT (0-31) U/L Alkaline Phosphatase (39-117) U/L Troponin I High Sens (<3.5-17.0) ng/L B-Natriuretic Peptide (<100) pg/mL Total Protein (6.5-8.0) g/dL Albumin (3.5-5.0) g/dL Lipase (8-78) U/L Urine Color Yellow Urine Appearance Clear Urine pH >= 9.0 (5.0-9.0) Ur Specific Mark Center <= 1.005 (1.005-1.025) Urine Protein Negative (Neg-Trace) mg/dL Urine Glucose (UA) Negative (Negative) mg/dL Urine Ketones Negative (Negative) mg/dL Urine Blood Negative (Negative) Urine Nitrite Negative (Negative) Ur Leukocyte Esterase Negative (Negative) Influenza Type A (PCR) (Negative) Influenza Type B (PCR) (Negative) RSV RNA Qual (PCR) (Negative) SARS-CoV-2 RNA (RT-PCR) (Negative) 11/27/22 11/27/22 11/27/22 Range/Units 09:44 09:44 09:46 WBC (4.8-10.8) X10*3/uL RBC (4.20-5.50) X10*6/uL Hgb (12.0-16.0) g/dl Hct (37.0-47.0) % MCV (80.0-98.0) fL MCH (27.0-33.0) pg MCHC (31.0-35.0) g/dl RDW (11.0-16.0) % Plt Count (160-400) X10*3/uL MPV (9.4-12.3) fL Immature Gran % (Auto) (0.0-0.4) % Neut % (Auto) (45-73) % Lymph % (Auto) (20-40) % Crowley % (Auto) (2-11) % Eos % (Auto) (0-4) % Baso % (Auto) (0-2) % Lymph # (Auto) (1.2-4.9) X10*3/uL Crowley # (Auto) (0.1-1.2) X10*3/uL Eos # (Auto) (0.0-0.4) X10*3/uL Baso # (Auto) (0.0-0.2) X10*3/uL Abs Immat Gran (auto) (0.00-0.03) X10*3/uL Absolute Neuts (auto) (2.0-8.3) x10*3/uL Absolute Nucleated RBC (0.0-0.012) X10*3/uL Nucleated RBC % (auto) (0.0-0.2) /100WBC Smear Tech's Comments PT (10.0-13.1) SEC INR (0.9-1.1) Sodium (135-145) mmol/L Potassium (3.3-5.1) mmol/L Chloride (96-108) mmol/L Carbon Dioxide (22-29) mmol/L Anion Gap (12-20) BUN (9-16) mg/dL Creatinine (0.5-1.4) mg/dL Estim Creat Clear Calc Estimated GFR Random Glucose (60-115) mg/dL Lactic Acid (0.5-2.0) mmol/L Calcium (8.4-10.2) mg/dL Magnesium (1.6-2.6) mg/dL Total Bilirubin (0.0-1.0) mg/dL Direct Bilirubin (0.0-0.5) mg/dL AST (5-31) U/L ALT (0-31) U/L Alkaline Phosphatase (39-117) U/L Troponin I High Sens 6.8 (<3.5-17.0) ng/L B-Natriuretic Peptide 224 H (<100) pg/mL Total Protein (6.5-8.0) g/dL Albumin (3.5-5.0) g/dL Lipase (8-78) U/L Urine Color Urine Appearance Urine pH (5.0-9.0) Ur Specific Mark Center (1.005-1.025) Urine Protein (Neg-Trace) mg/dL Urine Glucose (UA) (Negative) mg/dL Urine Ketones (Negative) mg/dL Urine Blood (Negative) Urine Nitrite (Negative) Ur Leukocyte Esterase (Negative) Influenza Type A (PCR) NEGATIVE (Negative) Influenza Type B (PCR) NEGATIVE (Negative) RSV RNA Qual (PCR) NEGATIVE (Negative) SARS-CoV-2 RNA (RT-PCR) NEGATIVE (Negative) 11/27/22 11/27/22 11/27/22 Range/Units 10:27 11:07 11:07 WBC (4.8-10.8) X10*3/uL RBC (4.20-5.50) X10*6/uL Hgb (12.0-16.0) g/dl Hct (37.0-47.0) % MCV (80.0-98.0) fL MCH (27.0-33.0) pg MCHC (31.0-35.0) g/dl RDW (11.0-16.0) % Plt Count (160-400) X10*3/uL MPV (9.4-12.3) fL Immature Gran % (Auto) (0.0-0.4) % Neut % (Auto) (45-73) % Lymph % (Auto) (20-40) % Crowley % (Auto) (2-11) % Eos % (Auto) (0-4) % Baso % (Auto) (0-2) % Lymph # (Auto) (1.2-4.9) X10*3/uL Crowley # (Auto) (0.1-1.2) X10*3/uL Eos # (Auto) (0.0-0.4) X10*3/uL Baso # (Auto) (0.0-0.2) X10*3/uL Abs Immat Gran (auto) (0.00-0.03) X10*3/uL Absolute Neuts (auto) (2.0-8.3) x10*3/uL Absolute Nucleated RBC (0.0-0.012) X10*3/uL Nucleated RBC % (auto) (0.0-0.2) /100WBC Smear Tech's Comments PT (10.0-13.1) SEC INR (0.9-1.1) Sodium 142 (135-145) mmol/L Potassium 3.4 (3.3-5.1) mmol/L Chloride 104 (96-108) mmol/L Carbon Dioxide 32 H (22-29) mmol/L Anion Gap 9 L (12-20) BUN 6 L (9-16) mg/dL Creatinine 0.70 (0.5-1.4) mg/dL Estim Creat Clear Calc 89.6 Estimated GFR > 60 Random Glucose 103 (60-115) mg/dL Lactic Acid 0.8 (0.5-2.0) mmol/L Calcium 8.7 (8.4-10.2) mg/dL Magnesium 1.6 (1.6-2.6) mg/dL Total Bilirubin 0.7 (0.0-1.0) mg/dL Direct Bilirubin 0.3 (0.0-0.5) mg/dL AST 16 (5-31) U/L ALT 10 (0-31) U/L Alkaline Phosphatase 48 (39-117) U/L Troponin I High Sens 6.7 (<3.5-17.0) ng/L B-Natriuretic Peptide (<100) pg/mL Total Protein 5.5 L (6.5-8.0) g/dL Albumin 3.5 (3.5-5.0) g/dL Lipase 5 L (8-78) U/L Urine Color Urine Appearance Urine pH (5.0-9.0) Ur Specific Mark Center (1.005-1.025) Urine Protein (Neg-Trace) mg/dL Urine Glucose (UA) (Negative) mg/dL Urine Ketones (Negative) mg/dL Urine Blood (Negative) Urine Nitrite (Negative) Ur Leukocyte Esterase (Negative) Influenza Type A (PCR) (Negative) Influenza Type B (PCR) (Negative) RSV RNA Qual (PCR) (Negative) SARS-CoV-2 RNA (RT-PCR) (Negative) Independent Interpretation I performed an independent interpretation of an: EKG Interpretation: My interpretation: EKG normal sinus rhythm at a rate of 70. QTC 419. Artifact present. No STEMI. Radiology Impression Discussion of test interpretation with radiology: I have reviewed the radiologist's reading. External Record Review External record reviewed: Office record and Outpatient record Prescription Management I considered prescription management with: Antibiotic Chronic Conditions Patient?s care impacted by: Cancer Discharge Plan Discharge Clinical Impression: Pneumonia, Pneumonitis, Generalized weakness Patient Disposition: Admitted As Inpatient
--- NOTE | 2022-11-27 08:42 | ECG_ITS ---
Test Reason : dizziness Blood Pressure : / mmHG Vent. Rate : 070 BPM Atrial Rate : 070 BPM P-R Int : 142 ms QRS Dur : 100 ms QT Int : 388 ms P-R-T Axes : 059 -21 054 degrees QTc Int : 419 ms Normal sinus rhythm Moderate voltage criteria for LVH, may be normal variant ( R in aVL , Candelario product ) Nonspecific ST abnormality Abnormal ECG When compared with ECG of 08-AUG-2022 12:46, Vent. rate has decreased BY 55 BPM Referred By: Pina Winkler Electronically Signed By:IMELDA HOLLEY MD
[2022-11-27 09:34] LABS: Appearance Urine Clear; Color Urine Yellow; Glucose Urine UA Negative (Negative); Leukocyte Esterase Urine Negative (Negative); Nitrite Urine Negative (Negative); PH >= 9.0 (5.0-9.0); Specific Gravity - Urine <= 1.005 (1.005-1.025); Urine Blood Negative (Negative); Urine Ketones Negative (Negative); Urine Protein Negative (Neg-Trace)
[2022-11-27] MEDS: 0.9 % Sodium Chloride 500 ML 999 ML IV (09:47)
[2022-11-27 09:58] LABS: Basophils Percent Auto 1.2 % (0-2); Eosinophils Percent Auto 0.6 % (0-4); Hematocrit 27.8 % (37.0-47.0); Hemoglobin 9.9 g/dl (12.0-16.0); Imm Gran Abs Auto 0.01 X10*3/uL (0.00-0.03); Imm Gran Pct Auto 0.6 % (0.0-0.4); Lymphocytes Absolute Auto 0.4 X10*3/uL (1.2-4.9); Lymphocytes Percent Auto 26.1 % (20-40); MANUAL DIFF FLAG SCAN; Mean Corpuscular HGB Conc 35.6 g/dl (31.0-35.0); Mean Corpuscular Volume 95.5 fL (80.0-98.0); Mean Platelet Volume 10.1 fL (9.4-12.3); Monocytes Absolute Auto 0.2 X10*3/uL (0.1-1.2); Monocytes Percent Auto 12.4 % (2-11); Neutrophils Percent Auto 59.1 % (45-73); Platelet Count 135 X10*3/uL (160-400); Red Blood Count 2.91 X10*6/uL (4.20-5.50); Red Cell Distribution Width 18.8 % (11.0-16.0); SCAN SMEAR FLAG 1
[2022-11-27 09:59] LABS: White Blood Count 1.6 X10*3/uL (4.8-10.8)
[2022-11-27 10:15] LABS: INTERNATIONAL NORM RATIO 1.2 (0.9-1.1); Prothrombin Time 13.6 SEC (10.0-13.1)
[2022-11-27 10:18] LABS: SLIDE REVIEW VERIFIED
[2022-11-27 10:21] LABS: B Type Natriuretic Peptide 224 pg/mL (<100); Troponin-I High Sensitivity 6.8 ng/L (<3.5-17.0)
[2022-11-27 10:43] LABS: Influenza A PCR NEGATIVE (Negative); Influenza B PCR NEGATIVE (Negative); Resp Syncy Virus RNA Qual PCR NEGATIVE (Negative); SARS COV2 PCR INHOUSE NEGATIVE (Negative)
[2022-11-27 11:20] LABS: Alanine Aminotransferase 10 U/L (0-31); Albumin Level 3.5 g/dL (3.5-5.0); Alkaline Phosphatase 48 U/L (39-117); Anion Gap 9 (12-20); Aspartate Amino Transferase 16 U/L (5-31); Bilirubin Direct 0.3 mg/dL (0.0-0.5); Bilirubin Total 0.7 mg/dL (0.0-1.0); Blood Urea Nitrogen 6 mg/dL (9-16); Calcium 8.7 mg/dL (8.4-10.2); Carbon Dioxide 32 mmol/L (22-29); Chloride 104 mmol/L (96-108); Creatinine Clr Calc Pharmacy 89.6; Estimated Glomerular Filt Rate > 60; Glucose Random 103 mg/dL (60-115); Lipase 5 U/L (8-78); Magnesium 1.6 mg/dL (1.6-2.6); Potassium 3.4 mmol/L (3.3-5.1); Sodium 142 mmol/L (135-145); Total Protein 5.5 g/dL (6.5-8.0)
[2022-11-27] MEDS: cefEPime HCl 2 GM in 0.9 % Sodium Chloride 50 ML IV ×2 (11:21→16:10)
[2022-11-27 11:26] LABS: Lactic Acid 0.8 mmol/L (0.5-2.0)
[2022-11-27 11:36] LABS: Troponin-I High Sensitivity 6.7 ng/L (<3.5-17.0)
--- NOTE | 2022-11-27 14:27 | PHA.MEDREC ---
Pharmacy Consult ? Medication Reconciliation Pharmacy has completed the medication reconciliation. Patient is poor historian of medications. Called patient's new territory sales executive/nurse ([place] - [phone]) which had medication list and confirmed meds.
--- NOTE | 2022-11-27 14:40 | PM.IMHP ---
History of Present Illness Date of Service: 11/27/22 Attending physician on admission: Nicole Washington Chief Complaint: cough 67y/of with pmhx of asthma, COPD on 2 L NC baseline, diabetes, HTN, sleep apnea, right breast invasive ductal carcinoma/metastatic breast CA w/bone mets currently on chemotherapy and radiation: Patient presented with generalized weakness, cough with whitish sputum, somewhat lightheadedness. In addition she says that she has chronic diarrhea which is somewhat increasing now. Also had some mild abdominal pain. She also complained that she had to episode of vomiting at home. Reports she gets some short of breath with exertion, denies any chest pain or fever or chills or dysuria or headache or blurry vision or any leg swelling. Lab imaging,ekg reviewed: BMP seems fine, LFTs seems fine, lipase normal, troponin neg, EKG NSR . CT chest: Possible pneumonitis and pneumonia. CBC chronic leukopenia, ANC around 1(1k). UA negative, blood cultures sent, lactic acid normal. H&H stable around 10, platelets are in 130s range Review of Systems Review of Systems: As above. [facility] Medical History Asthma COPD (chronic obstructive pulmonary disease) Diabetes type 2, controlled Hypertension Invasive ductal carcinoma of right breast Sleep apnea Tubular adenoma Family History Brother Diabetes Sister Diabetes Breast cancer, Onset Age: 67 Mother Breast cancer, Onset Age: 59 Maternal Aunt Breast cancer Surgical History History of lumpectomy of right breast Hx of colonoscopy Hx of right breast biopsy Social History Household Members: None Housing: Apartment Are you a primary hospice patient care secretary to a significant other at home: No Do you presently have visiting nurse or other home services: Yes Alcohol intake: former Patient Tobacco Use Status: Former Tobacco user Tobacco use type: Cigarette Advance Directives: No Advance Directives Information Provided: Yes Advance Directives Date on File: 03/22/21 service: No Current occupational status: disabled 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 Meds Allergies Allergy/AdvReac Type Severity Reaction Status Date / Time No Known Allergies Allergy Unknown UNKNOWN Verified 10/01/22 09:25 [NO KNOWN ALLERGIES] Active Medications: Current Medications Albuterol Sulfate (Albuterol Sulfate 90 Mcg 8 Gm Inhaler) 1 puff INHALE QID PRN PRN Reason: shortness of breath or wheezing Aripiprazole (Aripiprazole 20 Mg Tablet) 20 mg PO BEDTIME [facility] Enoxaparin Sodium (Enoxaparin Sodium 40 Mg/0.4 Ml Syringe) 40 mg SUBCUT DAILY [facility] Gabapentin (Gabapentin 300 Mg Capsule) 300 mg PO TID [facility] Cefepime HCl 2 gm/ Sodium (Chloride) 50 mls @ 100 mls/hr IV Q8H [facility] Insulin Glargine (Insulin Glargine,Hum.Rec.Anlog 100 Unit/Ml 10 Ml Vial) 30 unit SUBCUT DAILY [facility] Isosorbide Mononitrate (Isosorbide Mononitrate 30 Mg Tab.Er.24h) 30 mg PO DAILY GRIFFIN; Protocol Metoprolol Tartrate (Metoprolol Tartrate 50 Mg Tablet) 50 mg PO DAILY GRIFFIN; Protocol Morphine Sulfate (Morphine Sulfate Er 30 Mg Tablet.Er) 30 mg PO Q12H [facility] Naloxone HCl (Naloxone Hcl Nasal 4 Mg [place]) mg NOSTRILALT Q2M PRN PRN Reason: Opioid Overdose Nitroglycerin (Nitroglycerin 0.4 Mg Tab.Subl) 0.4 mg SUBLINGUAL Q5M PRN PRN Reason: Chest Pain Non-Formulary Medication (Acetaminophen) 500 mg PO Q6H PRN PRN Reason: Pain Non-Formulary Medication (Citalopram) 40 mg PO BEDTIME [facility] Non-Formulary Medication (Fluticasone Propionate [Flovent Hfa]) 2 puff INHALE BID [facility] Non-Formulary Medication (Methylcellulose (Laxative) [Fiber Laxative (Methylcellulo)]) 500 mg PO DAILY [facility] Non-Formulary Medication ([place]-3 Fatty Acids) 1,000 mg PO TID [facility] Non-Formulary Medication (Pantoprazole) 40 mg PO DAILY@0630 [facility] Non-Formulary Medication (Umeclidinium-Vilanterol [Anoro Ellipta]) 1 inhalation INHALE DAILY [facility] Nystatin (Nystatin Oral Susp 500,000 Unit/5 Ml Oral.Susp) unit PO TID [facility]; Protocol Oxybutynin Chloride (Oxybutynin Chloride Er 5 Mg Tab.Er.24) 20 mg PO DAILY [facility] Oxycodone HCl (Oxycodone Hcl Immed Release 5 Mg Tablet) 5 mg PO Q4H PRN PRN Reason: Breakthrough Pain Pravastatin Sodium (Pravastatin Sodium 20 Mg Tablet) 20 mg PO DAILY [facility] Senna (Sennosides 8.6 Mg Tablet) 17.2 mg PO BEDTIME PRN PRN Reason: Constipation Sodium Chloride (0.9 % Sodium Chloride Flush 3 Ml Syringe) 3 ml IVFLUSH QSHIFT GRIFFIN Trazodone HCl (Trazodone Hcl 50 Mg Tablet) 50 mg PO BEDTIME PRN PRN Reason: Insomnia Vitamin D (Cholecalciferol (Vitamin D3) 25 Mcg Tablet) 25 mcg PO DAILY [facility] Home Medications Medication Instructions Recorded Confirmed Last Taken Type aripiprazole 20 mg tablet (Abilify) 20 mg PO BEDTIME 02/14/22 11/27/22 Unknown History blood sugar diagnostic (FreeStyle #10 ea 02/14/22 11/20/22 Unknown History Lite Strips) citalopram 40 mg tablet 40 mg PO BEDTIME 02/14/22 11/27/22 08/08/22 History gabapentin 300 mg capsule 300 mg PO TID 02/14/22 11/27/22 08/08/22 History insulin glargine 100 unit/mL 30 unit subcut DAILY 02/14/22 11/27/22 Unknown History subcutaneous solution (Lantus U-100 Insulin) trazodone 50 mg tablet 50 mg PO BEDTIME PRN Insomnia 02/14/22 11/27/22 Unknown History isosorbide mononitrate 30 mg 1 tab PO DAILY 04/09/22 11/27/22 08/08/22 History tablet,extended release 24 hr pravastatin 20 mg tablet 1 tab PO DAILY 04/09/22 11/27/22 08/08/22 History acetaminophen 500 mg tablet 500 mg PO Q6H PRN Pain 11/27/22 11/27/22 Unknown History cholecalciferol (vitamin D3) 25 25 mcg PO DAILY 11/27/22 11/27/22 Unknown History mcg (1,000 unit) tablet (Vitamin D3) fluticasone propionate 110 2 puff inhalation BID 11/27/22 11/27/22 Unknown History mcg/actuation HFA aerosol inhaler (Flovent HFA) furosemide 40 mg tablet 40 mg PO DAILY 11/27/22 11/27/22 Unknown History metoprolol tartrate 50 mg tablet 1 tab PO DAILY 11/27/22 11/27/22 Unknown History naloxone 4 mg/actuation nasal spray 1 spray intranasal Q2M PRN Opioid 11/27/22 11/27/22 Unknown History Overdose nitroglycerin 0.4 mg sublingual 0.4 mg sublingual Q5M PRN Chest 11/27/22 11/27/22 Unknown History tablet Pain omega-3 fatty acids 1,000 mg 1,000 mg PO TID 11/27/22 11/27/22 Unknown History capsule ondansetron 4 mg disintegrating 4 mg PO DAILY PRN Nausea 11/27/22 11/27/22 Unknown History tablet oxybutynin chloride 10 mg 2 tab PO DAILY 11/27/22 11/27/22 Unknown History tablet,extended release 24 hr oxycodone 5 mg tablet 5 mg PO Q4H PRN Breakthrough Pain 11/27/22 11/27/22 Unknown History pantoprazole 40 mg tablet,delayed 40 mg PO DAILY@0630 11/27/22 11/27/22 Unknown History release sennosides 8.6 mg tablet (senna) 17.2 mg PO BEDTIME PRN Constipation 11/27/22 11/27/22 Unknown History Physical Exam Vital Signs and Narrative: Vital Signs: Last Vital Signs Temp 98.4 F 11/27/22 12:02 Pulse 117 H 11/27/22 12:16 Resp 18 11/27/22 12:02 BP 134/61 11/27/22 12:16 Pulse Ox 94 11/27/22 12:02 O2 Del Method 11/27/22 12:02 O2 Flow Rate 2 11/27/22 12:02 BMI result Body Mass Index 39.7 Appearance: Alert.? Oriented X3.? Telugu-speaking female, not in distress.? Eyes: Pupils equal, round and reactive to light.? Sclera nonicteric.? ENT: Pharynx normal.? Moist mucous membranes. cvs: rrr, [id number] , no murmur res: air entry diminshed ,right >left. abd: no rebound or guarding ,mild diffuse abd pain, bs present. ext pulses present , no cyanosis. neuro: axo3 , nonfocal. Results Labs CBC and Chem 7: 11/27/22 09:44 11/27/22 10:27 Labs: Laboratory Results - last 24 hr 11/27/22 11/27/22 11/27/22 09:16 09:44 09:44 MCV 95.5 MCH 34.0 H MCHC 35.6 H RDW 18.8 H Plt Count 135 L MPV 10.1 Immature Gran % (Auto) 0.6 H Neut % (Auto) 59.1 Lymph % (Auto) 26.1 [place] % (Auto) 12.4 H Eos % (Auto) 0.6 Baso % (Auto) 1.2 Lymph # (Auto) 0.4 L [place] # (Auto) 0.2 Eos # (Auto) 0.0 Baso # (Auto) 0.0 Abs Immat Gran (auto) 0.01 Absolute Neuts (auto) 1.0 L Absolute Nucleated RBC 0.000 Nucleated RBC % (auto) 0.0 Smear Tech's Comments VERIFIED PT 13.6 H INR 1.2 H Anion Gap Estim Creat Clear Calc Estimated GFR Random Glucose Lactic Acid Calcium Magnesium Total Bilirubin Direct Bilirubin AST ALT Alkaline Phosphatase Troponin I High Sens B-Natriuretic Peptide Total Protein Albumin Lipase Urine Color Yellow Urine Appearance Clear Urine pH >= 9.0 Ur Specific [place] <= 1.005 Urine Protein Negative Urine Glucose (UA) Negative Urine Ketones Negative Urine Blood Negative Urine Nitrite Negative Ur Leukocyte Esterase Negative Influenza Type A (PCR) Influenza Type B (PCR) RSV RNA Qual (PCR) SARS-CoV-2 RNA (RT-PCR) 11/27/22 11/27/22 11/27/22 09:44 09:44 09:46 MCV MCH MCHC RDW Plt Count MPV Immature Gran % (Auto) Neut % (Auto) Lymph % (Auto) [place] % (Auto) Eos % (Auto) Baso % (Auto) Lymph # (Auto) [place] # (Auto) Eos # (Auto) Baso # (Auto) Abs Immat Gran (auto) Absolute Neuts (auto) Absolute Nucleated RBC Nucleated RBC % (auto) Smear Tech's Comments PT INR Anion Gap Estim Creat Clear Calc Estimated GFR Random Glucose Lactic Acid Calcium Magnesium Total Bilirubin Direct Bilirubin AST ALT Alkaline Phosphatase Troponin I High Sens 6.8 B-Natriuretic Peptide 224 H Total Protein Albumin Lipase Urine Color Urine Appearance Urine pH Ur Specific [place] Urine Protein Urine Glucose (UA) Urine Ketones Urine Blood Urine Nitrite Ur Leukocyte Esterase Influenza Type A (PCR) NEGATIVE Influenza Type B (PCR) NEGATIVE RSV RNA Qual (PCR) NEGATIVE SARS-CoV-2 RNA (RT-PCR) NEGATIVE 11/27/22 11/27/22 11/27/22 10:27 11:07 11:07 MCV MCH MCHC RDW Plt Count MPV Immature Gran % (Auto) Neut % (Auto) Lymph % (Auto) [place] % (Auto) Eos % (Auto) Baso % (Auto) Lymph # (Auto) [place] # (Auto) Eos # (Auto) Baso # (Auto) Abs Immat Gran (auto) Absolute Neuts (auto) Absolute Nucleated RBC Nucleated RBC % (auto) Smear Tech's Comments PT INR Anion Gap 9 L Estim Creat Clear Calc 89.6 Estimated GFR > 60 Random Glucose 103 Lactic Acid 0.8 Calcium 8.7 Magnesium 1.6 Total Bilirubin 0.7 Direct Bilirubin 0.3 AST 16 ALT 10 Alkaline Phosphatase 48 Troponin I High Sens 6.7 B-Natriuretic Peptide Total Protein 5.5 L Albumin 3.5 Lipase 5 L Urine Color Urine Appearance Urine pH Ur Specific [place] Urine Protein Urine Glucose (UA) Urine Ketones Urine Blood Urine Nitrite Ur Leukocyte Esterase Influenza Type A (PCR) Influenza Type B (PCR) RSV RNA Qual (PCR) SARS-CoV-2 RNA (RT-PCR) ECG Attestation: I personally reviewed and interpreted this ECG as follows: (nsr ) Imaging Radiologist's Impressions: Impressions Chest X-Ray 11/27/22 09:41 IMPRESSION: Low lung volumes. Question bilateral pulmonary infiltrates. Chest CT 11/27/22 10:50 IMPRESSION: New or increasing pneumonitis and probable right upper lobe pneumonia. Stable bone findings. Fleischner guidelines were followed. Assessment and Plan (1) Pneumonia: Status: Acute (2) Pneumonitis: Status: Acute (3) Generalized weakness: Status: Acute (4) Dyspnea on exertion: Status: Acute (5) COPD (chronic obstructive pulmonary disease): Status: Acute (6) Diarrhea: Status: Acute Plan 67y/of with pmhx of asthma, COPD on 2 L NC baseline, diabetes, HTN, sleep apnea, right breast invasive ductal carcinoma/metastatic breast CA w/bone mets currently on chemotherapy and radiation Came with productive cough, generalized weakness, somewhat short of breath with walking. Getting admitted for pneumonia. 1. Pneumonia, ANC (around 1000) denies any sick contact or travel . ch leucocpenia possible sec to chemo Patient has mild tachycardia No sepsis Added procalcitonin level, a respiratory panel, nasal MRSA screen. Lactic acid normal, blood cultures sent. Continue IV antibiotic-IV doxy and cefepime. ID eval if needed. 2.hx of copd: prn nebs,continue home meds. 3.dm : hold lantus due to poor oral inatke and diarrhea, Fingerstick with sliding scale coverage. 4. Hypertension: Continue home medications. 5.Sleep apnea : continue cpap. 6. ch diarrahe -somewhat inceasing,adb discomfort c diff ,stool for wbc ,gip panel defer antibiotics 7. Thrombocytopenia: Chronic Monitor closely CBC Platelets are stable around 135 range No bleeding or bruising. dvt prophylax: s/c lovenox Considering immunocompromised patient with pneumonia, diarrhea: Need further GI workup as well as IV antibiotic for pneumonia, electrolyte monitoring, may benefit from to 2 midnight stays. History was taken with the help of patch setter, also code status was discussed with the patient in detail she has full code. Total assessment and plan coordination time spent is 70 minute. Time Spent With Patient Time: Total time managing care of this patient today ____ minutes. Quality Stroke Does the patient have a stroke diagnosis?: No VTE Prior VTE?: No VTE Risk Level:: Medical - moderate - high VTE Device Contraindication: N/A - Device Ordered VTE Drug Contraindication: N/A - Med Ordered
[2022-11-27] MEDS: Albuterol/Iprat 2.5/0.5MG 3 ML AMPUL.NEB INHALE ×2 (15:42→20:53)
[2022-11-27 16:01] LABS: Procalcitonin 0.07 ng/mL
[2022-11-27] MEDS: Gabapentin 300 MG CAPSULE PO ×2 (16:09→20:50)
[2022-11-27] MEDS: Morphine Sulfate ER 30 MG TABLET.ER PO (16:09)
[2022-11-27] MEDS: Nystatin Oral Susp 500,000 UNIT/5 ML ORAL.SUSP 500000 UNIT PO ×2 (16:09→20:49)
[2022-11-27] MEDS: 0.9 % Sodium Chloride Flush 3 ML SYRINGE IVFLUSH ×2 (16:11→20:50)
--- NOTE | 2022-11-27 16:23 | PC.NURSE ---
Up to use commode with assistance. Unable to obtain stool specimen at this time, pt requesting food. Medicated per the JAN. Awaiting room assignment.
[2022-11-27] MEDS: levoFLOXacin/D5W 750 MG/150 ML PIGGYBACK 100 MG IV (19:05)
[2022-11-27 19:20] LABS: Leukocytes Stool Qualitative NEGATIVE (NEGATIVE)
[2022-11-27 20:01] LABS: CDiff Gene PCR NEGATIVE (Negative)
[2022-11-27 20:20] LABS: Glucose, Whole Blood 163 mg/dL (60-115)
[2022-11-27 20:27] LABS: Glucose, Whole Blood 127 mg/dL (60-115)
[2022-11-27] MEDS: Insulin Lispro 100 UNIT/ML 3 ML VIAL SUBCUT (20:49)
[2022-11-27] MEDS: Escitalopram Oxalate 20 MG TABLET PO (20:50)
[2022-11-27] MEDS: ARIPiprazole 20 MG TABLET PO (20:50)
[2022-11-27] MEDS: Fluticasone Propionate 100 MCG BLST.W.DEV 2 PUFF INHALE (21:00)
[2022-11-27] MEDS: Acetaminophen 325 MG TABLET 650 MG PO (23:14)
[2022-11-27 23:58] LABS: Lactic Acid 1.7 mmol/L (0.5-2.0)
[2022-11-28] VITALS (10 sets, daily range): BP systolic 98–120; BP diastolic 50–69; PULSE 60–114; RESP 12–20; TEMP 36.5–36.9; O2SAT 94–99
[2022-11-28] MEDS: Morphine Sulfate ER 30 MG TABLET.ER PO ×2 (02:14→14:27)
[2022-11-28] MEDS: Omeprazole 20 MG CAPSULE.DR PO (05:34)
[2022-11-28 07:34] LABS: Glucose, Whole Blood 102 mg/dL (60-115)
[2022-11-28] MEDS: Albuterol/Iprat 2.5/0.5MG 3 ML AMPUL.NEB INHALE ×4 (08:17→19:12)
--- NOTE | 2022-11-28 08:22 | P.CDIC_ITS ---
CDI Concurrent Query Documentation Clarification: PHYSICIAN'S DOCUMENTATION REQUEST Date of Query: 11/28/22 0823 Patient Name: Treva Abbott Admit Date: 11/27/22 Dear Doctor, A review of the medical record indicates additional documentation may be needed. Please review below and update the documentation accordingly. Clinical Indicators: Risk Factors/Clinical Indicators/Treatments ED and H&P 11/27 - Patient with COPD on 2 Liters NC. Somewhat short of breath with walking, coughing. RR 20 on 2 liters NC. Please clarify based on the above if: Treating, rule out etc. Chronic respiratory failure Oxygen dependent for COPD * [ ] was present on admission * [ ] was not present on admission * Unable to determine Use of terms such as suspected, likely, concern for, or probable (associated with a specific diagnosis that is being evaluated, monitored, or treated as if it exists) are acceptable and can be coded in the inpatient setting, when documented at the time of discharge. Thank you, Marta Armando [facility], CDIS Extension: [phone] Please use your independent medical judgment in providing your response. THIS QUERY IS PART OF THE PERMANENT MEDICAL RECORD Provider Response: Other Other Diagnosis: ch respiratory failure sec to copd
[2022-11-28] MEDS: Fluticasone Propionate 100 MCG BLST.W.DEV 2 PUFF INHALE ×2 (08:24→19:12)
[2022-11-28 08:56] LABS: Hemoglobin 9.7 g/dl (12.0-16.0); Mean Corpuscular HGB Conc 34.6 g/dl (31.0-35.0); Mean Corpuscular Hemoglobin 33.8 pg (27.0-33.0); Mean Corpuscular Volume 97.6 fL (80.0-98.0); Mean Platelet Volume 9.2 fL (9.4-12.3); Platelet Count 126 X10*3/uL (160-400); Red Blood Count 2.87 X10*6/uL (4.20-5.50); Red Cell Distribution Width 19.5 % (11.0-16.0)
[2022-11-28 08:58] LABS: White Blood Count 1.8 X10*3/uL (4.8-10.8)
--- NOTE | 2022-11-28 09:03 | P.CDIC_ITS ---
CDI Concurrent Query Documentation Clarification: PHYSICIAN'S DOCUMENTATION REQUEST Date of Query: 11/28/22 0903 Patient Name: Treva Abbott Admit Date: 11/27/22 Dear Doctor, A review of the medical record indicates additional documentation may be needed. Please review below and update the documentation accordingly. Clinical Indicators Risk Factors/Clinical Indicators/Treatments Body mass index: 39.7 5'4 in height 105kg If possible, please provide an associated diagnosis related to the abnormal BMI, such as: For a BMI >= 35: * Overweight * Obesity * Due to excess calories * Drug induced * Due to other cause * Other (please specify) * Unable to determine Use of terms such as suspected, likely, concern for, or probable (associated with a specific diagnosis that is being evaluated, monitored, or treated as if it exists) are acceptable and can be coded in the inpatient setting, when documented at the time of discharge. Thank you, Marta Armando [facility], CDIS Extension: [phone] Please use your independent medical judgment in providing your response. THIS QUERY IS PART OF THE PERMANENT MEDICAL RECORD Provider Response: Other Other Diagnosis: Morbid obesity.
[2022-11-28] MEDS: Isosorbide Mononitrate 30 MG TAB.ER.24H PO (09:21)
[2022-11-28] MEDS: Pravastatin Sodium 20 MG TABLET PO (09:21)
[2022-11-28] MEDS: Cholecalciferol (Vitamin D3) 25 MCG TABLET PO (09:21)
[2022-11-28] MEDS: Gabapentin 300 MG CAPSULE PO ×3 (09:22→21:50)
[2022-11-28] MEDS: Metoprolol Tartrate 50 MG TABLET PO (09:23)
[2022-11-28] MEDS: Nystatin Oral Susp 500,000 UNIT/5 ML ORAL.SUSP 500000 UNIT PO ×3 (09:23→21:49)
[2022-11-28] MEDS: 0.9 % Sodium Chloride Flush 3 ML SYRINGE IVFLUSH ×3 (09:23→21:50)
[2022-11-28] MEDS: Enoxaparin Sodium 40 MG/0.4 ML SYRINGE SUBCUT (09:24)
--- NOTE | 2022-11-28 10:13 | MHC.CM.PN ---
CM met with Patient at bedside with the assist of a [employer] Superintendent and addressed IMM with Patient(original was given to her and a copy has been placed on the chart). Patient lives alone in an apartment and she uses a walker to assist with mobility. Patient has a [employer] QD from 9AM-1 PM and a CCA RN; her goal is STR and Patient is agreeable to a SNF search, pending PT eval and CCA auth. CM has initiated and will follow for dc planning. Patient has received Covid vax x4 and her PCP is Dr. Cristo Alan. Patient states that her Son is in a, program, and she really has no one to name as a HCP.
[2022-11-28] MEDS: calcium polycarbophiL TABLET 1 TAB PO (10:22)
[2022-11-28 11:14] LABS: Adenovirus F 40/41 Not Detected (Not Detect.); Astrovirus Not Detected (Not Detect.); Campylobacter Not Detected (Not Detect.); Cryptosporidium Not Detected (Not Detect.); Cyclospora cayetanensis Not Detected (Not Detect.); E. coli EAEC Not Detected (Not Detect.); E. coli EPEC Not Detected (Not Detect.); E. coli ETEC Not Detected (Not Detect.); E. coli STEC Not Detected (Not Detect.); Entamoeba histolytica Not Detected (Not Detect.); Giardia lamblia Not Detected (Not Detect.); Norovirus GI/GII Not Detected (Not Detect.); Plesiomonas shigelloides Not Detected (Not Detect.); Rotavirus A Not Detected (Not Detect.); Salmonella Not Detected (Not Detect.); Sapovirus Not Detected (Not Detect.); Shigella sp./EIEC Not Detected (Not Detect.); Vibrio Not Detected (Not Detect.); Vibrio Cholerae Not Detected (Not Detect.); Yersinia enterocolitica Not Detected (Not Detect.)
[2022-11-28 11:33] LABS: Glucose, Whole Blood 124 mg/dL (60-115)
--- NOTE | 2022-11-28 14:09 | HO.PM.IMPN ---
Subjective Subjective Date of Service: 11/28/22 Interval History: cough,sob Review of Systems Says cough and shortness of breath seems similar to yesterday, Denies any chest pain or abdominal pain or nausea or vomiting and her diarrhea is also seems to be better as per patient. Physical Exam Vital Signs: Vital Signs: Last Vital Signs Temp 98.0 F 11/28/22 12:00 Pulse 66 11/28/22 12:00 Resp 14 11/28/22 12:00 BP 107/55 L 11/28/22 12:00 Pulse Ox 94 11/28/22 12:00 O2 Del Method 11/28/22 12:00 O2 Flow Rate 3 11/28/22 12:00 BMI result Body Mass Index 39.7 Appearance: Alert.? Oriented X3.? [place]an-speaking female, not in distress.? cvs: rrr, [id number] , no murmur res: air entry diminshed ,right >left. abd: no rebound or guarding ,nt, bs present. ext pulses present , no cyanosis. neuro: axo3 , nonfocal. Objective Data Active Medications Acetaminophen (Acetaminophen 325 Mg Tablet) 650 mg PO Q6H PRN PRN Reason: Pain Last Admin: 11/27/22 23:14 Dose: 650 mg Documented By: ANDERSON Albuterol/Ipratropium (Albuterol/Iprat 2.5/0.5mg 3 Ml Ampul.Neb) 3 ml INHALE RQ4H WHILE AWAKE [facility] Last Admin: 11/28/22 11:47 Dose: 3 ml Documented By: ROGELIO Aripiprazole (Aripiprazole 20 Mg Tablet) 20 mg PO BEDTIME GRIFFIN Last Admin: 11/27/22 20:50 Dose: 20 mg Documented By: ANDERSON Calcium Polycarbophil (Calcium Polycarbophil Tablet) 1 tab PO DAILY [facility] [place] Last Admin: 11/28/22 10:22 Dose: 1 tab Documented By: STAS Dextrose (Dextrose 50 % 25 Gm/50 Ml Syringe) 25 gm IVPUSH Q15M PRN; Protocol PRN Reason: per Hypoglycemia Standing Ord. Enoxaparin Sodium (Enoxaparin Sodium 40 Mg/0.4 Ml Syringe) 40 mg SUBCUT DAILY [facility] [place] Last Admin: 11/28/22 09:24 Dose: 40 mg Documented By: STAS Escitalopram Oxalate (Escitalopram Oxalate 20 Mg Tablet) 20 mg PO BEDTIME [facility] Last Admin: 11/27/22 20:50 Dose: 20 mg Documented By: ANDERSON Fluticasone Propionate (Fluticasone Propionate 100 Mcg Blst.W.Dev) 2 puff INHALE RBID [facility] Last Admin: 11/28/22 08:24 Dose: 2 puff Documented By: ROGELIO Gabapentin (Gabapentin 300 Mg Capsule) 300 mg PO TID [facility] Last Admin: 11/28/22 09:22 Dose: 300 mg Documented By: STAS Glucose (Glucose Gel 15 Gm Gel..Gram.) 15 gm PO Q15M PRN; Protocol PRN Reason: per Hypoglycemia Standing Ord. Levofloxacin (Levaquin) 750 mg in 150 mls @ 100 mls/hr IV Q24H [facility] Last Infusion: 11/27/22 20:56 Dose: 0 mls/hr Documented By: ANDERSON Insulin Human Lispro (Insulin Lispro 100 Unit/Ml 3 Ml Vial) 0 unit SUBCUT QIDACHS [facility]; Protocol Last Admin: 11/28/22 12:30 Dose: Not Given Documented By: STAS Non-Admin Reason: No Insulin Coverage Isosorbide Mononitrate (Isosorbide Mononitrate 30 Mg Tab.Er.24h) 30 mg PO DAILY [facility]; Protocol Last Admin: 11/28/22 09:21 Dose: 30 mg Documented By: STAS Metoprolol Tartrate (Metoprolol Tartrate 50 Mg Tablet) 50 mg PO DAILY [facility] [place]; Protocol Last Admin: 11/28/22 09:23 Dose: 50 mg Documented By: STAS Morphine Sulfate (Morphine Sulfate Er 30 Mg Tablet.Er) 30 mg PO Q12H [facility] [place] Last Admin: 11/28/22 02:14 Dose: 30 mg Documented By: ANDERSON Naloxone HCl (Naloxone Hcl Nasal 4 Mg [place]) 4 mg NOSTRILALT Q2M PRN PRN Reason: Opioid Overdose Nitroglycerin (Nitroglycerin 0.4 Mg Tab.Subl) 0.4 mg SUBLINGUAL Q5M PRN PRN Reason: Chest Pain Non-Formulary Medication (Umeclidinium-Vilanterol [Anoro Ellipta]) 1 inhalation INHALE DAILY [facility] Nystatin (Nystatin Oral Susp 500,000 Unit/5 Ml Oral.Susp) 500,000 unit PO TID [facility]; Protocol Last Admin: 11/28/22 09:23 Dose: 500,000 unit Documented By: STAS Omeprazole (Omeprazole 20 Mg Capsule.Dr) 20 mg PO DAILY@0630 [facility] [place] Last Admin: 11/28/22 05:34 Dose: 20 mg Documented By: ANDERSON Ondansetron HCl (Ondansetron Hcl 4 Mg/2 Ml Vial) 4 mg IVPUSH Q6H PRN PRN Reason: Nausea and Vomiting Oxybutynin Chloride (Oxybutynin Chloride Er 5 Mg Tab.Er.24) 20 mg PO DAILY [facility] [place] Last Admin: 11/28/22 09:21 Dose: 20 mg Documented By: STAS Oxycodone HCl (Oxycodone Hcl Immed Release 5 Mg Tablet) 5 mg PO Q4H PRN PRN Reason: Breakthrough Pain Pravastatin Sodium (Pravastatin Sodium 20 Mg Tablet) 20 mg PO DAILY [facility] [place] Last Admin: 11/28/22 09:21 Dose: 20 mg Documented By: STAS Senna (Sennosides 8.6 Mg Tablet) 17.2 mg PO BEDTIME PRN PRN Reason: Constipation Sodium Chloride (0.9 % Sodium Chloride Flush 3 Ml Syringe) 3 ml IVFLUSH QSHIFT [facility] Last Admin: 11/28/22 09:23 Dose: 3 ml Documented By: STAS Trazodone HCl (Trazodone Hcl 50 Mg Tablet) 50 mg PO BEDTIME PRN PRN Reason: Insomnia Vitamin D (Cholecalciferol (Vitamin D3) 25 Mcg Tablet) 25 mcg PO DAILY [facility] Last Admin: 11/28/22 09:21 Dose: 25 mcg Documented By: STAS Labs CBC & Chem 7: 11/28/22 08:44 11/27/22 10:27 Labs: Laboratory Results - last 24 hr 11/27/22 11/27/22 11/27/22 10:27 18:34 18:34 MCV MCH MCHC RDW Plt Count MPV Absolute Nucleated RBC Nucleated RBC % (auto) POC Glucose Lactic Acid Procalcitonin 0.07 Stool Leukocytes, Qual NEGATIVE Stl C. cayetanensis PCR Stool Rotavirus A PCR Stl Adenov F 40/41 PCR Stool Astrovirus (PCR) Stool Campylobacter PCR Stool Cryptosporidium PCR Stl Sh Tox Pr E STEC PCR Stool E coli O157 PCR Stl Enterotoxigenic E PCR Stool EPEC (PCR) Stool EAEC (PCR) Stl E. histolytica PCR Stool Giardia Lamblia PCR Stl P. shigelloides PCR Stool Salmonella PCR Stool Sapovirus (PCR) Stl Shigella/EIEC PCR St Y.enterocolitica PCR Stool Vibrio (PCR) Stl Vibrio cholerae PCR Stl Norovirus GI/GII PCR C. difficile Tox B Gene NEGATIVE 11/27/22 11/27/22 11/27/22 18:34 18:53 20:17 MCV MCH MCHC RDW Plt Count MPV Absolute Nucleated RBC Nucleated RBC % (auto) POC Glucose 127 H 163 H Lactic Acid Procalcitonin Stool Leukocytes, Qual Stl C. cayetanensis PCR Not Detected Stool Rotavirus A PCR Not Detected Stl Adenov F 40/41 PCR Not Detected Stool Astrovirus (PCR) Not Detected Stool Campylobacter PCR Not Detected Stool Cryptosporidium PCR Not Detected Stl Sh Tox Pr E STEC PCR Not Detected Stool E coli O157 PCR Not applicable Stl Enterotoxigenic E PCR Not Detected Stool EPEC (PCR) Not Detected Stool EAEC (PCR) Not Detected Stl E. histolytica PCR Not Detected Stool Giardia Lamblia PCR Not Detected Stl P. shigelloides PCR Not Detected Stool Salmonella PCR Not Detected Stool Sapovirus (PCR) Not Detected Stl Shigella/EIEC PCR Not Detected St Y.enterocolitica PCR Not Detected Stool Vibrio (PCR) Not Detected Stl Vibrio cholerae PCR Not Detected Stl Norovirus GI/GII PCR Not Detected C. difficile Tox B Gene 11/27/22 11/28/22 11/28/22 23:39 07:18 08:44 MCV 97.6 MCH 33.8 H MCHC 34.6 RDW 19.5 H Plt Count 126 L MPV 9.2 L Absolute Nucleated RBC 0.000 Nucleated RBC % (auto) 0.0 POC Glucose 102 Lactic Acid 1.7 Procalcitonin Stool Leukocytes, Qual Stl C. cayetanensis PCR Stool Rotavirus A PCR Stl Adenov F 40/41 PCR Stool Astrovirus (PCR) Stool Campylobacter PCR Stool Cryptosporidium PCR Stl Sh Tox Pr E STEC PCR Stool E coli O157 PCR Stl Enterotoxigenic E PCR Stool EPEC (PCR) Stool EAEC (PCR) Stl E. histolytica PCR Stool Giardia Lamblia PCR Stl P. shigelloides PCR Stool Salmonella PCR Stool Sapovirus (PCR) Stl Shigella/EIEC PCR St Y.enterocolitica PCR Stool Vibrio (PCR) Stl Vibrio cholerae PCR Stl Norovirus GI/GII PCR C. difficile Tox B Gene 11/28/22 11:16 MCV MCH MCHC RDW Plt Count MPV Absolute Nucleated RBC Nucleated RBC % (auto) POC Glucose 124 H Lactic Acid Procalcitonin Stool Leukocytes, Qual Stl C. cayetanensis PCR Stool Rotavirus A PCR Stl Adenov F 40/41 PCR Stool Astrovirus (PCR) Stool Campylobacter PCR Stool Cryptosporidium PCR Stl Sh Tox Pr E STEC PCR Stool E coli O157 PCR Stl Enterotoxigenic E PCR Stool EPEC (PCR) Stool EAEC (PCR) Stl E. histolytica PCR Stool Giardia Lamblia PCR Stl P. shigelloides PCR Stool Salmonella PCR Stool Sapovirus (PCR) Stl Shigella/EIEC PCR St Y.enterocolitica PCR Stool Vibrio (PCR) Stl Vibrio cholerae PCR Stl Norovirus GI/GII PCR C. difficile Tox B Gene Microbiology Microbiology Results: Microbiology 11/27/22 11:07 Blood Culture - Preliminary Blood - Venous No growth after 24 hours. 11/27/22 11:07 Blood Culture - Preliminary Blood - Venous No growth after 24 hours. Assessment and Plan (1) Diarrhea: Status: Acute (2) Pneumonia: Status: Acute (3) Pneumonitis: Status: Acute (4) Generalized weakness: Status: Acute Plan 67y/of with pmhx of? asthma, COPD on 2 L NC baseline, diabetes, HTN, sleep apnea, right breast invasive ductal carcinoma/metastatic breast CA w/bone mets currently on chemotherapy and radiation Came with productive cough, generalized weakness, somewhat short of breath with walking.? Getting admitted for pneumonia. 1. Pneumonia, ANC (around 1000) denies any sick contact or travel . ch leucocpenia possible sec to chemo Patient has mild tachycardia No sepsis Added procalcitonin level, a respiratory panel, nasal MRSA screen. Lactic acid normal, blood cultures pendin. Continue IV antibiotic-IV doxy and cefepime. ID eval if needed. 2.ch respiratory failure sec hx of copd: prn nebs,continue home meds,continue home oxygen. 3.dm : hold lantus due to poor oral inatke and diarrhea, Fingerstick with sliding scale coverage. 4. Hypertension:? Continue home medications. 5.Sleep apnea : continue cpap. 6. ch diarrahe -somewhat inceasing,adb discomfort c diff ,gip panel-neg diarrahe inproved defer antibiotics 7. Thrombocytopenia: Chronic Monitor closely CBC Platelets are stable around 135 range No bleeding or bruising. dvt prophylax: s/c lovenox ongoing need hospitlisation stay-pneumonia in a mono compromised patient need IV antibiotics, blood cultures also pending. Time Spent With Patient Time: Total time managing care of this patient today ____ minutes. Quality Stroke Does the patient have a stroke diagnosis?: No VTE Prior VTE?: No VTE Risk Level:: Medical - moderate - high VTE Device Contraindication: N/A - Device Ordered VTE Drug Contraindication: N/A - Med Ordered
[2022-11-28 15:41] LABS: Glucose, Whole Blood 122 mg/dL (60-115)
--- NOTE | 2022-11-28 15:52 | P.CNHO_ITS ---
Subjective - Subjective Chief complaint: Cough, SOB Patient: known to practice within the last 3 years Consult date: 11/28/22 Requesting Physician: Dr Washington Primary Care Provider: Cristo Martino MD Medical Summary: Diagnosis: Right breast invasive ductal carcinoma January 2022/metastatic breast cancer diagnosed in July 2022 Routine screening mammography on 01/29/2022 revealed 2 nodules under 1 cm anterior breast and right axillary adenopathy. Additional mammographic views and ultrasound performed 02/08/2022 revealed 2 right breast nodules in the retroareolar region, larger measuring 0.8 cm and smaller measuring 0.6 cm, 1.3 cm apart. No skin retraction or thickening. Ultrasound right axilla demonstrated abnormal axillae lymph node measuring 2.1 x 1.2 cm. All of them were is suspicious, biopsies were performed on 02/14/2022 which revealed invasive ductal carcinoma with mucinous features, MS grade 2. Family history significant for mother having of breast cancer at age 57 and sister diagnosed with breast cancer at age 68. There is family history of breast cancer. She is 3 para 2. With her 3rd she had a spontaneous , hysterectomy had to be performed in [place] and she was diagnosed with cancer either of the uterus or cervix. She was 25 at the time. She did not require chemotherapy or radiation therapy. On 02/25/2022 patient underwent right breast lumpectomy and sentinel node biopsy which revealed invasive ductal carcinoma with mucinous and focal lobular features, multifocal, largest focus 0.9 cm, margins negative. One lymph node positive for metastatic carcinoma. Pathological stage pT1b N1a size of largest metastatic deposit in lymph node is 3.5 cm, extranodal extension present. LVI present. Oncotype DX breast recurrence score 16 in one tumor mass and 15 in another tumor mass. Risk of distant recurrence 14-15% at 9 years and no benefit of adjuvant chemotherapy. Patient has been receiving adjuvant radiation therapy at [facility], she developed back and lower abdominal pain which was ongoing for several weeks prior to her visit to the ED. CT abdomen/pelvis without contrast performed 07/02/2022 revealed new lytic lesions in the osseous structures. No significant acute intra-abdominal pelvic abnormality. Multiple lytic lesions with associated vertebral pathological fractures involving L1, L2 and L4. 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 [id number] spinal canal stenosis at L4-L5. No evidence of cord compression. Patient was subsequently seen at [facility] emergency room for chest pain. She underwent CT angiogram which revealed no pulmonary embolism but multiple lytic bone lesions, most significantly in the sternum and nondisplaced pathological fracture at L1 with loss of vertebral body height. Ground-glass opacity in the lungs, enlarged AP window mediastinal nodes concerning for metastatic disease. No evidence of metastasis within the lungs, abdomen or pelvis. She underwent CT-guided biopsy of sternal lesion, unfortunately not enough tissue to make diagnosis. Patient was referred to neurosurgeon, Dr. Bourne at [facility], however, patient was unable to keep that appointment. HPI - Consult Narrative Reason for consult: Pancytopenia Narrative: Treva Abbott is a 67 year old female who is currently receiving hormonal and targeted therapy for metastatic breast cancer. She presented with shortness of breath and cough, imaging showed pneumonia. She has been admitted and has been receiving IV antibiotics. She reports improvement in symptoms. She was also noted to be pancytopenic which is chronic and related to her medications. She reports improvement in her symptoms since getting admitted to the hospital. A shortness of breath and cough have improved. She has no other complaints such as abdominal pain, diarrhea, nausea or emesis. Review of Systems - Constitutional Reports as per HPI, Reports fatigue, Reports malaise, Denies weight loss - Cardiovascular Reports no additional cardiovascular complaints - Respiratory Reports no additional respiratory complaints, Reports cough, Denies hemoptysis, Reports dyspnea - Neurologic Denies abnormal speech [facility] Medical History: Medical History (Last Reviewed 11/27/22 @ 15:05 by Nicole Washington MD) Asthma COPD (chronic obstructive pulmonary disease) Diabetes type 2, controlled Hypertension Invasive ductal carcinoma of right breast Sleep apnea Tubular adenoma Family History: Family History (Last Reviewed 11/27/22 @ 15:05 by Nicole Washington MD) Brother Diabetes Sister Diabetes Breast cancer, Onset Age: 67 Mother Breast cancer, Onset Age: 59 Maternal Aunt Breast cancer Surgical History: Surgical History (Last Reviewed 11/27/22 @ 15:05 by Nicole Washington MD) History of lumpectomy of right breast Hx of colonoscopy Hx of right breast biopsy Social History: Social History (Last Reviewed 11/27/22 @ 15:06 by Nicole Washington MD) Living Situation History: Household Members: None Housing: Apartment Are you a primary health care manager to a significant other at home: No Do you presently have visiting nurse or other home services: Yes Tobacco History: Patient Tobacco Use Status: Former Tobacco user Tobacco use type: Cigarette Advance Directives: Advance Directives Date on File: 03/22/21 Occupation Assessmet: service: No Current occupational status: 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 Home Medications and Allergies Current Medications: Current Medications Acetaminophen (Acetaminophen 325 Mg Tablet) 650 mg PO Q6H PRN PRN Reason: Pain Last Admin: 11/27/22 23:14 Dose: 650 mg Albuterol/Ipratropium (Albuterol/Iprat 2.5/0.5mg 3 Ml Ampul.Neb) 3 ml INHALE RQ4H WHILE AWAKE [facility] Last Admin: 11/28/22 15:13 Dose: 3 ml Aripiprazole (Aripiprazole 20 Mg Tablet) 20 mg PO BEDTIME [facility] Last Admin: 11/27/22 20:50 Dose: 20 mg Calcium Polycarbophil (Calcium Polycarbophil Tablet) 1 tab PO DAILY [facility] Last Admin: 11/28/22 10:22 Dose: 1 tab Dextrose (Dextrose 50 % 25 Gm/50 Ml Syringe) 25 gm IVPUSH Q15M PRN; Protocol PRN Reason: per Hypoglycemia Standing Ord. Enoxaparin Sodium (Enoxaparin Sodium 40 Mg/0.4 Ml Syringe) 40 mg SUBCUT DAILY [facility] Last Admin: 11/28/22 09:24 Dose: 40 mg Escitalopram Oxalate (Escitalopram Oxalate 20 Mg Tablet) 20 mg PO BEDTIME [facility] Last Admin: 11/27/22 20:50 Dose: 20 mg Fluticasone Propionate (Fluticasone Propionate 100 Mcg Blst.W.Dev) 2 puff INHALE RBID [facility] Last Admin: 11/28/22 08:24 Dose: 2 puff Furosemide (Furosemide 40 Mg Tablet) 40 mg PO DAILY [facility]; Protocol Gabapentin (Gabapentin 300 Mg Capsule) 300 mg PO TID [facility] Last Admin: 11/28/22 14:27 Dose: 300 mg Glucose (Glucose Gel 15 Gm Gel..Gram.) 15 gm PO Q15M PRN; Protocol PRN Reason: per Hypoglycemia Standing Ord. Levofloxacin (Levaquin) 750 mg in 150 mls @ 100 mls/hr IV Q24H [facility] Last Infusion: 11/27/22 20:56 Dose: Infused Insulin Human Lispro (Insulin Lispro 100 Unit/Ml 3 Ml Vial) 0 unit SUBCUT QIDACHS [facility]; Protocol Last Admin: 11/28/22 12:30 Dose: Not Given Isosorbide Mononitrate (Isosorbide Mononitrate 30 Mg Tab.Er.24h) 30 mg PO DAILY [facility]; Protocol Last Admin: 11/28/22 09:21 Dose: 30 mg Metoprolol Tartrate (Metoprolol Tartrate 50 Mg Tablet) 50 mg PO DAILY [facility]; Protocol Last Admin: 11/28/22 09:23 Dose: 50 mg Morphine Sulfate (Morphine Sulfate Er 30 Mg Tablet.Er) 30 mg PO Q12H [facility] Last Admin: 11/28/22 14:27 Dose: 30 mg Naloxone HCl (Naloxone Hcl Nasal 4 Mg [place]) 4 mg NOSTRILALT Q2M PRN PRN Reason: Opioid Overdose Nitroglycerin (Nitroglycerin 0.4 Mg Tab.Subl) 0.4 mg SUBLINGUAL Q5M PRN PRN Reason: Chest Pain Non-Formulary Medication (Umeclidinium-Vilanterol [Anoro Ellipta]) 1 inhalation INHALE DAILY [facility] Nystatin (Nystatin Oral Susp 500,000 Unit/5 Ml Oral.Susp) 500,000 unit PO TID [facility]; Protocol Last Admin: 11/28/22 14:27 Dose: 500,000 unit Omeprazole (Omeprazole 20 Mg Capsule.Dr) 20 mg PO DAILY@0630 [facility] Last Admin: 11/28/22 05:34 Dose: 20 mg Ondansetron HCl (Ondansetron Hcl 4 Mg/2 Ml Vial) 4 mg IVPUSH Q6H PRN PRN Reason: Nausea and Vomiting Oxybutynin Chloride (Oxybutynin Chloride Er 5 Mg Tab.Er.24) 20 mg PO DAILY [facility] Last Admin: 11/28/22 09:21 Dose: 20 mg Oxycodone HCl (Oxycodone Hcl Immed Release 5 Mg Tablet) 5 mg PO Q4H PRN PRN Reason: Breakthrough Pain Pravastatin Sodium (Pravastatin Sodium 20 Mg Tablet) 20 mg PO DAILY [facility] Last Admin: 11/28/22 09:21 Dose: 20 mg Senna (Sennosides 8.6 Mg Tablet) 17.2 mg PO BEDTIME PRN PRN Reason: Constipation Sodium Chloride (0.9 % Sodium Chloride Flush 3 Ml Syringe) 3 ml IVFLUSH QSHIFT [facility] Last Admin: 11/28/22 09:23 Dose: 3 ml Trazodone HCl (Trazodone Hcl 50 Mg Tablet) 50 mg PO BEDTIME PRN PRN Reason: Insomnia Vitamin D (Cholecalciferol (Vitamin D3) 25 Mcg Tablet) 25 mcg PO DAILY [facility] Last Admin: 11/28/22 09:21 Dose: 25 mcg Home Medications Medication Instructions Recorded Confirmed Type aripiprazole 20 mg tablet (Abilify) 20 mg PO BEDTIME 02/14/22 11/27/22 History blood sugar diagnostic (FreeStyle #10 ea 02/14/22 11/20/22 History Lite Strips) citalopram 40 mg tablet 40 mg PO BEDTIME 02/14/22 11/27/22 History gabapentin 300 mg capsule 300 mg PO TID 02/14/22 11/27/22 History insulin glargine 100 unit/mL 30 unit subcut DAILY 02/14/22 11/27/22 History subcutaneous solution (Lantus U-100 Insulin) trazodone 50 mg tablet 50 mg PO BEDTIME PRN Insomnia 02/14/22 11/27/22 History isosorbide mononitrate 30 mg 1 tab PO DAILY 04/09/22 11/27/22 History tablet,extended release 24 hr pravastatin 20 mg tablet 1 tab PO DAILY 04/09/22 11/27/22 History acetaminophen 500 mg tablet 500 mg PO Q6H PRN Pain 11/27/22 11/27/22 History cholecalciferol (vitamin D3) 25 25 mcg PO DAILY 11/27/22 11/27/22 History mcg (1,000 unit) tablet (Vitamin D3) fluticasone propionate 110 2 puff inhalation BID 11/27/22 11/27/22 History mcg/actuation HFA aerosol inhaler (Flovent HFA) furosemide 40 mg tablet 40 mg PO DAILY 11/27/22 11/27/22 History metoprolol tartrate 50 mg tablet 1 tab PO DAILY 11/27/22 11/27/22 History naloxone 4 mg/actuation nasal spray 1 spray intranasal Q2M PRN Opioid 11/27/22 11/27/22 History Overdose nitroglycerin 0.4 mg sublingual 0.4 mg sublingual Q5M PRN Chest 11/27/22 11/27/22 History tablet Pain omega-3 fatty acids 1,000 mg 1,000 mg PO TID 11/27/22 11/27/22 History capsule ondansetron 4 mg disintegrating 4 mg PO DAILY PRN Nausea 11/27/22 11/27/22 History tablet oxybutynin chloride 10 mg 2 tab PO DAILY 11/27/22 11/27/22 History tablet,extended release 24 hr oxycodone 5 mg tablet 5 mg PO Q4H PRN Breakthrough Pain 11/27/22 11/27/22 History pantoprazole 40 mg tablet,delayed 40 mg PO DAILY@0630 11/27/22 11/27/22 History release sennosides 8.6 mg tablet (senna) 17.2 mg PO BEDTIME PRN Constipation 11/27/22 11/27/22 History Allergies Allergy/AdvReac Type Severity Reaction Status Date / Time No Known Allergies Allergy Unknown UNKNOWN Verified 10/01/22 09:25 [NO KNOWN ALLERGIES] Physical Exam Vital signs: Vital Signs Temp 97.7 F 11/28/22 15:00 Pulse 67 11/28/22 15:16 Resp 20 11/28/22 15:16 BP 98/53 L 11/28/22 15:00 Pulse Ox 94 11/28/22 15:00 O2 Del Method 11/28/22 15:00 O2 Flow Rate 3 11/28/22 15:00 Intake & Output 11/27/22 11/28/22 11/28/22 18:59 06:59 18:59 Intake Total 600 / 990 390 / 990 380 / 380 Balance 600 / 990 390 / 990 380 / 380 Intake: Intake, Oral Amount 240 / 240 380 / 380 Intake, IV Amount 600 / 750 150 / 750 0.9 % Sodium Chloride 500 ml @ 500 / 500 999 mls/hr IV .Q31M [facility] Rx#: [id number] cefEPime HCl 2 gm In 0.9 % 100 / 100 Sodium Chloride 50 ml @ 100 mls /hr IV Q8H [facility] Rx#:[id number] levoFLOXacin/D5W 750 mg In 150 150 / 150 ml @ 100 mls/hr IV Q24H [facility] Rx# :[id number] Other: Breakfast % Eaten 100% Lunch % Eaten 100% Number of Unmeasured Voids 1 2 Urine Bedside Commode Bathroom Urine Color Yellow Weight 105 kg Weight 105 kg - Constitutional Present: no acute distress, obese - Routine HEENT Exam Head: Present: normal inspection Eye: Present: normal appearance - Routine Neck Exam Present: supple. Absent: lymphadenopathy - Routine Respiratory Exam Present: decreased breath sounds. Absent: accessory muscle use - Routine Cardiovascular Exam Cardiovascular: Present: S1, S2 - Routine Abdominal Exam Present: soft - Routine Extremities Exam Present: normal inspection. Absent: calf tenderness - Routine Skin Exam Present: intact - Routine Neurological Exam Present: alert, oriented X3 Hem/Onc Consult Result - Labs CBC & Chem 7: 11/28/22 08:44 11/27/22 10:27 Labs: Short CBC 11/28/22 Range/Units 08:44 WBC 1.8 L (4.8-10.8) X10*3/uL Hgb 9.7 L (12.0-16.0) g/dl Hct 28.0 L (37.0-47.0) % Plt Count 126 L (160-400) X10*3/uL Assessment and Plan Patient Active problem list reviewed?: Yes (1) Invasive ductal carcinoma of right breast Status: Chronic Assessment and plan: 1. This is a pleasant 67-year-old postmenopausal woman with metastatic breast cancer. She has been started on letrozole 2.5 mg once a day. She started palbociclib 125 mg day 1-20 1q28 day cycle from 09/05/22. She has been started on denosumab 120 mg monthly for bone metastasis. 2. Pneumonia/ pneumonitis of right upper lobe. She is on antibiotics and feeling better. Palbociclib can also be associated with pneumonitis. This will be closely monitored. I have asked her to stop taking palbociclib for the time being. 3. 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 This is stable. I thank you for this consultation. - Time Spent With Patient Time Spent with Patient (in minutes): 15
[2022-11-28] MEDS: levoFLOXacin/D5W 750 MG/150 ML PIGGYBACK 100 MG IV (17:11)
[2022-11-28 19:28] LABS: Glucose, Whole Blood 150 mg/dL (60-115)
[2022-11-28] MEDS: ARIPiprazole 20 MG TABLET PO (21:50)
[2022-11-28] MEDS: Escitalopram Oxalate 20 MG TABLET PO (21:50)
[2022-11-29] VITALS (13 sets, daily range): BP systolic 105–144; BP diastolic 52–77; PULSE 63–105; RESP 16–20; TEMP 36.3–37; O2SAT 92–99
[2022-11-29] MEDS: Morphine Sulfate ER 30 MG TABLET.ER PO ×2 (03:27→15:08)
[2022-11-29] MEDS: Omeprazole 20 MG CAPSULE.DR PO (06:01)
[2022-11-29 07:39] LABS: Glucose, Whole Blood 101 mg/dL (60-115)
[2022-11-29] MEDS: Fluticasone Propionate 100 MCG BLST.W.DEV 2 PUFF INHALE ×2 (07:47→10:34)
[2022-11-29] MEDS: Albuterol/Iprat 2.5/0.5MG 3 ML AMPUL.NEB INHALE ×4 (07:47→20:05)
[2022-11-29] MEDS: Nystatin Oral Susp 500,000 UNIT/5 ML ORAL.SUSP 500000 UNIT PO ×3 (08:24→20:43)
[2022-11-29] MEDS: Isosorbide Mononitrate 30 MG TAB.ER.24H PO (08:25)
[2022-11-29] MEDS: Pravastatin Sodium 20 MG TABLET PO (08:25)
[2022-11-29] MEDS: Furosemide 40 MG TABLET PO (08:25)
[2022-11-29] MEDS: Enoxaparin Sodium 40 MG/0.4 ML SYRINGE SUBCUT (08:25)
[2022-11-29] MEDS: Cholecalciferol (Vitamin D3) 25 MCG TABLET PO (08:25)
[2022-11-29] MEDS: Gabapentin 300 MG CAPSULE PO ×3 (08:25→20:43)
[2022-11-29] MEDS: Metoprolol Tartrate 50 MG TABLET PO (08:25)
[2022-11-29] MEDS: calcium polycarbophiL TABLET 1 TAB PO (08:25)
[2022-11-29] MEDS: 0.9 % Sodium Chloride Flush 3 ML SYRINGE IVFLUSH ×3 (08:39→20:43)
--- NOTE | 2022-11-29 09:12 | MHC.CDI.CONC ---
CDI Concurrent Query Documentation Clarification: PHYSICIAN'S DOCUMENTATION REQUEST Date of Query: 11/29/22911 Patient Name: Treva Abbott Admit Date: 11/27/22 Dear Doctor, A review of the medical record indicates additional documentation may be needed. Please review below and update the documentation accordingly. 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 Please clarify the relationship between these conditions if any at all: Pancytopenia, due to chemotherapy Pancytopenia, due to e.g. aplastic anemia etc. Not treating pancytopenia Other etiology Unable to determine Use of terms such as suspected, likely, concern for, or probable (associated with a specific diagnosis that is being evaluated, monitored, or treated as if it exists) are acceptable and can be coded in the inpatient setting, when documented at the time of discharge. Thank you, Marta Armando [facility], CDIS Extension: [phone] Please use your independent medical judgment in providing your response. THIS QUERY IS PART OF THE PERMANENT MEDICAL RECORD Provider Response: Other (Pancytopenia secondary to chemo) Other Diagnosis: pancytopenia due to chemo
[2022-11-29] MEDS: Salmeterol Xinafoate 50 MCG BLST.W.DEV 1 PUFF INHALE (10:35)
[2022-11-29 11:35] LABS: Glucose, Whole Blood 110 mg/dL (60-115)
--- NOTE | 2022-11-29 12:01 | HO.PM.IMPN ---
Subjective Subjective Date of Service: 11/29/22 Interval History: follow up for pneumonia Review of Systems patient still excerional sob, has cough Generalized weak, denies any chest pain or abdominal pain or nausea or vomiting or diarrhea. Physical Exam Vital Signs: Vital Signs: Last Vital Signs Temp 98.2 F 11/29/22 11:14 Pulse 64 11/29/22 11:37 Resp 20 11/29/22 11:37 BP 114/57 L 11/29/22 11:14 Pulse Ox 94 11/29/22 11:14 O2 Del Method 11/29/22 11:14 O2 Flow Rate 3 11/29/22 11:14 BMI result Body Mass Index 39.7 Appearance: Alert.? Oriented X3.? Kazakh-speaking female, not in distress.? cvs: rrr, [id number] , no murmur res: air entry diminshed ,right >left. abd: no rebound or guarding ,nt, bs present. ext pulses present , no cyanosis. neuro: axo3 , nonfocal. Objective Data Active Medications Acetaminophen (Acetaminophen 325 Mg Tablet) 650 mg PO Q6H PRN PRN Reason: Pain Last Admin: 11/27/22 23:14 Dose: 650 mg Documented By: ODRISShay Albuterol/Ipratropium (Albuterol/Iprat 2.5/0.5mg 3 Ml Ampul.Neb) 3 ml INHALE RQ4H WHILE AWAKE [facility] Last Admin: 11/29/22 11:35 Dose: 3 ml Documented By: ROGELIO Aripiprazole (Aripiprazole 20 Mg Tablet) 20 mg PO BEDTIME [facility] Last Admin: 11/28/22 21:50 Dose: 20 mg Documented By: EDE Calcium Polycarbophil (Calcium Polycarbophil Tablet) 1 tab PO DAILY [facility] Last Admin: 11/29/22 08:25 Dose: 1 tab Documented By: MAYURI Dextrose (Dextrose 50 % 25 Gm/50 Ml Syringe) 25 gm IVPUSH Q15M PRN; Protocol PRN Reason: per Hypoglycemia Standing Ord. Enoxaparin Sodium (Enoxaparin Sodium 40 Mg/0.4 Ml Syringe) 40 mg SUBCUT DAILY [facility] Last Admin: 11/29/22 08:25 Dose: 40 mg Documented By: MAYURI Escitalopram Oxalate (Escitalopram Oxalate 20 Mg Tablet) 20 mg PO BEDTIME [facility] Last Admin: 11/28/22 21:50 Dose: 20 mg Documented By: EDE Fluticasone Propionate (Fluticasone Propionate 100 Mcg Blst.W.Dev) 2 puff INHALE RBID [facility] Last Admin: 11/29/22 10:34 Dose: 2 puff Documented By: MAYURI Furosemide (Furosemide 40 Mg Tablet) 40 mg PO DAILY [facility]; Protocol Last Admin: 11/29/22 08:25 Dose: 40 mg Documented By: MAYURI Gabapentin (Gabapentin 300 Mg Capsule) 300 mg PO TID [facility] Last Admin: 11/29/22 08:25 Dose: 300 mg Documented By: MAYURI Glucose (Glucose Gel 15 Gm Gel..Gram.) 15 gm PO Q15M PRN; Protocol PRN Reason: per Hypoglycemia Standing Ord. Levofloxacin (Levaquin) 750 mg in 150 mls @ 100 mls/hr IV Q24H [facility] Last Infusion: 11/28/22 19:27 Dose: 0 mls/hr Documented By: STAS Insulin Human Lispro (Insulin Lispro 100 Unit/Ml 3 Ml Vial) 0 unit SUBCUT QIDACHS [facility]; Protocol Last Admin: 11/29/22 11:44 Dose: Not Given Documented By: MAYURI Non-Admin Reason: No Insulin Coverage Isosorbide Mononitrate (Isosorbide Mononitrate 30 Mg Tab.Er.24h) 30 mg PO DAILY [facility]; Protocol Last Admin: 11/29/22 08:25 Dose: 30 mg Documented By: MAYURI Metoprolol Tartrate (Metoprolol Tartrate 50 Mg Tablet) 50 mg PO DAILY [facility]; Protocol Last Admin: 11/29/22 08:25 Dose: 50 mg Documented By: MAYURI Morphine Sulfate (Morphine Sulfate Er 30 Mg Tablet.Er) 30 mg PO Q12H [facility] Last Admin: 11/29/22 03:27 Dose: 30 mg Documented By: EDE Naloxone HCl (Naloxone Hcl Nasal 4 Mg [place]) 4 mg NOSTRILALT Q2M PRN PRN Reason: Opioid Overdose Nitroglycerin (Nitroglycerin 0.4 Mg Tab.Subl) 0.4 mg SUBLINGUAL Q5M PRN PRN Reason: Chest Pain Nystatin (Nystatin Oral Susp 500,000 Unit/5 Ml Oral.Susp) 500,000 unit PO TID [facility]; Protocol Last Admin: 11/29/22 08:24 Dose: 500,000 unit Documented By: MAYURI Omeprazole (Omeprazole 20 Mg Capsule.Dr) 20 mg PO DAILY@0630 [facility] Last Admin: 11/29/22 06:01 Dose: 20 mg Documented By: EDE Ondansetron HCl (Ondansetron Hcl 4 Mg/2 Ml Vial) 4 mg IVPUSH Q6H PRN PRN Reason: Nausea and Vomiting Oxybutynin Chloride (Oxybutynin Chloride Er 5 Mg Tab.Er.24) 20 mg PO DAILY [facility] Last Admin: 11/29/22 08:24 Dose: 20 mg Documented By: MAYURI Oxycodone HCl (Oxycodone Hcl Immed Release 5 Mg Tablet) 5 mg PO Q4H PRN PRN Reason: Breakthrough Pain Pravastatin Sodium (Pravastatin Sodium 20 Mg Tablet) 20 mg PO DAILY [facility] Last Admin: 11/29/22 08:25 Dose: 20 mg Documented By: MAYURI Salmeterol Xinafoate (Salmeterol Xinafoate 50 Mcg Blst.W.Dev) 1 puff INHALE RBID [facility] Last Admin: 11/29/22 10:35 Dose: 1 puff Documented By: MAYURI Senna (Sennosides 8.6 Mg Tablet) 17.2 mg PO BEDTIME PRN PRN Reason: Constipation Sodium Chloride (0.9 % Sodium Chloride Flush 3 Ml Syringe) 3 ml IVFLUSH QSHIFT [facility] Last Admin: 11/29/22 08:39 Dose: 3 ml Documented By: MAYURI Tiotropium [place] (Tiotropium [place] 18 Mcg Cap.W.Dev) 1 puff INHALE RDAILY [facility] Last Admin: 11/29/22 10:37 Dose: 1 puff Documented By: MAYURI Trazodone HCl (Trazodone Hcl 50 Mg Tablet) 50 mg PO BEDTIME PRN PRN Reason: Insomnia Vitamin D (Cholecalciferol (Vitamin D3) 25 Mcg Tablet) 25 mcg PO DAILY [facility] Last Admin: 11/29/22 08:25 Dose: 25 mcg Documented By: MAYURI Labs CBC & Chem 7: 11/28/22 08:44 11/27/22 10:27 Labs: Laboratory Results - last 24 hr 11/28/22 11/28/22 11/29/22 15:02 19:08 07:17 POC Glucose 122 H 150 H 101 11/29/22 11:11 POC Glucose 110 Microbiology Microbiology Results: Microbiology 11/27/22 11:07 Blood Culture - Preliminary Blood - Venous No growth after 24 hours. 11/27/22 11:07 Blood Culture - Preliminary Blood - Venous No growth after 24 hours. Assessment and Plan (1) Diarrhea: Status: Acute (2) Pneumonia: Status: Acute (3) Pneumonitis: Status: Acute (4) Generalized weakness: Status: Acute Plan 67y/of with pmhx of? asthma, COPD on 2 L NC baseline, diabetes, HTN, sleep apnea, right breast invasive ductal carcinoma/metastatic breast CA w/bone mets currently on chemotherapy and radiation Came with productive cough, generalized weakness, somewhat short of breath with walking.? Getting admitted for pneumonia. 1. Pneumonia, denies any sick contact or travel . ch leucocpenia possible sec to chemo,tachycardia improved. No sepsis procalcitonin level-0.07, respiratory panel. Lactic acid normal, blood cultures neg 24hrs. Continue IV antibiotic-IV doxy and cefepime. ID eval if needed. 2.ch respiratory failure sec hx of copd: prn nebs,continue home meds,continue home oxygen. 3.dm : hold lantus due to poor oral inatke and diarrhea, Fingerstick with sliding scale coverage. 4. Hypertension:? Continue home medications. 5.Sleep apnea : continue cpap. 6. ch diarrahe -somewhat inceasing,adb discomfort c diff ,gip panel-neg diarrahe inproved defer antibiotics 7. pancytopenia sec to chemo: Chronic wbc improvin Monitor closely CBC Platelets are stable around 126 range No bleeding or bruising. dvt prophylax: s/c lovenox ongoing need hospitlisation stay-pneumonia in a immunocompromised patient need IV antibiotics, blood cultures also pending. Time Spent With Patient Time: Total time managing care of this patient today ____ minutes. Quality Stroke Does the patient have a stroke diagnosis?: No VTE Prior VTE?: No VTE Risk Level:: Medical - moderate - high VTE Device Contraindication: N/A - Device Ordered VTE Drug Contraindication: N/A - Med Ordered
--- NOTE | 2022-11-29 15:07 | MHC.CM.PN ---
per rounds pt not ready for dc when medically dc plan remains str
[2022-11-29 16:14] LABS: Glucose, Whole Blood 127 mg/dL (60-115)
[2022-11-29] MEDS: levoFLOXacin/D5W 750 MG/150 ML PIGGYBACK 100 MG IV (17:55)
[2022-11-29 19:42] LABS: Glucose, Whole Blood 120 mg/dL (60-115)
[2022-11-29] MEDS: traZODone HCL 50 MG TABLET PO (20:43)
[2022-11-29] MEDS: ARIPiprazole 20 MG TABLET PO (20:43)
[2022-11-29] MEDS: oxyCODONE HCl Immed Release 5 MG TABLET PO (20:43)
[2022-11-29] MEDS: Escitalopram Oxalate 20 MG TABLET PO (20:43)
[2022-11-30] VITALS (10 sets, daily range): BP systolic 92–131; BP diastolic 50–62; PULSE 58–110; RESP 18–20; TEMP 36.2–36.6; O2SAT 93–97
[2022-11-30] MEDS: Morphine Sulfate ER 30 MG TABLET.ER PO ×2 (03:07→15:23)
[2022-11-30] MEDS: Omeprazole 20 MG CAPSULE.DR PO (06:19)
[2022-11-30] MEDS: Pravastatin Sodium 20 MG TABLET PO (08:14)
[2022-11-30] MEDS: Cholecalciferol (Vitamin D3) 25 MCG TABLET PO (08:14)
[2022-11-30] MEDS: Enoxaparin Sodium 40 MG/0.4 ML SYRINGE SUBCUT (08:14)
[2022-11-30] MEDS: 0.9 % Sodium Chloride Flush 3 ML SYRINGE IVFLUSH ×3 (08:14→21:37)
[2022-11-30] MEDS: Gabapentin 300 MG CAPSULE PO ×3 (08:14→21:36)
[2022-11-30] MEDS: calcium polycarbophiL TABLET 1 TAB PO (08:14)
[2022-11-30 08:15] LABS: Glucose, Whole Blood 97 mg/dL (60-115)
[2022-11-30] MEDS: Nystatin Oral Susp 500,000 UNIT/5 ML ORAL.SUSP 500000 UNIT PO ×3 (08:17→21:37)
[2022-11-30] MEDS: Albuterol/Iprat 2.5/0.5MG 3 ML AMPUL.NEB INHALE ×3 (08:27→19:25)
[2022-11-30] MEDS: Fluticasone Propionate 100 MCG BLST.W.DEV 2 PUFF INHALE ×2 (08:27→19:25)
[2022-11-30 11:53] LABS: Glucose, Whole Blood 114 mg/dL (60-115)
--- NOTE | 2022-11-30 13:52 | P.PNIM_ITS ---
Subjective Subjective Date of Service: 11/30/22 Interval History: sob,boderline blood pressure Review of Systems Still feel short of breath with minimal exertion but somewhat improving in cparsion to yesterday, cough, denies any chest pain feels generally weak. No fever Physical Exam Vital Signs: Vital Signs: Last Vital Signs Temp 97.9 F 11/30/22 12:00 Pulse 80 11/30/22 12:00 Resp 20 11/30/22 12:00 BP 118/56 L 11/30/22 12:00 Pulse Ox 96 11/30/22 12:00 O2 Del Method 11/30/22 12:00 O2 Flow Rate 3 11/30/22 12:00 BMI result Body Mass Index 39.7 Appearance: Alert.? Oriented X3.? Kyrgyz-speaking female, not in distress.? cvs: rrr, [id number] , no murmur res: air entry diminshed ,right >left. abd: no rebound or guarding ,nt, bs present. ext pulses present , no cyanosis. neuro: axo3 , nonfocal. Objective Data Active Medications Acetaminophen (Acetaminophen 325 Mg Tablet) 650 mg PO Q6H PRN PRN Reason: Pain Last Admin: 11/27/22 23:14 Dose: 650 mg Documented By: ODRISShay Albuterol/Ipratropium (Albuterol/Iprat 2.5/0.5mg 3 Ml Ampul.Neb) 3 ml INHALE RQ4H WHILE AWAKE [facility] Last Admin: 11/30/22 11:39 Dose: 3 ml Documented By: ASHA Aripiprazole (Aripiprazole 20 Mg Tablet) 20 mg PO BEDTIME [facility] Last Admin: 11/29/22 20:43 Dose: 20 mg Documented By: KATHERINE Calcium Polycarbophil (Calcium Polycarbophil Tablet) 1 tab PO DAILY [facility] Last Admin: 11/30/22 08:14 Dose: 1 tab Documented By: MAYURI Dextrose (Dextrose 50 % 25 Gm/50 Ml Syringe) 25 gm IVPUSH Q15M PRN; Protocol PRN Reason: per Hypoglycemia Standing Ord. Enoxaparin Sodium (Enoxaparin Sodium 40 Mg/0.4 Ml Syringe) 40 mg SUBCUT DAILY [facility] Last Admin: 11/30/22 08:14 Dose: 40 mg Documented By: MAYURI Escitalopram Oxalate (Escitalopram Oxalate 20 Mg Tablet) 20 mg PO BEDTIME [facility] Last Admin: 11/29/22 20:43 Dose: 20 mg Documented By: KATHERINE Fluticasone Propionate (Fluticasone Propionate 100 Mcg Blst.W.Dev) 2 puff INHALE RBID [facility] Last Admin: 11/30/22 08:27 Dose: 2 puff Documented By: ASHA Furosemide (Furosemide 40 Mg Tablet) 40 mg PO DAILY [facility]; Protocol Last Admin: 11/29/22 08:25 Dose: 40 mg Documented By: MAYURI Gabapentin (Gabapentin 300 Mg Capsule) 300 mg PO TID [facility] Last Admin: 11/30/22 08:14 Dose: 300 mg Documented By: MAYURI Glucose (Glucose Gel 15 Gm Gel..Gram.) 15 gm PO Q15M PRN; Protocol PRN Reason: per Hypoglycemia Standing Ord. Levofloxacin (Levaquin) 750 mg in 150 mls @ 100 mls/hr IV Q24H [facility] Last Infusion: 11/29/22 19:34 Dose: 0 mls/hr Documented By: MAYURI Insulin Human Lispro (Insulin Lispro 100 Unit/Ml 3 Ml Vial) 0 unit SUBCUT QIDACHS [facility]; Protocol Last Admin: 11/30/22 12:03 Dose: Not Given Documented By: MAYURI Non-Admin Reason: No Insulin Coverage Isosorbide Mononitrate (Isosorbide Mononitrate 30 Mg Tab.Er.24h) 30 mg PO DAILY [facility]; Protocol Last Admin: 11/29/22 08:25 Dose: 30 mg Documented By: MAYURI Metoprolol Tartrate (Metoprolol Tartrate 50 Mg Tablet) 50 mg PO DAILY [facility]; Protocol Last Admin: 11/29/22 08:25 Dose: 50 mg Documented By: MAYURI Morphine Sulfate (Morphine Sulfate Er 30 Mg Tablet.Er) 30 mg PO Q12H [facility] Last Admin: 11/30/22 03:07 Dose: 30 mg Documented By: KATHERINE Naloxone HCl (Naloxone Hcl Nasal 4 Mg [place]) 4 mg NOSTRILALT Q2M PRN PRN Reason: Opioid Overdose Nitroglycerin (Nitroglycerin 0.4 Mg Tab.Subl) 0.4 mg SUBLINGUAL Q5M PRN PRN Reason: Chest Pain Nystatin (Nystatin Oral Susp 500,000 Unit/5 Ml Oral.Susp) 500,000 unit PO TID [facility]; Protocol Last Admin: 11/30/22 08:17 Dose: 500,000 unit Documented By: MAYURI Omeprazole (Omeprazole 20 Mg Capsule.Dr) 20 mg PO DAILY@0630 [facility] Last Admin: 11/30/22 06:19 Dose: 20 mg Documented By: KATHERINE Ondansetron HCl (Ondansetron Hcl 4 Mg/2 Ml Vial) 4 mg IVPUSH Q6H PRN PRN Reason: Nausea and Vomiting Oxybutynin Chloride (Oxybutynin Chloride Er 5 Mg Tab.Er.24) 20 mg PO DAILY [facility] Last Admin: 11/30/22 08:13 Dose: 20 mg Documented By: MAYURI Oxycodone HCl (Oxycodone Hcl Immed Release 5 Mg Tablet) 5 mg PO Q4H PRN PRN Reason: Breakthrough Pain Last Admin: 11/29/22 20:43 Dose: 5 mg Documented By: KATHERINE Pravastatin Sodium (Pravastatin Sodium 20 Mg Tablet) 20 mg PO DAILY [facility] Last Admin: 11/30/22 08:14 Dose: 20 mg Documented By: MAYURI Salmeterol Xinafoate (Salmeterol Xinafoate 50 Mcg Blst.W.Dev) 1 puff INHALE RBID [facility] Last Admin: 11/30/22 07:51 Dose: Not Given Documented By: ASHA Non-Admin Reason: Physician Held Med Senna (Sennosides 8.6 Mg Tablet) 17.2 mg PO BEDTIME PRN PRN Reason: Constipation Sodium Chloride (0.9 % Sodium Chloride Flush 3 Ml Syringe) 3 ml IVFLUSH QSHIFT [facility] Last Admin: 11/30/22 08:14 Dose: 3 ml Documented By: MAYURI Tiotropium [place] (Tiotropium [place] 18 Mcg Cap.W.Dev) 1 puff INHALE RDAILY [facility] Last Admin: 11/30/22 08:27 Dose: 1 puff Documented By: ASHA Trazodone HCl (Trazodone Hcl 50 Mg Tablet) 50 mg PO BEDTIME PRN PRN Reason: Insomnia Last Admin: 11/29/22 20:43 Dose: 50 mg Documented By: KATHERINE Vitamin D (Cholecalciferol (Vitamin D3) 25 Mcg Tablet) 25 mcg PO DAILY [facility] Last Admin: 11/30/22 08:14 Dose: 25 mcg Documented By: MAYURI Labs CBC & Chem 7: 11/28/22 08:44 11/27/22 10:27 Labs: Laboratory Results - last 24 hr 11/29/22 11/29/22 11/30/22 16:04 19:15 07:17 POC Glucose 127 H 120 H 97 11/30/22 11:47 POC Glucose 114 Microbiology Microbiology Results: Microbiology 11/27/22 11:07 Blood Culture - Preliminary Blood - Venous No growth after 48 hours. 11/27/22 11:07 Blood Culture - Preliminary Blood - Venous No growth after 48 hours. Assessment and Plan (1) Diarrhea: Status: Acute (2) Pneumonia: Status: Acute (3) Pneumonitis: Status: Acute (4) Generalized weakness: Status: Acute Plan 67y/of with pmhx of? asthma, COPD on 2 L NC baseline, diabetes, HTN, sleep apnea, right breast invasive ductal carcinoma/metastatic breast CA w/bone mets currently on chemotherapy and radiation Came with productive cough, generalized weakness, somewhat short of breath with walking.? Getting admitted for pneumonia. 1. Pneumonia, denies any sick contact or travel . ch leucocpenia possible sec to chemo,tachycardia improved. No sepsis procalcitonin level-0.07, respiratory panel. Lactic acid normal, blood cultures neg 24hrs. Continue IV antibiotic-IV doxy and cefepime. ID eval if needed. 2.ch respiratory failure sec hx of copd: prn nebs,continue home meds,continue home oxygen. 3.dm : hold lantus due to poor oral inatke and diarrhea, Fingerstick with sliding scale coverage. 4. Hypertension:?boderline blood pressure - hold bp medications. 5.Sleep apnea : continue cpap. 6. ch diarrahe -somewhat inceasing,adb discomfort c diff ,gip panel-neg diarrahe inproved defer antibiotics 7. pancytopenia sec to chemo: Chronic wbc improvin Monitor closely CBC Platelets are stable around 126 range No bleeding or bruising. dvt prophylax: s/c lovenox ongoing need hospitlisation stay-pneumonia in a immunocompromised patient need IV antibiotics, blood cultures also pending. Time Spent With Patient Time: Total time managing care of this patient today ____ minutes. Quality Stroke Does the patient have a stroke diagnosis?: No VTE Prior VTE?: No VTE Risk Level:: Medical - moderate - high VTE Device Contraindication: N/A - Device Ordered VTE Drug Contraindication: N/A - Med Ordered
--- NOTE | 2022-11-30 15:16 | PM.HEMONCPN ---
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 Additional mammographic views and ultrasound performed 02/08/2022 revealed 2 right breast nodules in the retroareolar region, larger measuring 0.8 cm and smaller measuring 0.6 cm, 1.3 cm apart. No skin retraction or thickening. Ultrasound right axilla demonstrated abnormal axillae lymph node measuring 2.1 x 1.2 cm. All of them were is suspicious, biopsies were performed on 02/14/2022 which revealed invasive ductal carcinoma with mucinous features, MS grade 2. Family history significant for mother having of breast cancer at age 57 and sister diagnosed with breast cancer at age 68. There is family history of breast cancer. She is 3 para 2. With her 3rd she had a spontaneous , hysterectomy had to be performed in [place] and she was diagnosed with cancer either of the uterus or cervix. She was 25 at the time. She did not require chemotherapy or radiation therapy. On 02/25/2022 patient underwent right breast lumpectomy and sentinel node biopsy which revealed invasive ductal carcinoma with mucinous and focal lobular features, multifocal, largest focus 0.9 cm, margins negative. One lymph node positive for metastatic carcinoma. Pathological stage pT1b N1a size of largest metastatic deposit in lymph node is 3.5 cm, extranodal extension present. LVI present. Oncotype DX breast recurrence score 16 in one tumor mass and 15 in another tumor mass. Risk of distant recurrence 14-15% at 9 years and no benefit of adjuvant chemotherapy. Patient has been receiving adjuvant radiation therapy at [facility], she developed back and lower abdominal pain which was ongoing for several weeks prior to her visit to the ED. CT abdomen/pelvis without contrast performed 07/02/2022 revealed new lytic lesions in the osseous structures. No significant acute intra-abdominal pelvic abnormality. Multiple lytic lesions with associated vertebral pathological fractures involving L1, L2 and L4. 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 [id number] spinal canal stenosis at L4-L5. No evidence of cord compression. Patient was subsequently seen at [facility] emergency room for chest pain. She underwent CT angiogram which revealed no pulmonary embolism but multiple lytic bone lesions, most significantly in the sternum and nondisplaced pathological fracture at L1 with loss of vertebral body height. Ground-glass opacity in the lungs, enlarged AP window mediastinal nodes concerning for metastatic disease. No evidence of metastasis within the lungs, abdomen or pelvis. She underwent CT-guided biopsy of sternal lesion, unfortunately not enough tissue to make diagnosis. Patient was referred to neurosurgeon, Dr. Bourne at [facility], however, patient was unable to keep that appointment. Interval History Interval history: She was seen today, covering for Dr. Katz. Her pain is controlled and she seems comfortable. No new problems have arisen. She will be followed over the long weekend. Review of Systems - Constitutional Reports weight loss - Eyes Reports other - ENT Reports system reviewed and no additional complaints, except as documented - Cardiovascular Reports other - Respiratory Reports dyspnea - Gastrointestinal Reports other - Genitourinary Reports abnormal periods - Musculoskeletal Reports back pain, Reports decreased muscle mass - Neurologic Reports system reviewed and no additional complaints, except as documented, Denies abnormal speech [facility] Medical History: Medical History (Last Reviewed 11/27/22 @ 15:05 by Nicole Washington MD) Asthma COPD (chronic obstructive pulmonary disease) Diabetes type 2, controlled Hypertension Invasive ductal carcinoma of right breast Sleep apnea Tubular adenoma Family History: Family History (Last Reviewed 11/27/22 @ 15:05 by Nicole Washington MD) Brother Diabetes Sister Diabetes Breast cancer, Onset Age: 67 Mother Breast cancer, Onset Age: 59 Maternal Aunt Breast cancer Surgical History: Surgical History (Last Reviewed 11/27/22 @ 15:05 by Nicole Washington MD) History of lumpectomy of right breast Hx of colonoscopy Hx of right breast biopsy Social History: Social History (Last Reviewed 11/27/22 @ 15:06 by Nicole Washington MD) Living Situation History: Household Members: None Housing: Apartment Are you a primary foster care worker to a significant other at home: No Do you presently have visiting nurse or other home services: Yes Tobacco History: Patient Tobacco Use Status: Former Tobacco user Tobacco use type: Cigarette Advance Directives: Advance Directives Date on File: 03/22/21 Occupation Assessmet: service: No Current occupational status: 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 Home Medications and Allergies Current Medications: Current Medications Acetaminophen (Acetaminophen 325 Mg Tablet) 650 mg PO Q6H PRN PRN Reason: Pain Last Admin: 11/27/22 23:14 Dose: 650 mg Albuterol/Ipratropium (Albuterol/Iprat 2.5/0.5mg 3 Ml Ampul.Neb) 3 ml INHALE RQ4H WHILE AWAKE GRIFFIN Last Admin: 11/30/22 11:39 Dose: 3 ml Aripiprazole (Aripiprazole 20 Mg Tablet) 20 mg PO BEDTIME GRIFFIN Last Admin: 11/29/22 20:43 Dose: 20 mg Calcium Polycarbophil (Calcium Polycarbophil Tablet) 1 tab PO DAILY GRIFFIN Last Admin: 11/30/22 08:14 Dose: 1 tab Dextrose (Dextrose 50 % 25 Gm/50 Ml Syringe) 25 gm IVPUSH Q15M PRN; Protocol PRN Reason: per Hypoglycemia Standing Ord. Enoxaparin Sodium (Enoxaparin Sodium 40 Mg/0.4 Ml Syringe) 40 mg SUBCUT DAILY [facility] Last Admin: 11/30/22 08:14 Dose: 40 mg Escitalopram Oxalate (Escitalopram Oxalate 20 Mg Tablet) 20 mg PO BEDTIME GRIFFIN Last Admin: 11/29/22 20:43 Dose: 20 mg Fluticasone Propionate (Fluticasone Propionate 100 Mcg Blst.W.Dev) 2 puff INHALE RBID GRIFFIN Last Admin: 11/30/22 08:27 Dose: 2 puff Furosemide (Furosemide 40 Mg Tablet) 40 mg PO DAILY GRIFFIN; Protocol Last Admin: 11/29/22 08:25 Dose: 40 mg Gabapentin (Gabapentin 300 Mg Capsule) 300 mg PO TID GRIFFIN Last Admin: 11/30/22 08:14 Dose: 300 mg Glucose (Glucose Gel 15 Gm Gel..Gram.) 15 gm PO Q15M PRN; Protocol PRN Reason: per Hypoglycemia Standing Ord. Levofloxacin (Levaquin) 750 mg in 150 mls @ 100 mls/hr IV Q24H [facility] Last Infusion: 11/29/22 19:34 Dose: Infused Insulin Human Lispro (Insulin Lispro 100 Unit/Ml 3 Ml Vial) 0 unit SUBCUT QIDACHS [facility]; Protocol Last Admin: 11/30/22 12:03 Dose: Not Given Isosorbide Mononitrate (Isosorbide Mononitrate 30 Mg Tab.Er.24h) 30 mg PO DAILY [facility]; Protocol Last Admin: 11/29/22 08:25 Dose: 30 mg Metoprolol Tartrate (Metoprolol Tartrate 50 Mg Tablet) 50 mg PO DAILY [facility]; Protocol Last Admin: 11/29/22 08:25 Dose: 50 mg Morphine Sulfate (Morphine Sulfate Er 30 Mg Tablet.Er) 30 mg PO Q12H [facility] Last Admin: 11/30/22 03:07 Dose: 30 mg Naloxone HCl (Naloxone Hcl Nasal 4 Mg [place]) 4 mg NOSTRILALT Q2M PRN PRN Reason: Opioid Overdose Nitroglycerin (Nitroglycerin 0.4 Mg Tab.Subl) 0.4 mg SUBLINGUAL Q5M PRN PRN Reason: Chest Pain Nystatin (Nystatin Oral Susp 500,000 Unit/5 Ml Oral.Susp) 500,000 unit PO TID [facility]; Protocol Last Admin: 11/30/22 08:17 Dose: 500,000 unit Omeprazole (Omeprazole 20 Mg Capsule.Dr) 20 mg PO DAILY@0630 [facility] Last Admin: 11/30/22 06:19 Dose: 20 mg Ondansetron HCl (Ondansetron Hcl 4 Mg/2 Ml Vial) 4 mg IVPUSH Q6H PRN PRN Reason: Nausea and Vomiting Oxybutynin Chloride (Oxybutynin Chloride Er 5 Mg Tab.Er.24) 20 mg PO DAILY [facility] Last Admin: 11/30/22 08:13 Dose: 20 mg Oxycodone HCl (Oxycodone Hcl Immed Release 5 Mg Tablet) 5 mg PO Q4H PRN PRN Reason: Breakthrough Pain Last Admin: 11/29/22 20:43 Dose: 5 mg Pravastatin Sodium (Pravastatin Sodium 20 Mg Tablet) 20 mg PO DAILY [facility] Last Admin: 11/30/22 08:14 Dose: 20 mg Salmeterol Xinafoate (Salmeterol Xinafoate 50 Mcg Blst.W.Dev) 1 puff INHALE RBID [facility] Last Admin: 11/30/22 07:51 Dose: Not Given Senna (Sennosides 8.6 Mg Tablet) 17.2 mg PO BEDTIME PRN PRN Reason: Constipation Sodium Chloride (0.9 % Sodium Chloride Flush 3 Ml Syringe) 3 ml IVFLUSH QSHIFT [facility] Last Admin: 11/30/22 08:14 Dose: 3 ml Tiotropium [place] (Tiotropium [place] 18 Mcg Cap.W.Dev) 1 puff INHALE RDAILY [facility] Last Admin: 11/30/22 08:27 Dose: 1 puff Trazodone HCl (Trazodone Hcl 50 Mg Tablet) 50 mg PO BEDTIME PRN PRN Reason: Insomnia Last Admin: 11/29/22 20:43 Dose: 50 mg Vitamin D (Cholecalciferol (Vitamin D3) 25 Mcg Tablet) 25 mcg PO DAILY [facility] Last Admin: 11/30/22 08:14 Dose: 25 mcg Home Medications Medication Instructions Recorded Confirmed Type aripiprazole 20 mg tablet (Abilify) 20 mg PO BEDTIME 02/14/22 11/27/22 History blood sugar diagnostic (FreeStyle #10 ea 02/14/22 11/20/22 History Lite Strips) citalopram 40 mg tablet 40 mg PO BEDTIME 02/14/22 11/27/22 History gabapentin 300 mg capsule 300 mg PO TID 02/14/22 11/27/22 History insulin glargine 100 unit/mL 30 unit subcut DAILY 02/14/22 11/27/22 History subcutaneous solution (Lantus U-100 Insulin) trazodone 50 mg tablet 50 mg PO BEDTIME PRN Insomnia 02/14/22 11/27/22 History isosorbide mononitrate 30 mg 1 tab PO DAILY 04/09/22 11/27/22 History tablet,extended release 24 hr pravastatin 20 mg tablet 1 tab PO DAILY 04/09/22 11/27/22 History acetaminophen 500 mg tablet 500 mg PO Q6H PRN Pain 11/27/22 11/27/22 History cholecalciferol (vitamin D3) 25 25 mcg PO DAILY 11/27/22 11/27/22 History mcg (1,000 unit) tablet (Vitamin D3) fluticasone propionate 110 2 puff inhalation BID 11/27/22 11/27/22 History mcg/actuation HFA aerosol inhaler (Flovent HFA) furosemide 40 mg tablet 40 mg PO DAILY 11/27/22 11/27/22 History metoprolol tartrate 50 mg tablet 1 tab PO DAILY 11/27/22 11/27/22 History naloxone 4 mg/actuation nasal spray 1 spray intranasal Q2M PRN Opioid 11/27/22 11/27/22 History Overdose nitroglycerin 0.4 mg sublingual 0.4 mg sublingual Q5M PRN Chest 11/27/22 11/27/22 History tablet Pain omega-3 fatty acids 1,000 mg 1,000 mg PO TID 11/27/22 11/27/22 History capsule ondansetron 4 mg disintegrating 4 mg PO DAILY PRN Nausea 11/27/22 11/27/22 History tablet oxybutynin chloride 10 mg 2 tab PO DAILY 11/27/22 11/27/22 History tablet,extended release 24 hr oxycodone 5 mg tablet 5 mg PO Q4H PRN Breakthrough Pain 11/27/22 11/27/22 History pantoprazole 40 mg tablet,delayed 40 mg PO DAILY@0630 11/27/22 11/27/22 History release sennosides 8.6 mg tablet (senna) 17.2 mg PO BEDTIME PRN Constipation 11/27/22 11/27/22 History Allergies Allergy/AdvReac Type Severity Reaction Status Date / Time No Known Allergies Allergy Unknown UNKNOWN Verified 10/01/22 09:25 [NO KNOWN ALLERGIES] Exam Vital signs: Vital Signs Temp 97.9 F 11/30/22 12:00 Pulse 80 11/30/22 12:00 Resp 20 11/30/22 12:00 BP 118/56 L 11/30/22 12:00 Pulse Ox 96 11/30/22 12:00 O2 Del Method 11/30/22 12:00 O2 Flow Rate 3 11/30/22 12:00 Intake & Output 11/29/22 11/30/22 11/30/22 18:59 06:59 18:59 Intake Total 320 / 470 150 / 470 360 / 360 Output Total 2 / 2 200 / 200 Balance 318 / 468 150 / 468 160 / 160 Urine Output (Average ml/kg/hr) 0.00 0.00 0.16 Intake: Intake, Oral Amount 320 / 320 360 / 360 Intake, IV Amount 150 / 150 levoFLOXacin/D5W 750 mg In 150 150 / 150 ml @ 100 mls/hr IV Q24H [facility] Rx# :[id number] Output: Output, Urine Amount 2 / 2 200 / 200 Other: Breakfast % Eaten 100% 100% Lunch % Eaten 100% 75% Urine Bedside Commode Bedside Commode Urine Color Yellow Yellow Stool Bathroom Stool Amount Small Stool Color Dark Brown Stool Consistency Hard Weight 105 kg BMI result Body Mass Index 39.7 - Constitutional Present: no acute distress, obese - Routine HEENT Exam Head: Present: atraumatic, normal inspection ENT: Present: mucous membranes moist - Routine Neck Exam Present: full ROM - Routine Chest/Breast/Axilla Exam Chest wall: Present: tenderness - Routine Respiratory Exam Absent: accessory muscle use - Routine Cardiovascular Exam Cardiovascular: Present: RRR, S1, S2 - Routine Abdominal Exam Present: soft - Routine Extremities Exam Present: normal inspection. Absent: calf tenderness - Routine Back/Spine/Pelvis Exam Back/Spine: Present: vertebral tenderness - Routine Skin Exam Present: intact - Routine Neurological Exam Present: alert, oriented X3 Data - Labs CBC & Chem 7: 11/28/22 08:44 11/27/22 10:27 Labs: 11/27/22 08:42 ECG 12 lead EKG Stat EKG Documentation DIRECTED XR chest 1V Stat 11/27/22 08:45 0.9 % Sodium Chloride [Ns] 500 ml IV 999 mls/hr 11/27/22 09:16 UA CC w/rflx Micro + Cult Stat 11/27/22 09:44 B Type Natriuretic Peptide Stat Complete Blood Count Auto Diff Stat Prothrombin Time INR Stat SLIDE REVIEW Stat Troponin-I High Sensitivity Stat 11/27/22 09:46 SARS-CoV2/FLU/RSV Stat 11/27/22 10:27 Basic Metabolic Panel Stat Lipase Stat Liver Panel Stat Magnesium Stat Procalcitonin Stat 11/27/22 10:35 cefEPime HCl [Maxipime] 2 gm 0.9 % Sodium Chloride [Ns] 50 ml IV ONCE 11/27/22 10:36 CT chest wo IV con Stat 11/27/22 10:42 cefEPime HCl [Maxipime] 2 gm IV .STK-MED ONE 11/27/22 11:07 Lactic Acid Stat Troponin-I High Sensitivity Stat 11/27/22 12:10 Consult Rx Perform Med Rec 1 each MISCELLANE ONCE STA 11/27/22 14:45 cefEPime HCl [Maxipime] 2 gm 0.9 % Sodium Chloride [Ns] 50 ml IV Q8H 11/27/22 15:22 Add Laboratory Test Urgent 11/27/22 15:54 Doxycycline Hyclate [Vibramycin] 100 mg IV .STK-MED ONE cefEPime HCl [Maxipime] 2 gm IV .STK-MED ONE 11/27/22 18:34 CDiff Gene PCR Stat GI Panel Stat WBC Stool [Leukocytes Stool Qualitative] Stat 11/27/22 18:53 Glucose, Whole Blood Routine 11/27/22 20:17 Glucose, Whole Blood Routine 11/27/22 23:39 Lactic Acid Stat 11/28/22 07:18 Glucose, Whole Blood Routine 11/28/22 08:44 CBC NO DIFF [Complete Blood Count no Diff] Routine 11/28/22 09:00 calcium polycarbophiL [FiberCon] 500 tab PO DAILY 11/28/22 11:16 Glucose, Whole Blood Routine 11/28/22 15:02 Glucose, Whole Blood Routine 11/28/22 19:08 Glucose, Whole Blood Routine 11/29/22 07:17 Glucose, Whole Blood Routine 11/29/22 11:11 Glucose, Whole Blood Routine 11/29/22 16:04 Glucose, Whole Blood Routine 11/29/22 19:15 Glucose, Whole Blood Routine 11/30/22 07:17 Glucose, Whole Blood Routine 11/30/22 11:47 Glucose, Whole Blood Routine Laboratory Last Values WBC 1.8 X10*3/uL (4.8-10.8) L 11/28/22 08:44 RBC 2.87 X10*6/uL (4.20-5.50) L 11/28/22 08:44 Hgb 9.7 g/dl (12.0-16.0) L 11/28/22 08:44 Hct 28.0 % (37.0-47.0) L 11/28/22 08:44 MCV 97.6 fL (80.0-98.0) 11/28/22 08:44 MCH 33.8 pg (27.0-33.0) H 11/28/22 08:44 MCHC 34.6 g/dl (31.0-35.0) 11/28/22 08:44 RDW 19.5 % (11.0-16.0) H 11/28/22 08:44 Plt Count 126 X10*3/uL (160-400) L 11/28/22 08:44 MPV 9.2 fL (9.4-12.3) L 11/28/22 08:44 Immature Gran % (Auto) 0.6 % (0.0-0.4) H 11/27/22 09:44 Neut % (Auto) 59.1 % (45-73) 11/27/22 09:44 Lymph % (Auto) 26.1 % (20-40) 11/27/22 09:44 Kay % (Auto) 12.4 % (2-11) H 11/27/22 09:44 Eos % (Auto) 0.6 % (0-4) 11/27/22 09:44 Baso % (Auto) 1.2 % (0-2) 11/27/22 09:44 Lymph # (Auto) 0.4 X10*3/uL (1.2-4.9) L 11/27/22 09:44 Kay # (Auto) 0.2 X10*3/uL (0.1-1.2) 11/27/22 09:44 Eos # (Auto) 0.0 X10*3/uL (0.0-0.4) 11/27/22 09:44 Baso # (Auto) 0.0 X10*3/uL (0.0-0.2) 11/27/22 09:44 Abs Immat Gran (auto) 0.01 X10*3/uL (0.00-0.03) 11/27/22 09:44 Absolute Neuts (auto) 1.0 x10*3/uL (2.0-8.3) L 11/27/22 09:44 Absolute Nucleated RBC 0.000 X10*3/uL (0.0-0.012) 11/28/22 08:44 Nucleated RBC % (auto) 0.0 /100WBC (0.0-0.2) 11/28/22 08:44 Smear Tech's Comments VERIFIED 11/27/22 09:44 PT 13.6 SEC (10.0-13.1) H 11/27/22 09:44 INR 1.2 (0.9-1.1) H 11/27/22 09:44 Sodium 142 mmol/L (135-145) 11/27/22 10:27 Potassium 3.4 mmol/L (3.3-5.1) 11/27/22 10:27 Chloride 104 mmol/L (96-108) 11/27/22 10:27 Carbon Dioxide 32 mmol/L (22-29) H 11/27/22 10:27 Anion Gap 9 (12-20) L 11/27/22 10:27 BUN 6 mg/dL (9-16) L 11/27/22 10:27 Creatinine 0.70 mg/dL (0.5-1.4) 11/27/22 10:27 Estim Creat Clear Calc 89.6 11/27/22 10:27 Estimated GFR > 60 11/27/22 10:27 POC Glucose 114 mg/dL (60-115) 11/30/22 11:47 Random Glucose 103 mg/dL (60-115) 11/27/22 10:27 Lactic Acid 1.7 mmol/L (0.5-2.0) 11/27/22 23:39 Calcium 8.7 mg/dL (8.4-10.2) 11/27/22 10:27 Magnesium 1.6 mg/dL (1.6-2.6) 11/27/22 10:27 Total Bilirubin 0.7 mg/dL (0.0-1.0) 11/27/22 10:27 Direct Bilirubin 0.3 mg/dL (0.0-0.5) 11/27/22 10:27 AST 16 U/L (5-31) 11/27/22 10:27 ALT 10 U/L (0-31) 11/27/22 10:27 Alkaline Phosphatase 48 U/L (39-117) 11/27/22 10:27 Troponin I High Sens 6.7 ng/L (<3.5-17.0) 11/27/22 11:07 B-Natriuretic Peptide 224 pg/mL (<100) H 11/27/22 09:44 Total Protein 5.5 g/dL (6.5-8.0) L 11/27/22 10:27 Albumin 3.5 g/dL (3.5-5.0) 11/27/22 10:27 Lipase 5 U/L (8-78) L 11/27/22 10:27 Procalcitonin 0.07 ng/mL 11/27/22 10:27 Urine Color Yellow 11/27/22 09:16 Urine Appearance Clear 11/27/22 09:16 Urine pH >= 9.0 (5.0-9.0) 11/27/22 09:16 Ur Specific [place] <= 1.005 (1.005-1.025) 11/27/22 09:16 Urine Protein Negative mg/dL (Neg-Trace) 11/27/22 09:16 Urine Glucose (UA) Negative mg/dL (Negative) 11/27/22 09:16 Urine Ketones Negative mg/dL (Negative) 11/27/22 09:16 Urine Blood Negative (Negative) 11/27/22 09:16 Urine Nitrite Negative (Negative) 11/27/22 09:16 Ur Leukocyte Esterase Negative (Negative) 11/27/22 09:16 Stool Leukocytes, Qual NEGATIVE (NEGATIVE) 11/27/22 18:34 Stl C. cayetanensis PCR Not Detected (Not Detect.) 11/27/22 18:34 Stool Rotavirus A PCR Not Detected (Not Detect.) 11/27/22 18:34 Stl Adenov F 40/41 PCR Not Detected (Not Detect.) 11/27/22 18:34 Stool Astrovirus (PCR) Not Detected (Not Detect.) 11/27/22 18:34 Stool Campylobacter PCR Not Detected (Not Detect.) 11/27/22 18:34 Stool Cryptosporidium PCR Not Detected (Not Detect.) 11/27/22 18:34 Stl Sh Tox Pr E STEC PCR Not Detected (Not Detect.) 11/27/22 18:34 Stool E coli O157 PCR Not applicable (Not Detect.) 11/27/22 18:34 Stl Enterotoxigenic E PCR Not Detected (Not Detect.) 11/27/22 18:34 Stool EPEC (PCR) Not Detected (Not Detect.) 11/27/22 18:34 Stool EAEC (PCR) Not Detected (Not Detect.) 11/27/22 18:34 Stl E. histolytica PCR Not Detected (Not Detect.) 11/27/22 18:34 Stool Giardia Lamblia PCR Not Detected (Not Detect.) 11/27/22 18:34 Stl P. shigelloides PCR Not Detected (Not Detect.) 11/27/22 18:34 Stool Salmonella PCR Not Detected (Not Detect.) 11/27/22 18:34 Stool Sapovirus (PCR) Not Detected (Not Detect.) 11/27/22 18:34 Stl Shigella/EIEC PCR Not Detected (Not Detect.) 11/27/22 18:34 St Y.enterocolitica PCR Not Detected (Not Detect.) 11/27/22 18:34 Stool Vibrio (PCR) Not Detected (Not Detect.) 11/27/22 18:34 Stl Vibrio cholerae PCR Not Detected (Not Detect.) 11/27/22 18:34 Stl Norovirus GI/GII PCR Not Detected (Not Detect.) 11/27/22 18:34 C. difficile Tox B Gene NEGATIVE (Negative) 11/27/22 18:34 Influenza Type A (PCR) NEGATIVE (Negative) 11/27/22 09:46 Influenza Type B (PCR) NEGATIVE (Negative) 11/27/22 09:46 RSV RNA Qual (PCR) NEGATIVE (Negative) 11/27/22 09:46 SARS-CoV-2 RNA (RT-PCR) NEGATIVE (Negative) 11/27/22 09:46 - Imaging Radiologist's impression: ITS Impressions Chest X-Ray 11/27/22 09:41 IMPRESSION: Low lung volumes. Question bilateral pulmonary infiltrates. Chest CT 11/27/22 10:50 IMPRESSION: New or increasing pneumonitis and probable right upper lobe pneumonia. Stable bone findings. Fleischner guidelines were followed. Assessment and Plan Patient Active problem list reviewed?: Yes (1) Breast cancer Start date: 11/30/22 Status: Acute (2) Invasive ductal carcinoma of right breast Status: Chronic Assessment and plan: She has been stabilized. No change in her regimen is necessary. After she is discharged from hospital. She may resume her previous treatment in the oncology clinic. - Time Spent With Patient Time Spent with Patient (in minutes): 15
[2022-11-30 16:03] LABS: Glucose, Whole Blood 139 mg/dL (60-115)
[2022-11-30] MEDS: Metoprolol Tartrate 12.5 MG HALFTAB PO ×2 (17:38→21:37)
[2022-11-30] MEDS: levoFLOXacin/D5W 750 MG/150 ML PIGGYBACK 100 MG IV (17:39)
[2022-11-30 20:13] LABS: Glucose, Whole Blood 128 mg/dL (60-115)
[2022-11-30] MEDS: oxyCODONE HCl Immed Release 5 MG TABLET PO (21:36)
[2022-11-30] MEDS: Escitalopram Oxalate 20 MG TABLET PO (21:37)
[2022-11-30] MEDS: traZODone HCL 50 MG TABLET PO (21:37)
[2022-11-30] MEDS: ARIPiprazole 20 MG TABLET PO (21:37)
[2022-12-01] VITALS (7 sets, daily range): BP systolic 95–108; BP diastolic 51–58; PULSE 60–75; RESP 18–20; TEMP 36.1–37.1; O2SAT 93–98
[2022-12-01] MEDS: Morphine Sulfate ER 30 MG TABLET.ER PO ×2 (03:21→13:56)
[2022-12-01] MEDS: Omeprazole 20 MG CAPSULE.DR PO (06:40)
[2022-12-01 07:15] LABS: Glucose, Whole Blood 98 mg/dL (60-115)
[2022-12-01] MEDS: Fluticasone Propionate 100 MCG BLST.W.DEV 2 PUFF INHALE (08:29)
[2022-12-01] MEDS: Albuterol/Iprat 2.5/0.5MG 3 ML AMPUL.NEB INHALE ×3 (08:29→15:35)
[2022-12-01] MEDS: Enoxaparin Sodium 40 MG/0.4 ML SYRINGE SUBCUT (09:00)
[2022-12-01] MEDS: Nystatin Oral Susp 500,000 UNIT/5 ML ORAL.SUSP 500000 UNIT PO ×2 (09:00→13:56)
[2022-12-01] MEDS: Pravastatin Sodium 20 MG TABLET PO (09:01)
[2022-12-01] MEDS: Cholecalciferol (Vitamin D3) 25 MCG TABLET PO (09:01)
[2022-12-01] MEDS: Gabapentin 300 MG CAPSULE PO ×2 (09:01→13:56)
[2022-12-01] MEDS: calcium polycarbophiL TABLET 1 TAB PO (09:02)
[2022-12-01] MEDS: 0.9 % Sodium Chloride Flush 3 ML SYRINGE IVFLUSH (09:02)
[2022-12-01] MEDS: polyethylene glycoL 3350 17 GM POWD.PACK PO (10:50)
[2022-12-01] MEDS: Docusate Sodium 100 MG CAPSULE PO (10:50)
[2022-12-01 11:02] LABS: Glucose, Whole Blood 115 mg/dL (60-115)
--- NOTE | 2022-12-01 13:24 | MHC.CM.PN ---
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
--- NOTE | 2022-12-01 13:32 | P.DS_ITS ---
DS: Providers Provider Date of Service: 12/01/22 Date of admission: 11/27/22 14:21 Date of discharge: 12/01/22 Primary care physician: Cristo Martino MD Consults: 11/28/22 07:42 Consult to Hematology / Oncology Routine Consulting Provider: Kesha Katz Reason for consultation: metastatic breast cancer on chemo /rad-pancytopenia Has provider been notified: No DS: Diagnosis Discharge Diagnosis (1) Pneumonia: Status: Acute (2) Diarrhea: Status: Acute (3) Constipation: Status: Acute DS: Summary Hospital Course Hospital Course: 67y/of with pmhx of? asthma, COPD on 2 L NC baseline, diabetes, HTN, sleep apnea, right breast invasive ductal carcinoma/metastatic breast CA w/bone mets currently on chemotherapy and radiation: Patient presented with generalized weakness, cough with whitish sputum, somewhat lightheadedness.? In addition she says that she has chronic diarrhea which is somewhat increasing now.? Also had some mild? abdominal pain.? She also complained that she had to episode of vomiting at home. Reports she gets some short of breath with exertion, denies any chest pain or fever or chills or dysuria or headache or blurry vision or any leg swelling. Lab imaging,ekg reviewed: BMP seems fine, LFTs seems fine, lipase normal, troponin neg, EKG NSR . CT chest: Possible pneumonitis and pneumonia. CBC chronic leukopenia, ANC around 1(1k). UA negative, blood cultures sent, lactic acid normal. H&H stable around 10, platelets are in 130s range. Hospital course: Patient with ch . repiratory failure on home oxygen ,came with productive cough and generalized weakness found to have pneumonia: Started on antibiotics seems to be improving. Blood cultures are negative. Patient cough also subsided no fever, going home with p.o. antibiotics. please repeat chest imaging out patiently in 3-4 week with PCP to see resolution of pneumonia. In addition patient had diarrhea, which resolved spontaneously, C diff negative. Currently feeling some but constipated so added laxatives, she initially had diarrhea, currently no abdominal pain or diarrhea, tolerating diet well, also passing gases, abdominal exam is benign. Further management outpatient. Pancytopenia, history of breast cancer patient is on chemo-possible pancytopenia is secondary to chemo, monitor CBC outpatient with Oncology further management as per patient oncologist. Above management discussed with the patient in detail length with the help of hourly sign language interpreter. Time Spent with Patient Time attestation: Total time managing care of this patient today ____ minutes. Discharge coordination time: Greater than 30 minutes Quality: Safe Use of Opioids Does Pt have an Active Cancer Diagnosis on the Problem List?: No Quality: Stroke Does the patient have a stroke diagnosis?: No Physical Exam Vital Signs: Vital Signs: Last Vital Signs Temp 97.3 F 12/01/22 11:15 Pulse 66 12/01/22 11:37 Resp 18 12/01/22 11:37 BP 98/58 L 12/01/22 11:15 Pulse Ox 96 12/01/22 11:15 O2 Del Method 12/01/22 11:15 O2 Flow Rate 3 12/01/22 11:15 BMI result Body Mass Index 39.7 Appearance: Alert.? Oriented X3.? Slovenian-speaking female, not in distress.? cvs: rrr, [id number] , no murmur res: air entry fair ,no rales or wheezing abd: no rebound or guarding ,nt, bs present. ext pulses present , no cyanosis. neuro: axo3 , nonfocal. DS: Data Data Completed and Pending Labs on day of discharge: Laboratory Results - last 24 hr 11/30/22 11/30/22 12/01/22 15:55 20:03 07:08 POC Glucose 139 H 128 H 98 12/01/22 10:54 POC Glucose 115 Preliminary micro results at discharge 11/27/22 11:07 Blood Culture - Preliminary Blood - Venous No growth after 48 hours. 11/27/22 11:07 Blood Culture - Preliminary Blood - Venous No growth after 48 hours. Imaging Chest x-ray: Radiologist's impression: ITS Impressions Chest X-Ray 11/27/22 09:41 IMPRESSION: Low lung volumes. Question bilateral pulmonary infiltrates. Chest CT 11/27/22 10:50 IMPRESSION: New or increasing pneumonitis and probable right upper lobe pneumonia. Stable bone findings. Fleischner guidelines were followed. Discharge Plan Discharge Anticipated Discharge Date/Time: 12/01/22 12:44 Patient Disposition: Home, Self-Care Discharge Diagnosis: pneumonia ,ch respiratory failure sec hx of copd on oxygen. Referrals: Cristo Martino MD [Primary Care Provider] - 1 Week Discharge Medications: New levofloxacin 500 mg tablet 500 mg PO DAILY Qty: 2 0RF docusate sodium [Colace] 100 mg capsule 100 mg PO DAILY PRN (Reason: constipation) Qty: 10 0RF polyethylene glycol 3350 [Miralax] 17 gram/dose powder 17 g PO DAILY PRN (Reason: constipation) Qty: 119 0RF Continued Anoro Ellipta 62.5-25 mcg/actuation blister with device 1 inh inhalation DAILY Qty: 60 2RF letrozole 2.5 mg Tablet 2.5 mg PO Q24H Qty: 90 3RF Ibrance 125 mg Capsule 125 mg PO DAILY Qty: 21 6RF Rx Instructions: administer on days 1 through 21 of a 28-day treatment cycle. 11/28/22 - DAY 1 OF 3 WEEKS ON PERIOD nystatin 100,000 unit/mL Suspension 5 ml PO TID Qty: 300 0RF Rx Instructions: swish and swallow morphine 30 mg Tablet Extended Release 30 mg PO Q12H Qty: 60 0RF Rx Instructions: Partial Fill upon patient request. albuterol sulfate 90 mcg/actuation HFA aerosol inhaler 1 inh inhalation QID PRN (Reason: shortness of breath or wheezing) Qty: 8.5 0RF isosorbide mononitrate 30 mg tablet extended release 24 hr 1 tab PO DAILY pravastatin 20 mg tablet 1 tab PO DAILY oxycodone 5 mg tablet 5 mg PO Q4H PRN (Reason: Breakthrough Pain) omega-3 fatty acids 1,000 mg Capsule 1,000 mg PO TID oxybutynin chloride 10 mg tablet extended release 24hr 2 tab PO DAILY acetaminophen 500 mg Tablet 500 mg PO Q6H PRN (Reason: Pain) metoprolol tartrate 50 mg tablet 1 tab PO DAILY nitroglycerin 0.4 mg Tablet, Sublingual 0.4 mg SUBLINGUAL Q5M PRN (Reason: Chest Pain) Rx Instructions: do not exceed 3 doses per episode ondansetron 4 mg Tablet,Disintegrating 4 mg PO DAILY PRN (Reason: Nausea) fluticasone propionate [Flovent HFA] 110 mcg/actuation Hfa Aerosol Inhaler 2 puff INHALATION BID cholecalciferol (vitamin D3) [Vitamin D3] 25 mcg (1,000 unit) Tablet 25 mcg PO DAILY naloxone 4 mg/actuation spray,non-aerosol 1 spray intranasal Q2M PRN (Reason: Opioid Overdose) furosemide 40 mg tablet 40 mg PO DAILY sennosides [senna] 8.6 mg tablet 17.2 mg PO BEDTIME PRN (Reason: Constipation) pantoprazole 40 mg tablet,delayed release (DR/EC) 40 mg PO DAILY@0630 (DME) FreeStyle Lite Strips Strip See Rx Instructions Not Applicable BID Qty: 10 Rx Instructions: As directed Lantus U-100 Insulin 100 unit/mL solution 30 unit subcut DAILY aripiprazole [Abilify] 20 mg tablet 20 mg PO BEDTIME gabapentin 300 mg capsule 300 mg PO TID citalopram 40 mg tablet 40 mg PO BEDTIME trazodone 50 mg tablet 50 mg PO BEDTIME PRN (Reason: Insomnia) Fiber Laxative (methylcellulo) 500 mg tablet 500 mg PO DAILY Qty: 90 3RF Discharge Orders: Discharge Order (Routine); Ordered 12/01/22 Ordered By: Nicole Washington Diet: Advance to usual diet Activity on Discharge: As tolerated Stand Alone Forms: Patient Portal Discharge page Care Plan Goals: Patient with ch . repiratory failure on home oxygen ,came with productive cough and generalized weakness found to have pneumonia: Started on antibiotics seems to be improving. Blood cultures are negative. In addition patient had diarrhea, which resolved spontaneously, C diff negative. Currently feeling some but constipated so added laxatives. Patient wants to go home, going home with p.o. antibiotics, please repeat chest imaging out patiently in 3-4 week with PCP to see resolution of pneumonia. Further management outpatient. Pancytopenia, history of breast cancer patient is on chemo-possible pancytopenia is secondary to chemo, monitor CBC outpatient with Oncology further management as per patient oncologist. Above management discussed with the patient in detail length with the help of hourly sign language interpreter. Health Concerns: As above. Plan of Treatment: As above. Assessment: As above.
[2022-12-01] MEDS: levoFLOXacin 500 MG TABLET PO (13:56)
== END 2022-12-01 15:30 | disposition home or self-care (01) | DRG 193 ==
LOC: HO.ED 12:05 → HO.EDOVER 14:40 → HO.IMC 17:24
PROVIDERS: Internal Medicine; Physician Assistant; Admitting Provider Internal Medicine; Emergency Provider Student in an Organized Health Care Education/Training Program; PCP Internal Medicine; Visit Provider Internal Medicine
DX: J18.9 Pneumonia, unspecified organism (principal); D61.810 Antineoplastic chemotherapy induced pancytopenia; C79.51 Secondary malignant neoplasm of bone; J44.0 Chronic obstructive pulmonary disease with (acute) lower respiratory infection; D84.81 Immunodeficiency due to conditions classified elsewhere; J96.10 Chronic respiratory failure, unspecified whether with hypoxia or hypercapnia; E11.9 Type 2 diabetes mellitus without complications; I10 Essential (primary) hypertension; G47.30 Sleep apnea, unspecified; C50.911 Malignant neoplasm of unspecified site of right female breast; E66.01 Morbid (severe) obesity due to excess calories; D70.1 Agranulocytosis secondary to cancer chemotherapy; K52.9 Noninfective gastroenteritis and colitis, unspecified; Z68.39 Body mass index [BMI] 39.0-39.9, adult; Z20.822 Contact with and (suspected) exposure to COVID-19; Z99.81 Dependence on supplemental oxygen; Z86.711 Personal history of pulmonary embolism; Z87.891 Personal history of nicotine dependence; Z79.4 Long term (current) use of insulin; Z79.51 Long term (current) use of inhaled steroids; Z79.899 Other long term (current) drug therapy
CPT/HCPCS: 0241U; 36415; 71045; 71250; 80048; 80076; 81003; 82947; 83605; 83690; 83735; 83880; 84145; 84484; 85025; 85027; 85610; 87040; 87493; 87507; 89055; 93005; 94640; 94660; 99285; J0692; J1650; J1956

== ENCOUNTER 2022-12-24 11:05 | Outpatient (REF) | payer OTHER, SELFPAY ==
--- NOTE | ~2022-12-24 | PE_ITS ---
EXAMINATION: Fluorine-18 FDG PET/CT Scan CLINICAL INDICATION: Initial treatment management. Metastatic breast cancer. PROCEDURE: 55 minutes following the intravenous administration of 22.4 mCi of fluorine 18 FDG, images from the base of the skull to the mid thighs were obtained using a combined PET/CT scanner with CT scan based attenuation correction. No intravenous contrast was administered. Transverse, coronal, sagittal, and volume reconstruction projections were obtained. The patient's blood glucose as determined by a finger stick, was 109 mg/dl immediately prior to injection. The radiotracer was injected intravenously through left antecubital superficial vein, without any complications. Total CT exam dose-length product 1035.39 mGy-cm * These CT images were obtained using dose optimization techniques as appropriate, variously including the following: Automated exposure control * Adjustment of mA and/or kV according to patient size (this includes techniques or standardized protocols for targeted exams where dose is matched to indication/reason for exam; i.e. extremities or head) * Use of iterative reconstruction technique COMPARISON: CT of the chest without contrast done on 11/27/2022 MRI of the head done on 11/01/2022 and MRI of the lumbar spine done on 07/02/2022. Screening mammogram done on 01/29/2022 and diagnostic mammogram and ultrasound done on 3 02/08/2022 and ultrasound-guided biopsy of right axillary lymph node and right breast done on 02/14/2022. FINDINGS: NECK AND VISUALIZED HEAD: Asymmetric increase FDG avidity is noted in the region of the left basal ganglia without any concordant CT detectable focal abnormality. (). This may represent partial volume averaging related to suboptimal positioning (patient is tilted) or evolving disease. Follow-up MRI with intravenous contrast may be considered, if clinically appropriate for further clarification. No FDG avid cervical lymphadenopathy or soft tissue neck mass. THORAX: Dense airspace consolidation associated with underlying mild bronchiectatic changes involving the right middle lobe and right upper lobe shows mild FDG avidity with SUV max of 2.9 (73/267), may represent posttreatment changes, appears similar to prior study dated 11/27/2022. Multiple other patchy areas of groundglass airspace disease seen bilaterally and multifocal peripheral nodular opacities predominantly seen at right upper lobe of the lung appear radiographically stable since 11/27/2022, and without any FDG avidity. No FDG avid mediastinal or hilar lymphadenopathy or pleural or pericardial effusion. The right breast is asymmetrically significantly diffusely enlarged, shows significant soft tissue stranding and cutaneous thickening and diffuse mild FDG avidity, may represent posttreatment related changes. Clinical correlation is recommended. There are no FDG avid axillary lymphadenopathy present on either side. The left breast appears unremarkable. ABDOMEN AND PELVIS: No FDG avid liver, spleen or adrenal disease. Small sliding hiatal hernia is present. The pancreas is mostly fatty replaced. Physiologic radiotracer activities are present within the kidneys and the bladder and bowel loops. No FDG avid mesenteric, retroperitoneal, pelvic and/or inguinal/groin lymphadenopathy. MUSCULOSKELETAL: Focal FDG avidity is noted within the proximal part of the body of the sternum associated with underlying pathological fracture without any soft tissue component with SUV max of 3.7, most consistent with osseous metastases in this patient with history of metastatic breast cancer. Severe compression fracture associated with mild FDG avidity and underlying mixed sclerosis and lytic areas at L1 is also most consistent with metastatic disease. Multifocal osteolysis involving the pelvis and healing rib fractures within the left hemithorax do not show any FDG avidity, may represent inactive sites of presumed osseous metastases. Focal area of sclerosis at T3 vertebral body appear stable without any FDG avidity. VASCULAR: Atherosclerotic disease of the aorta and its branches including coronary artery calcifications are present. No evidence of aneurysm. PET/PET CT fusion skull to thigh IMPRESSION: 1. Limited visualized part of the brain parenchyma shows asymmetric increased FDG avidity in the region of the left basal ganglia without any CT correlate, may represent partial volume averaging related to suboptimal positioning or evolving disease. Follow-up MRI with intravenous contrast may be considered for clinically appropriate for further clarification. 2. Dense airspace consolidation associated with underlying mild bronchiectatic changes involving the right upper and right middle lobe shows mild FDG avidity with SUV max of 2.9, anatomically appears similar to prior study dated 11/27/2022, may represent posttreatment changes. Clinical correlation is recommended. 3. Multifocal other patchy areas of groundglass airspace disease seen bilaterally and multifocal peripheral nodular opacities seen predominantly at right upper lobe of the lung appear radiographically stable since 11/27/2022, without any FDG avidity. 4. No FDG avid mediastinal or hilar lymphadenopathy or axillary lymphadenopathy or pleural or pericardial effusion. 6. Significant asymmetric diffuse enlargement of the right breast associated with significant soft tissue stranding and cutaneous thickening and diffuse mild FDG avidity, may represent posttreatment related changes. Clinical correlation is recommended. 7. Multifocal lytic and sclerotic osseous disease are present, overall appear similar to prior studies without any FDG avidity except 2 sites, namely the proximal part of the body of the sternum and L1 vertebral body, both of them show mild FDG avidity, consistent with clinically known presumed metastatic disease. 8. No FDG avid suspicious intra-abdominal and/or intrapelvic soft tissue disease. 9. Follow-up F-[address] study may be considered if the primary tumor was ER positive and if endocrine therapy is considered as a potential treatment option.
== END 2022-12-24 11:06 | disposition home or self-care (01) ==
LOC: HO.PET 11:05
PROVIDERS: Visit Provider Internal Medicine
DX: Z13.89 Encounter for screening for other disorder (principal)

== ENCOUNTER → 2022-12-25 09:47 | Outpatient (BNVA) | payer OTHER, SELFPAY | PROVIDERS: PCP Internal Medicine; Visit Provider Internal Medicine Pulmonary Disease | DX: J44.9 Chronic obstructive pulmonary disease, unspecified (principal); R09.02 Hypoxemia; E66.9 Obesity, unspecified; G47.33 Obstructive sleep apnea (adult) (pediatric); Z87.891 Personal history of nicotine dependence; Z68.33 Body mass index [BMI] 33.0-33.9, adult; Z99.81 Dependence on supplemental oxygen | CPT/HCPCS: 99212 ==

== ENCOUNTER 2023-01-02 14:49 | Emergency (ER) | payer OTHER, SELFPAY ==
--- NOTE | ~2023-01-02 | CT_ITS ---
EXAMINATION: CT ABDOMEN AND PELVIS WITH CONTRAST CLINICAL INFORMATION: And thickening surrounding the right breast, some of which may be related to posttreatment change. COMPARISON: PET/CT dated 12/24/2022, CT dated 08/27/2022 TECHNIQUE: Multidetector volumetric images were obtained from the superior aspect of the liver through the pubic symphysis following administration 85 mL of Omnipaque 350 intravenous contrast. Sagittal and coronal reformatted images were obtained on the technologist's workstation. Oral contrast: No This CT examination was performed using dose optimization techniques as appropriate, variously including the following: *Automated exposure control *Adjustment of mA and/or kV according to patient size (this includes techniques or standardized protocols for targeted exams where dose is matched to indication/reason for exam; i.e. extremities or head) *Use of iterative reconstruction technique DLP: 1086 mGy-cm FINDINGS: LUNG BASES: Bilateral lung base groundglass opacities are again noted. LIVER, GALLBLADDER, AND BILIARY TREE: Visualized portions of the liver are grossly unremarkable, hepatic dome is not completely included in [id number]. Gallbladder is contracted but grossly unremarkable. PANCREAS: Unremarkable. SPLEEN: Unremarkable. ADRENAL GLANDS: Unremarkable. KIDNEYS AND URETERS: Unremarkable BLADDER: Unremarkable. GASTROINTESTINAL TRACT: The small and large bowel are unremarkable. The appendix is unremarkable. Small hiatal hernia ABDOMINAL WALL: . Small fat-containing umbilical hernia. LYMPH NODES: Normal. VASCULAR: Unremarkable. PELVIC VISCERA: Unremarkable. OSSEOUS STRUCTURES/soft tissues: Redemonstration of extensive soft tissue edema and skin thickening involving the right breast which may reflect posttreatment change, increased from prior studies. Diffuse mixed lytic and sclerotic osseous lesions are again noted. CT/CT abdomen pelvis w IV con IMPRESSION: 1. Redemonstration of extensive soft tissue edema and skin thickening involving the right breast which may reflect posttreatment change, increased from prior studies. 2. Diffuse mixed lytic and sclerotic osseous lesions are again noted.
[2023-01-02 15:19] VITALS: BP 111/65; BP 152/74; PULSE 110; PULSE 62; RESP 20; TEMP 36.6; O2SAT 96; O2SAT 97; BMI 34.3
--- NOTE | 2023-01-02 15:40 | PC.NURSE ---
ABD PAIN, NAUSEA, VOMIT BLOOD, DIARRHEA, BLOOD SMEAR AFTER WIPING, HX OF HEMORRHOIDS.
[2023-01-02 16:05] VITALS: BP 108/72; PULSE 80; RESP 18; TEMP 36.6; O2SAT 100
--- NOTE | 2023-01-02 16:18 | ED_ITS ---
HPI - General Adult General Chief complaint: Abdominal Pain Stated complaint: ABD PAIN,N/V/D X'S 1 HOUR,O2 DEP PER EMS Time Seen by Provider: 01/02/23 16:14 Source: patient Mode of arrival: ambulatory Limitations: no limitations History of Present Illness HPI narrative: This is a 67 years old the female patient with history of metastatic breast cancer presented to emergency department complaining of abdominal pain nausea vomiting and diarrhea started a few hours ago. Denies any fever chills Onset (ago): hour(s) (6) Location: abdomen Radiation: non-radiation Severity: moderate Quality: burning Pain Consistency: intermittent Relieving factors: none Exacerbating factors: none Related Data Home Medications Medication Instructions Recorded Confirmed aripiprazole 20 mg tablet (Abilify) 20 mg PO BEDTIME 02/14/22 12/18/22 blood sugar diagnostic (FreeStyle #10 ea 02/14/22 12/18/22 Lite Strips) citalopram 40 mg tablet 40 mg PO BEDTIME 02/14/22 12/18/22 gabapentin 300 mg capsule 300 mg PO TID 02/14/22 12/18/22 insulin glargine 100 unit/mL 30 unit subcut DAILY 02/14/22 12/18/22 subcutaneous solution (Lantus U-100 Insulin) trazodone 50 mg tablet 50 mg PO BEDTIME PRN Insomnia 02/14/22 12/18/22 isosorbide mononitrate 30 mg 1 tab PO DAILY 04/09/22 12/18/22 tablet,extended release 24 hr pravastatin 20 mg tablet 1 tab PO DAILY 04/09/22 12/18/22 acetaminophen 500 mg tablet 500 mg PO Q6H PRN Pain 11/27/22 12/18/22 cholecalciferol (vitamin D3) 25 25 mcg PO DAILY 11/27/22 12/18/22 mcg (1,000 unit) tablet (Vitamin D3) fluticasone propionate 110 2 puff inhalation BID 11/27/22 12/18/22 mcg/actuation HFA aerosol inhaler (Flovent HFA) metoprolol tartrate 50 mg tablet 25 mg PO DAILY 11/27/22 12/18/22 naloxone 4 mg/actuation nasal spray 1 spray intranasal Q2M PRN Opioid 11/27/22 12/18/22 Overdose nitroglycerin 0.4 mg sublingual 0.4 mg sublingual Q5M PRN Chest 11/27/22 12/18/22 tablet Pain omega-3 fatty acids 1,000 mg 1,000 mg PO TID 11/27/22 12/18/22 capsule ondansetron 4 mg disintegrating 4 mg PO DAILY PRN Nausea 11/27/22 12/18/22 tablet oxybutynin chloride 10 mg 2 tab PO DAILY 11/27/22 12/18/22 tablet,extended release 24 hr oxycodone 5 mg tablet 5 mg PO Q4H PRN Breakthrough Pain 11/27/22 12/18/22 Previous Rx's Medication Instructions Recorded albuterol sulfate 90 mcg/actuation 1 inh inhalation QID PRN shortness 05/07/22 aerosol inhaler of breath or wheezing #8.5 grams letrozole 2.5 mg tablet 2.5 mg PO Q24H #90 tabs 07/09/22 methylcellulose (laxative) 500 mg 500 mg PO DAILY #90 tabs 08/20/22 tablet (Fiber Laxative (methylcellulose)) nystatin 100,000 unit/mL oral 5 ml PO TID #300 mL 11/20/22 suspension morphine 30 mg tablet,extended 30 mg PO Q12H #60 tabs 11/26/22 release docusate sodium 100 mg capsule 100 mg PO DAILY PRN constipation 12/01/22 (Colace) #10 caps levofloxacin 500 mg tablet 500 mg PO DAILY #2 tabs 12/01/22 polyethylene glycol 3350 17 17 g PO DAILY PRN constipation 12/01/22 gram/dose oral powder (Miralax) #119 grams sennosides 8.6 mg tablet (senna) 17.2 mg PO BEDTIME PRN 12/03/22 Constipation #180 tabs umeclidinium 62.5 mcg-vilanterol 1 inh inhalation DAILY #60 ea 12/05/22 25 mcg/actuation powdr for inhalation (Anoro Ellipta) pantoprazole 40 mg tablet,delayed 40 mg PO DAILY@0630 #90 tabs 12/10/22 release furosemide 40 mg tablet 60 mg PO DAILY 30 days #45 tabs 12/25/22 palbociclib 125 mg capsule 125 mg PO DAILY #21 caps 12/31/22 (Ibrance) Allergies Allergy/AdvReac Type Severity Reaction Status Date / Time No Known Allergies Allergy Unknown UNKNOWN Verified 12/25/22 10:17 [NO KNOWN ALLERGIES] Review of Systems ENT: Reports system reviewed and no additional complaints, except as documented Cardiovascular: Cardiovascular: Reports no additional cardiovascular c omplaints Respiratory: Respiratory: Reports no additional respiratory complaints Gastrointestinal: Gastrointestinal: Reports abdominal pain PMFSH Past Medical History Medical History Asthma COPD (chronic obstructive pulmonary disease) Diabetes type 2, controlled Hypertension Invasive ductal carcinoma of right breast Sleep apnea Tubular adenoma Surgical History History of lumpectomy of right breast Hx of colonoscopy Hx of right breast biopsy Family History Family History Brother Diabetes Sister Diabetes Breast cancer, Onset Age: 67 Mother Breast cancer, Onset Age: 59 Maternal Aunt Breast cancer Social History Social History Household Members: None Housing: Apartment Are you a primary healthcare corporate account director to a significant other at home: No Do you presently have visiting nurse or other home services: Yes Alcohol intake: former Patient Tobacco Use Status: Former Tobacco user Tobacco use type: Cigarette Smoked in Last 30 Days: No Use of substances other than those prescribed or required for medical reasons: No Any prior treatment program specific to substance use: No Advance Directives: Yes Advance Directives on File: Yes Advance Directives Date on File: 03/22/21 service: No 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 occupational status: 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 Physical Exam ED Vital Signs: Vital Signs - 24 hr 01/02/23 15:19 01/02/23 16:05 01/02/23 19:33 Temperature 97.8 F 97.9 F 97.7 F Pulse Rate 62 80 83 Respiratory Rate 20 18 18 Blood Pressure 111/65 108/72 122/53 L Pulse Oximetry 96 100 92 Oxygen Delivery Method Nasal Cannula Nasal Cannula Nasal Cannula Oxygen Flow Rate 2 2.5 01/02/23 20:16 Temperature Pulse Rate Respiratory Rate Blood Pressure Pulse Oximetry 95 Oxygen Delivery Method Room Air Oxygen Flow Rate BMI result Body Mass Index 34.3 Const General: cooperative and comfortable Nutritional Appearance: well nourished Orientation/consciousness: patient oriented x3 HENMT Head: Yes normal to inspection General nose exam: Normal external nose present Face and sinus: Yes normal facial exam Mouth: Normal oral and palatal mucosa present Throat: Yes posterior oropharynx normal Neck Neck: Yes normal visual inspection and Yes full ROM Chest Chest palpation & inspection: normal inspection of the chest Resp Effort & Inspection: normal respiratory effort and able to speak in complete sentences Auscultation: clear to auscultation bilaterally Cardio Jugular venous distension: no JVD Rate: regular rate Rhythm: regular rhythm GI Inspection: Yes normal to inspection Palpation (GI): Soft to palpation, not firm, nontender and no guarding Skin General skin exam: no rashes or lesions noted Lesions: no lesions Rashes: no rashes Trauma: no lacerations or abrasions Neuro General: patient oriented x3 Extrem General: Yes full ROM Course Reevaluation(s) Reevaluation #1: I re-examined the patient 19:43 doing much better she is asymptomatic at this ti me labs normal CT shows no acute disease okay to discharge Time: 19:43 Medications Administered Discontinued Medications Generic Name Dose Route Start Last Admin Trade Name Albertoq PRN Reason Stop Dose Admin Sodium Chloride 1,000 mls @ 999 mls/hr 01/02/23 16:30 01/02/23 17:40 Ns IVCONT 01/02/23 17:30 Infused .Q1H1M GRIFFIN Infusion Iohexol 100 ml 01/02/23 17:36 01/02/23 17:37 Iohexol 350 Mg/Ml 100 Ml Infus..Btl IV 01/02/23 17:37 85 ml ONCE ONE Administration Ondansetron HCl 4 mg 01/02/23 16:17 01/02/23 16:39 Ondansetron Hcl 4 Mg/2 Ml Vial IVPUSH 01/02/23 16:18 4 mg ONCE ONE Administration Medical Decision Making Medical Decision Making [facility] Narrative: Patient presented with nausea vomiting diarrhea some abdominal pain will give her some IV fluids check labs and reassessed Differential Diagnosis Differential Diagnoses: The differential diagnosis associated with the presentation includes Colitis /diverticulitis/gastroenteritis Lab Data [facility] Lab Attestation statement: I reviewed the patient's lab results. 01/02/23 16:38 01/02/23 16:38 Labs: Lab Results 01/02/23 01/02/23 Range/Units 16:38 16:38 WBC 3.4 L (4.8-10.8) X10*3/uL RBC 3.01 L (4.20-5.50) X10*6/uL Hgb 10.4 L (12.0-16.0) g/dl Hct 31.0 L (37.0-47.0) % MCV 103.0 H (80.0-98.0) fL MCH 34.6 H (27.0-33.0) pg MCHC 33.5 (31.0-35.0) g/dl RDW 14.8 (11.0-16.0) % Plt Count 219 D (160-400) X10*3/uL MPV 9.0 L (9.4-12.3) fL Immature Gran % (Auto) 0.6 H (0.0-0.4) % Neut % (Auto) 63.3 (45-73) % Lymph % (Auto) 20.9 (20-40) % [place] % (Auto) 13.4 H (2-11) % Eos % (Auto) 0.6 (0-4) % Baso % (Auto) 1.2 (0-2) % Lymph # (Auto) 0.7 L (1.2-4.9) X10*3/uL [place] # (Auto) 0.5 (0.1-1.2) X10*3/uL Eos # (Auto) 0.0 (0.0-0.4) X10*3/uL Baso # (Auto) 0.0 (0.0-0.2) X10*3/uL Abs Immat Gran (auto) 0.02 (0.00-0.03) X10*3/uL Absolute Neuts (auto) 2.1 (2.0-8.3) x10*3/uL Absolute Nucleated RBC 0.000 (0.0-0.012) X10*3/uL Nucleated RBC % (auto) 0.0 (0.0-0.2) /100WBC Sodium 144 (135-145) mmol/L Potassium 4.0 (3.3-5.1) mmol/L Chloride 104 (96-108) mmol/L Carbon Dioxide 31 H (22-29) mmol/L Anion Gap 13 (12-20) BUN 8 L (9-16) mg/dL Creatinine 0.78 (0.5-1.4) mg/dL Estim Creat Clear Calc 74.2 Estimated GFR > 60 Random Glucose 120 H (60-115) mg/dL Calcium 9.0 (8.4-10.2) mg/dL Total Bilirubin 0.8 (0.0-1.0) mg/dL AST 24 (5-31) U/L ALT 14 (0-31) U/L Alkaline Phosphatase 55 (39-117) U/L Total Protein 6.2 L (6.5-8.0) g/dL Albumin 3.8 (3.5-5.0) g/dL Lipase 5 L (8-78) U/L Independent Interpretation I performed an independent interpretation of an: CT Scan Interpretation: NAD Radiology Impression Discussion of test interpretation with radiology: I have reviewed the radiologist's reading. Radiologist Impression: ABDOMINAL WALL: . Small fat-containing umbilical hernia.? LYMPH NODES: Normal. VASCULAR: Unremarkable. PELVIC VISCERA: Unremarkable.? OSSEOUS STRUCTURES/soft tissues: Redemonstration of extensive soft tissue edema and skin thickening involving the right breast which may reflect posttreatment change, increased from prior studies. Diffuse mixed lytic and sclerotic osseous lesions are again noted. CT/CT abdomen pelvis w IV con IMPRESSION: 1.? Redemonstration of extensive soft tissue edema and skin thickening involving the right breast which may reflect posttreatment change, increased from prior studies. 2.? Diffuse mixed lytic and sclerotic osseous lesions are again noted. ? ? Dictated By: Mirian Johnson MD Signed By: <Electronically signed by Mirian Johnson MD in [place]> 01/02/23 7860 Discharge Plan Discharge Clinical Impression: Abdominal pain Patient Disposition: Home, Self-Care Instructions: Abdominal Pain (ED) Additional Instructions: Follow-up with primary care physician clear liquid diet for 24 hours return if you worse Prescriptions: No Action sennosides [senna] 8.6 mg tablet 17.2 mg PO BEDTIME PRN (Reason: Constipation) Qty: 180 2RF Anoro Ellipta 62.5-25 mcg/actuation blister with device 1 inh inhalation DAILY Qty: 60 0RF pantoprazole 40 mg tablet,delayed release (DR/EC) 40 mg PO DAILY@0630 Qty: 90 0RF letrozole 2.5 mg Tablet 2.5 mg PO Q24H Qty: 90 3RF nystatin 100,000 unit/mL Suspension 5 ml PO TID Qty: 300 0RF Rx Instructions: swish and swallow morphine 30 mg Tablet Extended Release 30 mg PO Q12H Qty: 60 0RF Rx Instructions: Partial Fill upon patient request. Ibrance 125 mg Capsule 125 mg PO DAILY Qty: 21 6RF Rx Instructions: administer on days 1 through 21 of a 28-day treatment cycle. 11/28/22 - DAY 1 OF 3 WEEKS ON PERIOD albuterol sulfate 90 mcg/actuation HFA aerosol inhaler 1 inh inhalation QID PRN (Reason: shortness of breath or wheezing) Qty: 8.5 0RF isosorbide mononitrate 30 mg tablet extended release 24 hr 1 tab PO DAILY pravastatin 20 mg tablet 1 tab PO DAILY oxycodone 5 mg tablet 5 mg PO Q4H PRN (Reason: Breakthrough Pain) omega-3 fatty acids 1,000 mg Capsule 1,000 mg PO TID oxybutynin chloride 10 mg tablet extended release 24hr 2 tab PO DAILY acetaminophen 500 mg Tablet 500 mg PO Q6H PRN (Reason: Pain) metoprolol tartrate 50 mg tablet 25 mg PO DAILY nitroglycerin 0.4 mg Tablet, Sublingual 0.4 mg SUBLINGUAL Q5M PRN (Reason: Chest Pain) Rx Instructions: do not exceed 3 doses per episode ondansetron 4 mg Tablet,Disintegrating 4 mg PO DAILY PRN (Reason: Nausea) fluticasone propionate [Flovent HFA] 110 mcg/actuation Hfa Aerosol Inhaler 2 puff INHALATION BID cholecalciferol (vitamin D3) [Vitamin D3] 25 mcg (1,000 unit) Tablet 25 mcg PO DAILY naloxone 4 mg/actuation spray,non-aerosol 1 spray intranasal Q2M PRN (Reason: Opioid Overdose) levofloxacin 500 mg tablet 500 mg PO DAILY Qty: 2 0RF docusate sodium [Colace] 100 mg capsule 100 mg PO DAILY PRN (Reason: constipation) Qty: 10 0RF polyethylene glycol 3350 [Miralax] 17 gram/dose powder 17 g PO DAILY PRN (Reason: constipation) Qty: 119 0RF (DME) FreeStyle Lite Strips Strip See Rx Instructions Not Applicable BID Qty: 10 Rx Instructions: As directed Lantus U-100 Insulin 100 unit/mL solution 30 unit subcut DAILY aripiprazole [Abilify] 20 mg tablet 20 mg PO BEDTIME gabapentin 300 mg capsule 300 mg PO TID citalopram 40 mg tablet 40 mg PO BEDTIME trazodone 50 mg tablet 50 mg PO BEDTIME PRN (Reason: Insomnia) Fiber Laxative (methylcellulo) 500 mg tablet 500 mg PO DAILY Qty: 90 3RF furosemide 40 mg tablet 60 mg PO DAILY 30 Days Qty: 45 6RF Referrals: Physician,Unknown J [Primary Care Provider] - 3 days Interventions: ED Discharge Assessment Last Done: 01/02/23 20:07 Discharge Date/Time: 01/02/23 20:20
[2023-01-02] MEDS: 0.9 % Sodium Chloride 1,000 ML 999 ML IVCONT (16:39)
[2023-01-02] MEDS: ondansetron HCL 4 MG/2 ML VIAL IVPUSH (16:39)
[2023-01-02 16:51] LABS: MANUAL DIFF FLAG NO
[2023-01-02 16:54] LABS: Basophils Percent Auto 1.2 % (0-2); Eosinophils Percent Auto 0.6 % (0-4); Hemoglobin 10.4 g/dl (12.0-16.0); Imm Gran Abs Auto 0.02 X10*3/uL (0.00-0.03); Imm Gran Pct Auto 0.6 % (0.0-0.4); Lymphocytes Absolute Auto 0.7 X10*3/uL (1.2-4.9); Lymphocytes Percent Auto 20.9 % (20-40); Mean Corpuscular HGB Conc 33.5 g/dl (31.0-35.0); Mean Corpuscular Hemoglobin 34.6 pg (27.0-33.0); Monocytes Absolute Auto 0.5 X10*3/uL (0.1-1.2); Monocytes Percent Auto 13.4 % (2-11); Neutrophils Absolute Auto 2.1 x10*3/uL (2.0-8.3); Neutrophils Percent Auto 63.3 % (45-73); Platelet Count 219 X10*3/uL (160-400); Red Blood Count 3.01 X10*6/uL (4.20-5.50); Red Cell Distribution Width 14.8 % (11.0-16.0); White Blood Count 3.4 X10*3/uL (4.8-10.8)
[2023-01-02 17:09] LABS: Alanine Aminotransferase 14 U/L (0-31); Albumin Level 3.8 g/dL (3.5-5.0); Alkaline Phosphatase 55 U/L (39-117); Anion Gap 13 (12-20); Aspartate Amino Transferase 24 U/L (5-31); Bilirubin Total 0.8 mg/dL (0.0-1.0); Blood Urea Nitrogen 8 mg/dL (9-16); Carbon Dioxide 31 mmol/L (22-29); Chloride 104 mmol/L (96-108); Creatinine Clr Calc Pharmacy 74.2; Estimated Glomerular Filt Rate > 60; Glucose Random 120 mg/dL (60-115); Lipase 5 U/L (8-78); Sodium 144 mmol/L (135-145); Total Protein 6.2 g/dL (6.5-8.0)
[2023-01-02] MEDS: iohexoL 350 MG/ML 100 ML INFUS..BTL IV (17:37)
[2023-01-02 19:33] VITALS: BP 122/53; PULSE 83; RESP 18; TEMP 36.5; O2SAT 92
[2023-01-02 20:16] VITALS: O2SAT 95
--- NOTE | 2023-01-02 20:20 | PC.NURSE ---
discharge instructions given/explained, ambulates safely/independently, IV cath tip intact upon removal, no respiratory distress, pt is able to speak in full sentences, all questions answered
== END 2023-01-02 20:20 | disposition home or self-care (01) ==
PROVIDERS: Emergency Provider Emergency Medicine
DX: R10.9 Unspecified abdominal pain (principal); R11.2 Nausea with vomiting, unspecified; R19.7 Diarrhea, unspecified; C50.911 Malignant neoplasm of unspecified site of right female breast; E11.9 Type 2 diabetes mellitus without complications; I10 Essential (primary) hypertension; Z87.891 Personal history of nicotine dependence; Z79.899 Other long term (current) drug therapy; Z79.4 Long term (current) use of insulin; Z79.02 Long term (current) use of antithrombotics/antiplatelets
CPT/HCPCS: 36415; 74177; 80053; 83690; 85025; 96361; 96374; 99284; J2405; Q9967

== ENCOUNTER → 2023-01-10 11:31 | Outpatient (BNVA) | payer OTHER, SELFPAY | PROVIDERS: PCP Internal Medicine; Visit Provider Internal Medicine Pulmonary Disease | DX: J44.9 Chronic obstructive pulmonary disease, unspecified (principal); R06.00 Dyspnea, unspecified; G47.30 Sleep apnea, unspecified; E11.9 Type 2 diabetes mellitus without complications; I10 Essential (primary) hypertension; E66.9 Obesity, unspecified; Z87.891 Personal history of nicotine dependence; Z68.34 Body mass index [BMI] 34.0-34.9, adult; Z99.81 Dependence on supplemental oxygen; Z99.89 Dependence on other enabling machines and devices | CPT/HCPCS: 99212 ==

== ENCOUNTER 2023-02-07 11:08 | Outpatient (REF) | payer OTHER, SELFPAY ==
--- NOTE | ~2023-02-07 | MM_ITS ---
EXAMINATION: MM DIAGNOSTIC DIGITAL BREAST TOMOSYNTHESIS, BILATERAL CLINICAL INFORMATION: Right breast cancer in 2021. COMPARISON: Mammography: 02/25/2022 and studies dating back to 03/25/2016. TECHNIQUE: Digital breast tomosynthesis is performed in both the craniocaudal and mediolateral oblique views along with computer-aided detection (CAD). Synthesized 2D images are generated from the tomosynthesis. Spot magnification views of the right breast performed in craniocaudal and 90 degree mediolateral views as well as right breast exaggerated craniocaudal view. FINDINGS: There are scattered areas of fibroglandular density (ACR BI-RADS breast composition Category b). Since previous study, there are noted to be postsurgical and postradiation changes within the right breast with prominent skin thickening and irregularity at lumpectomy site. No suspicious left breast findings are identified. Results are provided to the patient at time of visit by the technologist. MM/MM tomosynthesis diagnostic BI IMPRESSION: No evidence of malignancy. Postsurgical change right breast. ASSESSMENT: BI-RADS 2: Benign RECOMMENDATION: Diagnostic mammography at time of next annual exam, due in 12 months. This patient's information was entered into a reminder system with a target due date for their next mammogram.
== END 2023-02-07 11:09 | disposition home or self-care (01) ==
LOC: HO.MAMMO 11:08
PROVIDERS: PCP Internal Medicine; Visit Provider Internal Medicine
DX: Z85.3 Personal history of malignant neoplasm of breast (principal)
CPT/HCPCS: 77062; 77066

== ENCOUNTER 2023-02-12 09:10 | Emergency (ER) | payer OTHER, MEDICAID, SELFPAY ==
[2023-02-12] VITALS (8 sets, daily range): BP systolic 83–144; BP diastolic 31–111; PULSE 48–80; RESP 10–18; TEMP 36.6–36.8; O2SAT 93–97; BMI 38.2
--- NOTE | ~2023-02-12 | CT_ITS ---
EXAMINATION: CT ANGIOGRAM OF THE CHEST WITH AND WITHOUT CONTRAST (CT PULMONARY ANGIOGRAM FOR PE) CLINICAL INFORMATION: Reason for Exam chest pain, SOB, hx breast cancer COMPARISON: CT chest 11/27/2022 and PET/CT 12/24/2022 TECHNIQUE: Prior to contrast administration, noncontrast localization images were obtained. Subsequently, multidetector volumetric imaging was performed from the thoracic inlet to below the diaphragms following the administration of 65 mL Omnipaque 350 intravenous contrast. No contrast reaction reported Sagittal, coronal, and MIP oblique sagittal reformatted images were obtained on the CT workstation, uploaded to PACS, and reviewed. This CT examination was performed using dose optimization techniques as appropriate, variously including the following: *Automated exposure control *Adjustment of mA and/or kV according to patient size (this includes techniques or standardized protocols for targeted exams where dose is matched to indication/reason for exam; i.e. extremities or head) *Use of iterative reconstruction technique Total exam dose-length product 294 mGy-cm FINDINGS: QUALITY OF STUDY/CONTRAST BOLUS: Slightly suboptimal bolus along with significant motion artifact. PULMONARY ARTERIES: No central or large segmental pulmonary emboli. THORACIC AORTA: No aneurysm or dissection. LUNG: Again seen are bilateral lower lobe infiltrates with groundglass changes and dense consolidation in the peripheral right upper and right middle lobes. Only the left upper lobe is spared of significant disease. When comparison is made to the prior study from 12/24/2022 no significant interval change has occurred. PLEURA: No pleural effusion or pneumothorax. MEDIASTINUM: Normal heart size. No pericardial effusion. No hilar or mediastinal lymphadenopathy. No evidence of septal bowing or right heart strain. CORONARY ARTERY CALCIFICATION: None visualized on this study. CHEST WALL/AXILLA: No axillary or internal mammary lymphadenopathy. OSSEOUS STRUCTURES: Degenerative changes are seen at the sternomanubrial joint with possible old pathologic fracture. Previously seen pathologic rib fractures demonstrate some healing. There is a lytic area with densely sclerotic border in T3. UPPER ABDOMEN: Unremarkable. No reflux of contrast into the hepatic veins to suggest elevated right heart pressures. CT/CT angio chest PE protocol IMPRESSION: 1. No evidence of pulmonary emboli. 2. Bilateral pulmonary infiltrates with consolidation and groundglass changes with no significant change. 3. Bony metastatic disease without significant interval change. 4. VTE: Negative, but limited.
--- NOTE | 2023-02-12 09:23 | ED.CHESTPAIN ---
HPI - Chest Pain General Chief Complaint: Chest Pain Stated Complaint: Chest pain, SOB per EMS Time Seen by Provider: 02/12/23 09:18 Source: patient, EMS and other ([employer] CONSULTANT at the bedside) Mode of arrival: EMS Limitations: language barrier History of Present Illness HPI narrative: 67 yo [place] speaking female with history of breast cancer w/ metastasis to the bone and lymph node (dx 01/2022 on palliative chemo), chronic pain on chronic opiates, COPD on 2L NC at baseline, hx PNA and pneumonitis, DM, LACY who presents to the ER from home via EMS for evaluation of new onset constant chest pains that started about 3 hour ago when she was praying. She also reports associated SOB and difficulty taking a deep breath. Pain does not radiate and is located along her entire chest wall. It is worse with palpation and movement, as well as with deep breaths. MD complaint: chest pain Onset (ago): hour(s) Timing of current episode: constant Prior episodes: Yes Onset: during rest Pain location: left chest and right chest Pain radiation: none Severity: moderate Quality: aching Relieving factors: nothing Exacerbating factors: inspiration, palpation and movement Treatment prior to arrival: none Risk Factors Coronary artery disease risk factors: diabetes, hyperlipidemia and hypertension Thoracic aortic dissection risk factors: none Pulmonary embolism risk factors: malignancy Related Data Home Medications Medication Instructions Recorded Confirmed aripiprazole 20 mg tablet (Abilify) 20 mg PO BEDTIME 02/14/22 01/15/23 blood sugar diagnostic (FreeStyle #10 ea 02/14/22 01/15/23 Lite Strips) citalopram 40 mg tablet 40 mg PO BEDTIME 02/14/22 01/15/23 gabapentin 300 mg capsule 300 mg PO TID 02/14/22 01/15/23 insulin glargine 100 unit/mL 30 unit subcut DAILY 02/14/22 01/15/23 subcutaneous solution (Lantus U-100 Insulin) trazodone 50 mg tablet 50 mg PO BEDTIME PRN Insomnia 02/14/22 01/15/23 isosorbide mononitrate 30 mg 1 tab PO DAILY 04/09/22 01/15/23 tablet,extended release 24 hr pravastatin 20 mg tablet 1 tab PO DAILY 04/09/22 01/15/23 acetaminophen 500 mg tablet 500 mg PO Q6H PRN Pain 11/27/22 01/15/23 cholecalciferol (vitamin D3) 25 25 mcg PO DAILY 11/27/22 01/15/23 mcg (1,000 unit) tablet (Vitamin D3) fluticasone propionate 110 2 puff inhalation BID 11/27/22 01/15/23 mcg/actuation HFA aerosol inhaler (Flovent HFA) metoprolol tartrate 50 mg tablet 25 mg PO DAILY 11/27/22 01/15/23 naloxone 4 mg/actuation nasal spray 1 spray intranasal Q2M PRN Opioid 11/27/22 01/15/23 Overdose nitroglycerin 0.4 mg sublingual 0.4 mg sublingual Q5M PRN Chest 11/27/22 01/15/23 tablet Pain omega-3 fatty acids 1,000 mg 1,000 mg PO TID 11/27/22 01/15/23 capsule ondansetron 4 mg disintegrating 4 mg PO DAILY PRN Nausea 11/27/22 01/15/23 tablet oxybutynin chloride 10 mg 2 tab PO DAILY 11/27/22 01/15/23 tablet,extended release 24 hr Previous Rx's Medication Instructions Recorded albuterol sulfate 90 mcg/actuation 1 inh inhalation QID PRN shortness 05/07/22 aerosol inhaler of breath or wheezing #8.5 grams letrozole 2.5 mg tablet 2.5 mg PO Q24H #90 tabs 07/09/22 methylcellulose (laxative) 500 mg 500 mg PO DAILY #90 tabs 08/20/22 tablet (Fiber Laxative (methylcellulose)) nystatin 100,000 unit/mL oral 5 ml PO TID #300 mL 11/20/22 suspension docusate sodium 100 mg capsule 100 mg PO DAILY PRN constipation 12/01/22 (Colace) #10 caps levofloxacin 500 mg tablet 500 mg PO DAILY #2 tabs 12/01/22 polyethylene glycol 3350 17 17 g PO DAILY PRN constipation 12/01/22 gram/dose oral powder (Miralax) #119 grams sennosides 8.6 mg tablet (senna) 17.2 mg PO BEDTIME PRN 12/03/22 Constipation #180 tabs umeclidinium 62.5 mcg-vilanterol 1 inh inhalation DAILY #60 ea 12/05/22 25 mcg/actuation powdr for inhalation (Anoro Ellipta) palbociclib 125 mg capsule 125 mg PO DAILY #21 caps 12/31/22 (Ibrance) furosemide 40 mg tablet 60 mg PO DAILY 30 days #45 tabs 01/17/23 oxycodone 5 mg tablet 5 mg PO Q4H PRN Breakthrough Pain 01/21/23 #60 tabs morphine 30 mg tablet,extended 30 mg PO Q8H #90 tabs 01/31/23 release pantoprazole 40 mg tablet,delayed 40 mg PO DAILY@0630 #90 tabs 02/05/23 release Allergies Allergy/AdvReac Type Severity Reaction Status Date / Time No Known Allergies Allergy Unknown UNKNOWN Verified 01/10/23 11:32 [NO KNOWN ALLERGIES] Review of Systems Review of Systems: Yes all other systems are reviewed and are negative [facility] Past Medical History Medical History Asthma COPD (chronic obstructive pulmonary disease) Diabetes type 2, controlled Hypertension Invasive ductal carcinoma of right breast Sleep apnea Tubular adenoma Surgical History History of lumpectomy of right breast Hx of colonoscopy Hx of right breast biopsy Family History Family History Brother Diabetes Sister Diabetes Breast cancer, Onset Age: 67 Mother Breast cancer, Onset Age: 59 Maternal Aunt Breast cancer Social History Social History Household Members: None Housing: Apartment Are you a primary daycare assistant to a significant other at home: No Do you presently have visiting nurse or other home services: Yes Alcohol intake: never Patient Tobacco Use Status: Former Tobacco user Tobacco use type: Cigarette Smoked in Last 30 Days: No Use of substances other than those prescribed or required for medical reasons: No Advance Directives: Yes Advance Directives on File: Yes Advance Directives Date on File: 03/22/21 service: No 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 Oriented X3. No acute distress. Eyes: Pupils equal, round and reactive to light. ENT: Pharynx normal. Neck: Normal inspection. Neck supple. No JVD CVS: Normal heart rate and rhythm. Pulses normal. Respiratory: No respiratory distress. Breath sounds normal. Diffuse anterior chest wall tenderness. Abdomen: Obese, soft and nontender. +BS x4 Skin: Skin warm and dry. Normal skin color. Normal skin turgor. No rashes. Extremities: No lower extremity edema. Negative Homans sign Neuro: Oriented X 3. No motor deficit. No sensory deficit. Course Reevaluation(s) Reevaluation #1: Patient did not get her morning pain medications at home. Her chest pain is reproducible which is reassuring however given her history metastatic cancer, reports of chest pain and shortness of breath, CTA of the chest has been ordered. IV Dilaudid ordered for pain. Will reassess. Reevaluation #2: Patient's chest pain completely resolved and did not return. She remains chest pain-free and is chatting on her cellphone. She feels much better. Reevaluation #3: Workup was unremarkable. Troponin negative x2. CTA with chronic findings in her lungs, no PEs. No episodes of hypoxia. At this time patient is stable for discharge home with outpatient follow-up with Oncology. Medications Administered Generic Name Dose Route Start Last Admin Trade Name Freq PRN Reason Stop Dose Admin Sodium Chloride 500 mls @ 500 mls/hr 02/12/23 14:30 02/12/23 14:28 Ns IV 02/12/23 15:29 500 mls/hr .Q1H GRIFFIN Administration Discontinued Medications Generic Name Dose Route Start Last Admin Trade Name Freq PRN Reason Stop Dose Admin Hydromorphone HCl 1 mg 02/12/23 09:26 02/12/23 10:01 Hydromorphone Hcl 1 Mg/Ml Syringe IVPUSH 02/12/23 09:27 1 mg ONCE ONE Administration Protocol Iohexol 100 ml 02/12/23 11:15 02/12/23 11:16 Iohexol 350 Mg/Ml 100 Ml Infus..Btl IV 02/12/23 11:16 65 ml ONCE ONE Administration Medical Decision Making Medical Decision Making [facility] Narrative: 67-year-old female with history of metastatic breast cancer on palliative chemo presents to the ER for evaluation of acute onset of chest pain and shortness of breath today while she was praying. She rep to the ER slightly tachycardic. Her chest pain is reproducible which is reassuring however given her cancer history CTA of the chest will be performed. EKG without STEMI. Troponin is negative x1. Repeat pending. Chest pain free after dose of Dilaudid, she did not get her chronic home opiate this morning. She feels much better. 2:05 - CT with extensive changes throughout both lungs, appears to be chronic. No active infection or active pneumonia suspected at this time. Her 2nd troponin was negative. She continues to be chest pain free. Patient did have a drop in her blood pressure to 80 systolic. She was asymptomatic. Most likely an effect of the IV Dilaudid. IV fluids given with improvement in her blood pressure. She feels well. 15:25 - patient continues have stable blood pressure after fluids. Her P stays the bedside. Patient and PCR comfortable taking her home. She will follow-up with oncology. Stable for DC home with outpatient follow-up. Differential Diagnosis Differential Diagnoses: The differential diagnosis associated with the presentation includes Pulmonary embolism, pneumonia, ACS, aspiration, pneumonitis, costochondritis, chest wall pain, coronary spasm, pericarditis, myocarditis Lab Data [facility] Lab Attestation statement: I reviewed the patient's lab results. Chronic pancytopenia, troponin negative x2 highly suggestive against any acute cardiac disease. Procalcitonin is low, suggesting no acute pulmonary infection 02/12/23 10:00 02/12/23 10:00 Labs: Lab Results 02/12/23 02/12/23 02/12/23 Range/Units 10:00 10:00 10:00 WBC 1.8 L (4.8-10.8) X10*3/uL RBC 2.80 L (4.20-5.50) X10*6/uL Hgb 9.8 L (12.0-16.0) g/dl Hct 28.2 L (37.0-47.0) % MCV 100.7 H (80.0-98.0) fL MCH 35.0 H (27.0-33.0) pg MCHC 34.8 (31.0-35.0) g/dl RDW 13.9 (11.0-16.0) % Plt Count 145 L D (160-400) X10*3/uL MPV 9.4 (9.4-12.3) fL Immature Gran % (Auto) 2.2 H (0.0-0.4) % Neut % (Auto) 54.5 (45-73) % Lymph % (Auto) 30.6 (20-40) % Josephine % (Auto) 9.4 (2-11) % Eos % (Auto) 2.2 (0-4) % Baso % (Auto) 1.1 (0-2) % Lymph # (Auto) 0.6 L (1.2-4.9) X10*3/uL Josephine # (Auto) 0.2 (0.1-1.2) X10*3/uL Eos # (Auto) 0.0 (0.0-0.4) X10*3/uL Baso # (Auto) 0.0 (0.0-0.2) X10*3/uL Abs Immat Gran (auto) 0.04 H (0.00-0.03) X10*3/uL Absolute Neuts (auto) 1.0 L (2.0-8.3) x10*3/uL Absolute Nucleated RBC 0.000 (0.0-0.012) X10*3/uL Nucleated RBC % (auto) 0.0 (0.0-0.2) /100WBC Smear Tech's Comments VERIFIED PT 12.8 (10.0-13.1) SEC INR 1.1 (0.9-1.1) APTT 26.2 (26.0-36.4) SEC Sodium 139 (135-145) mmol/L Potassium 4.3 (3.3-5.1) mmol/L Chloride 98 (96-108) mmol/L Carbon Dioxide 33 H (22-29) mmol/L Anion Gap 12 (12-20) BUN 15 (9-16) mg/dL Creatinine 0.84 (0.5-1.4) mg/dL Estim Creat Clear Calc 67.8 Estimated GFR > 60 Random Glucose 108 (60-115) mg/dL Calcium 8.9 (8.4-10.2) mg/dL Magnesium 1.6 (1.6-2.6) mg/dL Total Bilirubin 0.8 (0.0-1.0) mg/dL Direct Bilirubin 0.2 (0.0-0.5) mg/dL AST 17 (5-31) U/L ALT 11 (0-31) U/L Alkaline Phosphatase 45 (39-117) U/L Troponin I High Sens (<3.5-17.0) ng/L B-Natriuretic Peptide (<100) pg/mL Total Protein 5.6 L (6.5-8.0) g/dL Albumin 3.5 (3.5-5.0) g/dL Procalcitonin 0.03 ng/mL Urine Color Urine Appearance Urine pH (5.0-9.0) Ur Specific [place] (1.005-1.025) Urine Protein (Neg-Trace) mg/dL Urine Glucose (UA) (Negative) mg/dL Urine Ketones (Negative) mg/dL Urine Blood (Negative) Urine Nitrite (Negative) Ur Leukocyte Esterase (Negative) Urine RBC (0-2) /HPF Urine WBC (0-5) /HPF Ur Squamous Epith Cells (0-2) /HPF Urine Bacteria (None Seen) Hyaline Casts (0-2) /LPF COVID-19 (ELIZABETH) (Negative) COVID-19 Clin Com 02/12/23 02/12/23 02/12/23 Range/Units 10:00 10:00 10:00 WBC (4.8-10.8) X10*3/uL RBC (4.20-5.50) X10*6/uL Hgb (12.0-16.0) g/dl Hct (37.0-47.0) % MCV (80.0-98.0) fL MCH (27.0-33.0) pg MCHC (31.0-35.0) g/dl RDW (11.0-16.0) % Plt Count (160-400) X10*3/uL MPV (9.4-12.3) fL Immature Gran % (Auto) (0.0-0.4) % Neut % (Auto) (45-73) % Lymph % (Auto) (20-40) % Josephine % (Auto) (2-11) % Eos % (Auto) (0-4) % Baso % (Auto) (0-2) % Lymph # (Auto) (1.2-4.9) X10*3/uL Josephine # (Auto) (0.1-1.2) X10*3/uL Eos # (Auto) (0.0-0.4) X10*3/uL Baso # (Auto) (0.0-0.2) X10*3/uL Abs Immat Gran (auto) (0.00-0.03) X10*3/uL Absolute Neuts (auto) (2.0-8.3) x10*3/uL Absolute Nucleated RBC (0.0-0.012) X10*3/uL Nucleated RBC % (auto) (0.0-0.2) /100WBC Smear Tech's Comments PT (10.0-13.1) SEC INR (0.9-1.1) APTT (26.0-36.4) SEC Sodium (135-145) mmol/L Potassium (3.3-5.1) mmol/L Chloride (96-108) mmol/L Carbon Dioxide (22-29) mmol/L Anion Gap (12-20) BUN (9-16) mg/dL Creatinine (0.5-1.4) mg/dL Estim Creat Clear Calc Estimated GFR Random Glucose (60-115) mg/dL Calcium (8.4-10.2) mg/dL Magnesium (1.6-2.6) mg/dL Total Bilirubin (0.0-1.0) mg/dL Direct Bilirubin (0.0-0.5) mg/dL AST (5-31) U/L ALT (0-31) U/L Alkaline Phosphatase (39-117) U/L Troponin I High Sens < 3.5 (<3.5-17.0) ng/L B-Natriuretic Peptide 116 H (<100) pg/mL Total Protein (6.5-8.0) g/dL Albumin (3.5-5.0) g/dL Procalcitonin ng/mL Urine Color Urine Appearance Urine pH (5.0-9.0) Ur Specific [place] (1.005-1.025) Urine Protein (Neg-Trace) mg/dL Urine Glucose (UA) (Negative) mg/dL Urine Ketones (Negative) mg/dL Urine Blood (Negative) Urine Nitrite (Negative) Ur Leukocyte Esterase (Negative) Urine RBC (0-2) /HPF Urine WBC (0-5) /HPF Ur Squamous Epith Cells (0-2) /HPF Urine Bacteria (None Seen) Hyaline Casts (0-2) /LPF COVID-19 (ELIZABETH) Negative (Negative) COVID-19 Clin Com SEE NOTE 02/12/23 02/12/23 Range/Units 13:33 13:36 WBC (4.8-10.8) X10*3/uL RBC (4.20-5.50) X10*6/uL Hgb (12.0-16.0) g/dl Hct (37.0-47.0) % MCV (80.0-98.0) fL MCH (27.0-33.0) pg MCHC (31.0-35.0) g/dl RDW (11.0-16.0) % Plt Count (160-400) X10*3/uL MPV (9.4-12.3) fL Immature Gran % (Auto) (0.0-0.4) % Neut % (Auto) (45-73) % Lymph % (Auto) (20-40) % Josephine % (Auto) (2-11) % Eos % (Auto) (0-4) % Baso % (Auto) (0-2) % Lymph # (Auto) (1.2-4.9) X10*3/uL Josephine # (Auto) (0.1-1.2) X10*3/uL Eos # (Auto) (0.0-0.4) X10*3/uL Baso # (Auto) (0.0-0.2) X10*3/uL Abs Immat Gran (auto) (0.00-0.03) X10*3/uL Absolute Neuts (auto) (2.0-8.3) x10*3/uL Absolute Nucleated RBC (0.0-0.012) X10*3/uL Nucleated RBC % (auto) (0.0-0.2) /100WBC Smear Tech's Comments PT (10.0-13.1) SEC INR (0.9-1.1) APTT (26.0-36.4) SEC Sodium (135-145) mmol/L Potassium (3.3-5.1) mmol/L Chloride (96-108) mmol/L Carbon Dioxide (22-29) mmol/L Anion Gap (12-20) BUN (9-16) mg/dL Creatinine (0.5-1.4) mg/dL Estim Creat Clear Calc Estimated GFR Random Glucose (60-115) mg/dL Calcium (8.4-10.2) mg/dL Magnesium (1.6-2.6) mg/dL Total Bilirubin (0.0-1.0) mg/dL Direct Bilirubin (0.0-0.5) mg/dL AST (5-31) U/L ALT (0-31) U/L Alkaline Phosphatase (39-117) U/L Troponin I High Sens < 3.5 (<3.5-17.0) ng/L B-Natriuretic Peptide (<100) pg/mL Total Protein (6.5-8.0) g/dL Albumin (3.5-5.0) g/dL Procalcitonin ng/mL Urine Color Yellow Urine Appearance Clear Urine pH 7.0 (5.0-9.0) Ur Specific [place] 1.015 (1.005-1.025) Urine Protein Negative (Neg-Trace) mg/dL Urine Glucose (UA) Negative (Negative) mg/dL Urine Ketones Negative (Negative) mg/dL Urine Blood Negative (Negative) Urine Nitrite Negative (Negative) Ur Leukocyte Esterase Trace H (Negative) Urine RBC 0-2 (0-2) /HPF Urine WBC 0-5 (0-5) /HPF Ur Squamous Epith Cells 0-2 (0-2) /HPF Urine Bacteria Trace (None Seen) Hyaline Casts 0-2 (0-2) /LPF COVID-19 ([facility]ETH) (Negative) COVID-19 Clin Com Independent Interpretation I performed an independent interpretation of an: EKG and CT Scan Interpretation: EKG with sinus tachycardia ventricular rate 103 beats per minute, left axis deviation, normal VT interval, no ST segment elevations or depressions. CT scan of the chest without PEs, extensive ground-glass opacities and scattered infiltrates throughout both lungs, appears slightly worse than prior done in October. Radiology Impression Discussion of test interpretation with radiology: I have reviewed the radiologist's reading. Radiologist Impression: EXAMINATION: CT ANGIOGRAM OF THE CHEST WITH AND WITHOUT CONTRAST (CT PULMONARY ANGIOGRAM FOR PE) CLINICAL INFORMATION: Reason for Exam chest pain, SOB, hx breast cancer COMPARISON: CT chest 11/27/2022 and PET/CT 12/24/2022? TECHNIQUE: Prior to contrast administration, noncontrast localization images were obtained. ? Subsequently, multidetector volumetric imaging was performed from the thoracic inlet to below the diaphragms following the administration of 65 mL Omnipaque 350 intravenous contrast. No contrast reaction reported Sagittal, coronal, and MIP oblique sagittal reformatted images were obtained on the CT workstation, uploaded to PACS, and reviewed. This CT examination was performed using dose optimization techniques as appropriate, variously including the following: *Automated exposure control *Adjustment of mA and/or kV according to patient size (this includes techniques or standardized protocols for targeted exams where dose is matched to indication/reason for exam; i.e. extremities or head) *Use of iterative reconstruction technique Total exam dose-length product 294 mGy-cm FINDINGS: QUALITY OF STUDY/CONTRAST BOLUS: Slightly suboptimal bolus along with significant motion artifact. PULMONARY ARTERIES: No central or large segmental pulmonary emboli.? THORACIC AORTA: No aneurysm or dissection. LUNG: Again seen are bilateral lower lobe infiltrates with groundglass changes and dense consolidation in the peripheral right upper and right middle lobes. Only the left upper lobe is spared of significant disease. When comparison is made to the prior study from 12/24/2022 no significant interval change has occurred. PLEURA: No pleural effusion or pneumothorax. MEDIASTINUM: Normal heart size.? No pericardial effusion.? No hilar or mediastinal lymphadenopathy.? No evidence of septal bowing or right heart strain. CORONARY ARTERY CALCIFICATION: None visualized on this study. CHEST WALL/AXILLA: No axillary or internal mammary lymphadenopathy. OSSEOUS STRUCTURES: Degenerative changes are seen at the sternomanubrial joint with possible old pathologic fracture. Previously seen pathologic rib fractures demonstrate some healing. There is a lytic area with densely sclerotic border in T3. UPPER ABDOMEN: Unremarkable.? No reflux of contrast into the hepatic veins to suggest elevated right heart pressures. CT/CT angio chest PE protocol IMPRESSION: 1.? No evidence of pulmonary emboli. 2.? Bilateral pulmonary infiltrates with consolidation and groundglass changes with no significant change. 3.? Bony metastatic disease without significant interval change. 4.? VTE: Negative, but limited. Scores Heart Score History: -0- slightly suspicious ECG: -0- normal Age: -2- > or = 65 Risk factory: -1- 1 or 2 risk factors Troponin: -0- < or = normal limit Score: 3 Risk: 1.7% Critical Care Time Critical Care Time Critical Care Time: No Discharge Plan Discharge Clinical Impression: Atypical chest pain Patient Disposition: Home, Self-Care Instructions: Chest Wall Pain (ED) Additional Instructions: Your cardiac workup was unremarkable. Your CT scan showed chronic changes in your lungs. Recommend following back up with Oncology and your doctor Take your previously prescribed narcotic pain medications as directed. If you develop new or worsening symptoms call 911 or come back to the ER for further evaluation. Prescriptions: No Action sennosides [senna] 8.6 mg tablet 17.2 mg PO BEDTIME PRN (Reason: Constipation) Qty: 180 2RF Anoro Ellipta 62.5-25 mcg/actuation blister with device 1 inh inhalation DAILY Qty: 60 0RF furosemide 40 mg tablet 60 mg PO DAILY 30 Days Qty: 45 6RF pantoprazole 40 mg tablet,delayed release (DR/EC) 40 mg PO DAILY@0630 Qty: 90 2RF letrozole 2.5 mg Tablet 2.5 mg PO Q24H Qty: 90 3RF nystatin 100,000 unit/mL Suspension 5 ml PO TID Qty: 300 0RF Rx Instructions: swish and swallow Ibrance 125 mg Capsule 125 mg PO DAILY Qty: 21 6RF Rx Instructions: administer on days 1 through 21 of a 28-day treatment cycle. 11/28/22 - DAY 1 OF 3 WEEKS ON PERIOD oxycodone 5 mg tablet 5 mg PO Q4H PRN (Reason: Breakthrough Pain) Qty: 60 0RF morphine 30 mg Tablet Extended Release 30 mg PO Q8H Qty: 90 0RF Rx Instructions: Partial Fill upon patient request. albuterol sulfate 90 mcg/actuation HFA aerosol inhaler 1 inh inhalation QID PRN (Reason: shortness of breath or wheezing) Qty: 8.5 0RF isosorbide mononitrate 30 mg tablet extended release 24 hr 1 tab PO DAILY pravastatin 20 mg tablet 1 tab PO DAILY omega-3 fatty acids 1,000 mg Capsule 1,000 mg PO TID oxybutynin chloride 10 mg tablet extended release 24hr 2 tab PO DAILY acetaminophen 500 mg Tablet 500 mg PO Q6H PRN (Reason: Pain) metoprolol tartrate 50 mg tablet 25 mg PO DAILY nitroglycerin 0.4 mg Tablet, Sublingual 0.4 mg SUBLINGUAL Q5M PRN (Reason: Chest Pain) Rx Instructions: do not exceed 3 doses per episode ondansetron 4 mg Tablet,Disintegrating 4 mg PO DAILY PRN (Reason: Nausea) fluticasone propionate [Flovent HFA] 110 mcg/actuation Hfa Aerosol Inhaler 2 puff INHALATION BID cholecalciferol (vitamin D3) [Vitamin D3] 25 mcg (1,000 unit) Tablet 25 mcg PO DAILY naloxone 4 mg/actuation spray,non-aerosol 1 spray intranasal Q2M PRN (Reason: Opioid Overdose) levofloxacin 500 mg tablet 500 mg PO DAILY Qty: 2 0RF docusate sodium [Colace] 100 mg capsule 100 mg PO DAILY PRN (Reason: constipation) Qty: 10 0RF polyethylene glycol 3350 [Miralax] 17 gram/dose powder 17 g PO DAILY PRN (Reason: constipation) Qty: 119 0RF (DME) FreeStyle Lite Strips Strip See Rx Instructions Not Applicable BID Qty: 10 Rx Instructions: As directed Lantus U-100 Insulin 100 unit/mL solution 30 unit subcut DAILY aripiprazole [Abilify] 20 mg tablet 20 mg PO BEDTIME gabapentin 300 mg capsule 300 mg PO TID citalopram 40 mg tablet 40 mg PO BEDTIME trazodone 50 mg tablet 50 mg PO BEDTIME PRN (Reason: Insomnia) Fiber Laxative (methylcellulo) 500 mg tablet 500 mg PO DAILY Qty: 90 3RF
--- NOTE | 2023-02-12 09:26 | ECG_ITS ---
Test Reason : chest pain Blood Pressure : / mmHG Vent. Rate : 103 BPM Atrial Rate : 103 BPM P-R Int : 144 ms QRS Dur : 098 ms QT Int : 358 ms P-R-T Axes : 000 -30 034 degrees QTc Int : 468 ms Sinus tachycardia Left axis deviation Moderate voltage criteria for LVH, may be normal variant ( R in aVL , Candelario product ) Cannot rule out Anterior infarct , age undetermined Abnormal ECG When compared with ECG of 27-NOV-2022 08:52, Minimal criteria for Anterior infarct are now Present Referred By: Merly Hernandez Electronically Signed By:Danilo Herron
[2023-02-12] MEDS: HYDROmorphone HCl 1 MG/ML SYRINGE IVPUSH (10:01)
[2023-02-12 10:19] LABS: INTERNATIONAL NORM RATIO 1.1 (0.9-1.1); Prothrombin Time 12.8 SEC (10.0-13.1)
[2023-02-12 10:20] LABS: Basophils Percent Auto 1.1 % (0-2); Eosinophils Percent Auto 2.2 % (0-4); Hematocrit 28.2 % (37.0-47.0); Hemoglobin 9.8 g/dl (12.0-16.0); Imm Gran Abs Auto 0.04 X10*3/uL (0.00-0.03); Imm Gran Pct Auto 2.2 % (0.0-0.4); Lymphocytes Absolute Auto 0.6 X10*3/uL (1.2-4.9); Lymphocytes Percent Auto 30.6 % (20-40); MANUAL DIFF FLAG SCAN; Mean Corpuscular HGB Conc 34.8 g/dl (31.0-35.0); Mean Corpuscular Volume 100.7 fL (80.0-98.0); Mean Platelet Volume 9.4 fL (9.4-12.3); Monocytes Absolute Auto 0.2 X10*3/uL (0.1-1.2); Monocytes Percent Auto 9.4 % (2-11); Neutrophils Percent Auto 54.5 % (45-73); Platelet Count 145 X10*3/uL (160-400); Red Cell Distribution Width 13.9 % (11.0-16.0); SCAN SMEAR FLAG 1; White Blood Count 1.8 X10*3/uL (4.8-10.8)
[2023-02-12 10:22] LABS: Partial Thromboplastin Time 26.2 SEC (26.0-36.4)
[2023-02-12 10:30] LABS: Alanine Aminotransferase 11 U/L (0-31); Albumin Level 3.5 g/dL (3.5-5.0); Alkaline Phosphatase 45 U/L (39-117); Anion Gap 12 (12-20); Aspartate Amino Transferase 17 U/L (5-31); Bilirubin Direct 0.2 mg/dL (0.0-0.5); Bilirubin Total 0.8 mg/dL (0.0-1.0); Blood Urea Nitrogen 15 mg/dL (9-16); Calcium 8.9 mg/dL (8.4-10.2); Carbon Dioxide 33 mmol/L (22-29); Chloride 98 mmol/L (96-108); Creatinine Clr Calc Pharmacy 67.8; Estimated Glomerular Filt Rate > 60; Glucose Random 108 mg/dL (60-115); Magnesium 1.6 mg/dL (1.6-2.6); Potassium 4.3 mmol/L (3.3-5.1); Sodium 139 mmol/L (135-145); Total Protein 5.6 g/dL (6.5-8.0)
[2023-02-12 10:33] LABS: COVID-19 Test Negative (Negative); IDNOW Serial# BCCEAD1C
[2023-02-12 10:36] LABS: Troponin-I High Sensitivity < 3.5 ng/L (<3.5-17.0)
[2023-02-12 10:37] LABS: SLIDE REVIEW VERIFIED
[2023-02-12 10:54] LABS: B Type Natriuretic Peptide 116 pg/mL (<100)
[2023-02-12] MEDS: iohexoL 350 MG/ML 100 ML INFUS..BTL IV (11:16)
[2023-02-12 12:55] LABS: Procalcitonin 0.03 ng/mL
[2023-02-12 13:47] LABS: Appearance Urine Clear; Color Urine Yellow; Glucose Urine UA Negative (Negative); Leukocyte Esterase Urine Trace (Negative); Nitrite Urine Negative (Negative); Specific Gravity - Urine 1.015 (1.005-1.025); UMIC TRIGGER UACC YES; Urine Blood Negative (Negative); Urine Ketones Negative (Negative); Urine Protein Negative (Neg-Trace)
[2023-02-12 13:52] LABS: Bacteria Urine Trace (None Seen); Hyaline Casts Urine 0-2 /LPF (0-2); RBC Urine 0-2 /HPF (0-2); Squamous Epithelial Cell Urine 0-2 /HPF (0-2); WBC Urine 0-5 /HPF (0-5)
[2023-02-12 13:59] LABS: Troponin-I High Sensitivity < 3.5 ng/L (<3.5-17.0)
[2023-02-12] MEDS: 0.9 % Sodium Chloride 500 ML IV (14:28)
== END 2023-02-12 15:36 | disposition home or self-care (01) ==
PROVIDERS: Physician Assistant; Emergency Provider Emergency Medicine
DX: R07.89 Other chest pain (principal); R06.02 Shortness of breath; E11.9 Type 2 diabetes mellitus without complications; I10 Essential (primary) hypertension; Z79.899 Other long term (current) drug therapy; Z20.822 Contact with and (suspected) exposure to COVID-19; Z20.828 Contact with and (suspected) exposure to other viral communicable diseases
CPT/HCPCS: 36415; 71275; 80048; 80076; 81001; 83735; 83880; 84145; 84484; 85025; 85610; 85730; 87635; 93005; 96361; 96374; 99284; 99285; J1170; Q9967

== ENCOUNTER 2023-03-17 09:18 | Observation (INO) | payer MEDICARE, MEDICAID, SELFPAY ==
--- NOTE | ~2023-03-17 | XR_ITS ---
EXAMINATION: XR CHEST CLINICAL INFORMATION: Chest pain COMPARISON: Previous chest CTA most recent January 2023 and chest x-ray most recent October 2022 TECHNIQUE: Frontal view of the chest was obtained. FINDINGS: The lung volumes are low. The cardiac and mediastinal contours are stable. There is bronchial wall thickening and infiltrate seen in the central mid right lung similar to previous exam. There may be a small infiltrate at the left lung base. There is no pleural effusion or pneumothorax. There are degenerative changes of the spine. XR/XR chest 1V IMPRESSION: Right lung bronchial wall thickening and infiltrate similar to previous exams.
--- NOTE | 2023-03-17 09:23 | ECG_ITS ---
Test Reason : cp Blood Pressure : / mmHG Vent. Rate : 109 BPM Atrial Rate : 109 BPM P-R Int : 120 ms QRS Dur : 094 ms QT Int : 330 ms P-R-T Axes : 000 -31 047 degrees QTc Int : 444 ms Sinus tachycardia Left axis deviation Moderate voltage criteria for LVH, may be normal variant ( R in aVL , Candelario product ) Cannot rule out Anterior infarct (cited on or before 12-FEB-2023) Abnormal ECG When compared with ECG of 12-FEB-2023 09:35, No significant change was found Referred By: Keri Burleson Electronically Signed By:MAURICE BENAVIDEZ
--- NOTE | 2023-03-17 09:25 | ED_ITS ---
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 67-year-old female came in with symptoms of coughing with clear phlegm after coughing, patient also develops lungs pain with coughing. Lungs pain is exacerbated by coughing or taking a deep breath. Patient been having chills but no fever, had 1 time vomiting after a coughing fit. No sick contacts, no recent travel. Related Data Home Medications Medication Instructions Recorded Confirmed aripiprazole 20 mg tablet (Abilify) 20 mg PO BEDTIME 02/14/22 03/12/23 blood sugar diagnostic (FreeStyle #10 ea 02/14/22 03/12/23 Lite Strips) citalopram 40 mg tablet 40 mg PO BEDTIME 02/14/22 03/12/23 gabapentin 300 mg capsule 300 mg PO TID 02/14/22 03/12/23 insulin glargine 100 unit/mL 30 unit subcut DAILY 02/14/22 03/12/23 subcutaneous solution (Lantus U-100 Insulin) trazodone 50 mg tablet 50 mg PO BEDTIME PRN Insomnia 02/14/22 03/12/23 isosorbide mononitrate 30 mg 1 tab PO DAILY 04/09/22 03/12/23 tablet,extended release 24 hr pravastatin 20 mg tablet 1 tab PO DAILY 04/09/22 03/12/23 acetaminophen 500 mg tablet 500 mg PO Q6H PRN Pain 11/27/22 03/12/23 cholecalciferol (vitamin D3) 25 25 mcg PO DAILY 11/27/22 03/12/23 mcg (1,000 unit) tablet (Vitamin D3) fluticasone propionate 110 2 puff inhalation BID 11/27/22 03/12/23 mcg/actuation HFA aerosol inhaler (Flovent HFA) metoprolol tartrate 50 mg tablet 25 mg PO DAILY 11/27/22 03/12/23 naloxone 4 mg/actuation nasal spray 1 spray intranasal Q2M PRN Opioid 11/27/22 03/12/23 Overdose nitroglycerin 0.4 mg sublingual 0.4 mg sublingual Q5M PRN Chest 11/27/22 03/12/23 tablet Pain omega-3 fatty acids 1,000 mg 1,000 mg PO TID 11/27/22 03/12/23 capsule ondansetron 4 mg disintegrating 4 mg PO DAILY PRN Nausea 11/27/22 03/12/23 tablet oxybutynin chloride 10 mg 2 tab PO DAILY 11/27/22 03/12/23 tablet,extended release 24 hr Previous Rx's Medication Instructions Recorded albuterol sulfate 90 mcg/actuation 1 inh inhalation QID PRN shortness 05/07/22 aerosol inhaler of breath or wheezing #8.5 grams letrozole 2.5 mg tablet 2.5 mg PO Q24H #90 tabs 07/09/22 methylcellulose (laxative) 500 mg 500 mg PO DAILY #90 tabs 08/20/22 tablet (Fiber Laxative (methylcellulose)) docusate sodium 100 mg capsule 100 mg PO DAILY PRN constipation 12/01/22 (Colace) #10 caps levofloxacin 500 mg tablet 500 mg PO DAILY #2 tabs 12/01/22 polyethylene glycol 3350 17 17 g PO DAILY PRN constipation 12/01/22 gram/dose oral powder (Miralax) #119 grams sennosides 8.6 mg tablet (senna) 17.2 mg PO BEDTIME PRN 12/03/22 Constipation #180 tabs palbociclib 125 mg capsule 125 mg PO DAILY #21 caps 12/31/22 (Ibrance) furosemide 40 mg tablet 60 mg PO DAILY 30 days #45 tabs 01/17/23 pantoprazole 40 mg tablet,delayed 40 mg PO DAILY@0630 #90 tabs 02/05/23 release nystatin 100,000 unit/mL oral 5 ml PO TID #300 mL 02/14/23 suspension Anoro Ellipta 62.5 mcg-25 1 ea PO DAILY #60 ea 02/20/23 mcg/actuation powder for inhalation (umeclidinium-vilanterol) morphine 30 mg tablet,extended 30 mg PO Q12H #60 tabs 03/12/23 release Allergies Allergy/AdvReac Type Severity Reaction Status Date / Time No Known Allergies Allergy Unknown UNKNOWN Verified 03/12/23 10:31 [NO KNOWN ALLERGIES] Review of Systems Review of Systems: All other systems are reviewed and are negative Constitutional: Reports as per HPI and Reports no additional constitutional complaints Eyes: Reports as per HPI and Reports no additional eye complaints Reports system reviewed and no additional complaints, except as documented Cardiovascular: Reports as per HPI and Reports no additional cardiovascular complaints Respiratory: Reports as per HPI and Reports no additional respiratory complaints Gastrointestinal: Reports as per HPI and Reports no additional gastrointestinal complaints Genitourinary: Reports no additional female genitourinary complaints Musculoskeletal: Reports no additional musculoskeletal complaints Skin/Breast: Reports system reviewed and no additional complaints, except as docu Psychiatric: Reports no additional psychiatric complaints Endocrine: Reports no additional endocrine complaints Hematologic/Lymphatic: Reports no additional hematologic/lymphatic complaints Allergic/Immunologic: Reports no additional allergic/immunologic complaints Reports system reviewed and no additional complaints, except as documented and Reports Abnormal speech present [facility] Past Medical History Medical History Asthma COPD (chronic obstructive pulmonary disease) Diabetes type 2, controlled Hypertension Invasive ductal carcinoma of right breast Sleep apnea Tubular adenoma Surgical History History of lumpectomy of right breast Hx of colonoscopy Hx of right breast biopsy Family History Family History Brother Diabetes Sister Diabetes Breast cancer, Onset Age: 67 Mother Breast cancer, Onset Age: 59 Maternal Aunt Breast cancer Social History Social History Household Members: None Housing: Apartment Are you a primary vocational childcare teacher to a significant other at home: No Do you presently have visiting nurse or other home services: Yes Alcohol intake: never Patient Tobacco Use Status: Former Tobacco user Tobacco use type: Cigarette Smoked in Last 30 Days: No Use of substances other than those prescribed or required for medical reasons: No Advance Directives: Yes Advance Directives on File: Yes Advance Directives Date on File: 03/22/21 service: No 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 Blood pressure normal. Heart rate normal. Respiration rate normal. Temperature normal. Oxygen saturation normal. Appearance: Alert. Oriented X3. No acute distress. Head: Normal external exam. Normocephalic. Atraumatic. No Garcia signs noted. No raccoon eyes noted Eyes: PERRLA. EOMI. Conjunctiva and sclera normal. Eyelids normal. ENT: TM's Normal. Pharynx normal. Uvula midline. Moist mucous membranes. No trismus noted. No drooling noted. No muffled voice noted. Neck: Normal inspection. Neck supple. FROM. No adenopathy. Thyroid Normal. No meningeal signs. No neck mass noted. CVS: Normal heart rate and rhythm. Heart sound normal. No murmurs noted. Pulses normal throughout. Respiratory: No respiratory distress. Painless inspiration. Breath sounds normal. No wheezes/rales/rhonchi noted. Chest nontender. No accessory muscle usage noted or decreased air movement noted. Abdomen: Soft and nontender. Bowel sounds normal in all 4 quadrants. No distention noted. No organomegaly noted. No visible injury noted. Back: No CVA tenderness. Full range of motion noted. Skin: Skin warm and dry. Normal skin color. Normal skin turgor. No rashes/lesions/lacerations noted. Extremities: No lower extremity edema. Extremities exhibit normal range of motion. Extremities nontender. Neuro: Oriented X 3. Cranial nerve exam: II-XII are grossly intact No motor deficit. No sensory deficit. Reflexes normal. Medical Decision Making Medical Decision Making [facility] Narrative: Patient with difficulty breathing history of COPD on oxygen patient also on chemotherapy for breast cancer, neutropenic will start the patient on Zosyn and Zithromax. Differential Diagnosis Differential Diagnoses: The differential diagnosis associated with the presentation includes (Pneumonia, COPD exacerbation, ACS, severe sepsis, septic shock.) Admission/Observation Consideration of admission/observation: Escalation of care including admission/observation considered Consult Healthcare Provider Management of the patient was discussed with: Hospitalist Lab Data [facility] Lab Attestation statement: I reviewed the patient's lab results. 03/17/23 09:52 03/17/23 09:52 Labs: Lab Results 03/17/23 03/17/23 03/17/23 Range/Units 09:52 09:52 09:52 WBC 1.2 L (4.8-10.8) X10*3/uL RBC 3.00 L (4.20-5.50) X10*6/uL Hgb 10.4 L (12.0-16.0) g/dl Hct 29.9 L (37.0-47.0) % MCV 99.7 H (80.0-98.0) fL MCH 34.7 H (27.0-33.0) pg MCHC 34.8 (31.0-35.0) g/dl RDW 14.3 (11.0-16.0) % Plt Count 113 L D (160-400) X10*3/uL MPV 9.6 (9.4-12.3) fL Immature Gran % (Auto) 0.0 (0.0-0.4) % Neut % (Auto) 55.7 (45-73) % Lymph % (Auto) 30.6 (20-40) % [place] % (Auto) 12.9 H (2-11) % Eos % (Auto) 0.0 (0-4) % Baso % (Auto) 0.8 (0-2) % Lymph # (Auto) 0.4 L (1.2-4.9) X10*3/uL [place] # (Auto) 0.2 (0.1-1.2) X10*3/uL Eos # (Auto) 0.0 (0.0-0.4) X10*3/uL Baso # (Auto) 0.0 (0.0-0.2) X10*3/uL Abs Immat Gran (auto) 0.00 (0.00-0.03) X10*3/uL Absolute Neuts (auto) 0.7 L (2.0-8.3) x10*3/uL Absolute Nucleated RBC 0.000 (0.0-0.012) X10*3/uL Nucleated RBC % (auto) 0.0 (0.0-0.2) /100WBC Smear Tech's Comments VERIFIED Sodium 136 (135-145) mmol/L Potassium 4.0 (3.3-5.1) mmol/L Chloride 98 (96-108) mmol/L Carbon Dioxide 30 H (22-29) mmol/L Anion Gap 12 (12-20) BUN 10 (9-16) mg/dL Creatinine 0.92 (0.5-1.4) mg/dL Estim Creat Clear Calc 61.0 Estimated GFR > 60 Random Glucose 98 (60-115) mg/dL Lactic Acid (0.5-2.0) mmol/L Calcium 8.2 L D (8.4-10.2) mg/dL Total Bilirubin 0.8 (0.0-1.0) mg/dL Direct Bilirubin 0.3 (0.0-0.5) mg/dL AST 19 (5-31) U/L ALT 11 (0-31) U/L Alkaline Phosphatase 48 (39-117) U/L Troponin I High Sens 3.9 (<3.5-17.0) ng/L B-Natriuretic Peptide (<100) pg/mL Total Protein 6.0 L (6.5-8.0) g/dL Albumin 3.8 (3.5-5.0) g/dL Lipase 4 L (8-78) U/L Influenza Type A (PCR) (Negative) Influenza Type B (PCR) (Negative) RSV RNA Qual (PCR) (Negative) SARS-CoV-2 RNA (RT-PCR) (Negative) 03/17/23 03/17/23 03/17/23 Range/Units 09:52 09:52 09:52 WBC (4.8-10.8) X10*3/uL RBC (4.20-5.50) X10*6/uL Hgb (12.0-16.0) g/dl Hct (37.0-47.0) % MCV (80.0-98.0) fL MCH (27.0-33.0) pg MCHC (31.0-35.0) g/dl RDW (11.0-16.0) % Plt Count (160-400) X10*3/uL MPV (9.4-12.3) fL Immature Gran % (Auto) (0.0-0.4) % Neut % (Auto) (45-73) % Lymph % (Auto) (20-40) % [place] % (Auto) (2-11) % Eos % (Auto) (0-4) % Baso % (Auto) (0-2) % Lymph # (Auto) (1.2-4.9) X10*3/uL [place] # (Auto) (0.1-1.2) X10*3/uL Eos # (Auto) (0.0-0.4) X10*3/uL Baso # (Auto) (0.0-0.2) X10*3/uL Abs Immat Gran (auto) (0.00-0.03) X10*3/uL Absolute Neuts (auto) (2.0-8.3) x10*3/uL Absolute Nucleated RBC (0.0-0.012) X10*3/uL Nucleated RBC % (auto) (0.0-0.2) /100WBC Smear Tech's Comments Sodium (135-145) mmol/L Potassium (3.3-5.1) mmol/L Chloride (96-108) mmol/L Carbon Dioxide (22-29) mmol/L Anion Gap (12-20) BUN (9-16) mg/dL Creatinine (0.5-1.4) mg/dL Estim Creat Clear Calc Estimated GFR Random Glucose (60-115) mg/dL Lactic Acid 0.5 (0.5-2.0) mmol/L Calcium (8.4-10.2) mg/dL Total Bilirubin (0.0-1.0) mg/dL Direct Bilirubin (0.0-0.5) mg/dL AST (5-31) U/L ALT (0-31) U/L Alkaline Phosphatase (39-117) U/L Troponin I High Sens (<3.5-17.0) ng/L B-Natriuretic Peptide 34 (<100) pg/mL Total Protein (6.5-8.0) g/dL Albumin (3.5-5.0) g/dL Lipase (8-78) U/L Influenza Type A (PCR) NEGATIVE (Negative) Influenza Type B (PCR) NEGATIVE (Negative) RSV RNA Qual (PCR) NEGATIVE (Negative) SARS-CoV-2 RNA (RT-PCR) NEGATIVE (Negative) Independent Interpretation I performed an independent interpretation of an: EKG (Sinus tachycardia 1 known been intermittent, left axis deviation normal intervals.) and Plain X-Ray (Right lung infiltrate.) Radiology Impression Discussion of test interpretation with radiology: I have reviewed the radiologist's reading. Discharge Plan Discharge Clinical Impression: Pneumonia, Atypical chest pain Patient Disposition: Admitted As Inpatient
[2023-03-17 09:37] VITALS: BP 102/48; BP 107/68; PULSE 100; PULSE 108; RESP 19; TEMP 36.2; O2SAT 96; BMI 32.3
[2023-03-17 10:00] LABS: Basophils Percent Auto 0.8 % (0-2); Hematocrit 29.9 % (37.0-47.0); Hemoglobin 10.4 g/dl (12.0-16.0); Lymphocytes Absolute Auto 0.4 X10*3/uL (1.2-4.9); Lymphocytes Percent Auto 30.6 % (20-40); MANUAL DIFF FLAG SCAN; Mean Corpuscular HGB Conc 34.8 g/dl (31.0-35.0); Mean Corpuscular Hemoglobin 34.7 pg (27.0-33.0); Mean Corpuscular Volume 99.7 fL (80.0-98.0); Mean Platelet Volume 9.6 fL (9.4-12.3); Monocytes Absolute Auto 0.2 X10*3/uL (0.1-1.2); Monocytes Percent Auto 12.9 % (2-11); Neutrophils Absolute Auto 0.7 x10*3/uL (2.0-8.3); Neutrophils Percent Auto 55.7 % (45-73); Platelet Count 113 X10*3/uL (160-400); Red Cell Distribution Width 14.3 % (11.0-16.0); SCAN SMEAR FLAG 1
[2023-03-17 10:01] LABS: White Blood Count 1.2 X10*3/uL (4.8-10.8)
[2023-03-17 10:14] LABS: Lactic Acid 0.5 mmol/L (0.5-2.0)
[2023-03-17 10:18] LABS: Alanine Aminotransferase 11 U/L (0-31); Albumin Level 3.8 g/dL (3.5-5.0); Alkaline Phosphatase 48 U/L (39-117); Anion Gap 12 (12-20); Aspartate Amino Transferase 19 U/L (5-31); Bilirubin Direct 0.3 mg/dL (0.0-0.5); Bilirubin Total 0.8 mg/dL (0.0-1.0); Blood Urea Nitrogen 10 mg/dL (9-16); Calcium 8.2 mg/dL (8.4-10.2); Carbon Dioxide 30 mmol/L (22-29); Chloride 98 mmol/L (96-108); Estimated Glomerular Filt Rate > 60; Glucose Random 98 mg/dL (60-115); Lipase 4 U/L (8-78); Sodium 136 mmol/L (135-145)
[2023-03-17 10:20] LABS: SLIDE REVIEW VERIFIED
[2023-03-17 10:25] LABS: Troponin-I High Sensitivity 3.9 ng/L (<3.5-17.0)
[2023-03-17 10:26] LABS: B Type Natriuretic Peptide 34 pg/mL (<100)
[2023-03-17 10:38] VITALS: BP 109/77; PULSE 101; RESP 20; TEMP 37.4; O2SAT 94
[2023-03-17 10:44] LABS: Influenza A PCR NEGATIVE (Negative); Influenza B PCR NEGATIVE (Negative); Resp Syncy Virus RNA Qual PCR NEGATIVE (Negative); SARS COV2 PCR INHOUSE NEGATIVE (Negative)
[2023-03-17 11:15] VITALS: BP 111/49; PULSE 106; RESP 20; TEMP 36.9; O2SAT 97
--- NOTE | 2023-03-17 11:41 | P.HPHOSP_ITS ---
History of Present Illness Date of Service: 03/17/23 Attending physician on admission: Eran Pina Chief Complaint: I had pain to my right upper back/lung/chest with cough This is a 67 year [place] Speaking only female with a past medical history as noted below presented to the emergency department with complaints with complaints of a productive cough and associated right sided upper back/lung/chest pain, worse with cough. Patient reports she has felt feverish and chills however she did not have a temperature when she checked. Patient reports her cough as productive with a thick white mucous production. She denies needing more oxygen than her baseline of2 @L/min. Patient is denying left-sided chest pain, arm pain, dizziness, shortness of breath. Chest x-ray: Right bronchial thickening and infiltrate similar to previous exams. Initial laboratory results: WBC is 1.2, Hgb & Hct 10.4/29.9, platelets 113,, dioxide 30, Ca 8.2, total protein 6, 3 lipase 4. In the emergency department the above was performed and patient received 3.375 Zosyn and 500 mg IV Azithromycin. The decision was made to admit patient for medical management. Review of Systems Review of Systems: A complete 12 point review of systems was performed and are negative if not noted in HPI. [facility] Medical History Asthma COPD (chronic obstructive pulmonary disease) Diabetes type 2, controlled Hypertension Invasive ductal carcinoma of right breast Sleep apnea Tubular adenoma Family History Brother Diabetes Sister Diabetes Breast cancer, Onset Age: 67 Mother Breast cancer, Onset Age: 59 Maternal Aunt Breast cancer Surgical History History of lumpectomy of right breast Hx of colonoscopy Hx of right breast biopsy Social History Household Members: Other Housing: Apartment Are you a primary overnight caregiver to a significant other at home: No Do you presently have visiting nurse or other home services: Yes (Vj is visiting nurse, Arline CUNHA) Alcohol intake: never Patient Tobacco Use Status: Former Tobacco user Quit Date: 40 years ago Tobacco use type: Cigarette Smoked in Last 30 Days: No Use of substances other than those prescribed or required for medical reasons: No Currently Displaying Signs/Symptoms of Drug Intoxication Withdrawal: No Any prior treatment program specific to substance use: No Have you been hit, kicked, punched, or otherwise hurt by someone within the past year? If so, by whom?: No Do you feel safe in your current relationship?: No Current Relationship Is there a partner from a previous relationship who is making you feel unsafe now?: No Are you made to feel afraid or neglected: No Religion Healthcare Practices: Baptism Advance Directives: Yes Advance Directives on File: Yes Advance Directives Date on File: 03/22/21 Do you have thoughts of harming others: None Do you have a plan to hurt others: No Plan How much weight loss: 34pounds or more Eating poorly because of decreased appetite: Yes Nutrition Risks: Difficulty chewing Patient : No : No Poor oral hygiene: No service: No Current occupational status: 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 Meds Allergies Allergy/AdvReac Type Severity Reaction Status Date / Time No Known Allergies Allergy Unknown UNKNOWN Verified 03/12/23 10:31 [NO KNOWN ALLERGIES] Active Medications: Current Medications Piperacillin Sod/Tazobactam (Sod 3.375 gm/ Sodium Chloride) 50 mls @ 100 mls/hr IV ONCE ONE Stop: 03/17/23 12:00 Azithromycin 500 mg/ Sodium (Chloride) 250 mls @ 125 mls/hr IV ONCE ONE Stop: 03/17/23 13:35 Pharmacy Consult (Consult Rx Perform Med Rec) 1 each MISCELLANE ONCE PRN PRN Reason: Consult order Pharmacy Consult (Consult Rx Perform Med Rec) 1 each MISCELLANE ONCE PRN PRN Reason: Consult order Home Medications Medication Instructions Recorded Confirmed Last Taken Type aripiprazole 20 mg tablet (Abilify) 20 mg PO BEDTIME 02/14/22 03/17/23 Unknown History blood sugar diagnostic (FreeStyle #10 ea 02/14/22 03/12/23 Unknown History Lite Strips) citalopram 40 mg tablet 40 mg PO BEDTIME 02/14/22 03/17/23 08/08/22 History gabapentin 300 mg capsule 300 mg PO TID 02/14/22 03/17/23 08/08/22 History insulin glargine 100 unit/mL 30 unit subcut DAILY 02/14/22 03/17/23 Unknown History subcutaneous solution (Lantus U-100 Insulin) trazodone 50 mg tablet 50 mg PO BEDTIME 02/14/22 03/17/23 Unknown History isosorbide mononitrate 30 mg 1 tab PO DAILY 04/09/22 03/17/23 08/08/22 History tablet,extended release 24 hr pravastatin 20 mg tablet 1 tab PO DAILY 04/09/22 03/17/23 08/08/22 History acetaminophen 500 mg tablet 500 mg PO Q6H PRN Pain 11/27/22 03/17/23 Unknown History metoprolol tartrate 50 mg tablet 50 mg PO BID 11/27/22 03/17/23 Unknown History naloxone 4 mg/actuation nasal spray 1 spray intranasal Q2M PRN Opioid 11/27/22 03/17/23 Unknown History Overdose nitroglycerin 0.4 mg sublingual 0.4 mg sublingual Q5M PRN Chest 11/27/22 03/17/23 Unknown History tablet Pain omega-3 fatty acids 1,000 mg 1,000 mg PO TID 11/27/22 03/17/23 Unknown History capsule ondansetron 4 mg disintegrating 4 mg PO DAILY PRN Nausea 11/27/22 03/17/23 Unknown History tablet oxybutynin chloride 10 mg 2 tab PO DAILY 11/27/22 03/17/23 Unknown History tablet,extended release 24 hr cholecalciferol (vitamin D3) 25 25 mcg PO DAILY 03/17/23 03/17/23 Unknown History mcg (1,000 unit) tablet letrozole 2.5 mg tablet 2.5 mg PO DAILY 03/17/23 03/17/23 Unknown History lisinopril 2.5 mg tablet 2.5 mg PO DAILY 03/17/23 03/17/23 Unknown History morphine 30 mg tablet,extended 30 mg PO Q8H 03/17/23 03/17/23 Unknown History release oxycodone 5 mg tablet 5 mg PO Q4H PRN Pain (Scale Score 03/17/23 03/17/23 Unknown History 4-6) sennosides 8.6 mg tablet (senna) 17.2 mg PO BEDTIME 03/17/23 03/17/23 Unknown History umeclidinium 62.5 mcg-vilanterol 1 inh PO DAILY 03/17/23 03/17/23 Unknown History 25 mcg/actuation powdr for inhalation (Anoro Ellipta) Physical Exam Vital Signs and Narrative: Vital Signs: Last Vital Signs Temp 98.5 F 03/17/23 11:15 Pulse 106 H 03/17/23 11:15 Resp 20 03/17/23 11:15 BP 111/49 L 03/17/23 11:15 Pulse Ox 97 03/17/23 11:15 O2 Del Method Nasal Cannula 03/17/23 11:15 O2 Flow Rate 2 03/17/23 11:15 Oxygen Flow Rate 2 03/17/23 09:37 BMI result Body Mass Index 32.3 Const: Other: General: Appears stated age, in no acute distress, sitting up in stretcher, answers questions accurately and appropriately with the use of live translator and interpreter, nasal cannula in place at 2 L which is chronic for patient. Skin: Warm and well perfused, no obvious lesions, bruises, open wounds or sores Cardiology: Regular rate and rhythm, no murmurs, rubs, gallops or clicks, no JVD or carotid bruits appreciated Respiratory: Lungs diminished to right upper lobe, remaining lobes are CTAB, no inspiratory wheezing, rales or rhonchi, no increased accessory muscle use noted Abdomen: Soft, rounded, non-distended, nontender, bowel sounds active in all 4 quadrants, no abdominal guarding or [place] sign Extremity: No pitting edema noted, no redness, tenderness or swelling noted to bilateral lower extremities. Neuro: Alert and oriented x3, no obvious focal deficits Psych: Calm, appropriate, follows commands, no agitation restlessness noted Results Labs 03/17/23 09:52 03/17/23 09:52 Labs: Laboratory Results - last 24 hr 03/17/23 03/17/23 03/17/23 09:52 09:52 09:52 MCV 99.7 H MCH 34.7 H MCHC 34.8 RDW 14.3 Plt Count 113 L D MPV 9.6 Immature Gran % (Auto) 0.0 Neut % (Auto) 55.7 Lymph % (Auto) 30.6 [place] % (Auto) 12.9 H Eos % (Auto) 0.0 Baso % (Auto) 0.8 Lymph # (Auto) 0.4 L [place] # (Auto) 0.2 Eos # (Auto) 0.0 Baso # (Auto) 0.0 Abs Immat Gran (auto) 0.00 Absolute Neuts (auto) 0.7 L Absolute Nucleated RBC 0.000 Nucleated RBC % (auto) 0.0 Smear Tech's Comments VERIFIED Anion Gap 12 Estim Creat Clear Calc 61.0 Estimated GFR > 60 Random Glucose 98 Lactic Acid Calcium 8.2 L D Total Bilirubin 0.8 Direct Bilirubin 0.3 AST 19 ALT 11 Alkaline Phosphatase 48 Troponin I High Sens 3.9 B-Natriuretic Peptide Total Protein 6.0 L Albumin 3.8 Lipase 4 L Influenza Type A (PCR) Influenza Type B (PCR) RSV RNA Qual (PCR) SARS-CoV-2 RNA (RT-PCR) 03/17/23 03/17/23 03/17/23 09:52 09:52 09:52 MCV MCH MCHC RDW Plt Count MPV Immature Gran % (Auto) Neut % (Auto) Lymph % (Auto) [place] % (Auto) Eos % (Auto) Baso % (Auto) Lymph # (Auto) [place] # (Auto) Eos # (Auto) Baso # (Auto) Abs Immat Gran (auto) Absolute Neuts (auto) Absolute Nucleated RBC Nucleated RBC % (auto) Smear Tech's Comments Anion Gap Estim Creat Clear Calc Estimated GFR Random Glucose Lactic Acid 0.5 Calcium Total Bilirubin Direct Bilirubin AST ALT Alkaline Phosphatase Troponin I High Sens B-Natriuretic Peptide 34 Total Protein Albumin Lipase Influenza Type A (PCR) NEGATIVE Influenza Type B (PCR) NEGATIVE RSV RNA Qual (PCR) NEGATIVE SARS-CoV-2 RNA (RT-PCR) NEGATIVE Imaging Radiologist's Impressions: Impressions Chest X-Ray 03/17/23 10:05 IMPRESSION: Right lung bronchial wall thickening and infiltrate similar to previous exams. Assessment and Plan (1) Pneumonia: Status: Acute (2) Generalized weakness: Status: Acute (3) Supplemental oxygen dependent: Status: Acute (4) COPD (chronic obstructive pulmonary disease): Status: Acute Plan This is a 67-year-old [place]-speaking only female with past medical history significant for COPD chronically oxygen dependent on 2 L nasal cannula, breast cancer currently maintained on chemotherapy and oral anti neoplastic, sleep apnea, diabetes mellitus type 2, hypertension amongst others who will be admitted with right-sided pneumonia/neutropenia. Pneumonia, right Reproducible musculoskeletal pain -Chest x-ray: Right bronchial wall thickening and infiltrate similar to previous exams. -Patient had complaints of right upper shoulder, right upper back and right- sided chest pain-- which is reproducible on exam. -Troponin I high sensitivity 3.9. Patient denies signs left-sided chest pain. -Azithromycin, Zosyn. Albuterol p.r.n., Laba continued. -Patient is not currently requiring an increase in her chronic O2 needs. Continue O2 per home regimen, adjust accordingly. -lactic acid 0.5-blood cultures obtained and pending. Urinalysis to be obtained. Non strep pneumonia/Legionella Neutropenia History of breast cancer -Patient has history of breast cancer as well as neutropenia. -WBC 1.2. Neutropenic precautions ordered. -Patient follows with oncologist here at [facility] [place], she reports she was supposed to have chemotherapy today -Patient appears euvolemic. No pitting edema noted to bilateral lower extremities, continue daily Lasix. -Notify Oncology if warranted. Continue oral antineoplastic agents---per pharmacy, they do not have an alternative for Ibrance-family will need to bring this in if she requires prolonged hospitalization COPD chronically oxygen dependent -Patient not appearing in COPD exacerbation at this time. -Patient is normally maintained on 2 L nasal cannula, she has not required more oxygen, continue home regimen. -Albuterol p.r.n., continue Laba. Insulin-dependent diabetes mellitus Diabetic neuropathy -Diabetic diet. insulin sliding scale with nutrition. Lantus continued. Hypoglycemia protocol in place. Hypertension -Antihypertensives continue holding parameters. Hyperlipidemia -Statin continued. Anxiety/depression -patient's home regimen continued. Patient denying SI/HI or worsening depression. Constipation, chronic -Constipation likely related to patient's chronic opioid regimen. -Continue colace, senna ordered p.r.n.. OTHER: DVT prophylaxis-heparin subQ b.i.d.. Patient is a DNR/DNI- spoke with patient in detail using translator and interpreter HCP/person to contact is Do Quiroz, Please note an in person Pipe Installer was utilized for entire H&P/exam.In person translator and interpreter was utilized during entire H&P/exam. Time Spent With Patient Time: Total time managing care of this patient today ____ minutes. Quality Stroke Does the patient have a stroke diagnosis?: No VTE Prior VTE?: No VTE Risk Level:: Medical - moderate - high VTE Device Contraindication: N/A - Device Ordered VTE Drug Contraindication: N/A - Med Ordered
[2023-03-17 11:51] LABS: Appearance Urine Clear; Color Urine Yellow; Glucose Urine UA Negative (Negative); Leukocyte Esterase Urine Negative (Negative); Nitrite Urine Negative (Negative); PH 8.5 (5.0-9.0); Specific Gravity - Urine <= 1.005 (1.005-1.025); Urine Blood Negative (Negative); Urine Ketones Negative (Negative); Urine Protein Negative (Neg-Trace)
[2023-03-17] MEDS: Piperacillin Sodium/Tazobactam 3.375 GM in 0.9 % Sodium Chloride 50 ML IV ×2 (12:06→17:58)
--- NOTE | 2023-03-17 12:15 | PC.NURSE ---
Patient started on IV antibiotics and inpatient LABOR RELATIONS DIRECTOR in room admitting patient.
--- NOTE | 2023-03-17 12:16 | PHA.MEDREC ---
Pharmacy Consult ? Medication Reconciliation Pharmacy has completed the medication reconciliation.
[2023-03-17] MEDS: Azithromycin 500 MG in 0.9 % Sodium Chloride 250 ML 125 MG IV (12:39)
[2023-03-17 12:55] VITALS: BP 112/62; PULSE 106; RESP 19; TEMP 37.6; O2SAT 95
[2023-03-17] MEDS: Morphine Sulfate ER 30 MG TABLET.ER PO ×2 (12:59→22:05)
[2023-03-17] MEDS: Heparin Sodium,Porcine 5,000 UNIT/ML VIAL 5000 UNIT SUBCUT (12:59)
--- NOTE | 2023-03-17 13:04 | PC.NURSE ---
Patient resting on stretcher calm and cooperative at this time. Patient talking with family on the phone at this time.
--- NOTE | 2023-03-17 13:24 | PC.NURSE ---
Patient assisted out of bed and was able to ambulate to bathroom.
--- NOTE | 2023-03-17 13:45 | MHC.CLN ---
NUTRITION ADDED NEUTROPENIC PRECAUTIONS SECONDARY DIET. KITCHEN AWARE.
[2023-03-17] MEDS: Gabapentin 300 MG CAPSULE PO ×2 (15:39→22:06)
[2023-03-17] MEDS: 0.9 % Sodium Chloride Flush 3 ML SYRINGE IVFLUSH ×2 (15:40→22:08)
[2023-03-17 15:50] VITALS: BP 118/61; PULSE 105; RESP 16; TEMP 37.2; O2SAT 96
[2023-03-17 16:18] LABS: Glucose, Whole Blood 108 mg/dL (60-115)
--- NOTE | 2023-03-17 17:02 | PC.NURSE ---
ED nurse reported pharmacy would like pt's home med Sarah brought in. Pt provided a number for Arline, her ADDRESSING MACHINE OPERATOR . I left a message asking her to call us. Pt also said her ADDRESSING MACHINE OPERATOR is planning on visiting her here tomorrow.
[2023-03-17 19:59] VITALS: BP 103/54; PULSE 58; RESP 16; TEMP 36.6; O2SAT 96
[2023-03-17 20:07] LABS: Glucose, Whole Blood 109 mg/dL (60-115)
[2023-03-17] MEDS: ARIPiprazole 20 MG TABLET PO (22:05)
[2023-03-17] MEDS: Escitalopram Oxalate 20 MG TABLET PO (22:05)
[2023-03-17] MEDS: traZODone HCL 50 MG TABLET PO (22:06)
[2023-03-17 22:41] LABS: Appearance Urine Clear; Color Urine Yellow; Glucose Urine UA Negative (Negative); Leukocyte Esterase Urine Trace (Negative); Nitrite Urine Negative (Negative); Specific Gravity - Urine 1.015 (1.005-1.025); UMIC TRIGGER UA YES; Urine Blood Negative (Negative); Urine Ketones Negative (Negative); Urine Protein Negative (Neg-Trace)
[2023-03-17 22:53] LABS: Bacteria Urine None Seen (None Seen); Hyaline Casts Urine 0-2 /LPF (0-2); RBC Urine 0-2 /HPF (0-2); Squamous Epithelial Cell Urine 0-2 /HPF (0-2); WBC Urine 0-5 /HPF (0-5)
[2023-03-18] MEDS: Heparin Sodium,Porcine 5,000 UNIT/ML VIAL 5000 UNIT SUBCUT (00:02)
[2023-03-18] MEDS: Piperacillin Sodium/Tazobactam 3.375 GM in 0.9 % Sodium Chloride 50 ML IV ×4 (00:12→17:30)
[2023-03-18 03:02] VITALS: BP 91/50; PULSE 91; RESP 17; TEMP 36.4; O2SAT 94
[2023-03-18 03:33] VITALS: BP 102/58
[2023-03-18] MEDS: Omeprazole 20 MG CAPSULE.DR PO (06:01)
[2023-03-18] MEDS: Morphine Sulfate ER 30 MG TABLET.ER PO ×2 (06:01→12:23)
[2023-03-18 06:19] LABS: Hematocrit 29.1 % (37.0-47.0); Hemoglobin 9.9 g/dl (12.0-16.0); Mean Corpuscular Hemoglobin 34.6 pg (27.0-33.0); Mean Corpuscular Volume 101.7 fL (80.0-98.0); Mean Platelet Volume 9.6 fL (9.4-12.3); Red Blood Count 2.86 X10*6/uL (4.20-5.50); Red Cell Distribution Width 14.4 % (11.0-16.0)
[2023-03-18 06:22] LABS: Platelet Count 99 X10*3/uL (160-400); White Blood Count 1.1 X10*3/uL (4.8-10.8)
[2023-03-18 06:38] LABS: Anion Gap 12 (12-20); Blood Urea Nitrogen 9 mg/dL (9-16); Calcium 8.3 mg/dL (8.4-10.2); Carbon Dioxide 30 mmol/L (22-29); Chloride 102 mmol/L (96-108); Estimated Glomerular Filt Rate > 60; Glucose Random 83 mg/dL (60-115); Potassium 3.5 mmol/L (3.3-5.1); Sodium 140 mmol/L (135-145)
[2023-03-18 07:05] VITALS: BP 102/58; PULSE 52; RESP 19; TEMP 36.6; O2SAT 94
[2023-03-18 07:09] LABS: Glucose, Whole Blood 84 mg/dL (60-115)
--- NOTE | 2023-03-18 09:37 | HO.PM.IMPN ---
Subjective Subjective Date of Service: 03/18/23 Interval History: improving Physical Exam Vital Signs: Vital Signs: Last Vital Signs Temp 97.8 F 03/18/23 07:05 Pulse 52 03/18/23 07:05 Resp 19 03/18/23 07:05 BP 102/58 L 03/18/23 07:05 Pulse Ox 94 03/18/23 07:05 O2 Del Method Nasal Cannula 03/18/23 07:05 O2 Flow Rate 2 03/18/23 07:05 Oxygen Flow Rate 2 03/17/23 09:37 BMI result Body Mass Index 32.3 General: AO X 3, no acute distress Resp: diminished bilateral, no accessory muscles used CVS: S1,S2,RRR GI: soft, non tender, non distended Neuro: motor grossly intact, alert Psych: appropriate affect, appropriate insight Objective Data Active Medications Acetaminophen (Acetaminophen Supp 650 Mg Supp.Rect) 650 mg [place] Q6H PRN PRN Reason: Pain, Mild (Pain Scale 1-3) Acetaminophen (Acetaminophen 325 Mg Tablet) 650 mg PO Q6H PRN PRN Reason: fever Albuterol Sulfate (Albuterol Sulfate 90 Mcg 8 Gm Inhaler) 2 puff INHALE RQ4H PRN PRN Reason: Shortness of Breath/Wheezing Aripiprazole (Aripiprazole 20 Mg Tablet) 20 mg PO BEDTIME [facility] Last Admin: 03/17/23 22:05 Dose: 20 mg Documented By: SAPNA Docusate Sodium (Docusate Sodium 100 Mg Capsule) 100 mg PO DAILY PRN PRN Reason: constipation Escitalopram Oxalate (Escitalopram Oxalate 20 Mg Tablet) 20 mg PO BEDTIME [facility] Last Admin: 03/17/23 22:05 Dose: 20 mg Documented By: SAPNA Furosemide (Furosemide 20 Mg Tablet) 60 mg PO DAILY [facility]; Protocol Gabapentin (Gabapentin 300 Mg Capsule) 300 mg PO TID [facility] Last Admin: 03/17/23 22:06 Dose: 300 mg Documented By: SAPNA Glucose (Glucose Gel 15 Gm Gel..Gram.) 15 gm PO Q15M PRN; Protocol PRN Reason: per Hypoglycemia Standing Ord. Heparin Sodium (Porcine) (Heparin Sodium,Porcine 5,000 Unit/Ml Vial) 5,000 unit SUBCUT Q12H [facility] Last Admin: 03/18/23 00:02 Dose: 5,000 unit Documented By: SAPNA Piperacillin Sod/Tazobactam (Sod 3.375 gm/ Sodium Chloride) 50 mls @ 100 mls/hr IV Q6H [facility] Last Infusion: 03/18/23 06:39 Dose: 0 mls/hr Documented By: SAPNA Azithromycin 500 mg/ Sodium (Chloride) 250 mls @ 125 mls/hr IV Q24H [facility] Dextrose (D10) 250 mls @ 750 mls/hr IV Q15M PRN; Protocol PRN Reason: per Hypoglycemia Standing Ord. Insulin Glargine (Insulin Glargine,Hum.Rec.Anlog 100 Unit/Ml 10 Ml Vial) 30 unit SUBCUT DAILY [facility] Insulin Human Lispro (Insulin Lispro 100 Unit/Ml 3 Ml Vial) 0 unit SUBCUT QIDACHS [facility]; Protocol Last Admin: 03/18/23 08:08 Dose: Not Given Documented By: GAVINO Non-Admin Reason: No Insulin Coverage Isosorbide Mononitrate (Isosorbide Mononitrate 30 Mg Tab.Er.24h) 30 mg PO DAILY [facility]; Protocol Letrozole (Letrozole 2.5 Mg Tablet) 2.5 mg PO DAILY [facility] Lisinopril (Lisinopril 2.5 Mg Tablet) 2.5 mg PO DAILY [facility]; Protocol Metoprolol Tartrate (Metoprolol Tartrate 50 Mg Tablet) 50 mg PO BID [facility]; Protocol Last Admin: 03/17/23 22:08 Dose: Not Given Documented By: SAPNA Non-Admin Reason: bp soft Morphine Sulfate (Morphine Sulfate Er 30 Mg Tablet.Er) 30 mg PO Q8H [facility] Last Admin: 03/18/23 06:01 Dose: 30 mg Documented By: SAPNA Non-Formulary Medication (Palbociclib [Ibrance]) 125 mg PO DAILY [facility] Omeprazole (Omeprazole 20 Mg Capsule.Dr) 20 mg PO DAILY@0630 [facility] Last Admin: 03/18/23 06:01 Dose: 20 mg Documented By: SAPNA Ondansetron HCl (Ondansetron Hcl 4 Mg/2 Ml Vial) 4 mg IVPUSH Q6H PRN PRN Reason: Nausea and Vomiting Oxybutynin Chloride (Oxybutynin Chloride Er 5 Mg Tab.Er.24) 20 mg PO DAILY [facility] Pharmacy Consult (Consult Rx Perform Med Rec) 1 each MISCELLANE ONCE PRN PRN Reason: Consult order Pravastatin Sodium (Pravastatin Sodium 20 Mg Tablet) 20 mg PO DAILY [facility] Salmeterol Xinafoate (Salmeterol Xinafoate 50 Mcg Blst.W.Dev) 1 puff INHALE RBID [facility] Last Admin: 03/18/23 07:54 Dose: Not Given Documented By: HAIDER Non-Admin Reason: Med Not Available Senna (Sennosides 8.6 Mg Tablet) 17.2 mg PO BEDTIME PRN PRN Reason: Constipation Sodium Chloride (0.9 % Sodium Chloride Flush 3 Ml Syringe) 3 ml IVFLUSH QSHIFT [facility] Last Admin: 03/17/23 22:08 Dose: 3 ml Documented By: SAPNA Tiotropium Putnam (Tiotropium Putnam 18 Mcg Cap.W.Dev) 1 puff INHALE RDAILY [facility] Last Admin: 03/18/23 07:54 Dose: Not Given Documented By: HAIDER Non-Admin Reason: Med Not Available Trazodone HCl (Trazodone Hcl 50 Mg Tablet) 50 mg PO BEDTIME [facility] Last Admin: 03/17/23 22:06 Dose: 50 mg Documented By: SAPNA Vitamin D (Cholecalciferol (Vitamin D3) 25 Mcg Tablet) 25 mcg PO DAILY [facility] Labs 03/18/23 05:44 03/18/23 05:44 Labs: Laboratory Results - last 24 hr 03/17/23 03/17/23 03/17/23 09:52 09:52 09:52 MCV 99.7 H MCH 34.7 H MCHC 34.8 RDW 14.3 Plt Count 113 L D MPV 9.6 Immature Gran % (Auto) 0.0 Neut % (Auto) 55.7 Lymph % (Auto) 30.6 [place] % (Auto) 12.9 H Eos % (Auto) 0.0 Baso % (Auto) 0.8 Lymph # (Auto) 0.4 L [place] # (Auto) 0.2 Eos # (Auto) 0.0 Baso # (Auto) 0.0 Abs Immat Gran (auto) 0.00 Absolute Neuts (auto) 0.7 L Absolute Nucleated RBC 0.000 Nucleated RBC % (auto) 0.0 Smear Tech's Comments VERIFIED Anion Gap 12 Estim Creat Clear Calc 61.0 Estimated GFR > 60 POC Glucose Random Glucose 98 Lactic Acid Calcium 8.2 L D Total Bilirubin 0.8 Direct Bilirubin 0.3 AST 19 ALT 11 Alkaline Phosphatase 48 Troponin I High Sens 3.9 B-Natriuretic Peptide Total Protein 6.0 L Albumin 3.8 Lipase 4 L Urine Color Urine Appearance Urine pH Ur Specific [place] Urine Protein Urine Glucose (UA) Urine Ketones Urine Blood Urine Nitrite Ur Leukocyte Esterase Urine RBC Urine WBC Ur Squamous Epith Cells Urine Bacteria Hyaline Casts Influenza Type A (PCR) Influenza Type B (PCR) RSV RNA Qual (PCR) SARS-CoV-2 RNA (RT-PCR) 03/17/23 03/17/23 03/17/23 09:52 09:52 09:52 MCV MCH MCHC RDW Plt Count MPV Immature Gran % (Auto) Neut % (Auto) Lymph % (Auto) [place] % (Auto) Eos % (Auto) Baso % (Auto) Lymph # (Auto) [place] # (Auto) Eos # (Auto) Baso # (Auto) Abs Immat Gran (auto) Absolute Neuts (auto) Absolute Nucleated RBC Nucleated RBC % (auto) Smear Tech's Comments Anion Gap Estim Creat Clear Calc Estimated GFR POC Glucose Random Glucose Lactic Acid 0.5 Calcium Total Bilirubin Direct Bilirubin AST ALT Alkaline Phosphatase Troponin I High Sens B-Natriuretic Peptide 34 Total Protein Albumin Lipase Urine Color Urine Appearance Urine pH Ur Specific Siler Urine Protein Urine Glucose (UA) Urine Ketones Urine Blood Urine Nitrite Ur Leukocyte Esterase Urine RBC Urine WBC Ur Squamous Epith Cells Urine Bacteria Hyaline Casts Influenza Type A (PCR) NEGATIVE Influenza Type B (PCR) NEGATIVE RSV RNA Qual (PCR) NEGATIVE SARS-CoV-2 RNA (RT-PCR) NEGATIVE 03/17/23 03/17/23 03/17/23 11:40 16:14 20:02 MCV MCH MCHC RDW Plt Count MPV Immature Gran % (Auto) Neut % (Auto) Lymph % (Auto) [place] % (Auto) Eos % (Auto) Baso % (Auto) Lymph # (Auto) [place] # (Auto) Eos # (Auto) Baso # (Auto) Abs Immat Gran (auto) Absolute Neuts (auto) Absolute Nucleated RBC Nucleated RBC % (auto) Smear Tech's Comments Anion Gap Estim Creat Clear Calc Estimated GFR POC Glucose 108 109 Random Glucose Lactic Acid Calcium Total Bilirubin Direct Bilirubin AST ALT Alkaline Phosphatase Troponin I High Sens B-Natriuretic Peptide Total Protein Albumin Lipase Urine Color Yellow Urine Appearance Clear Urine pH 8.5 Ur Specific Siler <= 1.005 Urine Protein Negative Urine Glucose (UA) Negative Urine Ketones Negative Urine Blood Negative Urine Nitrite Negative Ur Leukocyte Esterase Negative Urine RBC Urine WBC Ur Squamous Epith Cells Urine Bacteria Hyaline Casts Influenza Type A (PCR) Influenza Type B (PCR) RSV RNA Qual (PCR) SARS-CoV-2 RNA (RT-PCR) 03/17/23 03/18/23 03/18/23 20:23 05:44 05:44 MCV 101.7 H MCH 34.6 H MCHC 34.0 RDW 14.4 Plt Count 99 L MPV 9.6 Immature Gran % (Auto) Neut % (Auto) Lymph % (Auto) [place] % (Auto) Eos % (Auto) Baso % (Auto) Lymph # (Auto) [place] # (Auto) Eos # (Auto) Baso # (Auto) Abs Immat Gran (auto) Absolute Neuts (auto) Absolute Nucleated RBC 0.000 Nucleated RBC % (auto) 0.0 Smear Tech's Comments Anion Gap 12 Estim Creat Clear Calc 72.0 Estimated GFR > 60 POC Glucose Random Glucose 83 Lactic Acid Calcium 8.3 L Total Bilirubin Direct Bilirubin AST ALT Alkaline Phosphatase Troponin I High Sens B-Natriuretic Peptide Total Protein Albumin Lipase Urine Color Yellow Urine Appearance Clear Urine pH 8.0 Ur Specific Siler 1.015 Urine Protein Negative Urine Glucose (UA) Negative Urine Ketones Negative Urine Blood Negative Urine Nitrite Negative Ur Leukocyte Esterase Trace H Urine RBC 0-2 Urine WBC 0-5 Ur Squamous Epith Cells 0-2 Urine Bacteria None Seen Hyaline Casts 0-2 Influenza Type A (PCR) Influenza Type B (PCR) RSV RNA Qual (PCR) SARS-CoV-2 RNA (RT-PCR) 03/18/23 07:06 MCV MCH MCHC RDW Plt Count MPV Immature Gran % (Auto) Neut % (Auto) Lymph % (Auto) [place] % (Auto) Eos % (Auto) Baso % (Auto) Lymph # (Auto) [place] # (Auto) Eos # (Auto) Baso # (Auto) Abs Immat Gran (auto) Absolute Neuts (auto) Absolute Nucleated RBC Nucleated RBC % (auto) Smear Tech's Comments Anion Gap Estim Creat Clear Calc Estimated GFR POC Glucose 84 Random Glucose Lactic Acid Calcium Total Bilirubin Direct Bilirubin AST ALT Alkaline Phosphatase Troponin I High Sens B-Natriuretic Peptide Total Protein Albumin Lipase Urine Color Urine Appearance Urine pH Ur Specific [place]iler Urine Protein Urine Glucose (UA) Urine Ketones Urine Blood Urine Nitrite Ur Leukocyte Esterase Urine RBC Urine WBC Ur Squamous Epith Cells Urine Bacteria Hyaline Casts Influenza Type A (PCR) Influenza Type B (PCR) RSV RNA Qual (PCR) SARS-CoV-2 RNA (RT-PCR) Assessment and Plan (1) Atypical chest pain: Status: Acute Plan 67F PMH chronic hypoxic respiratory failure due to COPD on 2 L NC,?breast cancer currently maintained on chemotherapy and oral anti neoplastic, LACY, DM type 2, HTN presented with chest pain and sob pneumonia in immunocompromised patient continue zosyn, deshawnithro follow up cultures breast cancer on chemotherapy complicated by pancytopenia outpatient oncology follow up chronic hypoxic respiraotry failure due to copd at baseline bronchodilators as needed, salmetrol inhaled, spiriva inhaled DM 2 Diabetic neuropathy insulin, monitor pocs Hypertension imdur, lisinopril, metoprolol Hyperlipidemia statin Anxiety/depression abilify, lexapro Constipation, chronic Constipation likely related to patient's chronic opioid regimen. Continue robyn senphong ordered p.r.n.. DVT prophylaxis-lovenox DNR/DNI reason for continued hospitalization: close monitoring in immunocomprised patient wiht pna Time Spent With Patient Time: Total time managing care of this patient today ____ minutes. Quality Stroke Does the patient have a stroke diagnosis?: No VTE Prior VTE?: No VTE Risk Level:: Medical - moderate - high VTE Device Contraindication: N/A - Device Ordered VTE Drug Contraindication: N/A - Med Ordered
[2023-03-18] MEDS: 0.9 % Sodium Chloride Flush 3 ML SYRINGE IVFLUSH ×2 (09:40→16:04)
[2023-03-18] MEDS: Letrozole 2.5 MG TABLET PO (09:41)
[2023-03-18] MEDS: oxyBUTYnin chloride ER 5 MG TAB.ER.24 20 MG PO (09:41)
[2023-03-18] MEDS: Gabapentin 300 MG CAPSULE PO ×3 (09:41→21:14)
[2023-03-18] MEDS: Cholecalciferol (Vitamin D3) 25 MCG TABLET PO (09:41)
[2023-03-18] MEDS: Pravastatin Sodium 20 MG TABLET PO (09:41)
[2023-03-18] MEDS: Insulin Glargine,Hum.rec.anlog 100 UNIT/ML 10 ML VIAL 30 UNIT SUBCUT (09:42)
[2023-03-18] MEDS: ondansetron HCL 4 MG/2 ML VIAL IVPUSH (09:44)
[2023-03-18 09:56] VITALS: BP 95/45; PULSE 60; RESP 16; O2SAT 94
--- NOTE | 2023-03-18 10:51 | PC.NURSE ---
BP 94/54. HR 60. BP meds held per Dr. Pina, including lasix. Patient drowsy. Arouses easily. Ambulates with walker steady gait. No SOB.
[2023-03-18 11:03] LABS: Glucose, Whole Blood 128 mg/dL (60-115)
--- NOTE | 2023-03-18 11:43 | MHC.CM.PN ---
pt lives alone has vne servceis for her lockbox thru [facility] pt has a hospitality intern 7 days a week who will also transport her home ,pt has home 02 dc plan resume preadmisison servceis
[2023-03-18] MEDS: Enoxaparin Sodium 40 MG/0.4 ML SYRINGE SUBCUT (12:24)
[2023-03-18] MEDS: Azithromycin 500 MG in 0.9 % Sodium Chloride 250 ML 125 MG IV (12:24)
[2023-03-18 15:19] VITALS: BP 104/55; PULSE 97; RESP 20; TEMP 36.2; O2SAT 90
[2023-03-18 16:35] LABS: Glucose, Whole Blood 68 mg/dL (60-115)
[2023-03-18 16:55] LABS: Glucose, Whole Blood 71 mg/dL (60-115)
[2023-03-18 19:53] VITALS: BP 112/63; PULSE 98; RESP 18; TEMP 36.8; O2SAT 96
[2023-03-18 20:41] LABS: Glucose, Whole Blood 155 mg/dL (60-115)
--- NOTE | 2023-03-18 20:54 | PC.NURSE ---
Patient sleeping all day and all evening,easily arousable,BS 155 at present,Dr. Greene notified,will hold trazodone ,will hold insulin coverage tonight
[2023-03-18] MEDS: Metoprolol Tartrate 50 MG TABLET PO (21:14)
[2023-03-18] MEDS: ARIPiprazole 20 MG TABLET PO (21:14)
[2023-03-18] MEDS: Escitalopram Oxalate 20 MG TABLET PO (21:16)
[2023-03-19] MEDS: 0.9 % Sodium Chloride Flush 3 ML SYRINGE IVFLUSH ×2 (00:49→08:54)
[2023-03-19] MEDS: Piperacillin Sodium/Tazobactam 3.375 GM in 0.9 % Sodium Chloride 50 ML IV ×3 (00:49→12:19)
[2023-03-19 04:00] VITALS: BP 101/60; PULSE 97; RESP 16; TEMP 37.3; O2SAT 95
[2023-03-19] MEDS: Omeprazole 20 MG CAPSULE.DR PO (05:27)
[2023-03-19 06:31] LABS: Hematocrit 28.5 % (37.0-47.0); Hemoglobin 9.8 g/dl (12.0-16.0); Mean Corpuscular HGB Conc 34.4 g/dl (31.0-35.0); Mean Corpuscular Hemoglobin 34.8 pg (27.0-33.0); Mean Corpuscular Volume 101.1 fL (80.0-98.0); Mean Platelet Volume 10.1 fL (9.4-12.3); Platelet Count 100 X10*3/uL (160-400); Red Blood Count 2.82 X10*6/uL (4.20-5.50); Red Cell Distribution Width 14.1 % (11.0-16.0); White Blood Count 1.7 X10*3/uL (4.8-10.8)
[2023-03-19 06:45] LABS: Anion Gap 10 (12-20); Blood Urea Nitrogen 11 mg/dL (9-16); Calcium 8.2 mg/dL (8.4-10.2); Carbon Dioxide 30 mmol/L (22-29); Chloride 100 mmol/L (96-108); Creatinine Clr Calc Pharmacy 68.4; Estimated Glomerular Filt Rate > 60; Glucose Fasting 97 mg/dL (60-99); Potassium 4.1 mmol/L (3.3-5.1); Sodium 136 mmol/L (135-145)
[2023-03-19 07:07] VITALS: BP 112/56; PULSE 97; RESP 17; TEMP 36.1; O2SAT 90
[2023-03-19 07:16] LABS: Glucose, Whole Blood 95 mg/dL (60-115)
[2023-03-19] MEDS: Salmeterol Xinafoate 50 MCG BLST.W.DEV 1 PUFF INHALE (07:51)
[2023-03-19 07:53] VITALS: PULSE 72; RESP 18; O2SAT 92
[2023-03-19] MEDS: Furosemide 20 MG TABLET 60 MG PO (08:44)
[2023-03-19] MEDS: Metoprolol Tartrate 50 MG TABLET PO (08:44)
[2023-03-19] MEDS: Gabapentin 300 MG CAPSULE PO (08:44)
[2023-03-19] MEDS: Pravastatin Sodium 20 MG TABLET PO (08:44)
[2023-03-19] MEDS: lisinopriL 2.5 MG TABLET PO (08:45)
[2023-03-19] MEDS: Isosorbide Mononitrate 30 MG TAB.ER.24H PO (08:45)
[2023-03-19] MEDS: Cholecalciferol (Vitamin D3) 25 MCG TABLET PO (08:45)
[2023-03-19] MEDS: Letrozole 2.5 MG TABLET PO (08:46)
[2023-03-19] MEDS: oxyBUTYnin chloride ER 5 MG TAB.ER.24 20 MG PO (08:49)
[2023-03-19] MEDS: Insulin Glargine,Hum.rec.anlog 100 UNIT/ML 10 ML VIAL 30 UNIT SUBCUT (08:52)
--- NOTE | 2023-03-19 10:29 | MHC.CM.PN ---
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
[2023-03-19 11:12] LABS: Glucose, Whole Blood 99 mg/dL (60-115)
--- NOTE | 2023-03-19 12:24 | P.DS_ITS ---
DS: Providers Provider Date of Service: 03/19/23 Date of admission: 03/17/23 12:30 Date of discharge: 03/19/23 Primary care physician: Cristo Martino MD DS: Diagnosis Discharge Diagnosis (1) Pneumonia: Status: Acute (2) Atypical chest pain: Status: Acute DS: Summary Hospital Course Hospital Course: 67 year Portuguese Speaking only female with a past medical history as noted below presented to the emergency department with complaints with complaints of a productive cough and associated right sided upper back/lung/chest pain, worse with cough. Patient reports she has felt feverish and chills however she did not have a temperature when she checked. Patient reports her cough as productive with a thick white mucous production. She denies needing more oxygen than her baseline of2 @L/min.? Patient is denying left-sided chest pain, arm pain, dizziness, shortness of breath. Chest x-ray:? Right bronchial thickening and infiltrate similar to previous exams. Initial laboratory results:? WBC is 1.2, Hgb & Hct 10.4/29.9, platelets 113,, dioxide 30, Ca 8.2, total protein 6, 3 lipase 4. In the emergency department the above was performed and patient received 3.375 Zosyn and 500 mg IV Azithromycin. The decision was made to admit patient for medical management.? Hospital Course Admitted to general medical floor and placed on Augmentin and azithromycin. Over the next 48 hours patient continued to improve where she was at her baseline O2. At this point in time she will be discharged to home to complete a course of Augmentin. Time Spent with Patient Time attestation: Total time managing care of this patient today ____ minutes. Discharge coordination time: Greater than 30 minutes Quality: Safe Use of Opioids Does Pt have an Active Cancer Diagnosis on the Problem List?: No Quality: Stroke Does the patient have a stroke diagnosis?: No Physical Exam Vital Signs: Vital Signs: Last Vital Signs Temp 97 F 03/19/23 07:07 Pulse 72 03/19/23 07:53 Resp 18 03/19/23 07:53 BP 112/56 L 03/19/23 07:07 Pulse Ox 90 L 03/19/23 07:07 O2 Del Method Nasal Cannula 03/19/23 07:07 O2 Flow Rate 2 03/19/23 07:07 Oxygen Flow Rate 2 03/17/23 09:37 BMI result Body Mass Index 32.3 Const: Other: Awake alert oriented x3 no acute distress Resp: Other: Clear but diminished at bases Cardio: Other: No S4; positive S1-S2; no S3 murmurs rubs or gallops GI: Other: Soft nontender nondistended normoactive bowel sounds Extrem: Other: No edema bilaterally DS: Data Data Completed and Pending Completed studies during hospitalization [Text1]: Procedures Assistance with Respiratory Ventilation, Less than 24 Consecutive Hours, Continuous Positive Airway Pressure (11/27/22) Labs on day of discharge: Laboratory Results - last 24 hr 03/18/23 03/18/23 03/18/23 16:21 16:50 20:01 WBC RBC Hgb Hct MCV MCH MCHC RDW Plt Count MPV Absolute Nucleated RBC Nucleated RBC % (auto) Sodium Potassium Chloride Carbon Dioxide Anion Gap BUN Creatinine Estim Creat Clear Calc Estimated GFR POC Glucose 68 71 155 H Fasting Glucose Calcium 03/19/23 03/19/23 03/19/23 05:36 05:36 07:13 WBC 1.7 L RBC 2.82 L Hgb 9.8 L Hct 28.5 L MCV 101.1 H MCH 34.8 H MCHC 34.4 RDW 14.1 Plt Count 100 L MPV 10.1 Absolute Nucleated RBC 0.000 Nucleated RBC % (auto) 0.0 Sodium 136 Potassium 4.1 Chloride 100 Carbon Dioxide 30 H Anion Gap 10 L BUN 11 Creatinine 0.82 Estim Creat Clear Calc 68.4 Estimated GFR > 60 POC Glucose 95 Fasting Glucose 97 Calcium 8.2 L 03/19/23 11:08 WBC RBC Hgb Hct MCV MCH MCHC RDW Plt Count MPV Absolute Nucleated RBC Nucleated RBC % (auto) Sodium Potassium Chloride Carbon Dioxide Anion Gap BUN Creatinine Estim Creat Clear Calc Estimated GFR POC Glucose 99 Fasting Glucose Calcium Preliminary micro results at discharge 03/17/23 09:52 Blood Culture - Preliminary Blood - Venous No growth after 48 hours. 03/17/23 09:52 Blood Culture - Preliminary Blood - Venous No growth after 48 hours. Discharge Plan Discharge Patient Disposition: Home Health Service Referrals: [facility] [Other] - 1 Week Cristo Martino MD [Primary Care Provider] - 1 Week Discharge Medications: New amoxicillin-pot clavulanate 875-125 mg tablet 1 tab PO BID Qty: 20 0RF doxycycline hyclate 100 mg tablet 100 mg PO BID 10 Days Qty: 20 0RF Continued furosemide 40 mg tablet 60 mg PO DAILY 30 Days Qty: 45 6RF pantoprazole 40 mg tablet,delayed release (DR/EC) 40 mg PO DAILY@0630 Qty: 90 2RF Ibrance 125 mg Capsule 125 mg PO DAILY Qty: 21 6RF Rx Instructions: administer on days 1 through 21 of a 28-day treatment cycle. 11/28/22 - DAY 1 OF 3 WEEKS ON PERIOD albuterol sulfate 90 mcg/actuation HFA aerosol inhaler 1 inh inhalation QID PRN (Reason: shortness of breath or wheezing) Qty: 8.5 0RF isosorbide mononitrate 30 mg tablet extended release 24 hr 1 tab PO DAILY pravastatin 20 mg tablet 1 tab PO DAILY omega-3 fatty acids 1,000 mg Capsule 1,000 mg PO TID oxybutynin chloride 10 mg tablet extended release 24hr 2 tab PO DAILY acetaminophen 500 mg Tablet 500 mg PO Q6H PRN (Reason: Pain) metoprolol tartrate 50 mg tablet 50 mg PO BID nitroglycerin 0.4 mg Tablet, Sublingual 0.4 mg SUBLINGUAL Q5M PRN (Reason: Chest Pain) Rx Instructions: do not exceed 3 doses per episode ondansetron 4 mg Tablet,Disintegrating 4 mg PO DAILY PRN (Reason: Nausea) naloxone 4 mg/actuation spray,non-aerosol 1 spray intranasal Q2M PRN (Reason: Opioid Overdose) docusate sodium [Colace] 100 mg capsule 100 mg PO DAILY PRN (Reason: constipation) Qty: 10 0RF polyethylene glycol 3350 [Miralax] 17 gram/dose powder 17 g PO DAILY PRN (Reason: constipation) Qty: 119 0RF lisinopril 2.5 mg tablet 2.5 mg PO DAILY oxycodone 5 mg tablet 5 mg PO Q4H PRN (Reason: Pain (Scale Score 4-6)) cholecalciferol (vitamin D3) 25 mcg (1,000 unit) tablet 25 mcg PO DAILY morphine 30 mg tablet extended release 30 mg PO Q8H Rx Instructions: Partial Fill upon patient request. letrozole 2.5 mg tablet 2.5 mg PO DAILY Anoro Ellipta 62.5-25 mcg/actuation blister with device 1 inh PO DAILY sennosides [senna] 8.6 mg tablet 17.2 mg PO BEDTIME (DME) FreeStyle Lite Strips Strip See Rx Instructions Not Applicable BID Qty: 10 Rx Instructions: As directed Lantus U-100 Insulin 100 unit/mL solution 30 unit subcut DAILY aripiprazole [Abilify] 20 mg tablet 20 mg PO BEDTIME gabapentin 300 mg capsule 300 mg PO TID citalopram 40 mg tablet 40 mg PO BEDTIME trazodone 50 mg tablet 50 mg PO BEDTIME Fiber Laxative (methylcellulo) 500 mg tablet 500 mg PO DAILY Qty: 90 3RF Discharge Orders: Discharge Order (Routine); Ordered 03/19/23 Ordered By: Julien Bates Diet: Advance to usual diet Activity on Discharge: As tolerated Stand Alone Forms: Patient Portal Discharge page Care Plan Goals: Complete course of Augmentin twice daily for 10 days; complete course of doxy twice daily for 10 days as well Health Concerns: Continue home O2 at previous settings Plan of Treatment: Follow-up with PCP 2 weeks Assessment: See discharge summary
[2023-03-19] MEDS: Enoxaparin Sodium 40 MG/0.4 ML SYRINGE SUBCUT (13:30)
[2023-03-19] MEDS: Azithromycin 500 MG in 0.9 % Sodium Chloride 250 ML 125 MG IV (13:30)
[2023-03-19] MEDS: Acetaminophen 325 MG TABLET 650 MG PO (13:48)
[2023-03-19 15:30] VITALS: BP 106/65; PULSE 78; RESP 18; TEMP 36.4; O2SAT 97
[2023-03-22 20:13] LABS: Strep Pneumo Ag urine Not Detected (Not Detected)
[2023-03-26 04:48] LABS: Legionella Ag Urine Not Detected (Not Detected)
== END 2023-03-19 04:45 | disposition home health service (06) ==
LOC: HO.ED 11:38 → HO.EDOVER 12:40 → HO.S3 14:20
PROVIDERS: Internal Medicine; Admitting Provider Registered Nurse; Emergency Provider Emergency Medicine; PCP Internal Medicine; Visit Provider Hospitalist
DX: J18.9 Pneumonia, unspecified organism (principal); R07.89 Other chest pain; R05.9 Cough, unspecified; J44.9 Chronic obstructive pulmonary disease, unspecified; E11.9 Type 2 diabetes mellitus without complications; I10 Essential (primary) hypertension; Z20.822 Contact with and (suspected) exposure to COVID-19
CPT/HCPCS: 0241U; 36415; 71045; 80048; 80076; 81001; 81003; 82947; 83605; 83690; 83880; 84484; 85025; 85027; 87040; 87449; 87899; 93005; 94640; 96365; 96366; 96367; 96372; 96375; 99221; 99285; J0456; J1643; J1650; J2405; J2543

== ENCOUNTER 2023-06-17 12:27 | Outpatient (REF) | payer OTHER, SELFPAY ==
--- NOTE | ~2023-06-17 | PE_ITS ---
EXAMINATION: Fluorine-18 FDG PET/CT Scan CLINICAL INDICATION: Subsequent treatment management. Metastatic right-sided breast cancer. For restaging. PROCEDURE: 60 minutes following the intravenous administration of 17.6 mCi of fluorine 18 FDG, images from the base of the skull to the mid thighs were obtained using a combined PET/CT scanner with CT scan based attenuation correction. No intravenous contrast was administered. Transverse, coronal, sagittal, and volume reconstruction projections were obtained. The patient's blood glucose as determined by a finger stick, was 89 mg/dl immediately prior to injection. The radiotracer was injected intravenously through right hand superficial vein, without any complications. Total CT exam dose-length product 849.42 mGy-cm * These CT images were obtained using dose optimization techniques as appropriate, variously including the following: Automated exposure control * Adjustment of mA and/or kV according to patient size (this includes techniques or standardized protocols for targeted exams where dose is matched to indication/reason for exam; i.e. extremities or head) * Use of iterative reconstruction technique COMPARISON: Baseline PET/CT study done on 12/24/2022 and most recent prior CTA of the chest done on 02/12/2023. FINDINGS: NECK AND VISUALIZED HEAD: Interval development of mild FDG avidity around the base of the right-sided mandible without any CT correlate, may represent changes secondary to motion. No FDG avid cervical lymphadenopathy or soft tissue mass. THORAX: Persistent improved linear subpleural airspace disease is noted at right upper lobe of the lung associated with mild FDG avidity with SUV max of 1.9 (74/267), previously 2.9, most consistent with resolving posttreatment changes. Nonspecific bilateral multilobar groundglass airspace disease without any FDG avidity appears similar to prior study. No discrete lung nodules are nonmass or mediastinal or hilar or axillary or internal mammary lymphadenopathy or pleural or pericardial effusion, unchanged. Persistent asymmetric diffuse enlargement of the right breast associated with diffuse skin thickening and mild diffuse FDG avidity and diffuse prominent trabecular pattern with SUV max of 2.6, previously 3.8, may represent resolving posttreatment changes. Please correlate clinically. ABDOMEN AND PELVIS: Mild FDG avidity is noted at the GE junction with SUV max of 4.8, new since the prior study (100/267), for which clinical correlation as well as direct visualization as appropriate may be considered for further clarification. No suspicious FDG avid focal liver, splenic or adrenal disease, unchanged. The gallbladder, biliary tree and the pancreas appear unremarkable. There are no FDG avid retroperitoneal, mesenteric, pelvic and/or inguinal/groin lymphadenopathy, unchanged. The bowel loops are decompressed. Significant fecal residual is noted within the large bowel. MUSCULOSKELETAL: Persistent focal FDG avidity associated with pathological fracture is present involving the sternum with SUV max of 2.9, previously 2.7, given the slight subjective difference, overall appears stable. Healing rib fractures are present bilaterally, unchanged. Previously documented multifocal osteolysis involving the pelvis without any FDG avidity appear unchanged. Persistent stable severe compression fracture of L1 associated with mild FDG avidity and underlying mixed sclerotic, lytic areas appear stable, most consistent with stable presumed metastatic disease. No evidence of any new compression fracture. VASCULAR: Calcific atherosclerotic disease of the aorta including coronary artery calcifications are noted. No evidence of aneurysm. SUV max OF MEDIASTINAL BLOOD POOL: 2.9 SUV max OF LIVER: 3.5 PET/PET CT fusion skull to thigh IMPRESSION: 1. Persistent improved mildly FDG avid linear subpleural airspace disease at right upper lobe of the lung, most consistent with resolving posttreatment changes. 2. Nonspecific persistent bilateral multilobar groundglass airspace disease without any FDG avidity, similar to prior study. 3. Persistent asymmetric diffuse enlargement of the right breast associated with skin thickening and mild diffuse FDG avidity and diffuse prominent trabecular pattern with SUV max of 2.6, previously 3.8, most consistent with resolving posttreatment changes. Please correlate clinically. 4. Interval development of mild FDG avidity at the GE junction with SUV max of 4.8, may represent inflammatory changes however, clinical correlation as well as direct visualization for further clarification. 5. Multifocal osseous disease with variable FDG avidity, overall appear similar to the prior study dated 12/24/2022.
== END 2023-06-17 12:28 | disposition home or self-care (01) ==
LOC: HO.PET 12:27
PROVIDERS: PCP Internal Medicine; Visit Provider Internal Medicine
DX: Z13.89 Encounter for screening for other disorder (principal)

== ENCOUNTER 2023-06-29 09:14 | Emergency (ER) | payer OTHER, SELFPAY ==
--- NOTE | ~2023-06-29 | XR_ITS ---
EXAMINATION: XR CHEST CLINICAL INFORMATION: Chest pain COMPARISON: Head CT June 17, 2023 and chest x-ray March 17, 2023 TECHNIQUE: 2 views of the chest were obtained. The examination is mildly limited secondary to patient rotation. FINDINGS: Cardiac silhouette is normal in size. There is bilateral prominence of the central pulmonary vasculature and interstitial markings. Suspected tiny right-sided pleural effusion. No pneumothorax. Degenerative changes of the spine. XR/XR chest 2V IMPRESSION: Radiographic findings most suggestive of pulmonary edema. Follow-up imaging recommended status post treatment to ensure resolution.
[2023-06-29 09:16] VITALS: BP 148/102; BP 97/28; PULSE 63; PULSE 67; RESP 16; TEMP 37.1; O2SAT 89; O2SAT 97; BMI 27.5
--- NOTE | 2023-06-29 09:26 | ED.GENADULT ---
HPI - General Adult General Chief complaint: General Medical Stated complaint: R SIDE PAIN H/O CA W/METS PER EMS Time Seen by Provider: 06/29/23 09:25 Source: patient, family (patient's son), EMS and seismic interpreter Mode of arrival: EMS Limitations: language barrier History of Present Illness HPI narrative: Patient is a 67 year old assigned female at with a history of metastatic breast cancer presenting to the emergency department today with intermittent right sided chest pain. Patient states that over the last few days she has had intermittent right sided chest pain. Patient states that she is getting palliative radiation for her cancer. Patient states that it has spread to her bones and is spreading to her brain. Patient states that currently she has a nurse that visits once a day, at 11am, every day but Friday and has a PRODUCTION TEAM ADVISOR that visits once daily. Patient states that she lives alone. Patient states that she would like to be a DNR / DNI. Patient denies any dizziness, lightheadedness, abdominal pain, nausea, vomiting, fever, chills, blurry vision, double vision, loss of vision, difficulty breathing, shortness of breath, back pain, night sweats, pain with urination, increased urinary frequency, increased urinary urgency, blood in her urine or stool, syncope or a near syncopal episode, recent trauma or falls, bowel incontinence, bladder incontinence, bowel retention, bladder retention, or any other complaints at this time. Onset (ago): day(s) Location: chest and right Radiation: non-radiation Severity: mild Severity scale (1-10): 3 Quality: aching and dull Pain Consistency: intermittent Relieving factors: none Exacerbating factors: none Associated symptoms: denies other symptoms Treatments prior to arrival: none Related Data Home Medications Medication Instructions Recorded Confirmed aripiprazole 20 mg tablet (Abilify) 20 mg PO DAILY 02/14/22 06/29/23 blood sugar diagnostic (FreeStyle #10 ea 02/14/22 06/29/23 Lite Strips) citalopram 40 mg tablet 40 mg PO BEDTIME 02/14/22 06/29/23 gabapentin 300 mg capsule 300 mg PO TID 02/14/22 06/29/23 insulin glargine 100 unit/mL 15 unit subcut DAILY 02/14/22 06/29/23 subcutaneous solution (Lantus U-100 Insulin) isosorbide mononitrate 30 mg 1 tab PO DAILY 04/09/22 06/29/23 tablet,extended release 24 hr pravastatin 20 mg tablet 1 tab PO BEDTIME 04/09/22 06/29/23 acetaminophen 500 mg tablet 500 mg PO Q6H PRN Pain 11/27/22 06/29/23 naloxone 4 mg/actuation nasal spray 1 spray intranasal Q2M PRN Opioid 11/27/22 06/29/23 Overdose nitroglycerin 0.4 mg sublingual 0.4 mg sublingual Q5M PRN Chest 11/27/22 06/29/23 tablet Pain omega-3 fatty acids 1,000 mg 1,000 mg PO TID 11/27/22 06/29/23 capsule oxybutynin chloride 10 mg 2 tab PO DAILY 11/27/22 06/29/23 tablet,extended release 24 hr cholecalciferol (vitamin D3) 25 25 mcg PO DAILY 03/17/23 06/29/23 mcg (1,000 unit) tablet letrozole 2.5 mg tablet 2.5 mg PO DAILY 03/17/23 06/29/23 lisinopril 2.5 mg tablet 2.5 mg PO DAILY 03/17/23 06/29/23 sennosides 8.6 mg tablet (senna) 17.2 mg PO BEDTIME 03/17/23 06/29/23 albuterol sulfate 90 mcg/actuation 2 inh inhalation Q4H PRN shortness 06/29/23 06/29/23 aerosol inhaler of breath or wheezing metoprolol tartrate 25 mg tablet 25 mg PO BID 06/29/23 06/29/23 trazodone 50 mg tablet 50 mg PO BEDTIME 06/29/23 06/29/23 Previous Rx's Medication Instructions Recorded methylcellulose (laxative) 500 mg 500 mg PO DAILY #90 tabs 08/20/22 tablet (Fiber Laxative (methylcellulose)) palbociclib 125 mg capsule 125 mg PO DAILY #21 caps 12/31/22 (Ibrance) furosemide 40 mg tablet 60 mg PO DAILY 30 days #45 tabs 01/17/23 pantoprazole 40 mg tablet,delayed 40 mg PO DAILY@0630 #90 tabs 02/05/23 release oxycodone 5 mg tablet 5 mg PO Q6H PRN Pain (Scale Score 05/14/23 4-6) #60 tabs morphine 30 mg tablet,extended 30 mg PO Q8H #90 tabs 06/06/23 release Anoro Ellipta 62.5 mcg-25 1 ea PO DAILY #60 ea 06/16/23 mcg/actuation powder for inhalation (umeclidinium-vilanterol) Allergies Allergy/AdvReac Type Severity Reaction Status Date / Time No Known Allergies Allergy Unknown UNKNOWN Verified 06/29/23 09:39 [NO KNOWN ALLERGIES] Review of Systems Constitutional: Constitutional: Reports no additional constitutional complaints, Denies chills, Denies fever(s) and Denies night sweats Eyes: Eyes: Reports no additional eye complaints, Denies blurry vision, Denies change in vision, Denies diplopia, Denies eye discharge, Denies loss of vision and Denies eye pain ENT: Denies dizziness Cardiovascular: Cardiovascular: Reports no additional cardiovascular complaints, Reports chest pain (intermittently), Denies lightheadedness, Denies Loss of Consciousness and Denies dyspnea Respiratory: Respiratory: Reports no additional respiratory complaints and Denies dyspnea Gastrointestinal: Gastrointestinal: Reports no additional gastrointestinal complaints, Denies abdominal pain, Denies melena, Denies hematochezia, Denies change in bowel habits and Denies change in stool character Genitourinary: Genitourinary: Denies hematuria, Denies urinary frequency, Denies dysuria, Denies urinary incontinence, Denies urinary hesitancy and Denies urinary urgency Musculoskeletal: Musculoskeletal: Reports no additional musculoskeletal complaints, Denies numbness and Denies tingling Neurologic: Denies dizziness, Denies loss of vision, Denies numbness and Denies tingling Psychiatric: Psychiatric: Reports no additional psychiatric complaints Endocrine: Endocrine: Reports no additional endocrine complaints Hematologic/Lymphatic: Hematologic/Lymphatic: Reports no additional hematologic/lymphatic complaints Allergic/Immunologic: Allergic/Immunologic: Reports no additional allergic/immunologic complaints PMFSH Past Medical History Attestation statement: The following information was validated with the patient. Source: old records reviewed and nursing notes reviewed Medical History Abnormal ultrasound of breast Asthma Breast cancer Constipation COPD (chronic obstructive pulmonary disease) COPD (chronic obstructive pulmonary disease) COVID-19 Diabetes type 2, controlled Diarrhea Diarrhea Dyspnea on exertion Fungal skin infection Hypertension Invasive ductal carcinoma of right breast Lymph node enlargement Osteoarthritis of right knee Pneumonia Pneumonitis Sleep apnea Supplemental oxygen dependent Tubular adenoma Surgical History History of lumpectomy of right breast Hx of colonoscopy Hx of right breast biopsy Family History Family History Brother Diabetes Sister Diabetes Breast cancer, Onset Age: 67 Mother Breast cancer, Onset Age: 59 Maternal Aunt Breast cancer Social History Social History Household Members: Other Housing: Apartment Are you a primary healthcare analyst to a significant other at home: No Do you presently have visiting nurse or other home services: Yes (Vj is visiting nurse, Arline CUNHA) Alcohol intake: never Patient Tobacco Use Status: Former Tobacco user Quit Date: 40 years ago Tobacco use type: Cigarette Advance Directives Date on File: 03/22/21 service: No 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 occupational status: 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 Physical Exam ED Vital Signs: Vital Signs - 24 hr 06/29/23 09:16 06/29/23 09:43 06/29/23 11:34 Temperature 98.7 F Pulse Rate 63 70 Respiratory Rate 16 18 Blood Pressure 97/28 L 84/27 L Pulse Oximetry 89 L 94 95 Oxygen Delivery Method Room Air Nasal Cannula Nasal Cannula Oxygen Flow Rate 2 2 BMI result Body Mass Index 27.5 Const General: cooperative, no acute distress, alert and awake Nutritional Appearance: well nourished Orientation/consciousness: patient oriented x3 Limitations: no limitations [facility] Head: Yes normal to inspection and Yes atraumatic Ears: hearing grossly normal bilaterally and external ears normal General nose exam: Normal external nose present, no nasal discharge noted and no epistaxis Face and sinus: Yes normal facial exam, No abrasion and No laceration Mouth: Normal oral and palatal mucosa present, no drooling and no muffled voice Eyes General: appearance normal, both eyes and all related structures Periorbital: periorbital findings normal Eyelids: Yes eyelids normal Conjunctivae: conjunctivae normal Pupils: Equal, round and reactive pupils present EOM: EOMs intact bilaterally Neck Neck: Yes normal visual inspection, Yes full ROM and Yes no lymphadenopathy Chest Chest palpation & inspection: normal inspection of the chest Resp Effort & Inspection: normal respiratory effort and able to speak in complete sentences Auscultation: crackles bilateral at the base Cardio Rate: regular rate Rhythm: regular rhythm GI Inspection: Yes normal to inspection Palpation (GI): Soft to palpation, not firm, nontender, no guarding and not rigid Neuro General: patient oriented x3 and moves all extremities Cranial nerves: Yes Equal, round and reactive pupils present Cognition (Neuro): normal cognition Motor exam (neuro): 5/5 motor strength present throughout Sensory Exam: Normal double simultaneous stimulation for sensation Coordination: [id number] test normal Extrem General: Yes normal to inspection, Yes full ROM and Yes capillary refill normal Psych Appearance: grossly normal Mental Status: mental status grossly normal Affect: normal affect Attitude: cooperative Thought process: Normal thought process present Thought content: Normal thought content present Insight: Good insight present (Psych) Medications Administered Discontinued Medications Generic Name Dose Route Start Last Admin Trade Name Freq PRN Reason Stop Dose Admin Sodium Chloride 100 mls @ 100 mls/hr 06/29/23 10:13 06/29/23 11:30 Ns IV 06/29/23 11:12 Not Given ONCE ONE Morphine Sulfate 4 mg 06/29/23 09:28 06/29/23 09:52 Morphine Sulfate 4 Mg/Ml Cartridge IVPUSH 06/29/23 09:29 Not Given ONCE ONE Protocol Ondansetron HCl 4 mg 06/29/23 09:28 06/29/23 09:48 Ondansetron Hcl 4 Mg/2 Ml Vial IVPUSH 06/29/23 09:29 4 mg ONCE ONE Administration Medical Decision Making Medical Decision Making [facility] Narrative: Patient is a 67 year old assigned female at with a history of breast cancer with extensive metastases presenting to the emergency department today with intermittent right sided chest pain. Patient's physical exam was unremarkable. Patient's blood pressures were consistently below 100 systolic. Patient's blood work showed a decreased hgb of 6.7. Patient's EKG was unremarkable. Patient's chest x-ray showed evidence of pulmonary edema. I explained my physical exam findings as well as all test results to the patient and the patient's son. I answered all questions asked by the patient and the patient's son. Patient signed a MOLST form confirming her DNR / DNI status. Patient met with a hospice nurse who informed her that if she wishes to continue receiving chemotherapy, she does not qualify for hospice. Patient states that she does not want to be hospitalized, does not want a transfusion, and does not want any treatment for her heart failure. Patient states that she only wants pain management and would like to go home. I stressed the importance of the patient taking her medication as prescribed. I stressed the importance of the patient following up with her primary care provider. I stressed the importance of the patient returning to the emergency department immediately if her symptoms were to worsen or if she were to develop any dizziness, shortness of breath, difficulty breathing, chest pain, blurry vision, loss of vision, nausea, vomiting, abdominal pain, fever, chills, back pain, or any other complaints. Patient verbalized agreement and understanding with this treatment plan and discharge. Differential Diagnosis Differential Diagnoses: The differential diagnosis associated with the presentation includes Breast cancer with severe metastases Anemia NSTEMI STEMI CHF Admission/Observation Consideration of admission/observation: Escalation of care including admission/observation considered Patient was considered for admission however, she refused any medical treatment. Lab Data [facility] Lab Attestation statement: I reviewed the patient's lab results. My interpretation of these results are in the MDM portion of this note. 06/29/23 09:50 06/29/23 09:50 Labs: Lab Results 06/29/23 06/29/23 06/29/23 Range/Units 09:50 09:50 09:50 WBC 3.2 L (4.8-10.8) X10*3/uL RBC 1.89 L (4.20-5.50) X10*6/uL Hgb 6.7 L* (12.0-16.0) g/dl Hct 19.9 L* (37.0-47.0) % MCV 105.3 H (80.0-98.0) fL MCH 35.4 H (27.0-33.0) pg MCHC 33.7 (31.0-35.0) g/dl RDW 14.5 (11.0-16.0) % Plt Count 162 (160-400) X10*3/uL MPV 9.6 (9.4-12.3) fL Immature Gran % (Auto) 4.4 H (0.0-0.4) % Neut % (Auto) 80.3 H (45-73) % Lymph % (Auto) 9.4 L (20-40) % [place] % (Auto) 5.3 (2-11) % Eos % (Auto) 0.3 (0-4) % Baso % (Auto) 0.3 (0-2) % Lymph # (Auto) 0.3 L (1.2-4.9) X10*3/uL [place] # (Auto) 0.2 (0.1-1.2) X10*3/uL Eos # (Auto) 0.0 (0.0-0.4) X10*3/uL Baso # (Auto) 0.0 (0.0-0.2) X10*3/uL Abs Immat Gran (auto) 0.14 H (0.00-0.03) X10*3/uL Absolute Neuts (auto) 2.6 (2.0-8.3) x10*3/uL Absolute Nucleated RBC 0.000 (0.0-0.012) X10*3/uL Nucleated RBC % (auto) 0.0 (0.0-0.2) /100WBC Smear Tech's Comments VERIFIED ESR 115 H (0-20) MM/HR Sodium 136 (135-145) mmol/L Potassium 3.4 D (3.3-5.1) mmol/L Chloride 99 (96-108) mmol/L Carbon Dioxide 26 (22-29) mmol/L Anion Gap 14 (12-20) BUN 12 (9-16) mg/dL Creatinine 0.78 (0.5-1.4) mg/dL Estim Creat Clear Calc 66.4 Estimated GFR > 60 Random Glucose 122 H (60-115) mg/dL Calcium 8.0 L D (8.4-10.2) mg/dL Magnesium 1.8 (1.6-2.6) mg/dL Total Bilirubin 0.7 (0.0-1.0) mg/dL AST 15 (5-31) U/L ALT 12 (0-31) U/L Alkaline Phosphatase 56 (39-117) U/L Troponin I High Sens (<3.5-17.0) ng/L C-Reactive Protein 8.23 H (< or = 0.50) mg/dL Total Protein 5.9 L (6.5-8.0) g/dL Albumin 3.3 L (3.5-5.0) g/dL COVID-19 (ELIZABETH) (Negative) COVID-19 Clin Com Influenza Type A (SRUTHI) (Negative) Influenza Type B (SRUTHI) (Negative) Influenza A & B Note Blood Type Antibody Screen Crossmatch 06/29/23 06/29/23 06/29/23 Range/Units 09:50 09:55 09:55 WBC (4.8-10.8) X10*3/uL RBC (4.20-5.50) X10*6/uL Hgb (12.0-16.0) g/dl Hct (37.0-47.0) % MCV (80.0-98.0) fL MCH (27.0-33.0) pg MCHC (31.0-35.0) g/dl RDW (11.0-16.0) % Plt Count (160-400) X10*3/uL MPV (9.4-12.3) fL Immature Gran % (Auto) (0.0-0.4) % Neut % (Auto) (45-73) % Lymph % (Auto) (20-40) % [place] % (Auto) (2-11) % Eos % (Auto) (0-4) % Baso % (Auto) (0-2) % Lymph # (Auto) (1.2-4.9) X10*3/uL [place] # (Auto) (0.1-1.2) X10*3/uL Eos # (Auto) (0.0-0.4) X10*3/uL Baso # (Auto) (0.0-0.2) X10*3/uL Abs Immat Gran (auto) (0.00-0.03) X10*3/uL Absolute Neuts (auto) (2.0-8.3) x10*3/uL Absolute Nucleated RBC (0.0-0.012) X10*3/uL Nucleated RBC % (auto) (0.0-0.2) /100WBC Smear Tech's Comments ESR (0-20) MM/HR Sodium (135-145) mmol/L Potassium (3.3-5.1) mmol/L Chloride (96-108) mmol/L Carbon Dioxide (22-29) mmol/L Anion Gap (12-20) BUN (9-16) mg/dL Creatinine (0.5-1.4) mg/dL Estim Creat Clear Calc Estimated GFR Random Glucose (60-115) mg/dL Calcium (8.4-10.2) mg/dL Magnesium (1.6-2.6) mg/dL Total Bilirubin (0.0-1.0) mg/dL AST (5-31) U/L ALT (0-31) U/L Alkaline Phosphatase (39-117) U/L Troponin I High Sens 5.8 (<3.5-17.0) ng/L C-Reactive Protein (< or = 0.50) mg/dL Total Protein (6.5-8.0) g/dL Albumin (3.5-5.0) g/dL COVID-19 (ELZIABETH) Negative (Negative) COVID-19 Clin Com See Note Influenza Type A (SRUTHI) Negative (Negative) Influenza Type B (SRUTHI) Negative (Negative) Influenza A & B Note See Note Blood Type Antibody Screen Crossmatch 06/29/23 Range/Units 10:30 WBC (4.8-10.8) X10*3/uL RBC (4.20-5.50) X10*6/uL Hgb (12.0-16.0) g/dl Hct (37.0-47.0) % MCV (80.0-98.0) fL MCH (27.0-33.0) pg MCHC (31.0-35.0) g/dl RDW (11.0-16.0) % Plt Count (160-400) X10*3/uL MPV (9.4-12.3) fL Immature Gran % (Auto) (0.0-0.4) % Neut % (Auto) (45-73) % Lymph % (Auto) (20-40) % [place] % (Auto) (2-11) % Eos % (Auto) (0-4) % Baso % (Auto) (0-2) % Lymph # (Auto) (1.2-4.9) X10*3/uL [place] # (Auto) (0.1-1.2) X10*3/uL Eos # (Auto) (0.0-0.4) X10*3/uL Baso # (Auto) (0.0-0.2) X10*3/uL Abs Immat Gran (auto) (0.00-0.03) X10*3/uL Absolute Neuts (auto) (2.0-8.3) x10*3/uL Absolute Nucleated RBC (0.0-0.012) X10*3/uL Nucleated RBC % (auto) (0.0-0.2) /100WBC Smear Tech's Comments ESR (0-20) MM/HR Sodium (135-145) mmol/L Potassium (3.3-5.1) mmol/L Chloride (96-108) mmol/L Carbon Dioxide (22-29) mmol/L Anion Gap (12-20) BUN (9-16) mg/dL Creatinine (0.5-1.4) mg/dL Estim Creat Clear Calc Estimated GFR Random Glucose (60-115) mg/dL Calcium (8.4-10.2) mg/dL Magnesium (1.6-2.6) mg/dL Total Bilirubin (0.0-1.0) mg/dL AST (5-31) U/L ALT (0-31) U/L Alkaline Phosphatase (39-117) U/L Troponin I High Sens (<3.5-17.0) ng/L C-Reactive Protein (< or = 0.50) mg/dL Total Protein (6.5-8.0) g/dL Albumin (3.5-5.0) g/dL COVID-19 (ELIZABETH) (Negative) COVID-19 Clin Com Influenza Type A (SRUTHI) (Negative) Influenza Type B (SRUTHI) (Negative) Influenza A & B Note Blood Type A Positive Antibody Screen NEGATIVE Crossmatch See Detail Independent Interpretation I performed an independent interpretation of an: EKG and Plain X-Ray Interpretation: My interpretation is in agreement with the radiologist's impression of this imaging study. EXAMINATION: XR CHEST CLINICAL INFORMATION: Chest pain COMPARISON: Head CT June 17, 2023 and chest x-ray March 17, 2023 TECHNIQUE: 2 views of the chest were obtained. The examination is mildly limited secondary to patient rotation. FINDINGS: Cardiac silhouette is normal in size. There is bilateral prominence of the central pulmonary vasculature and interstitial markings. Suspected tiny right-sided pleural effusion. No pneumothorax. Degenerative changes of the spine. XR/XR chest 2V IMPRESSION: Radiographic findings most suggestive of pulmonary edema. Follow-up imaging recommended status post treatment to ensure resolution. Dictated By: Augustine Vasquez MD Signed By: Electronically signed by Augustine Vasquez MD 06/29/23 1031 Vent. Rate: 060 BPM ? ? Atrial Rate: 060 BPM P-R Int: 136 ms? QRS Dur: 094 ms QT Int: 430 ms ? ? ? P-R-T Axes: 017 -22 008 degrees QTc Int: 430 ms ? Normal sinus rhythm Minimal voltage criteria for LVH, may be normal variant ( R in aVL ) Borderline ECG When compared with ECG of 17-MAR-2023 09:33, Vent. rate has decreased BY? 49 BPM DD/ 0937 Radiology Impression Discussion of test interpretation with radiology: I have reviewed the radiologist's reading. Independent Historian Clinical information obtained from an independent historian. History obtained from or confirmed by: EMS (EMS provided additional history and confirmed the history provided by the patient.) Chronic Conditions Patient?s care impacted by: Other (metastatic breast cancer) Critical Care Time Critical Care Time Critical Care Time: Yes Total Critical Care Time: 60 Attestation: I spent 60 minutes of Critical Care Time with this patient. This does not include time spent on separately reported billable procedures. Discharge Plan Discharge Clinical Impression: Breast cancer Patient Disposition: Home, Self-Care Instructions: Breast Cancer in Women (DC) Additional Instructions: Follow up with your primary care provider. Return to the emergency department immediately if your symptoms worsen or if you develop any dizziness, shortness of breath, difficulty breathing, chest pain, blurry vision, loss of vision, nausea, vomiting, abdominal pain, fever, chills, back pain, or any other complaints. Lynn un seguimiento con underwood proveedor de atenci?n primaria. Regrese al departamento de emergencias de inmediato si juan s?ntomas empeoran o si presenta mareos, falta de aire, dificultad para respirar, dolor de pecho, visi?n borrosa, p?rdida de la visi?n, n?useas, v?mitos, dolor abdominal, fiebre, escalofr?os, dolor de espalda o cualquier otras quejas. Prescriptions: No Action furosemide 40 mg tablet 60 mg PO DAILY 30 Days Qty: 45 6RF pantoprazole 40 mg tablet,delayed release (DR/EC) 40 mg PO DAILY@0630 Qty: 90 2RF Anoro Ellipta 62.5-25 mcg/actuation blister with device 1 ea PO DAILY Qty: 60 2RF Ibrance 125 mg Capsule 125 mg PO DAILY Qty: 21 6RF Rx Instructions: administer on days 1 through 21 of a 28-day treatment cycle. 11/28/22 - DAY 1 OF 3 WEEKS ON PERIOD oxycodone 5 mg tablet 5 mg PO Q6H PRN (Reason: Pain (Scale Score 4-6)) Qty: 60 0RF morphine 30 mg Tablet Extended Release 30 mg PO Q8H Qty: 90 0RF Rx Instructions: Partial Fill upon patient request. isosorbide mononitrate 30 mg tablet extended release 24 hr 1 tab PO DAILY pravastatin 20 mg tablet 1 tab PO BEDTIME omega-3 fatty acids 1,000 mg Capsule 1,000 mg PO TID oxybutynin chloride 10 mg tablet extended release 24hr 2 tab PO DAILY acetaminophen 500 mg Tablet 500 mg PO Q6H PRN (Reason: Pain) nitroglycerin 0.4 mg Tablet, Sublingual 0.4 mg SUBLINGUAL Q5M PRN (Reason: Chest Pain) Rx Instructions: do not exceed 3 doses per episode naloxone 4 mg/actuation spray,non-aerosol 1 spray intranasal Q2M PRN (Reason: Opioid Overdose) lisinopril 2.5 mg tablet 2.5 mg PO DAILY cholecalciferol (vitamin D3) 25 mcg (1,000 unit) tablet 25 mcg PO DAILY letrozole 2.5 mg tablet 2.5 mg PO DAILY sennosides [senna] 8.6 mg tablet 17.2 mg PO BEDTIME metoprolol tartrate 25 mg tablet 25 mg PO BID trazodone 50 mg tablet 50 mg PO BEDTIME albuterol sulfate 90 mcg/actuation HFA aerosol inhaler 2 inh inhalation Q4H PRN (Reason: shortness of breath or wheezing) (DME) FreeStyle Lite Strips Strip See Rx Instructions Not Applicable BID Qty: 10 Rx Instructions: As directed Lantus U-100 Insulin 100 unit/mL solution 15 unit subcut DAILY aripiprazole [Abilify] 20 mg tablet 20 mg PO DAILY gabapentin 300 mg capsule 300 mg PO TID citalopram 40 mg tablet 40 mg PO BEDTIME Fiber Laxative(methylcellulos) 500 mg tablet 500 mg PO DAILY Qty: 90 3RF Print Language: Divehi
--- NOTE | 2023-06-29 09:28 | ECG_ITS ---
Test Reason : CHEST PAIN Blood Pressure : / mmHG Vent. Rate : 060 BPM Atrial Rate : 060 BPM P-R Int : 136 ms QRS Dur : 094 ms QT Int : 430 ms P-R-T Axes : 017 -22 008 degrees QTc Int : 430 ms Normal sinus rhythm Minimal voltage criteria for LVH, may be normal variant ( R in aVL ) Borderline ECG When compared with ECG of 17-MAR-2023 09:33, Vent. rate has decreased BY 49 BPM Referred By: Kymberly Ames Electronically Signed By:MAURICE BENAVIDEZ
[2023-06-29 09:43] VITALS: O2SAT 94
[2023-06-29] MEDS: ondansetron HCL 4 MG/2 ML VIAL IVPUSH (09:48)
[2023-06-29 09:56] LABS: Basophils Percent Auto 0.3 % (0-2); Eosinophils Percent Auto 0.3 % (0-4); Imm Gran Abs Auto 0.14 X10*3/uL (0.00-0.03); Imm Gran Pct Auto 4.4 % (0.0-0.4); Lymphocytes Absolute Auto 0.3 X10*3/uL (1.2-4.9); Lymphocytes Percent Auto 9.4 % (20-40); MANUAL DIFF FLAG SCAN; Mean Corpuscular HGB Conc 33.7 g/dl (31.0-35.0); Mean Corpuscular Hemoglobin 35.4 pg (27.0-33.0); Mean Corpuscular Volume 105.3 fL (80.0-98.0); Mean Platelet Volume 9.6 fL (9.4-12.3); Monocytes Absolute Auto 0.2 X10*3/uL (0.1-1.2); Monocytes Percent Auto 5.3 % (2-11); Neutrophils Absolute Auto 2.6 x10*3/uL (2.0-8.3); Neutrophils Percent Auto 80.3 % (45-73); Platelet Count 162 X10*3/uL (160-400); Red Blood Count 1.89 X10*6/uL (4.20-5.50); Red Cell Distribution Width 14.5 % (11.0-16.0); SCAN SMEAR FLAG 1
[2023-06-29 10:03] LABS: Hematocrit 19.9 % (37.0-47.0); Hemoglobin 6.7 g/dl (12.0-16.0); White Blood Count 3.2 X10*3/uL (4.8-10.8)
[2023-06-29 10:15] LABS: Alanine Aminotransferase 12 U/L (0-31); Albumin Level 3.3 g/dL (3.5-5.0); Alkaline Phosphatase 56 U/L (39-117); Anion Gap 14 (12-20); Aspartate Amino Transferase 15 U/L (5-31); Bilirubin Total 0.7 mg/dL (0.0-1.0); Blood Urea Nitrogen 12 mg/dL (9-16); C Reactive Protein 8.23 mg/dL (< or = 0.50); Carbon Dioxide 26 mmol/L (22-29); Chloride 99 mmol/L (96-108); Creatinine Clr Calc Pharmacy 66.4; Estimated Glomerular Filt Rate > 60; Glucose Random 122 mg/dL (60-115); Magnesium 1.8 mg/dL (1.6-2.6); Potassium 3.4 mmol/L (3.3-5.1); Sodium 136 mmol/L (135-145); Total Protein 5.9 g/dL (6.5-8.0)
[2023-06-29 10:19] LABS: COVID-19 Test Negative (Negative); IDNOW Serial# 08D9AD1C; IDNOW Serial# BCCEAD1C; Influenza A Negative (Negative); Influenza B2 Negative (Negative)
[2023-06-29 10:29] LABS: Troponin-I High Sensitivity 5.8 ng/L (<3.5-17.0)
[2023-06-29 10:30] LABS: SLIDE REVIEW VERIFIED
--- NOTE | 2023-06-29 10:32 | PC.NURSE ---
Addendum entered by Kelly Brewer 06/29/23 10:38: Pt [place] [place], Spo2 88% on RA Pt reports she uses O2 at home as needed. Pt placed on 2L via NC with Spo2 improvement to 96%. Original Note: Pt A&Ox3, reports intermittent center chest pain radiating to right side. Currency denies pain. BP noted to be 97/28, provider Reji Ames notified, morphine held. 2nd IV line placed.
[2023-06-29 10:37] LABS: Erythrocyte Sedimentation Rate 115 MM/HR (0-20)
[2023-06-29 11:34] VITALS: BP 84/27; PULSE 70; RESP 18; O2SAT 95
--- NOTE | 2023-06-29 11:58 | MHC.CM.ED ---
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 Referral made to [facility]. Spoke with Katie. Kelly BUNCH will be on-site to assess if patient is GIP appropriate. Continue to monitor for d/c needs.
--- NOTE | 2023-06-29 13:12 | PHA.MEDREC ---
Pharmacy Consult ? Medication Reconciliation Pharmacy has completed the medication reconciliation. Spoke to patient's nurse (Belen - [phone]) to confirm meds. Patient's nurse requests that their number is not given to patient. Nurse is only individual that knows patient's meds, and patient does not know medications.
--- NOTE | 2023-06-29 15:24 | MHC.CM.ED ---
Hospice Nurse on-site. Patient states she doesn't want to stop her Chemo. Dr Bates aware and will admit patient.
--- NOTE | 2023-06-29 15:32 | PM.IMHP ---
History of Present Illness Date of Service: 06/29/23 Attending physician on admission: Julien Bates Chief Complaint: Right-sided pain Pt is a 67-year-old female with a PMH significant for breast cancer metastasized to the bones and brain on palliative chemo, HTN, HLD, insulin-dependent diabetes, COPD 2L home O2, anxiety and depression and who presents to the ED with? Patient refuses any additional IV access, does not want a central line, is refusing blood transfusion. In the ED patient is afebrile but hypotensive as low as 84/27. Labs were significant for leukopenia 3.2, H&H of 6.7/19.9, ESR 115, CRP 8.23. Electrolytes WNL. Renal function baseline. Hepatic function baseline. Initial troponin 5.8. CXR showed likely pulmonary edema. EKG demonstrated normal sinus rhythm without evidence of ST elevations or depressions. Pt was treated with ondansetron. Pt will be admitted to the hospital [facility] Medical History Abnormal ultrasound of breast Asthma Breast cancer Constipation COPD (chronic obstructive pulmonary disease) COPD (chronic obstructive pulmonary disease) COVID-19 Diabetes type 2, controlled Diarrhea Diarrhea Dyspnea on exertion Fungal skin infection Hypertension Invasive ductal carcinoma of right breast Lymph node enlargement Osteoarthritis of right knee Pneumonia Pneumonitis Sleep apnea Supplemental oxygen dependent Tubular adenoma Family History Brother Diabetes Sister Diabetes Breast cancer, Onset Age: 67 Mother Breast cancer, Onset Age: 59 Maternal Aunt Breast cancer Surgical History History of lumpectomy of right breast Hx of colonoscopy Hx of right breast biopsy Social History Household Members: Other Housing: Apartment Are you a primary career development engineer to a significant other at home: No Do you presently have visiting nurse or other home services: Yes (Vj is visiting nurse, Arline CUNHA) Alcohol intake: never Patient Tobacco Use Status: Former Tobacco user Quit Date: 40 years ago Tobacco use type: Cigarette Advance Directives Date on File: 03/22/21 service: No Current occupational status: 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 Meds Allergies Allergy/AdvReac Type Severity Reaction Status Date / Time No Known Allergies Allergy Unknown UNKNOWN Verified 06/29/23 09:39 [NO KNOWN ALLERGIES] Active Medications: Current Medications Pharmacy Consult (Consult Rx Perform Med Rec) 1 each MISCELLANE ONCE PRN PRN Reason: Consult order Home Medications Medication Instructions Recorded Confirmed Last Taken Type aripiprazole 20 mg tablet (Abilify) 20 mg PO DAILY 02/14/22 06/29/23 06/29/23 09:00 History blood sugar diagnostic (FreeStyle #10 ea 02/14/22 06/29/23 06/29/23 09:00 History Lite Strips) citalopram 40 mg tablet 40 mg PO BEDTIME 02/14/22 06/29/23 06/28/23 History gabapentin 300 mg capsule 300 mg PO TID 02/14/22 06/29/23 06/29/23 09:00 History insulin glargine 100 unit/mL 15 unit subcut DAILY 02/14/22 06/29/23 06/29/23 09:00 History subcutaneous solution (Lantus U-100 Insulin) isosorbide mononitrate 30 mg 1 tab PO DAILY 04/09/22 06/29/23 06/29/23 09:00 History tablet,extended release 24 hr pravastatin 20 mg tablet 1 tab PO BEDTIME 04/09/22 06/29/23 06/28/23 History acetaminophen 500 mg tablet 500 mg PO Q6H PRN Pain 11/27/22 06/29/23 Unknown History naloxone 4 mg/actuation nasal spray 1 spray intranasal Q2M PRN Opioid 11/27/22 06/29/23 Unknown History Overdose nitroglycerin 0.4 mg sublingual 0.4 mg sublingual Q5M PRN Chest 11/27/22 06/29/23 Unknown History tablet Pain omega-3 fatty acids 1,000 mg 1,000 mg PO TID 11/27/22 06/29/23 06/29/23 09:00 History capsule oxybutynin chloride 10 mg 2 tab PO DAILY 11/27/22 06/29/23 06/29/23 09:00 History tablet,extended release 24 hr cholecalciferol (vitamin D3) 25 25 mcg PO DAILY 03/17/23 06/29/23 06/29/23 09:00 History mcg (1,000 unit) tablet letrozole 2.5 mg tablet 2.5 mg PO DAILY 03/17/23 06/29/23 06/29/23 09:00 History lisinopril 2.5 mg tablet 2.5 mg PO DAILY 03/17/23 06/29/23 06/29/23 09:00 History sennosides 8.6 mg tablet (senna) 17.2 mg PO BEDTIME 03/17/23 06/29/23 06/28/23 History albuterol sulfate 90 mcg/actuation 2 inh inhalation Q4H PRN shortness 06/29/23 06/29/23 Unknown History aerosol inhaler of breath or wheezing metoprolol tartrate 25 mg tablet 25 mg PO BID 06/29/23 06/29/23 06/29/23 09:00 History trazodone 50 mg tablet 50 mg PO BEDTIME 06/29/23 06/29/23 06/28/23 History Physical Exam Vital Signs and Narrative: Vital Signs: Last Vital Signs Temp 98.7 F 06/29/23 09:16 Pulse 70 06/29/23 11:34 Resp 18 06/29/23 11:34 BP 84/27 L 06/29/23 11:34 Pulse Ox 95 06/29/23 11:34 O2 Del Method Nasal Cannula 06/29/23 11:34 O2 Flow Rate 2 06/29/23 11:34 BMI result Body Mass Index 27.5 Results Labs 06/29/23 09:50 06/29/23 09:50 Labs: Laboratory Results - last 24 hr 06/29/23 06/29/23 06/29/23 09:50 09:50 09:50 MCV 105.3 H MCH 35.4 H MCHC 33.7 RDW 14.5 Plt Count 162 MPV 9.6 Immature Gran % (Auto) 4.4 H Neut % (Auto) 80.3 H Lymph % (Auto) 9.4 L Crisp % (Auto) 5.3 Eos % (Auto) 0.3 Baso % (Auto) 0.3 Lymph # (Auto) 0.3 L Crisp # (Auto) 0.2 Eos # (Auto) 0.0 Baso # (Auto) 0.0 Abs Immat Gran (auto) 0.14 H Absolute Neuts (auto) 2.6 Absolute Nucleated RBC 0.000 Nucleated RBC % (auto) 0.0 Smear Tech's Comments VERIFIED ESR 115 H Anion Gap 14 Estim Creat Clear Calc 66.4 Estimated GFR > 60 Random Glucose 122 H Calcium 8.0 L D Magnesium 1.8 Total Bilirubin 0.7 AST 15 ALT 12 Alkaline Phosphatase 56 C-Reactive Protein 8.23 H Total Protein 5.9 L Albumin 3.3 L COVID-19 (ELIZABETH) COVID-19 Clin Com Influenza Type A (SRUTHI) Influenza Type B (SRUTHI) Influenza A & B Note Blood Type Antibody Screen Crossmatch 06/29/23 06/29/23 06/29/23 09:55 09:55 10:30 MCV MCH MCHC RDW Plt Count MPV Immature Gran % (Auto) Neut % (Auto) Lymph % (Auto) Crisp % (Auto) Eos % (Auto) Baso % (Auto) Lymph # (Auto) Crisp # (Auto) Eos # (Auto) Baso # (Auto) Abs Immat Gran (auto) Absolute Neuts (auto) Absolute Nucleated RBC Nucleated RBC % (auto) Smear Tech's Comments ESR Anion Gap Estim Creat Clear Calc Estimated GFR Random Glucose Calcium Magnesium Total Bilirubin AST ALT Alkaline Phosphatase C-Reactive Protein Total Protein Albumin COVID-19 (ELIZABETH) Negative COVID-19 Clin Com See Note Influenza Type A (SRUTHI) Negative Influenza Type B (SRUTHI) Negative Influenza A & B Note See Note Blood Type A Positive Antibody Screen NEGATIVE Crossmatch See Detail Imaging Radiologist's Impressions: Impressions Chest X-Ray 06/29/23 10:09 IMPRESSION: Radiographic findings most suggestive of pulmonary edema. Follow-up imaging recommended status post treatment to ensure resolution. Assessment and Plan Time Spent With Patient Time: Total time managing care of this patient today ____ minutes.
== END 2023-06-29 16:39 | disposition home or self-care (01) ==
PROVIDERS: Physician Assistant Medical; Emergency Provider Student in an Organized Health Care Education/Training Program
DX: R07.89 Other chest pain (principal); R07.81 Pleurodynia; Z20.822 Contact with and (suspected) exposure to COVID-19; Z20.828 Contact with and (suspected) exposure to other viral communicable diseases; Z79.899 Other long term (current) drug therapy; Z87.891 Personal history of nicotine dependence
CPT/HCPCS: 71046; 80053; 83735; 84484; 85025; 85652; 86140; 86850; 86900; 86901; 86923; 87502; 87635; 93005; 96361; 96374; 96375; 99285; J2405

== ENCOUNTER → 2023-06-29 09:28 | Outpatient (BNV) | payer OTHER, SELFPAY | PROVIDERS: Emergency Provider Student in an Organized Health Care Education/Training Program; Visit Provider Internal Medicine | DX: R07.9 Chest pain, unspecified (principal) | CPT/HCPCS: 93010 ==

== ENCOUNTER 2023-07-01 20:20 | Emergency (ER) | payer OTHER, SELFPAY ==
[2023-07-01 20:33] VITALS: BP 70/46; BP 77/34; PULSE 120; PULSE 85; RESP 16; TEMP 37.7; O2SAT 92; O2SAT 94; BMI 32.5
--- NOTE | 2023-07-01 20:38 | ED_ITS ---
HPI - Altered Mental Status General Chief Complaint: Altered Mental Status Stated Complaint: AMS Time Seen by Provider: 07/01/23 20:36 Source: old records reviewed Mode of arrival: EMS History of Present Illness HPI narrative: Patient is 67 years old with history of metastatic breast cancer with Mets to the bone DNR DNI comfort care planning to get hospice care was seen here yesterday and discharge as patient refused to get any treatment and sent home on morphine plan to get hospice care today comes back as son feels that patient is very lethargic and sleepy Related Data Home Medications Medication Instructions Recorded Confirmed aripiprazole 20 mg tablet (Abilify) 20 mg PO DAILY 02/14/22 06/29/23 blood sugar diagnostic (FreeStyle #10 ea 02/14/22 06/29/23 Lite Strips) citalopram 40 mg tablet 40 mg PO BEDTIME 02/14/22 06/29/23 gabapentin 300 mg capsule 300 mg PO TID 02/14/22 06/29/23 insulin glargine 100 unit/mL 15 unit subcut DAILY 02/14/22 06/29/23 subcutaneous solution (Lantus U-100 Insulin) isosorbide mononitrate 30 mg 1 tab PO DAILY 04/09/22 06/29/23 tablet,extended release 24 hr pravastatin 20 mg tablet 1 tab PO BEDTIME 04/09/22 06/29/23 acetaminophen 500 mg tablet 500 mg PO Q6H PRN Pain 11/27/22 06/29/23 naloxone 4 mg/actuation nasal spray 1 spray intranasal Q2M PRN Opioid 11/27/22 06/29/23 Overdose nitroglycerin 0.4 mg sublingual 0.4 mg sublingual Q5M PRN Chest 11/27/22 06/29/23 tablet Pain omega-3 fatty acids 1,000 mg 1,000 mg PO TID 11/27/22 06/29/23 capsule oxybutynin chloride 10 mg 2 tab PO DAILY 11/27/22 06/29/23 tablet,extended release 24 hr cholecalciferol (vitamin D3) 25 25 mcg PO DAILY 03/17/23 06/29/23 mcg (1,000 unit) tablet letrozole 2.5 mg tablet 2.5 mg PO DAILY 03/17/23 06/29/23 lisinopril 2.5 mg tablet 2.5 mg PO DAILY 03/17/23 06/29/23 sennosides 8.6 mg tablet (senna) 17.2 mg PO BEDTIME 03/17/23 06/29/23 albuterol sulfate 90 mcg/actuation 2 inh inhalation Q4H PRN shortness 06/29/23 06/29/23 aerosol inhaler of breath or wheezing metoprolol tartrate 25 mg tablet 25 mg PO BID 06/29/23 06/29/23 trazodone 50 mg tablet 50 mg PO BEDTIME 06/29/23 06/29/23 Previous Rx's Medication Instructions Recorded methylcellulose (laxative) 500 mg 500 mg PO DAILY #90 tabs 08/20/22 tablet (Fiber Laxative (methylcellulose)) palbociclib 125 mg capsule 125 mg PO DAILY #21 caps 12/31/22 (Ibrance) furosemide 40 mg tablet 60 mg PO DAILY 30 days #45 tabs 01/17/23 pantoprazole 40 mg tablet,delayed 40 mg PO DAILY@0630 #90 tabs 02/05/23 release oxycodone 5 mg tablet 5 mg PO Q6H PRN Pain (Scale Score 05/14/23 4-6) #60 tabs morphine 30 mg tablet,extended 30 mg PO Q8H #90 tabs 06/06/23 release Anoro Ellipta 62.5 mcg-25 1 ea PO DAILY #60 ea 06/16/23 mcg/actuation powder for inhalation (umeclidinium-vilanterol) Allergies Allergy/AdvReac Type Severity Reaction Status Date / Time No Known Allergies Allergy Unknown UNKNOWN Verified 06/29/23 09:39 [NO KNOWN ALLERGIES] [facility] Past Medical History Medical History Abnormal ultrasound of breast Asthma Breast cancer Constipation COPD (chronic obstructive pulmonary disease) COPD (chronic obstructive pulmonary disease) COVID-19 Diabetes type 2, controlled Diarrhea Diarrhea Dyspnea on exertion Fungal skin infection Hypertension Invasive ductal carcinoma of right breast Lymph node enlargement Osteoarthritis of right knee Pneumonia Pneumonitis Sleep apnea Supplemental oxygen dependent Tubular adenoma Surgical History History of lumpectomy of right breast Hx of colonoscopy Hx of right breast biopsy Family History Family History Brother Diabetes Sister Diabetes Breast cancer, Onset Age: 67 Mother Breast cancer, Onset Age: 59 Maternal Aunt Breast cancer Social History Social History Household Members: Other Housing: Apartment Are you a primary healthcare sales representative to a significant other at home: No Do you presently have visiting nurse or other home services: Yes (Vj is visiting nurse, Arline CUNHA) Alcohol intake: never Patient Tobacco Use Status: Former Tobacco user Quit Date: 40 years ago Tobacco use type: Cigarette Advance Directives: Yes Advance Directives on File: Yes Advance Directives Date on File: 03/22/21 service: No 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 Oral Mucosa moist Neck: Normal inspection. Neck supple. CVS: Normal heart rate and rhythm. Pulses normal. Respiratory: No respiratory distress. Equal air entry bilateral, no wheezing/rales/rhonchi Abdomen: Soft and nontender. Bowel sounds are present, no mass palpable, no CVA tenderness Skin: Skin warm and dry. Normal skin color. Normal skin turgor. Extremities: No lower extremity edema. No calf tenderness Neuro: Lethargic. Medical Decision Making Medical Decision Making MDM Narrative: Patient with metastatic breast cancer was here yesterday and decided to have chest pain medication does not wanted further management and wanted hospice care for pain control from multiple osteolytic lesions after patient was given morphine by visiting nurse patient pain unresponsive son ask for transfer to hospital on further discussion with the family they agreed patient would wish comfort care as per her wishes will give her morphine as needed hospice consult case management Discharge Plan Discharge Clinical Impression: Breast cancer metastasized to bone Patient Disposition: Still a Patient Prescriptions: No Action furosemide 40 mg tablet 60 mg PO DAILY 30 Days Qty: 45 6RF pantoprazole 40 mg tablet,delayed release (DR/EC) 40 mg PO DAILY@0630 Qty: 90 2RF Anoro Ellipta 62.5-25 mcg/actuation blister with device 1 ea PO DAILY Qty: 60 2RF Ibrance 125 mg Capsule 125 mg PO DAILY Qty: 21 6RF Rx Instructions: administer on days 1 through 21 of a 28-day treatment cycle. 11/28/22 - DAY 1 OF 3 WEEKS ON PERIOD oxycodone 5 mg tablet 5 mg PO Q6H PRN (Reason: Pain (Scale Score 4-6)) Qty: 60 0RF morphine 30 mg Tablet Extended Release 30 mg PO Q8H Qty: 90 0RF Rx Instructions: Partial Fill upon patient request. isosorbide mononitrate 30 mg tablet extended release 24 hr 1 tab PO DAILY pravastatin 20 mg tablet 1 tab PO BEDTIME omega-3 fatty acids 1,000 mg Capsule 1,000 mg PO TID oxybutynin chloride 10 mg tablet extended release 24hr 2 tab PO DAILY acetaminophen 500 mg Tablet 500 mg PO Q6H PRN (Reason: Pain) nitroglycerin 0.4 mg Tablet, Sublingual 0.4 mg SUBLINGUAL Q5M PRN (Reason: Chest Pain) Rx Instructions: do not exceed 3 doses per episode naloxone 4 mg/actuation spray,non-aerosol 1 spray intranasal Q2M PRN (Reason: Opioid Overdose) lisinopril 2.5 mg tablet 2.5 mg PO DAILY cholecalciferol (vitamin D3) 25 mcg (1,000 unit) tablet 25 mcg PO DAILY letrozole 2.5 mg tablet 2.5 mg PO DAILY sennosides [senna] 8.6 mg tablet 17.2 mg PO BEDTIME metoprolol tartrate 25 mg tablet 25 mg PO BID trazodone 50 mg tablet 50 mg PO BEDTIME albuterol sulfate 90 mcg/actuation HFA aerosol inhaler 2 inh inhalation Q4H PRN (Reason: shortness of breath or wheezing) (DME) FreeStyle Lite Strips Strip See Rx Instructions Not Applicable BID Qty: 10 Rx Instructions: As directed Lantus U-100 Insulin 100 unit/mL solution 15 unit subcut DAILY aripiprazole [Abilify] 20 mg tablet 20 mg PO DAILY gabapentin 300 mg capsule 300 mg PO TID citalopram 40 mg tablet 40 mg PO BEDTIME Fiber Laxative(methylcellulos) 500 mg tablet 500 mg PO DAILY Qty: 90 3RF
--- NOTE | 2023-07-01 21:15 | PC.NURSE ---
Pt reports neck pain and req a pillow. Pt followed verbal command to reposition pillow.
[2023-07-01 21:45] VITALS: BP 80/41; PULSE 79; RESP 15; O2SAT 96
--- NOTE | 2023-07-01 22:03 | MHC.CM.ED ---
CM met with patient at request of Dr. Garrido. Pt is unresponsive. Does not respond to voice or sternal rub. O2 sat 92 on 3L, BP 85/38. Pt was at [facility] [place]. Pt has metastatic breast cancer to bone and brain. Met with hospice. Was responsive then. Refused all treatments, including blood transfusions, but wanted to continue chemo medications and all of her regular medications. Pt was not agreeable to hospice and requested discharge home. Pt completed a MOLST and is a DNR/DNI. CM called son/HCP Will López ([phone]). CM verified address, as listed address on face sheet is [facility]. Pt lives at [address] [place] [address], [address] in [place]. Pt has [employer] insurance. Will tells CM that patient has daily nurse for medications, 2 ALFALFA DEHYDRATOR OPERATOR's and family that cover her care 23/06. Will states his mother does not want to go to a facility, and needs pain medications. CM attempted to discuss hospice again, but son continues to stress that his mother continue with all of her medications, including cancer medications. Dr. Garrido aware of conversation with HCP. Dr. Garrido called son, Will and explained the seriousness of his mother's condition and requested that he come to the hospital. Dr. Garrido explained that the patient could . Dr. Garrido explained that the patient is comfortable. Clinical Coordinator and primary nurse aware of above. CM will follow for discharge needs.
--- NOTE | 2023-07-01 22:41 | MHC.CM.ED ---
Will and family arrived at 2220. Asking why she is like this. Explained that the cancer is too advanced and that treatment doesn't always help anymore. Explained that medications she was taking at home are no longer helping her. Pt did complete a MOLST ( DNR/DNI) and as of 06/29, did not want more treatment in the hospital. Family is agreeable for hospice at home.Dr. Garrido in. Explained pt poor condition and what SENIOR LIBRARIAN entails. Will wants his mother comfortable, without IV's and wants her to come home. Pt will remain tonight, as her condition is very poor and a hospice consult will be made in [facility] for the morning. Will aware that family may visit overnight and be with the patient. Will order a hospital bed for comfort. Pt has not responded to her son, despite verbal and tactile stimulation. Primary RN and Clinical Coordinator aware. CM following for discharge planning.
[2023-07-02 06:00] VITALS: PULSE 78; RESP 18
--- NOTE | 2023-07-02 06:02 | PC.NURSE ---
Pt asleep for the entire night. Appears to be in no pain or distress. 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 Hospice referral in place. Family at bedside wishes to take pt home with hospice services in place and is willing to speak with hospice regarding pts needs for comfort. Family left and states will return later in the day. All needs met. Will continue to monitor.
[2023-07-02 08:15] VITALS: PULSE 77; RESP 14
--- NOTE | 2023-07-02 09:02 | PC.NURSE ---
sr on monitor, skin wpd, has been sleeping all morning thus far, resp even and unlabored, no facial grimace, appears comfortable
--- NOTE | 2023-07-02 11:47 | PC.NURSE ---
continues to sleep, resp even and unlabored, skin wpd
--- NOTE | 2023-07-02 11:55 | MHC.CM.ED ---
Patient currently in ER. Will be transferred to ER overflow. Per Gale at [facility], Kelly will meet with patient's family this afternoon. Continue to monitor for d/c needs.
[2023-07-02 12:14] VITALS: PULSE 77; RESP 16
--- NOTE | 2023-07-02 12:14 | PC.NURSE ---
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
[2023-07-02 13:49] VITALS: BP 96/50; PULSE 81; RESP 18; TEMP 38.8
--- NOTE | 2023-07-02 13:51 | PC.NURSE ---
Addendum entered by Jerald Jacobsen 07/02/23 13:56: discharge coordinator to notify ED provider w request for PA tylenol. Original Note: pt arousable, febrile, hypotensive, other vss, NC O2 @ 3L, pt assisted onto bedpan at family request, pt incontinent of small amount of stool, cleaned and repositioned in bed. spa coordinator/sailing officer and family member at bedside.
[2023-07-02] MEDS: Acetaminophen Supp 650 MG SUPP.RECT PR (14:48)
--- NOTE | 2023-07-02 15:08 | PC.NURSE ---
NC tylenol given for 102 rectal temp.
[2023-07-02 16:25] VITALS: TEMP 38.9
--- NOTE | 2023-07-02 16:34 | MHC.CM.ED ---
CM spoke with son/HCP Will regarding plan to D/C tonight at 6:30 via BLS, with the hospice nurse coming in the morning, or staying overnight. Will also aware that he will be given prescriptions to fill tonight for pain and anxiety. Will is agreeable and states family is at the home getting ready for patients return. States hospital bed is being delivered. Will given scripts for Morphine and Ativan. Will fill at [facility]. Will wants to care for his mother at home.CM reminded him to call the hospice nurse if he has any questions about his mother's care or condition. Will than asked CM how long his mother had to live. CM explained that there is a natural course to , and I do not know when his mother will pass. Encouraged him to talk and use touch often with his mother, especially when she in not responding. CM will follow for discharge.
[2023-07-02 18:36] VITALS: PULSE 81; RESP 16
--- NOTE | 2023-07-02 19:16 | PC.NURSE ---
pt incontinent of small amount of stool, cleaned and repositioned into bed. EMS at bedside for transport.
== END 2023-07-02 19:18 | disposition home or self-care (01) ==
PROVIDERS: Emergency Provider Internal Medicine
DX: R41.82 Altered mental status, unspecified (principal); C50.911 Malignant neoplasm of unspecified site of right female breast; C79.51 Secondary malignant neoplasm of bone; Z66 Do not resuscitate; I10 Essential (primary) hypertension; J44.9 Chronic obstructive pulmonary disease, unspecified; R06.00 Dyspnea, unspecified; Z99.81 Dependence on supplemental oxygen; Z79.4 Long term (current) use of insulin; Z79.899 Other long term (current) drug therapy; Z79.891 Long term (current) use of opiate analgesic
CPT/HCPCS: 99284